=== PATIENT | female | born 1950 | race Caucasian/White ===

== ENCOUNTER 2016-05-15 19:07 | Inpatient (IN) | payer MEDICARE, OTHER ==
--- NOTE | 2016-05-15 19:25 | ED ---
Neuro HPI - General Stated Complaint: CVA Time Seen by Provider: 05/15/16 19:14 Source: EMS, RN notes reviewed Limitations: altered mental status - History of Present Illness Is the patient presenting with stroke symptoms?: Yes Last Known Well Date: 05/15/16 Last Known Well Time: 17:30 -: hour(s) Initial Comments: This patient is a 66-year-old woman sent in from longterm for suspicion of possible stroke. They report that the patient will last seen in her usual state of health around 5:30 PM. She was next observed to have trouble speaking and to reportedly have left arm weakness. Patient does have previous history of stroke. The patient is not able to provide much history though she can answer some simple 1 word questions. Location: speech, left arm History of same: Yes Place: home Severity: severe Quality: weak Improves With: none Worsens With: none - Related Data Home Medications: Home Medications Medication Instructions Recorded Confirmed Atorvastatin Calcium [Lipitor] 40 mg PO HS@209902/02/14 05/15/16 Loratadine [Claritin] 10 mg PO DAILY PRN 02/02/14 05/15/16 Apixaban [Eliquis] 2.5 mg PO BID@0900,209910/10/14 05/15/16 Calcium Carb-Vit D 500Mg-200Un 1 tab PO BID@0900,1700 10/10/14 05/15/16 [Oscal 500+D] Ferrous Sulfate [Iron (65 MG 325 mg PO DAILY@0900 01/01/16 05/15/16 Elemental)] OLANZapine [ZyPREXA] 10 mg PO TID@0900,1300,209901/09/16 05/15/16 Sertraline [Zoloft] 100 mg PO DAILY@0901/09/16 05/15/16 amLODIPine [Norvasc] 10 mg PO DAILY@0901/09/16 05/15/16 ALPRAZolam [Xanax] 1 mg PO Q6H PRN 05/15/16 05/15/16 Aspirin 325 mg PO DAILY@89905/15/16 05/15/16 Atenolol [Tenormin] 25 mg PO DAILY@0905/15/16 05/15/16 Furosemide [Lasix] 20 mg PO DAILY@89905/15/1616 Gabapentin [Neurontin] 100 mg PO BID@0900,2100 05/15/16 05/15/16 HYDROcodone/APAP 5-325MG [[place] 1 tab PO Q12H PRN 05/15/16 05/15/16 5-325] Ibuprofen [Motrin] 200 mg PO Q12H PRN 05/15/16 05/15/16 Latanoprost Ophth [Xalatan 0.005%] 1 drops BOTH EYES HS@209905/15/16 05/15/16 Lisinopril [Zestril] 20 mg PO DAILY@0900 05/15/16 05/15/16 Methyl Salicylate/Menthol 1 patch TRANSDERM DAILY@0900 05/15/16 05/15/16 [Salonpas Patch] Morphine Sulfate ER [Ms Contin 15 mg PO DAILY PRN 05/15/16 05/15/16 15Mg] Morphine Sulfate ER [Ms Contin] 15 mg PO Q12HR 05/15/16 05/15/16 Potassium Chloride [Klor-Con 10] 10 meq PO DAILY@0900 05/15/16 05/15/16 Previous Rx's Medication Instructions Recorded Acetaminophen Tab [Tylenol] 650 mg PO Q4H PRN #0 tab 01/06/16 Cholecalciferol [Vitamin D3] 5,000 unit PO DAILY@1200 tab 01/06/16 Cholestyramine (with Sugar) 4 gm PO DAILY@0900 packet 01/06/16 [Questran Packet] Isosorbide Mononitrate ER [Imdur] 30 mg PO DAILY@0600 tab.er.24h 01/06/16 Levothyroxine Sodium [Synthroid] 100 mcg PO DAILY@0600 tab 01/06/16 Mag Hydrox/Al Hydrox/Simeth 30 ml PO Q6H PRN #0 cup 01/06/16 [Maalox] Montelukast [Singulair] 10 mg PO HS@2100 tab 01/06/16 Ondansetron [Zofran] 4 mg PO Q6H PRN #0 tab 01/06/16 Allergies/Adverse Reactions: Allergies Allergy/AdvReac Type Severity Reaction Status Date / Time strawberry Allergy Unknown Verified 05/15/16 20:21 Review of Systems ROS Statement: Those systems with pertinent positive or pertinent negative responses have been documented in the HPI. ROS Other: All systems not noted in ROS Statement are negative. General Exam General appearance: alert, obese, other (This patient is a 66-year-old woman who appears older than her stated age. She is alert but not responding appropriately. She does appear to be having periodic myoclonic jerks.) Head exam: Present: atraumatic, normocephalic Eye exam: Present: normal appearance, PERRL, EOMI. Absent: scleral icterus, conjunctival injection ENT exam: Present: mucous membranes dry Neck exam: Present: normal inspection. Absent: tenderness, meningismus Respiratory exam: Present: rhonchi. Absent: respiratory distress, wheezes, rales, stridor, decreased breath sounds Cardiovascular Exam: Present: regular rate, normal rhythm, normal heart sounds. Absent: systolic murmur, diastolic murmur, rubs, gallop GI/Abdominal exam: Present: soft. Absent: tenderness, guarding, rebound, mass Extremities exam: Present: other (Right-sided AKA.). Absent: tenderness, pedal edema, calf tenderness Back exam: Present: normal inspection Neurological exam: Present: alert, motor sensory deficit (There is left arm weakness). Absent: oriented X3 (Patient appears oriented to person and she seems to recognize that this is a hospital but not oriented to date), CN II-XII intact (Speech is dysarthric) Skin exam: Present: warm, dry, intact, normal color. Absent: rash Stroke MDM - Lab Data Result diagrams: 05/16/16 04:25 05/16/16 04:25 Lab Results 05/15/16 05/15/16 05/15/16 Range/Units 19:15 19:15 19:15 WBC 17.2 H (3.8-10.6) k/uL RBC 3.91 (3.80-5.40) m/uL Hgb 11.5 (11.4-16.0) gm/dL Hct 36.7 (34.0-46.0) % MCV 93.8 (80.0-100.0) fL MCH 29.5 (25.0-35.0) pg MCHC 31.4 (31.0-37.0) g/dL RDW 13.7 (11.5-15.5) % Plt Count 134 L (150-450) k/uL Neutrophils % 91 % Lymphocytes % 4 % Monocytes % 3 % Eosinophils % 1 % Basophils % 0 % Neutrophils # 15.7 H (1.3-7.7) k/uL Lymphocytes # 0.7 L (1.0-4.8) k/uL Monocytes # 0.5 (0-1.0) k/uL Eosinophils # 0.1 (0-0.7) k/uL Basophils # 0.0 (0-0.2) k/uL Hypochromasia Slight PT (9.0-12.0) sec INR (<1.1) APTT (22.0-30.0) sec Sodium 138 (137-145) mmol/L Potassium 8.8 H* (3.5-5.1) mmol/L Chloride 104 (98-107) mmol/L Carbon Dioxide 18 L (22-30) mmol/L Anion Gap 16 mmol/L BUN 65 H (7-17) mg/dL Creatinine 4.14 H (0.52-1.04) mg/dL Est GFR (MDRD) Af Amer 13 (>60 ml/min/1.73 sqM) Est GFR (MDRD) Non-Af 11 (>60 ml/min/1.73 sqM) Glucose 118 H (74-99) mg/dL POC Glucose (mg/dL) (75-99) mg/dL POC Glu Car Dumper Operator Helper ID Plasma Lactic Acid Anshul (0.7-2.0) mmol/L Calcium 8.5 (8.4-10.2) mg/dL Total Bilirubin 0.4 (0.2-1.3) mg/dL AST 38 H (14-36) U/L ALT 44 (9-52) U/L Alkaline Phosphatase 89 (38-126) U/L Total Creatine Kinase 161 H (30-135) U/L CK-MB (CK-2) 3.6 H* (0.0-2.4) ng/mL CK-MB (CK-2) Rel Index 2.2 Troponin I <0.012 (0.000-0.034) ng/mL Total Protein 7.6 (6.3-8.2) g/dL Albumin 3.6 (3.5-5.0) g/dL Urine Color Urine Appearance (Clear) Urine pH (5.0-8.0) Ur Specific [place] (1.001-1.035) Urine Protein (Negative) Urine Glucose (UA) (Negative) Urine Ketones (Negative) Urine Blood (Negative) Urine Nitrate (Negative) Urine Bilirubin (Negative) Urine Urobilinogen (<2.0) mg/dL Ur Leukocyte Esterase (Negative) Urine RBC (0-5) /hpf Urine WBC (0-5) /hpf Urine WBC Clumps (None) /hpf Ur Squamous Epith Cells (0-4) /hpf Amorphous Sediment (None) /hpf Urine Bacteria (None) /hpf Hyaline Casts (0-2) /lpf 05/15/16 05/15/16 05/15/16 Range/Units 19:15 20:12 20:12 WBC (3.8-10.6) k/uL RBC (3.80-5.40) m/uL Hgb (11.4-16.0) gm/dL Hct (34.0-46.0) % MCV (80.0-100.0) fL MCH (25.0-35.0) pg MCHC (31.0-37.0) g/dL RDW (11.5-15.5) % Plt Count (150-450) k/uL Neutrophils % % Lymphocytes % % Monocytes % % Eosinophils % % Basophils % % Neutrophils # (1.3-7.7) k/uL Lymphocytes # (1.0-4.8) k/uL Monocytes # (0-1.0) k/uL Eosinophils # (0-0.7) k/uL Basophils # (0-0.2) k/uL Hypochromasia PT 11.2 (9.0-12.0) sec INR 1.1 (<1.1) APTT 30.4 H (22.0-30.0) sec Sodium (137-145) mmol/L Potassium 8.5 H* (3.5-5.1) mmol/L Chloride (98-107) mmol/L Carbon Dioxide (22-30) mmol/L Anion Gap mmol/L BUN (7-17) mg/dL Creatinine (0.52-1.04) mg/dL Est GFR (MDRD) Af Amer (>60 ml/min/1.73 sqM) Est GFR (MDRD) Non-Af (>60 ml/min/1.73 sqM) Glucose (74-99) mg/dL POC Glucose (mg/dL) (75-99) mg/dL POC Glu Car Dumper Operator Helper ID Plasma Lactic Acid Anshul 0.9 (0.7-2.0) mmol/L Calcium (8.4-10.2) mg/dL Total Bilirubin (0.2-1.3) mg/dL AST (14-36) U/L ALT (9-52) U/L Alkaline Phosphatase (38-126) U/L Total Creatine Kinase (30-135) U/L CK-MB (CK-2) (0.0-2.4) ng/mL CK-MB (CK-2) Rel Index Troponin I (0.000-0.034) ng/mL Total Protein (6.3-8.2) g/dL Albumin (3.5-5.0) g/dL Urine Color Urine Appearance (Clear) Urine pH (5.0-8.0) Ur Specific [place] (1.001-1.035) Urine Protein (Negative) Urine Glucose (UA) (Negative) Urine Ketones (Negative) Urine Blood (Negative) Urine Nitrate (Negative) Urine Bilirubin (Negative) Urine Urobilinogen (<2.0) mg/dL Ur Leukocyte Esterase (Negative) Urine RBC (0-5) /hpf Urine WBC (0-5) /hpf Urine WBC Clumps (None) /hpf Ur Squamous Epith Cells (0-4) /hpf Amorphous Sediment (None) /hpf Urine Bacteria (None) /hpf Hyaline Casts (0-2) /lpf 05/15/16 05/15/16 Range/Units 20:30 21:50 WBC (3.8-10.6) k/uL RBC (3.80-5.40) m/uL Hgb (11.4-16.0) gm/dL Hct (34.0-46.0) % MCV (80.0-100.0) fL MCH (25.0-35.0) pg MCHC (31.0-37.0) g/dL RDW (11.5-15.5) % Plt Count (150-450) k/uL Neutrophils % % Lymphocytes % % Monocytes % % Eosinophils % % Basophils % % Neutrophils # (1.3-7.7) k/uL Lymphocytes # (1.0-4.8) k/uL Monocytes # (0-1.0) k/uL Eosinophils # (0-0.7) k/uL Basophils # (0-0.2) k/uL Hypochromasia PT (9.0-12.0) sec INR (<1.1) APTT (22.0-30.0) sec Sodium (137-145) mmol/L Potassium (3.5-5.1) mmol/L Chloride (98-107) mmol/L Carbon Dioxide (22-30) mmol/L Anion Gap mmol/L BUN (7-17) mg/dL Creatinine (0.52-1.04) mg/dL Est GFR (MDRD) Af Amer (>60 ml/min/1.73 sqM) Est GFR (MDRD) Non-Af (>60 ml/min/1.73 sqM) Glucose (74-99) mg/dL POC Glucose (mg/dL) 184 H (75-99) mg/dL POC Glu Car Dumper Operator Helper ID Tessa Wyatt Plasma Lactic Acid Anshul (0.7-2.0) mmol/L Calcium (8.4-10.2) mg/dL Total Bilirubin (0.2-1.3) mg/dL AST (14-36) U/L ALT (9-52) U/L Alkaline Phosphatase (38-126) U/L Total Creatine Kinase (30-135) U/L CK-MB (CK-2) (0.0-2.4) ng/mL CK-MB (CK-2) Rel Index Troponin I (0.000-0.034) ng/mL Total Protein (6.3-8.2) g/dL Albumin (3.5-5.0) g/dL Urine Color Yellow Urine Appearance Turbid H (Clear) Urine pH 5.0 (5.0-8.0) Ur Specific [place] 1.020 (1.001-1.035) Urine Protein Trace H (Negative) Urine Glucose (UA) Negative (Negative) Urine Ketones Negative (Negative) Urine Blood Negative (Negative) Urine Nitrate Negative (Negative) Urine Bilirubin 1+ H (Negative) Urine Urobilinogen 2.0 (<2.0) mg/dL Ur Leukocyte Esterase Large H (Negative) Urine RBC 3 (0-5) /hpf Urine WBC 106 H (0-5) /hpf Urine WBC Clumps Many H (None) /hpf Ur Squamous Epith Cells 1 (0-4) /hpf Amorphous Sediment Rare H (None) /hpf Urine Bacteria Many H (None) /hpf Hyaline Casts 6 H (0-2) /lpf - EKG Data -: EKG Interpreted by Me EKG shows normal: sinus rhythm, axis (Normal), intervals (There is a prolonged AL interval at 256 ms and increased QRS duration at 132 ms), QRS complexes ( There is a nonspecific intraventricular block), ST-T waves (There are T inversions in leads 1 and aVL as well as V4 through V6) Rate: normal When compared to previous EKG there are: changes noted, other (In comparison with the EKG from December 2015, the intraventricular block appears new.) Past Medical History Past Medical History: Asthma, Heart Failure, Diabetes Mellitus, GERD/Reflux, GI Bleed, Hyperlipidemia, Hypertension, Osteoarthritis (OA), Pneumonia, Thyroid Disorder Additional Past Medical History / Comment(s): GENERALIZED MUSCLE WEAKNESS, OSTEOMYELITIS, UTI'S/SEPSIS,BRONCHITIS, LOWER GI BLEED(RECIEVED BLOOD), BACK PAIN, anemia, hep C, History of Any Multi-Drug Resistant Organisms: MRSA, Other MDRO Date of last positivie culture/infection: 10/10/2014-MDRO Pseudomonas; 11/25/2013- MRSA MDRO Source:: Urine-MDRO and MRSA Past Surgical History: Orthopedic Surgery Additional Past Surgical History / Comment(s): RIGHT KNEE REPLACEMTN THE POST OP INFECTION-SEVERAL OTHER SX THEN AKA , COLONOSCOPY,HAD A LT ARM PICC LINE FOR ABX, Past Anesthesia/Blood Transfusion Reactions: No Reported Reaction Additional Past Anesthesia/Blood Transfusion Reaction / Comment(s): Pt has recieved blood without reaction. Past Psychological History: Anxiety, Bipolar, Depression Additional Psychological History / Comment(s): Pt resides at [facility] on the [place]. She states she is able to transfer by herself to a wheelchair. She feeds herself and needs minimal assist with ADL's. Smoking Status: Former smoker Past Alcohol Use History: None Reported Additional Past Alcohol Use History / Comment(s): Pt started smoking around 1996 and quit smoking in 2005. Past Drug Use History: Heroin Additional Drug Use History / Comment(s): Pt states she did use heroin many yrs ago. - Past Family History Father Family Medical History: Hypertension Mother Family Medical History: Hypertension Course Vital Signs 05/15/16 05/15/16 05/15/16 19:10 19:25 19:40 Temperature 96.9 F L Pulse Rate 69 71 64 Respiratory 20 20 22 Rate Blood Pressure 92/59 86/50 O2 Sat by Pulse 92 L 91 L Oximetry 05/15/16 05/15/16 05/15/16 19:54 20:15 20:30 Temperature Pulse Rate 60 71 69 Respiratory 20 20 20 Rate Blood Pressure 74/37 O2 Sat by Pulse 92 L 92 L 93 L Oximetry 05/15/16 05/15/16 05/15/16 21:15 21:45 22:25 Temperature Pulse Rate 67 74 72 Respiratory 22 20 22 Rate Blood Pressure 97/52 O2 Sat by Pulse 94 L 94 L 91 L Oximetry 05/15/16 05/15/16 05/15/16 22:42 22:57 23:12 Temperature Pulse Rate 68 62 62 Respiratory 22 22 22 Rate Blood Pressure 85/48 86/46 83/45 O2 Sat by Pulse 96 95 94 L Oximetry 05/15/16 05/15/16 05/15/16 23:27 23:32 23:42 Temperature Pulse Rate 64 72 68 Respiratory 22 22 20 Rate Blood Pressure 80/50 99/65 101/52 O2 Sat by Pulse 97 95 96 Oximetry 05/16/16 05/16/16 00:01 01:48 Temperature Pulse Rate 65 64 Respiratory 22 20 Rate Blood Pressure 108/62 96/53 O2 Sat by Pulse 95 91 L Oximetry - Reevaluation(s) Reevaluation #1: 05/15/16 19:57 Patient seen and examined by Dr. Ashford, using the stroke robot. We conferred regarding the patient. There is documentation in the chart of past intracranial hemorrhage and in addition the patient's exam does seem to be improving somewhat, and based on these 2 factors TPA does not seem indicated. I am addition the patient's labs support metabolic issue as possible etiology for her altered mental status and weakness. Reevaluation #2: 05/16/16 07:02 The patient did have a response to the fluid bolus and blood pressure had improved then following the end of the fluid bolus she did become a little bit hypotensive again and I started central line so that the patient could receive another fluid bolus and for the administration of pressors. Procedures - Central Line Placement Left Femoral Consent Obtained: emergent situation Time Out Performed: Yes Patient Placed on Monitor/Pulse Ox: Yes MD Prep: mask, gown, gloves Central Line Prep: Chlorhexidine scrub Local Anesthesia Used: Lidocaine 1% Amount of Anesthesia Used (mls): 2 Central Line Lumen Inserted: triple Bloods Obtained for Lab: Yes Central Line Position: good blood return, all ports aspirated, flushed, capped, sutured in place with nylon Dressing Applied: Tegaderm Patient Tolerated Procedure: well Complications: none Critical Care Time Critical Care Time: Yes (55 minutes) Disposition Clinical Impression: Hyperkalemia, Acute renal failure, Urinary tract infection, Altered mental status, Hypotension Narrative: Possible acute ischemic stroke Disposition: ADMITTED IP TO THIS HOSP Condition: Critical
[2016-05-15 19:27] LABS: Basophils % (A) 0 %; CH 29.3; CHCM 31.4; Eosinophils # (A) 0.1 k/uL (0-0.7); Eosinophils % (A) 1 %; HCT 36.7 % (34.0-46.0); HGB 11.5 gm/dL (11.4-16.0); Hypochromasia Slight; Luc # (Auto) 0.17; Luc % (Auto) 1; Lymphocytes # (A) 0.7 k/uL (1.0-4.8); Lymphocytes % (A) 4 %; MCH 29.5 pg (25.0-35.0); MCHC 31.4 g/dL (31.0-37.0); MCV 93.8 fL (80.0-100.0); Mean Platelet Volume 8.1; Monocytes # (A) 0.5 k/uL (0-1.0); Monocytes % (A) 3 %; Neutrophils # (A) 15.7 k/uL (1.3-7.7); Neutrophils % (A) 91 %; RBC 3.91 m/uL (3.80-5.40); RDW 13.7 % (11.5-15.5); WBC 17.2 k/uL (3.8-10.6); WBC (Perox) 18.81
--- NOTE | 2016-05-15 19:37 | CT ---
EXAMINATION TYPE: CT brain wo con DATE OF EXAM: 05/15/2016 7:31 PM COMPARISON: 01/09/2016 HISTORY: Neuro deficits. CT DLP: mGycm Automated exposure control for dose reduction was used. FINDINGS: There is some cerebral cortical atrophy. There is no mass effect or midline shift. There is no sign o f intracranial hemorrhage. The calvarium is intact. There is mild hypodensity in the right occipital lobe consistent with old cortical infarct. There is mild hypodensity in the left and right internal c apsule consistent with some chronic small vessel ischemia. IMPRESSION: There is evidence of old right occipital lobe infarct and chronic small vessel ischemia that is less noticeable than the old CT scan of 01/09/2016. No hemorrhage. I see no sign of a new infarct.
[2016-05-15 19:48] LABS: Calcium 8.5 mg/dL (8.4-10.2); Total Bilirubin 0.4 mg/dL (0.2-1.3); Total Protein 7.6 g/dL (6.3-8.2)
[2016-05-15 19:52] LABS: Potassium 8.8 mmol/L (3.5-5.1)
[2016-05-15] MEDS ORDERED: SODIUM CHLORIDE 0.9% 1,000 ML IV ONE ×3 (19:53→23:07)
[2016-05-15 20:00] LABS: INR 1.1 (<1.1); Partial Thromboplastin Time 30.4 sec (22.0-30.0); Prothrombin Time 11.2 sec (9.0-12.0)
[2016-05-15 20:03] LABS: Creatine Kinase 161 U/L (30-135)
[2016-05-15 20:15] LABS: Creatine Kinase MB 3.6 ng/mL (0.0-2.4); Troponin I <0.012 ng/mL (0.000-0.034)
--- NOTE | 2016-05-15 20:27 | XR ---
EXAMINATION TYPE: XR chest 1V portable DATE OF EXAM: 05/15/2016 8:09 PM COMPARISON: 01/10/2016 HISTORY: Slurred speech. Left-sided weakness. Dyspnea. TECHNIQUE: Single frontal view of the chest is obtained. FINDINGS: A portable single view the chest shows no gross heart failure. Costophrenic angles are genet ar. There are no hilar masses. There are chest leads. IMPRESSION: No active cardiopulmonary disease. No heart failure. No change compared to last exam.
[2016-05-15] MEDS ORDERED: CALCIUM GLUCONATE 1,000 MG in SODIUM CHLORIDE 0.9% 100 ML IVPB ONE (20:30)
[2016-05-15] MEDS ORDERED: SODIUM POLYSTYRENE SULFONATE 15 GM/60 ML BOTTLE PO STA (20:43)
[2016-05-15] MEDS ORDERED: DEXTROSE 50%-WATER 50 ML SYRINGE IVP STA (20:43)
[2016-05-15] MEDS ORDERED: INSULIN REGULAR 100 UNIT/ML VIAL IV STA (20:43)
[2016-05-15] MEDS ORDERED: SODIUM BICARB 8.4% 50 ML SYR (1 MEQ/ML) IV STA (20:43)
[2016-05-15 20:44] LABS: Amorphous Sediment,Urine Rare /hpf; Appearance,Urine Turbid (Clear); Bacteria,Urine Many /hpf; Bilirubin,Urine 1+ (Negative); Glucose,Urine (UA) Negative (Negative); Ketones,Urine Negative (Negative); Leukocyte Esterase,Urine Large (Negative); Nitrite,Urine Negative (Negative); Particle Count 20837; Protein,Urine Trace (Negative); RBC,Urine 3 /hpf (0-5); Squamous Epithelial Cell,Urine 1 /hpf (0-4); UA Billing (MACRO vs. MICRO) MICRO; WBC,Urine 106 /hpf (0-5)
[2016-05-15] MEDS ORDERED: SODIUM CHLORIDE 0.9% 1,000 ML IV STA (20:59)
[2016-05-15] MEDS ORDERED: LEVOFLOXACIN 750MG-D5W PMX 750 MG in DEXTROSE/WATER 1 150ML.BAG IVPB STA (21:24)
[2016-05-15 21:54] LABS: Glucose,Whole Blood 184 mg/dL (75-99)
[2016-05-15] MEDS ORDERED: SODIUM POLYSTYRENE SULFONATE 30 GM/120 ML BOTTLE RECTAL STA (22:01)
[2016-05-15] MEDS ORDERED: ACETAMINOPHEN SUPPOSITORY 650 MG SUPP RECTAL PRN (23:53)
[2016-05-15] MEDS ORDERED: NALOXONE 0.4 MG/ML 1 ML VIAL IV PRN (23:53)
[2016-05-15] MEDS ORDERED: ONDANSETRON 4 MG TAB PO PRN (23:57)
[2016-05-15] MEDS ORDERED: MAG HYDROX/AL HYDROX/SIMETH 30 ML CUP PO PRN (23:57)
[2016-05-16] MEDS ORDERED: NOREPINEPHRINE 16 MG in SODIUM CHLORIDE 0.9% 250 ML IV ONE (01:08)
[2016-05-16 01:20] LABS: Basophils % (A) 0 %; CH 29.2; Eosinophils # (A) 0.1 k/uL (0-0.7); Eosinophils % (A) 1 %; HCT 33.4 % (34.0-46.0); HDW 2.98; HGB 10.3 gm/dL (11.4-16.0); Hypochromasia Moderate; Luc # (Auto) 0.14; Luc % (Auto) 1; Lymphocytes # (A) 0.8 k/uL (1.0-4.8); Lymphocytes % (A) 5 %; MCH 29.2 pg (25.0-35.0); MCHC 30.9 g/dL (31.0-37.0); MCV 94.6 fL (80.0-100.0); Mean Platelet Volume 8.1; Monocytes # (A) 0.5 k/uL (0-1.0); Monocytes % (A) 3 %; Neutrophils % (A) 90 %; RBC 3.53 m/uL (3.80-5.40); RDW 13.7 % (11.5-15.5); WBC 15.5 k/uL (3.8-10.6); WBC (Perox) 17.08
[2016-05-16] MEDS: SODIUM CHLORIDE 0.9% 1,000 ML IV SCH ×4 (01:24→19:46)
[2016-05-16 01:26] LABS: Calcium 7.6 mg/dL (8.4-10.2); Total Bilirubin 0.2 mg/dL (0.2-1.3); Total Protein 6.2 g/dL (6.3-8.2)
[2016-05-16 01:41] LABS: Potassium 7.8 mmol/L (3.5-5.1)
[2016-05-16] MEDS ORDERED: HYDROmorphone 1 MG/ML 1 ML SYRINGE IVP STA (01:50)
[2016-05-16] MEDS: NOREPINEPHRINE 16 MG in SODIUM CHLORIDE 0.9% 250 ML IV SCH ×4 (02:05→23:34)
[2016-05-16 02:07] LABS: Glucose,Whole Blood 129 mg/dL (75-99)
[2016-05-16] MEDS ORDERED: ETOMIDATE 2 MG/ML 10 ML VIAL ONE (02:10)
[2016-05-16 02:49] LABS: ABG HCO3 18 mmol/L (21-25); ABG PCO2 64 mmHg (35-45); ABG PH 7.07 (7.35-7.45); ABG PO2 71 mmHg (83-108); ABG TCO2 20 mmol/L (19-24)
[2016-05-16] MEDS ORDERED: NALOXONE 0.4 MG/ML 1 ML VIAL IV STA (02:59)
[2016-05-16] MEDS: PROPOFOL 500 MG in EMPTY BAG 1 BAG IV SCH ×11 (03:05→23:46)
[2016-05-16 03:07] LABS: Magnesium 2.1 mg/dL (1.6-2.3)
[2016-05-16 03:15] LABS: Phosphorous 8.8 mg/dL (2.5-4.5)
[2016-05-16] MEDS ORDERED: FUROSEMIDE IVPB SCH (03:15)
[2016-05-16] MEDS ORDERED: SODIUM CHLORIDE 0.9% IVPB SCH (03:15)
[2016-05-16] MEDS ORDERED: PROPOFOL 50 ML IV ONE (03:18)
[2016-05-16] MEDS ORDERED: FUROSEMIDE IVP ONE (03:30)
[2016-05-16] MEDS ORDERED: HEPARIN SODIUM 1,000 UNIT/ML VIAL ONE (04:05)
[2016-05-16] MEDS ORDERED: LIDOCAINE 1% INJ 10MG/ML (20 ML MDV) ONE (04:05)
[2016-05-16 04:18] LABS: ABG HCO3 16 mmol/L (21-25); ABG PCO2 51 mmHg (35-45); ABG PH 7.13 (7.35-7.45); ABG PO2 145 mmHg (83-108)
[2016-05-16 04:19] LABS: ABG Base Excess -11.4 mmol/L; ABG TCO2 18 mmol/L (19-24)
[2016-05-16 04:37] LABS: Basophils % (A) 0 %; CH 29.2; CHCM 29.7; Eosinophils # (A) 0.1 k/uL (0-0.7); Eosinophils % (A) 0 %; HCT 37.2 % (34.0-46.0); HDW 2.96; HGB 10.9 gm/dL (11.4-16.0); Hypochromasia Marked; Luc # (Auto) 0.17; Luc % (Auto) 1; Lymphocytes # (A) 0.8 k/uL (1.0-4.8); Lymphocytes % (A) 4 %; MCH 28.9 pg (25.0-35.0); MCHC 29.2 g/dL (31.0-37.0); MCV 98.8 fL (80.0-100.0); Mean Platelet Volume 8.7; Monocytes # (A) 0.6 k/uL (0-1.0); Monocytes % (A) 3 %; Neutrophils # (A) 19.7 k/uL (1.3-7.7); Neutrophils % (A) 92 %; RBC 3.77 m/uL (3.80-5.40); RDW 13.9 % (11.5-15.5); WBC 21.5 k/uL (3.8-10.6); WBC (Perox) 23.09
--- NOTE | 2016-05-16 04:45 | XR ---
EXAMINATION TYPE: XR chest 1V portable DATE OF EXAM: 05/16/2016 4:25 AM COMPARISON: May 15, 2016 HISTORY: ET tube placement TECHNIQUE: Single frontal view of the chest is obtained. Portable upright study May 16, 2016, 4: 18 AM hours FINDINGS: ET tube is noted in place with its tip approximately 1 cm above the giovanny. NG tube is noted in place with its tip coiled in the stomach area. Right-sided central line is noted in place with its tip in the atriocaval junction area. There is suggestion of diffuse mild perihilar pulmonary edema. There is also possibility of chronic lung changes. No definite focal pneumonia or pneumothorax or ple ural effusion is noted. There is mild cardiomegaly and atherosclerotic calcification in the aortic ar ch. The osseous structures are intact. IMPRESSION: 1. ET tube NG tube and right-sided central line are noted. 2. Suggestion of mild pulmonary edema. No focal pneumonia is noted.
[2016-05-16] MEDS ORDERED: SODIUM CHLORIDE 0.9% 2,000 ML IV ONE ×2 (04:47→20:01)
[2016-05-16] MEDS ORDERED: SODIUM BICARB 8.4% 50 ML VIAL (1 MEQ/ML) IV STA (04:47)
[2016-05-16] MEDS ORDERED: SODIUM BICARB 8.4% 50 ML SYR (1 MEQ/ML) IV STA (04:54)
[2016-05-16 04:55] LABS: Calcium 7.7 mg/dL (8.4-10.2); Total Bilirubin 0.5 mg/dL (0.2-1.3); Total Protein 6.8 g/dL (6.3-8.2)
[2016-05-16 05:00] LABS: Potassium 7.8 mmol/L (3.5-5.1)
[2016-05-16] MEDS ORDERED: ISOSORBIDE MONONITRATE ER 30 MG TAB.ER.24H PO SCH (06:00)
[2016-05-16 06:45] LABS: Glucose,Whole Blood 141 mg/dL (75-99)
[2016-05-16] MEDS ORDERED: IPRATROPIUM-ALBUTEROL 3 ML NEB INHALATION PRN (08:10)
[2016-05-16] MEDS ORDERED: ATENOLOL 25 MG TAB PO SCH (09:00)
[2016-05-16] MEDS ORDERED: APIXABAN 2.5 MG TABLET PO SCH (09:00)
[2016-05-16] MEDS ORDERED: LISINOPRIL 20 MG TAB PO SCH (09:00)
--- NOTE | 2016-05-16 09:03 | P.NPCON ---
History of Present Illness - Reason for Consult acute renal failure - Chief Complaint MS change with SOPHIA and pot 8 - History of Present Illness This is a 66-year-old female seen in consultation because of severe hyperkalemia and acute kidney injury. She is a senior living resident at [facility]. I spoke to the nurse taking care of her at the senior living. Yesterday at 5:30 PM she had an acute change in her mental status and was noted to have left-sided weakness and transferred to emergency room. Her baseline mental status is normal. She is on morphine sulfate though because of chronic pain syndrome with phantom pain and possibly neuropathy in the left leg. I spoke to the nurse and her blood for supposedly is 119 yesterday. 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 At the time her creatinine was normal.. She was found to be hypotensive, somewhat disoriented have acute kidney injury with creatinine of 8.8 and repeat creatinines were 8.5 and 7.8. She is currently on dialysis for this reason as she did not respond to the conventional treatment and additionally was started on Lasix early this morning. She has responded with some urine output. Patient known with diabetes for unknown number of years, she had a normal creatinine of 0. 7 on 01/14/2016. A later creatinine drawn in the senior living on 05/08/2016 shows a creatinine of about 1.52 potassium is 5.7. This time she is on lisinopril and KCl 10 mEq as well as Lasix 20 mg a day. No history of taking any nonsteroidals. She was on Cipro for a few days last dose was approximately 04/30/2016 based on the senior living medication list. No new medications were given. No history of fall and nausea vomiting diarrhea abdominal pain no fever chills cough shortness of breath. No history of seizures in the senior living. In the past during her admission here on 01/01/2016 she did, with a creatinine of 2.6 for the time and went home with a creatinine of 0.7 as of 01/14/2016. Past Medical History Past Medical History: Asthma, Heart Failure, Diabetes Mellitus, GERD/Reflux, GI Bleed, Hyperlipidemia, Hypertension, Osteoarthritis (OA), Pneumonia, Thyroid Disorder Additional Past Medical History / Comment(s): GENERALIZED MUSCLE WEAKNESS, OSTEOMYELITIS, UTI'S/SEPSIS,BRONCHITIS, LOWER GI BLEED(RECIEVED BLOOD), BACK PAIN, anemia, hep C, History of Any Multi-Drug Resistant Organisms: MRSA, Other MDRO Date of last positivie culture/infection: 10/10/2014-MDRO Pseudomonas; 11/25/2013- MRSA MDRO Source:: Urine-MDRO and MRSA Past Surgical History: Orthopedic Surgery Additional Past Surgical History / Comment(s): RIGHT KNEE REPLACEMTN THE POST OP INFECTION-SEVERAL OTHER SX THEN AKA , COLONOSCOPY,HAD A LT ARM PICC LINE FOR ABX, Past Anesthesia/Blood Transfusion Reactions: No Reported Reaction Additional Past Anesthesia/Blood Transfusion Reaction / Comment(s): Pt has recieved blood without reaction. Past Psychological History: Anxiety, Bipolar, Depression Additional Psychological History / Comment(s): Pt resides at [facility] on [facility]. She states she is able to transfer by herself to a wheelchair. She feeds herself and needs minimal assist with ADL's. Smoking Status: Former smoker Past Alcohol Use History: None Reported Additional Past Alcohol Use History / Comment(s): Pt started smoking around 1996 and quit smoking in 2005. Past Drug Use History: Heroin Additional Drug Use History / Comment(s): Pt states she did use heroin many yrs ago. - Past Family History Father Family Medical History: Hypertension Mother Family Medical History: Hypertension Medications and Allergies Home Medications Medication Instructions Recorded Confirmed Type Atorvastatin Calcium [Lipitor] 40 mg PO HS@209902/02/14 05/15/16 History Loratadine [Claritin] 10 mg PO DAILY PRN 02/02/14 05/15/16 History Apixaban [Eliquis] 2.5 mg PO BID@0900,209910/10/14 05/15/16 History Calcium Carb-Vit D 500Mg-200Un 1 tab PO BID@0900,1700 10/10/14 05/15/16 History [Oscal 500+D] Ferrous Sulfate [Iron (65 MG 325 mg PO DAILY@0900 01/01/16 05/15/16 History Elemental)] OLANZapine [ZyPREXA] 10 mg PO TID@0900,1300,2100 01/09/16 05/15/16 History Sertraline [Zoloft] 100 mg PO DAILY@0900 01/09/16 05/15/16 History amLODIPine [Norvasc] 10 mg PO DAILY@0900 01/09/16 05/15/16 History ALPRAZolam [Xanax] 1 mg PO Q6H PRN 05/15/16 05/15/16 History Aspirin 325 mg PO DAILY@0900 05/15/16 05/15/16 History Atenolol [Tenormin] 25 mg PO DAILY@0900 05/15/16 05/15/16 History Furosemide [Lasix] 20 mg PO DAILY@0900 05/15/16 05/15/16 History Gabapentin [Neurontin] 100 mg PO BID@0900,209905/15/16 05/15/16 History HYDROcodone/APAP 5-325MG [[place] 1 tab PO Q12H PRN 05/15/16 05/15/16 History 5-325] Ibuprofen [Motrin] 200 mg PO Q12H PRN 05/15/16 05/15/16 History Latanoprost Ophth [Xalatan 0.005%] 1 drops BOTH EYES HS@209905/15/16 05/15/16 History Lisinopril [Zestril] 20 mg PO DAILY@0900 05/15/16 05/15/16 History Methyl Salicylate/Menthol 1 patch TRANSDERM DAILY@0905/15/16 05/15/16 History [Salonpas Patch] Morphine Sulfate ER [Ms Contin 15 mg PO DAILY PRN 05/15/16 05/15/16 History 15Mg] Morphine Sulfate ER [Ms Contin] 15 mg PO Q12HR 05/15/16 05/15/16 History Potassium Chloride [Klor-Con 10] 10 meq PO DAILY@0900 05/15/16 05/15/16 History Allergies Allergy/AdvReac Type Severity Reaction Status Date / Time strawberry Allergy Unknown Verified 05/15/16 20:21 Physical Exam Vitals: Vital Signs Temp Pulse Resp BP Pulse Ox 05/16/16 08:20 81 24 120/40 97 05/16/16 08:00 68 24 115/44 96 05/16/16 07:40 66 24 124/36 97 05/16/16 07:20 66 24 114/36 97 05/16/16 07:00 66 24 120/38 96 05/16/16 06:40 73 24 85/36 98 05/16/16 06:20 75 24 102/30 97 05/16/16 06:00 75 24 106/32 96 05/16/16 05:50 66 24 110/34 97 05/16/16 05:40 104 H 24 104/37 97 05/16/16 05:30 65 24 107/37 98 05/16/16 05:20 65 24 112/34 99 05/16/16 05:10 96 26 H 106/42 100 05/16/16 05:00 69 24 100/36 100 05/16/16 04:50 98.3 F 95 24 91/35 99 05/16/16 04:40 65 14 91/35 97 05/16/16 04:30 73 15 96 05/16/16 04:20 66 14 100/59 100 05/16/16 04:10 68 16 87/31 100 05/16/16 04:00 69 17 86/31 99 05/16/16 03:50 80 14 100/33 99 05/16/16 03:40 78 18 103/45 99 05/16/16 03:30 76 14 79/41 99 05/16/16 03:20 82 16 82/50 98 05/16/16 03:00 69 24 80/42 88 L 05/16/16 02:50 68 26 H 92/70 80 L 05/16/16 02:40 69 20 91/46 85 L 05/16/16 02:30 67 24 91/46 90 L 05/16/16 02:10 95.5 F L 75 22 85/66 90 L 05/16/16 02:05 96.9 F L 05/16/16 01:48 64 20 96/53 91 L 05/16/16 00:01 65 22 108/62 95 05/15/16 23:42 68 20 101/52 96 05/15/16 23:32 72 22 99/65 95 05/15/16 23:27 64 22 80/50 97 05/15/16 23:12 62 22 83/45 94 L 05/15/16 22:57 62 22 86/46 95 05/15/16 22:42 68 22 85/48 96 05/15/16 22:25 72 22 97/52 91 L Intake and Output 12/23/16 12/24/16 12/24/16 22:59 06:59 14:59 Intake Total 2342.325 1897 Output Total 230 95 Balance 1031.979 905 Intake: Intake, IV Titration 4595.962 0547 Amount Furosemide 200 mg In 20 Empty Bag 1 bag @ 40 mls/ hr IVP ONCE ONE Rx#: [id number] Norepinephrine 16 mg In 1.827 Sodium Chloride 0.9% 250 ml @ Titrate IV .Q0M ONE Rx#:[id number] Norepinephrine 16 mg In 182.858 Sodium Chloride 0.9% 250 ml @ Titrate IV .Q0M RODRÍGUEZ Rx#:[id number] Propofol 500 mg In Empty 57.294 Bag 1 bag @ Titrate IV . Q0M RODRÍGUEZ Rx#:[id number] Sodium Chloride 0.9% 1, 1000 1000 000 ml @ 999 mls/hr IV . Q1H1M ONE Rx#:[id number] Output: Urine 230 95 Currently on exam she is intubated on 80% FiO2, she is sedated. Pupils are equal. Neck is supple no facial asymmetry no carotid bruit. No lymphadenopathy in her neck Lungs are clear to auscultation fair air entry bilaterally on the vent. Heart sounds are unremarkable no murmur rub gallop. Normal sinus rhythm. Abdomen soft nontender no organomegaly status masses Extremity exam was AKA on the right. Left is trace edema. Warm to touch there is no rash noted. Urine output is present with about 400 mL in the bag. She is currently obtunded because of the sedation. She is on levo fed 53 mics per minute. She's been giving about 5 L of IV fluids so for. Results - Lab Results Most recent lab results ABG pH 7.13 (7.35-7.45) L* 05/16/16 04:14 ABG pCO2 51 mmHg (35-45) H 05/16/16 04:14 ABG pO2 145 mmHg (83-108) H 05/16/16 04:14 ABG HCO3 16 mmol/L (21-25) L 05/16/16 04:14 ABG O2 Saturation 98.0 % (94-97) H 05/16/16 04:14 Calcium 7.7 mg/dL (8.4-10.2) L 05/16/16 04:25 Phosphorus 8.8 mg/dL (2.5-4.5) H* 05/16/16 01:06 Magnesium 2.1 mg/dL (1.6-2.3) 05/16/16 01:06 05/16/16 04:25 05/16/16 04:25 Assessment and Plan Plan: Impression. 1. Acute kidney injury secondary to low blood pressure, lisinopril. Slow increase in creatinine with a creatinine 1.52 on 05/08/2016 in the senior living. Possibility of acute incision nephritis from Cipro is being considered. Other possibilities are emboli to the kidney as she's had this problem with her admission in December for change in mental status and multiple small emboli noted on the computed tomography scan and MRI. A JOSE at the time was unremarkable. 2. Severe hyperkalemia secondary to combination of acute kidney injury, potassium lisinopril. In spite of this is out of proportion and other factors such as hydronephrosis should be looked for. She has a Ramos catheter therefore is not a question of outlet obstruction but brother bilateral hydronephrosis. An ultrasound is pending. Possible acute interstitial nephritis is considered as a creatinine has been going up slowly. 2. No evidence of chronic kidney disease with a creatinine of 0.7 on 2015. 4. Hypotension cause not very clear. Currently on levo fed. Acute DE ruled out. Cultures pending. Rule out sepsis. 5. History of diabetes mellitus, right AKA, 6. Multiple emboli to brain admitted December 2015. JOSE was normal. near complete recovery with normal mental status yesterday. 7. Respiratory acidosis post intubation, vent settings have been changed. 8. Mental status changes, some response to Narcan last night but needed intubation. 9. When dependent respiratory failure. Recommendation. 1. Maintain dialysis today. 2. Stat potassium 2 hours into the dialysis to ensure hyperkalemia is resolving. 3. Suggest broad-spectrum antibiotics until urine cultures are back. 4. We'll check urine for eosinophils, 5. Consider echocardiogram to see if there is any evidence of severe cardiomyopathy or pericardial effusion to explain her hypotension. 6. Check LDH to see if there is any evidence of renal emboli and infarcts. Further computed tomography scan or an MRI could be considered in the next few days if there is no renal recovery. 7. Regarding the urinalysis that shows large number of WBCs 106 consider acute interstitial nephritis. If urine cultures negative given her pyuria and If renal recovery is delayed Will start her on steroids for a few days possibly..
[2016-05-16 09:15] LABS: Calcium 7.6 mg/dL (8.4-10.2); Potassium 4.9 mmol/L (3.5-5.1); Total Bilirubin 0.6 mg/dL (0.2-1.3); Total Protein 6.4 g/dL (6.3-8.2)
[2016-05-16 09:44] LABS: ABG Base Excess -6.8 mmol/L; ABG HCO3 20 mmol/L (21-25); ABG PCO2 49 mmHg (35-45); ABG PH 7.23 (7.35-7.45); ABG PO2 93 mmHg (83-108); ABG TCO2 21 mmol/L (19-24)
[2016-05-16 09:54] LABS: VBG PH 7.29 (7.31-7.41)
[2016-05-16] MEDS: amLODIPine 10 MG TAB PO SCH (09:54)
[2016-05-16] MEDS: INSULIN LISPRO (humaLOG) 300 UNIT/3 ML VIAL SQ SCH ×3 (09:55→18:51)
[2016-05-16] MEDS: LEVOTHYROXINE 100 MCG TAB PO SCH (09:56)
[2016-05-16] MEDS: CALCIUM CARB-VIT D 500MG-200UN 1 EACH TAB PO SCH ×2 (09:57→16:32)
[2016-05-16] MEDS: CHLORHEXIDINE GLUCONATE 15 ML CUP MUCOUS MEM SCH ×2 (09:57→20:56)
[2016-05-16] MEDS: SERTRALINE 100 MG TAB PO SCH (09:58)
[2016-05-16] MEDS: FAMOTIDINE 20 MG/2 ML VIAL IV SCH (09:58)
[2016-05-16] MEDS: OLANZapine 10 MG TAB PO SCH ×3 (09:58→21:54)
[2016-05-16] MEDS: GABAPENTIN 100 MG CAP PO SCH ×2 (09:58→20:57)
--- NOTE | 2016-05-16 10:55 | US ---
EXAMINATION TYPE: US kidneys/renal and bladder DATE OF EXAM: 05/16/2016 10:42 AM COMPARISON: NONE CLINICAL HISTORY: US. No urine output per requisition, renal failure per nurse. Exam done portably i n ICU on vented patient unable to cooperate for exam EXAM MEASUREMENTS: Right Kidney: 11.5 x 4.4 x 5.2 cm Left Kidney: 11.0 x 4.2 x 5.4 cm ANATOMY: Right Kidney: wnl as visualized, imaging limited by body habitus and patient being unable to change p ositions Left Kidney: probably cyst midpole, measuring 1.3 x 1.3 x 1.5 cm seen on prior exams Bladder: not visualized as patient has a catheter TECHNOLOGIST IMPRESSION: Exam limited by body habitus and patient condition. There is no evidence for hydronephrosis at this point in time. No nephrolithiasis is seen. No olga s are identified. IMPRESSION: There is a 1.3 cm cyst in the interpolar left kidney. No evidence of solid renal mass or obstruction. Normal Values: Renal Length = 9 - 12cm Bladder Wall: < 0.3cm
[2016-05-16 10:58] LABS: ABG Base Excess -2.9 mmol/L; ABG HCO3 23 mmol/L (21-25); ABG PCO2 48 mmHg (35-45); ABG PH 7.29 (7.35-7.45); ABG PO2 94 mmHg (83-108); ABG TCO2 24 mmol/L (19-24)
[2016-05-16 11:15] LABS: Cholesterol 104 mg/dL (<200); HDL Cholesterol 26 mg/dL (40-60); Triglycerides 214 mg/dL (<150)
[2016-05-16] MEDS ORDERED: LORazepam 2 MG/ML SYRINGE IV STA (11:24)
[2016-05-16] MEDS: IPRATROPIUM-ALBUTEROL 3 ML NEB INHALATION SCH ×4 (11:25→23:33)
[2016-05-16] MEDS: PIPERACILLIN-TAZOBACTAM 3.375 GM in DEXTROSE/WATER 1 50ML.BAG IVPB SCH ×2 (11:30→16:48)
[2016-05-16] MEDS: HYDROmorphone 1 MG/ML 1 ML SYRINGE IVP PRN (11:31)
[2016-05-16] MEDS: CHOLECALCIFEROL 1,000 UNIT TAB PO SCH (11:55)
[2016-05-16 12:08] LABS: Glucose,Whole Blood 145 mg/dL (75-99)
[2016-05-16 12:15] LABS: Hemoglobin A1C 5.6 % (4.2-6.1)
[2016-05-16] MEDS: ASPIRIN 325 MG TAB PO SCH (13:48)
--- NOTE | 2016-05-16 14:05 | P.CNPUL ---
History of Present Illness Consult date: 05/16/16 Chief complaint: Acute respiratory failure, acute kidney injury, acute hyperkalemia History of present illness: This is a 66-year-old female patient, [facility] resident who resides at [facility], who came in yesterday to the emergency department with altered mental status and immediately she was identified to be in acute kidney injury. This is an acute renal failure with hyperkalemia. At the same time the patient was found to be hypotensive in shock. The patient was started on IV fluids a total of 4 L of IV fluid was given to her in the emergency department. She was treated for her hyperkalemia. Subsequently she got moved to the intensive care unit where the patient arrived hypotensive and shock state. She was started on pressors. She was started on norepinephrine infusion and at one point the dose as high as 50 mcg/m. The patient also had a dialysis catheter inserted and she was given a session of dialysis for acute hyperkalemia by nephrology. Note that the dialysis was successful and the patient had a drop in her potassium level which is essentially normalized. Note that his same time, the patient was intubated and placed on a mechanical ventilator. Chest x-ray from early this morning shows adequate positioning of the ET tube. There is cardiomegaly. No evidence of pneumonia. The urine is abnormal and there is evidence of urine checked infection pain noted the patient has had multiple UTIs in the past with quinolone resistant E. coli and previous history of Pseudomonas urine checked infection. Going back to the history, this patient has a very calm. Medical history. 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 The patient was in the hospital approximately in December 2015 and she was found to have multiple infarcts in her brain and the possibility of a embolism/ embolic phenomena was raised. Note that the MRI of the brain indicated non- acute vascular insult in the right lateral occipital lobes as well as a high right frontal lobe infarct and the high left parietal lobe infarct. The patient had evidence of subacute stroke involving the occipital lobe on the right. The patient was investigated further including a JOSE that showed moderate degree of aortic stenosis with a valve area of 1.2 cm. She was also found to have left anterior occurred artery stenosis estimated between 50-69%. The patient was discharged home on anticoagulation and she was taken Eliquis. The CAT scan of the brain that was done during this current admission shows no acute abnormalities. The patient is currently intubated on a mechanical ventilator. She is sedated. The pressor doses of been gradually weaned off. Attempts to insert an art line catheter was unsuccessful. Review of Systems ROS unobtainable: due to endotracheal tube Past Medical History Past Medical History: Asthma, Heart Failure, Diabetes Mellitus, GERD/Reflux, GI Bleed, Hyperlipidemia, Hypertension, Osteoarthritis (OA), Thyroid Disorder Additional Past Medical History / Comment(s): Morbid obesity, frequent urine checked infection with gram-negative bacteria including pseudomonas and E. coli , previous history of lower GI bleed, chronic back pain, chronic anemia, hepatitis C, multiple cerebral infarcts, history of osteomyelitis, anxiety/ depression moderate degree of aortic stenosis with estimated valve area of 1.2 cm, preserved LV function with a normal ejection fraction, left carotid artery stenosis estimated to be around 50-69% CO , diabetes mellitus, hyperlipidemia, hypertension History of Any Multi-Drug Resistant Organisms: MRSA, Other MDRO Date of last positivie culture/infection: 10/10/2014-MDRO Pseudomonas; 11/25/2013- MRSA MDRO Source:: Urine-MDRO and MRSA Past Surgical History: Orthopedic Surgery Additional Past Surgical History / Comment(s): RIGHT KNEE REPLACEMTN THE POST OP INFECTION-SEVERAL OTHER SX THEN AKA , COLONOSCOPY,HAD A LT ARM PICC LINE FOR ABX, Past Anesthesia/Blood Transfusion Reactions: No Reported Reaction Additional Past Anesthesia/Blood Transfusion Reaction / Comment(s): Pt has recieved blood without reaction. Past Psychological History: Anxiety, Bipolar, Depression Additional Psychological History / Comment(s): Pt resides at [facility] on [facility]. She states she is able to transfer by herself to a wheelchair. She feeds herself and needs minimal assist with ADL's. Smoking Status: Former smoker Past Alcohol Use History: None Reported Additional Past Alcohol Use History / Comment(s): Pt started smoking around 1996 and quit smoking in 2005. Past Drug Use History: Heroin Additional Drug Use History / Comment(s): Pt states she did use heroin many yrs ago. - Past Family History Father Family Medical History: Hypertension Mother Family Medical History: Hypertension Medications and Allergies Home Medications Medication Instructions Recorded Confirmed Type Atorvastatin Calcium [Lipitor] 40 mg PO HS@2100 02/02/14 12/23/16 History Loratadine [Claritin] 10 mg PO DAILY PRN 02/02/14 05/15/16 History Apixaban [Eliquis] 2.5 mg PO BID@09,209910/10/14 05/15/16 History Calcium Carb-Vit D 500Mg-200Un 1 tab PO BID@0900,1700 10/10/14 05/15/16 History [Oscal 500+D] Ferrous Sulfate [Iron (65 MG 325 mg PO DAILY@89901/01/16 05/15/16 History Elemental)] OLANZapine [ZyPREXA] 10 mg PO TID@0900,1300,209901/09/16 05/15/16 History Sertraline [Zoloft] 100 mg PO DAILY@0901/09/16 05/15/16 History amLODIPine [Norvasc] 10 mg PO DAILY@0900 01/09/16 05/15/16 History ALPRAZolam [Xanax] 1 mg PO Q6H PRN 05/15/16 05/15/16 History Aspirin 325 mg PO DAILY@0905/15/16 05/15/16 History Atenolol [Tenormin] 25 mg PO DAILY@89905/15/16 05/15/16 History Furosemide [Lasix] 20 mg PO DAILY@89905/15/16 05/15/16 History Gabapentin [Neurontin] 100 mg PO BID@0900,209905/15/16 05/15/16 History HYDROcodone/APAP 5-325MG [[place] 1 tab PO Q12H PRN 05/15/16 05/15/16 History 5-325] Ibuprofen [Motrin] 200 mg PO Q12H PRN 05/15/16 05/15/16 History Latanoprost Ophth [Xalatan 0.005%] 1 drops BOTH EYES HS@209905/15/16 05/15/16 History Lisinopril [Zestril] 20 mg PO DAILY@0905/15/16 05/15/16 History Methyl Salicylate/Menthol 1 patch TRANSDERM DAILY@0900 05/15/16 05/15/16 History [Salonpas Patch] Morphine Sulfate ER [Ms Contin 15 mg PO DAILY PRN 05/15/16 05/15/16 History 15Mg] Morphine Sulfate ER [Ms Contin] 15 mg PO Q12HR 05/15/16 05/15/16 History Potassium Chloride [Klor-Con 10] 10 meq PO DAILY@0900 05/15/16 05/15/16 History Allergies Allergy/AdvReac Type Severity Reaction Status Date / Time strawberry Allergy Unknown Verified 05/15/16 20:21 Physical Exam Vitals: Vital Signs Temp Pulse Pulse Pulse Resp BP BP 05/16/16 12:00 97.6 F 76 24 170/51 05/16/16 11:30 81 24 72/37 05/16/16 11:25 90 05/16/16 11:00 86 24 116/45 05/16/16 10:30 75 22 109/48 05/16/16 10:00 72 24 100/36 05/16/16 09:30 70 23 109/44 05/16/16 09:00 70 24 114/40 05/16/16 08:20 81 24 120/40 05/16/16 08:00 68 24 115/44 05/16/16 07:40 66 24 124/36 05/16/16 07:20 66 24 114/36 05/16/16 07:00 66 24 120/38 05/16/16 06:40 73 24 85/36 05/16/16 06:20 75 24 102/30 05/16/16 06:00 75 24 106/32 05/16/16 05:50 66 24 110/34 05/16/16 05:40 104 H 24 104/37 05/16/16 05:30 65 24 107/37 05/16/16 05:20 65 24 112/34 05/16/16 05:10 96 26 H 106/42 05/16/16 05:00 69 24 100/36 05/16/16 04:50 98.3 F 95 24 91/35 05/16/16 04:40 65 14 91/35 05/16/16 04:30 73 15 05/16/16 04:20 66 14 100/59 05/16/16 04:10 68 16 87/31 05/16/16 04:00 69 17 86/31 05/16/16 03:50 80 14 100/33 05/16/16 03:40 78 18 103/45 05/16/16 03:30 76 14 79/41 05/16/16 03:20 82 16 82/50 05/16/16 03:00 69 24 80/42 05/16/16 02:50 68 26 H 92/70 05/16/16 02:40 69 20 91/46 05/16/16 02:30 67 24 91/46 05/16/16 02:10 95.5 F L 75 22 85/66 05/16/16 02:05 96.9 F L 05/16/16 01:48 64 20 96/53 05/16/16 00:23 97.4 F L 72 72 24 119/43 05/16/16 00:01 65 22 108/62 05/15/16 23:42 68 20 101/52 05/15/16 23:32 72 22 99/65 05/15/16 23:27 64 22 80/50 05/15/16 23:12 62 22 83/45 05/15/16 22:57 62 22 86/46 05/15/16 22:42 68 22 85/48 05/15/16 22:25 72 22 97/52 Pulse Ox 05/16/16 12:00 99 05/16/16 11:30 98 05/16/16 11:25 05/16/16 11:00 97 05/16/16 10:30 96 05/16/16 10:00 97 05/16/16 09:30 96 05/16/16 09:00 95 05/16/16 08:20 97 05/16/16 08:00 97 05/16/16 07:40 97 05/16/16 07:20 97 05/16/16 07:00 96 05/16/16 06:40 98 05/16/16 06:20 97 05/16/16 06:00 96 05/16/16 05:50 97 05/16/16 05:40 97 05/16/16 05:30 98 05/16/16 05:20 99 05/16/16 05:10 100 05/16/16 05:00 100 05/16/16 04:50 99 05/16/16 04:40 97 05/16/16 04:30 96 05/16/16 04:20 100 05/16/16 04:10 100 05/16/16 04:00 99 05/16/16 03:50 99 05/16/16 03:40 99 05/16/16 03:30 99 05/16/16 03:20 98 05/16/16 03:00 88 L 05/16/16 02:50 80 L 05/16/16 02:40 85 L 05/16/16 02:30 90 L 05/16/16 02:10 90 L 05/16/16 02:05 05/16/16 01:48 91 L 05/16/16 00:23 05/16/16 00:01 95 05/15/16 23:42 96 05/15/16 23:32 95 05/15/16 23:27 97 05/15/16 23:12 94 L 05/15/16 22:57 95 05/15/16 22:42 96 05/15/16 22:25 91 L Intake and Output 05/15/16 05/16/16 05/16/16 22:59 06:59 14:59 Intake Total 5353.693 5686.577 Output Total 230 635 Balance 7335.091 3709.577 Intake: IV 644.1 Norepinephrine 16 mg In 137.9 Sodium Chloride 0.9% 250 ml @ Titrate IV .Q0M ONE Rx#:[id number] Propofol 500 mg In Empty 56.2 Bag 1 bag @ Titrate IV . Q0M RODRÍGUEZ Rx#:[id number] Sodium Chloride 0.9% 1, 450 000 ml @ 150 mls/hr IV . Q6H40M RODRÍGUEZ Rx#:[id number] Intake, IV Titration 8626.708 9577.477 Amount Furosemide 200 mg In 20 Empty Bag 1 bag @ 40 mls/ hr IVP ONCE ONE Rx#: [id number] Norepinephrine 16 mg In 1.827 Sodium Chloride 0.9% 250 ml @ Titrate IV .Q0M ONE Rx#:[id number] Norepinephrine 16 mg In 182.858 274.477 Sodium Chloride 0.9% 250 ml @ Titrate IV .Q0M RODRÍGUEZ Rx#:[id number] Propofol 500 mg In Empty 57.294 100 Bag 1 bag @ Titrate IV . Q0M RODRÍGUEZ Rx#:[id number] Sodium Chloride 0.9% 1, 1000 1000 000 ml @ 999 mls/hr IV . Q1H1M ONE Rx#:[id number] Output: Urine 230 635 Other: Voiding Method Indwelling Catheter Indwelling Catheter Weight 95.35 kg 95.35 kg Patient Weight 05/17/16 06:59 Weight 95.35 kg Head exam was generally normal. There was no scleral icterus or corneal arcus. Mucous membranes were moist. Patient is intubated on mechanical ventilator. She is edentulous.Neck was supple and without jugular venous distension, thyromegaly, or carotid bruits. Carotids were easily palpable bilaterally. There was no adenopathy. Orotracheal and orogastric tube are both in place. Neck is supple. There is no JVDs. No goiter. No neck masses. A right IJ dialysis catheter is in place. Lungs sounds are diminished other was clear clear. No wheezes overall currently crackles. Heart sounds are regular and there is a systolic ejection murmur grade 4/6 systolic the precordium.Abdominal exam revealed normal bowel sounds. The abdomen was soft, non-tender, and without masses, organomegaly, or appreciable enlargement of the abdominal aorta. Extremities show an above-knee amputation on the right. Left lower extremity is within normal limits with diminished pulses. Has some trace edema in the left lower extremity. Skin areas of ecchymosis and bruising probably due to over coagulation in the setting of an acute kidney injury. Results - Laboratory Findings CBC and BMP: 05/16/16 04:25 05/16/16 08:45 ABG ABG pH 7.29 (7.35-7.45) L 05/16/16 10:44 ABG pCO2 48 mmHg (35-45) H 05/16/16 10:44 ABG pO2 94 mmHg (83-108) 05/16/16 10:44 ABG O2 Saturation 96.0 % (94-97) 05/16/16 10:44 PT/INR, D-dimer PT 11.2 sec (9.0-12.0) 05/15/16 19:15 INR 1.1 (<1.1) 05/15/16 19:15 D-Dimer 0.83 mg/L FEU (<0.60) H 05/16/16 10:22 Abnormal lab findings: Abnormal Labs 05/16/16 05/16/16 05/16/16 01:06 01:06 01:06 WBC 15.5 H RBC 3.53 L Hgb 10.3 L Hct 33.4 L MCHC 30.9 L Plt Count 121 L Neutrophils # 14.0 H Lymphocytes # 0.8 L D-Dimer ABG pH ABG pCO2 ABG pO2 ABG HCO3 ABG Total CO2 ABG O2 Saturation VBG pH VBG pCO2 Potassium 7.8 H* Chloride 110 H Carbon Dioxide 19 L BUN 58 H Creatinine 3.60 H Glucose 118 H POC Glucose (mg/dL) Calcium 7.6 L Phosphorus 8.8 H* Total Protein 6.2 L Albumin 3.0 L Triglycerides HDL Cholesterol Urine Opiates Screen U Benzodiazepines Scrn 05/16/16 05/16/16 05/16/16 02:05 02:42 04:14 WBC RBC Hgb Hct MCHC Plt Count Neutrophils # Lymphocytes # D-Dimer ABG pH 7.07 L* 7.13 L* ABG pCO2 64 H 51 H ABG pO2 71 L 145 H ABG HCO3 18 L 16 L ABG Total CO2 18 L ABG O2 Saturation 85.0 L 98.0 H VBG pH VBG pCO2 Potassium Chloride Carbon Dioxide BUN Creatinine Glucose POC Glucose (mg/dL) 129 H Calcium Phosphorus Total Protein Albumin Triglycerides HDL Cholesterol Urine Opiates Screen U Benzodiazepines Scrn 05/16/16 05/16/16 05/16/16 04:25 04:25 06:43 WBC 21.5 H RBC 3.77 L Hgb 10.9 L Hct MCHC 29.2 L Plt Count Neutrophils # 19.7 H Lymphocytes # 0.8 L D-Dimer ABG pH ABG pCO2 ABG pO2 ABG HCO3 ABG Total CO2 ABG O2 Saturation VBG pH VBG pCO2 Potassium 7.8 H* Chloride 112 H Carbon Dioxide 14 L BUN 58 H Creatinine 3.46 H Glucose 141 H POC Glucose (mg/dL) 141 H Calcium 7.7 L Phosphorus Total Protein Albumin 3.2 L Triglycerides HDL Cholesterol Urine Opiates Screen U Benzodiazepines Scrn 05/16/16 05/16/16 05/16/16 07:13 08:25 08:45 WBC RBC Hgb Hct MCHC Plt Count Neutrophils # Lymphocytes # D-Dimer ABG pH 7.23 L ABG pCO2 49 H ABG pO2 ABG HCO3 20 L ABG Total CO2 ABG O2 Saturation VBG pH VBG pCO2 Potassium Chloride Carbon Dioxide BUN 32 H Creatinine 1.84 H Glucose 123 H POC Glucose (mg/dL) Calcium 7.6 L Phosphorus Total Protein Albumin 3.0 L Triglycerides HDL Cholesterol Urine Opiates Screen Detected H U Benzodiazepines Scrn Detected H 05/16/16 05/16/16 05/16/16 08:45 09:30 10:22 WBC RBC Hgb Hct MCHC Plt Count Neutrophils # Lymphocytes # D-Dimer 0.83 H ABG pH ABG pCO2 ABG pO2 ABG HCO3 ABG Total CO2 ABG O2 Saturation VBG pH 7.29 L VBG pCO2 54 H Potassium Chloride Carbon Dioxide BUN Creatinine Glucose POC Glucose (mg/dL) Calcium Phosphorus Total Protein Albumin Triglycerides 214 H HDL Cholesterol 26 L Urine Opiates Screen U Benzodiazepines Scrn 05/16/16 05/16/16 10:44 12:07 WBC RBC Hgb Hct MCHC Plt Count Neutrophils # Lymphocytes # D-Dimer ABG pH 7.29 L ABG pCO2 48 H ABG pO2 ABG HCO3 ABG Total CO2 ABG O2 Saturation VBG pH VBG pCO2 Potassium Chloride Carbon Dioxide BUN Creatinine Glucose POC Glucose (mg/dL) 145 H Calcium Phosphorus Total Protein Albumin Triglycerides HDL Cholesterol Urine Opiates Screen U Benzodiazepines Scrn - Diagnostic Findings Chest x-ray: image reviewed Assessment and Plan Plan: Assessment 1 acute shock, likely of a septic in nature. The patient is suspected to have a recurrent urine tract infection probably with gram-negative bacteria. She has been infected on multiple occasions in the past with E. coli that had been quinolone resistant and Pseudomonas. Patient has been adequately resuscitated IV fluids. The patient is on high-dose norepinephrine infusion. 2 acute kidney injury, multifactorial, rule out ATN. The patient received a session of dialysis yesterday to treat her hyperkalemia. She is producing adequate amount of urine output at this point. Potassium level is normalized 3 acute hyperkalemia, recovered 4 morbid obesity 5 multiple SEISMIC OBSERVER infarcts maintained on anticoagulation on outpatient basis 6 moderate degree of aortic stenosis, preserved LV function 7 hypertension, history of 8 hyperlipidemia history of 9 diabetes mellitus 10 above-knee amputation of the right lower extremity 11 reflux 12 hepatitis C viral infection 13 chronic back pain on narcotics 14 previous history of lower GI bleed Plan Keep the patient a beta mechanical ventilator. Keep the patient sedated with Diprivan. Continue the fluids. Continue the pressors. Gradually wean down the pressors as tolerated as the patient is blood pressures improving. Urine cultures. Blood cultures. IV Zosyn and will also put the patient on Levaquin for any potential respiratory tract infection. Based on previous sensitivities , the E. coli and Pseudomonas were both sensitive to Zosyn. Nephrology to monitor the renal function. The patient does not need dialysis at this point monitor acute hyperkalemia has been treated. No ANTICOAGULATION for now. Hold CHRISTY inhibitor and any form of nonsteroidal anti-inflammatory medication. Avoid nephrotoxic agents. Check a baseline cortisol level. Consider addition of vasopressin of the patient's blood pressure remains quite low. Repeat echocardiogram. We'll continue to follow. Condition is critical. Further recommendations to follow based on her overall progress.
[2016-05-16] MEDS: SODIUM CHLORIDE 0.9% 99 ML with VASOPRESSIN 20 UNIT IV SCH ×4 (14:51→23:29)
[2016-05-16 18:22] LABS: Glucose,Whole Blood 125 mg/dL (75-99)
[2016-05-16] MEDS ORDERED: DIAZEPAM 5 MG/ML 2 ML SYRINGE IVP ONE (18:49)
[2016-05-16] MEDS ORDERED: SODIUM CHLORIDE 0.9% IVPB ONE (18:50)
[2016-05-16] MEDS ORDERED: VALPROATE SODIUM IVPB ONE (18:50)
[2016-05-16 19:07] LABS: CH 28.8; CHCM 31.9; HDW 3.05; HGB 10.3 gm/dL (11.4-16.0); Hypochromasia Slight; MCH 29.3 pg (25.0-35.0); MCHC 32.2 g/dL (31.0-37.0); Mean Platelet Volume 7.9; RBC 3.52 m/uL (3.80-5.40); RDW 13.8 % (11.5-15.5)
[2016-05-16 19:11] LABS: WBC 31.6 k/uL (3.8-10.6)
[2016-05-16 19:13] LABS: MCV 90.9 fL (80.0-100.0)
[2016-05-16 19:24] LABS: Calcium 7.7 mg/dL (8.4-10.2); Potassium 4.4 mmol/L (3.5-5.1)
[2016-05-16] MEDS ORDERED: VANCOMYCIN 1,000 MG in SODIUM CHLORIDE 0.9% 250 ML IVPB STA (20:01)
[2016-05-16] MEDS: LEVOFLOXACIN 750MG-D5W PMX 750 MG in DEXTROSE/WATER 1 150ML.BAG IVPB SCH (20:53)
[2016-05-16] MEDS: ATORVASTATIN 40 MG TAB PO SCH (20:56)
[2016-05-16] MEDS: MONTELUKAST 10 MG TAB PO SCH (20:58)
--- NOTE | 2016-05-16 21:44 | P.CNNES ---
History of Present Illness Consult date: 05/16/16 Requesting physician: Gene Perez Reason for Consult: CVA Chief complaint: Possible CVA History of Present Illness: Patient is 66-year-old woman who was transported to the ED for possible stroke. The patient is a [facility] patient that was last seen at her normal baseline at 5:30 PM on May 15, 2016. She was observed to have trouble speaking and having left arm weakness. Patient does have history of prior stroke. Patient baseline mental status is reported to be normal. She has neuropathy in the left leg. 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 Patient also has a history of multiple small infarcts in the brain and was admitted in December 2015. During December 2015 admission, her creatinine was normal, she was hypotensive, disoriented as a result of acute kidney injury with creatinine of 8.8. She is currently on dialysis for this reason. Patient is also known to be diabetic for an unknown number of years with normal creatinine of 0.7 on 01/14/16. Her last creatinine draw in the [facility] on 05/08/16 shows a creatinine of 1.52, potassium of 5.7. At this time she is on lisinopril and KCl 10 mEq as well as Lasix 20 mg a day. Patient was on ciprofloxacin for a few days that terminated on 04/30/2016 per her [facility] medication list. No new medications or antibiotics were given. No history of fall, nausea, vomiting, diarrhea, abdominal pain, fever, chills, cough or shortness of breath. No history of seizures in the [facility]. On contact today, the patient is intubated and in the ICU. Patient is sedated on the ventilator. Review of Systems All review of systems are negative unless dictated above. Past Medical History Past Medical History: Asthma, Heart Failure, Diabetes Mellitus, GERD/Reflux, GI Bleed, Hyperlipidemia, Hypertension, Osteoarthritis (OA), Thyroid Disorder Additional Past Medical History / Comment(s): Morbid obesity, frequent urine checked infection with gram-negative bacteria including pseudomonas and E. coli , previous history of lower GI bleed, chronic back pain, chronic anemia, hepatitis C, multiple cerebral infarcts, history of osteomyelitis, anxiety/ depression moderate degree of aortic stenosis with estimated valve area of 1.2 cm, preserved LV function with a normal ejection fraction, left carotid artery stenosis estimated to be around 50-69% RI , diabetes mellitus, hyperlipidemia, hypertension History of Any Multi-Drug Resistant Organisms: MRSA, Other MDRO Date of last positivie culture/infection: 10/10/2014-MDRO Pseudomonas; 11/25/2013- MRSA MDRO Source:: Urine-MDRO and MRSA Past Surgical History: Orthopedic Surgery Additional Past Surgical History / Comment(s): RIGHT KNEE REPLACEMTN THE POST OP INFECTION-SEVERAL OTHER SX THEN AKA -2014, COLONOSCOPY,HAD A LT ARM PICC LINE FOR ABX, Past Anesthesia/Blood Transfusion Reactions: No Reported Reaction Additional Past Anesthesia/Blood Transfusion Reaction / Comment(s): Pt has recieved blood without reaction. Past Psychological History: Anxiety, Bipolar, Depression Additional Psychological History / Comment(s): Pt resides at [facility] on the [place]. She states she is able to transfer by herself to a wheelchair. She feeds herself and needs minimal assist with ADL's. Smoking Status: Former smoker Past Alcohol Use History: None Reported Additional Past Alcohol Use History / Comment(s): Pt started smoking around 1996 and quit smoking in 2005. Past Drug Use History: Heroin Additional Drug Use History / Comment(s): Pt states she did use heroin many yrs ago. - Past Family History Father Family Medical History: Hypertension Mother Family Medical History: Hypertension Medications and Allergies Home Medications Medication Instructions Recorded Confirmed Type Atorvastatin Calcium [Lipitor] 40 mg PO HS@209902/02/14 05/15/16 History Loratadine [Claritin] 10 mg PO DAILY PRN 02/02/14 05/15/16 History Apixaban [Eliquis] 2.5 mg PO BID@0900,209910/10/14 05/15/16 History Calcium Carb-Vit D 500Mg-200Un 1 tab PO BID@0900,1700 10/10/14 05/15/16 History [Oscal 500+D] Ferrous Sulfate [Iron (65 MG 325 mg PO DAILY@0900 01/01/16 05/15/16 History Elemental)] OLANZapine [ZyPREXA] 10 mg PO TID@0900,1300,2100 01/09/16 05/15/16 History Sertraline [Zoloft] 100 mg PO DAILY@0900 01/09/16 05/15/16 History amLODIPine [Norvasc] 10 mg PO DAILY@0900 01/09/16 05/15/16 History ALPRAZolam [Xanax] 1 mg PO Q6H PRN 05/15/16 05/15/16 History Aspirin 325 mg PO DAILY@0900 05/15/16 05/15/16 History Atenolol [Tenormin] 25 mg PO DAILY@0900 05/15/16 05/15/16 History Furosemide [Lasix] 20 mg PO DAILY@0900 05/15/16 05/15/16 History Gabapentin [Neurontin] 100 mg PO BID@0900,209905/15/16 05/15/16 History HYDROcodone/APAP 5-325MG [[place] 1 tab PO Q12H PRN 05/15/16 05/15/16 History 5-325] Ibuprofen [Motrin] 200 mg PO Q12H PRN 05/15/16 05/15/16 History Latanoprost Ophth [Xalatan 0.005%] 1 drops BOTH EYES HS@209905/15/16 05/15/16 History Lisinopril [Zestril] 20 mg PO DAILY@0900 05/15/16 05/15/16 History Methyl Salicylate/Menthol 1 patch TRANSDERM DAILY@0900 05/15/16 05/15/16 History [Salonpas Patch] Morphine Sulfate ER [Ms Contin 15 mg PO DAILY PRN 05/15/16 05/15/16 History 15Mg] Morphine Sulfate ER [Ms Contin] 15 mg PO Q12HR 05/15/16 05/15/16 History Potassium Chloride [Klor-Con 10] 10 meq PO DAILY@0900 05/15/16 05/15/16 History Allergies Allergy/AdvReac Type Severity Reaction Status Date / Time strawberry Allergy Unknown Verified 05/15/16 20:21 Physical Examination - Vital Signs Vital Signs: Vital Signs Temp Pulse Pulse Pulse Resp BP BP 05/16/16 19:54 94 05/16/16 19:43 97 05/16/16 19:00 84 24 119/67 05/16/16 18:30 83 33 H 100/46 05/16/16 18:00 88 23 100/46 05/16/16 17:30 85 19 108/54 05/16/16 17:12 92 05/16/16 17:03 05/16/16 17:00 94 24 110/40 12/24/16 16:30 77 23 95/40 16 16:00 98.6 F 80 24 113/40 16 15:30 81 24 110/35 05/16/16 15:00 93 24 105/39 16 14:30 93 24 82/35 16 14:00 92 23 112/45 16 13:30 90 24 128/43 05/16/16 13:00 76 23 114/47 05/16/16 12:30 74 22 119/43 05/16/16 12:00 97.6 F 76 24 170/51 05/16/16 11:40 87 05/16/16 11:30 81 24 72/37 05/16/16 11:25 90 05/16/16 11:00 86 24 116/45 05/16/16 10:30 75 22 109/48 05/16/16 10:00 72 24 100/36 05/16/16 09:30 70 23 109/44 05/16/16 09:00 70 24 114/40 16 08:20 81 24 120/40 05/16/16 08:00 68 24 115/44 16 07:40 66 24 124/36 05/16/16 07:20 66 24 114/36 05/16/16 07:00 66 24 120/38 16 06:40 73 24 85/36 16 06:20 75 24 102/30 16 06:00 75 24 106/32 16 05:50 66 24 110/34 16 05:40 104 H 24 104/37 16 05:30 65 24 107/37 05/16/16 05:20 65 24 112/34 16 05:10 96 26 H 106/42 16 05:00 69 24 100/36 05/16/16 04:50 98.3 F 95 24 91/35 16 04:40 65 14 91/35 16 04:30 73 15 16 04:20 66 14 100/59 16 04:10 68 16 87/31 16 04:00 69 17 86/31 05/16/16 03:50 80 14 100/33 05/16/16 03:40 78 18 103/45 05/16/16 03:30 76 14 79/41 05/16/16 03:20 82 16 82/50 05/16/16 03:00 69 24 80/42 05/16/16 02:50 68 26 H 92/70 05/16/16 02:40 69 20 91/46 05/16/16 02:30 67 24 91/46 05/16/16 02:10 95.5 F L 75 22 85/66 05/16/16 02:05 96.9 F L 05/16/16 01:48 64 20 96/53 05/16/16 00:23 97.4 F L 72 72 24 119/43 05/16/16 00:01 65 22 108/62 05/15/16 23:42 68 20 101/52 05/15/16 23:32 72 22 99/65 05/15/16 23:27 64 22 80/50 05/15/16 23:12 62 22 83/45 05/15/16 22:57 62 22 86/46 05/15/16 22:42 68 22 85/48 05/15/16 22:25 72 22 97/52 Pulse Ox 05/16/16 19:54 05/16/16 19:43 05/16/16 19:00 97 05/16/16 18:30 96 05/16/16 18:00 98 05/16/16 17:30 98 05/16/16 17:12 05/16/16 17:03 98 05/16/16 17:00 96 05/16/16 16:30 98 05/16/16 16:00 98 05/16/16 15:30 98 05/16/16 15:00 99 05/16/16 14:30 99 05/16/16 14:00 99 05/16/16 13:30 100 05/16/16 13:00 99 05/16/16 12:30 100 05/16/16 12:00 99 05/16/16 11:40 05/16/16 11:30 98 05/16/16 11:25 05/16/16 11:00 97 05/16/16 10:30 96 05/16/16 10:00 97 05/16/16 09:30 96 05/16/16 09:00 95 05/16/16 08:20 97 05/16/16 08:00 97 05/16/16 07:40 97 05/16/16 07:20 97 05/16/16 07:00 96 05/16/16 06:40 98 05/16/16 06:20 97 05/16/16 06:00 96 05/16/16 05:50 97 05/16/16 05:40 97 05/16/16 05:30 98 05/16/16 05:20 99 05/16/16 05:10 100 05/16/16 05:00 100 05/16/16 04:50 99 05/16/16 04:40 97 05/16/16 04:30 96 05/16/16 04:20 100 05/16/16 04:10 100 05/16/16 04:00 99 05/16/16 03:50 99 05/16/16 03:40 99 05/16/16 03:30 99 05/16/16 03:20 98 05/16/16 03:00 88 L 05/16/16 02:50 80 L 05/16/16 02:40 85 L 05/16/16 02:30 90 L 05/16/16 02:10 90 L 05/16/16 02:05 05/16/16 01:48 91 L 05/16/16 00:23 05/16/16 00:01 95 05/15/16 23:42 96 05/15/16 23:32 95 05/15/16 23:27 97 05/15/16 23:12 94 L 05/15/16 22:57 95 05/15/16 22:42 96 05/15/16 22:25 91 L Intake and Output 05/16/16 05/16/16 05/16/16 06:59 14:59 22:59 Intake Total 7614.582 2130.995 1379.875 Output Total 230 735 265 Balance 2716.733 1270.995 1114.875 Intake: IV 1006.9 911.8 Norepinephrine 16 mg In 200.7 161.8 Sodium Chloride 0.9% 250 ml @ Titrate IV .Q0M ONE Rx#:[id number] Propofol 500 mg In Empty 56.2 Bag 1 bag @ Titrate IV . Q0M [facility] Rx#:[id number] Sodium Chloride 0.9% 1, 750 750 000 ml @ 150 mls/hr IV . Q6H40M [facility] Rx#:[id number] Intake, IV Titration 2043.439 0919.095 468.075 Amount Furosemide 200 mg In 20 Empty Bag 1 bag @ 40 mls/ hr IVP ONCE ONE Rx#: [id number] Norepinephrine 16 mg In 1.827 Sodium Chloride 0.9% 250 ml @ Titrate IV .Q0M ONE Rx#:[id number] Norepinephrine 16 mg In 182.858 280.295 160.875 Sodium Chloride 0.9% 250 ml @ Titrate IV .Q0M [facility] Rx#:[id number] Piperacillin-Tazobactam 3 25.0 50.0 .375 gm In Dextrose/Water 1 50ml.bag @ 12.5 mls/hr IVPB Q8HR [facility] Rx#: [id number] Propofol 50 ml As IV .STK 44.8 112.2 -MED ONE Rx#:[id number] Propofol 500 mg In Empty 57.294 150 100 Bag 1 bag @ Titrate IV . Q0M [facility] Rx#:[id number] Sodium Chloride 0.9% 1, 1000 1000 000 ml @ 999 mls/hr IV . Q1H1M ONE Rx#:[id number] Sodium Chloride 0.9% 99 45 ml @ 0.03 UNITS/MIN 9 mls /hr IV .Q11H7M [facility] with Vasopressin 20 unit Rx#: [id number] Output: Urine 230 735 265 Other: Voiding Method Indwelling Catheter Indwelling Catheter Indwelling Catheter Weight 95.35 kg 95.35 kg 95.35 kg Patient Weight 05/17/16 06:59 Weight 95.35 kg - Constitutional currently intubated General appearance: obese - EENT normocephalic atraumatic, neck is supple no masses - Respiratory currently intubated, nno distress noted - Cardiovascular normal sinus rhythm - Gastrointestinal soft nontender - Integumentary bruising noted multiple sites - Neurologic pupils are equal and reactive, patient is currently sedated on the vent, unable to assess at this time. Motor examination - left side: 05/28: dorsiflexion Spine examination: cervical: Spurling's sign - Musculoskeletal Musculoskeletal: other - Psychiatric Patient had to be sedated Psychiatric: agitated Results - Laboratory Findings CBC and BMP: 05/16/16 18:39 05/16/16 18:39 Abnormal Lab Findings: Abnormal Labs 05/16/16 05/16/16 05/16/16 01:06 01:06 01:06 WBC 15.5 H RBC 3.53 L Hgb 10.3 L Hct 33.4 L MCHC 30.9 L Plt Count 121 L Neutrophils # 14.0 H Lymphocytes # 0.8 L D-Dimer ABG pH ABG pCO2 ABG pO2 ABG HCO3 ABG Total CO2 ABG O2 Saturation VBG pH VBG pCO2 Potassium 7.8 H* Chloride 110 H Carbon Dioxide 19 L BUN 58 H Creatinine 3.60 H Glucose 118 H POC Glucose (mg/dL) Calcium 7.6 L Phosphorus 8.8 H* Total Protein 6.2 L Albumin 3.0 L Triglycerides HDL Cholesterol Urine Opiates Screen U Benzodiazepines Scrn 05/16/16 05/16/16 05/16/16 02:05 02:42 04:14 WBC RBC Hgb Hct MCHC Plt Count Neutrophils # Lymphocytes # D-Dimer ABG pH 7.07 L* 7.13 L* ABG pCO2 64 H 51 H ABG pO2 71 L 145 H ABG HCO3 18 L 16 L ABG Total CO2 18 L ABG O2 Saturation 85.0 L 98.0 H VBG pH VBG pCO2 Potassium Chloride Carbon Dioxide BUN Creatinine Glucose POC Glucose (mg/dL) 129 H Calcium Phosphorus Total Protein Albumin Triglycerides HDL Cholesterol Urine Opiates Screen U Benzodiazepines Scrn 05/16/16 05/16/16 05/16/16 04:25 04:25 06:43 WBC 21.5 H RBC 3.77 L Hgb 10.9 L Hct MCHC 29.2 L Plt Count Neutrophils # 19.7 H Lymphocytes # 0.8 L D-Dimer ABG pH ABG pCO2 ABG pO2 ABG HCO3 ABG Total CO2 ABG O2 Saturation VBG pH VBG pCO2 Potassium 7.8 H* Chloride 112 H Carbon Dioxide 14 L BUN 58 H Creatinine 3.46 H Glucose 141 H POC Glucose (mg/dL) 141 H Calcium 7.7 L Phosphorus Total Protein Albumin 3.2 L Triglycerides HDL Cholesterol Urine Opiates Screen U Benzodiazepines Scrn 05/16/16 05/16/16 05/16/16 07:13 08:25 08:45 WBC RBC Hgb Hct MCHC Plt Count Neutrophils # Lymphocytes # D-Dimer ABG pH 7.23 L ABG pCO2 49 H ABG pO2 ABG HCO3 20 L ABG Total CO2 ABG O2 Saturation VBG pH VBG pCO2 Potassium Chloride Carbon Dioxide BUN 32 H Creatinine 1.84 H Glucose 123 H POC Glucose (mg/dL) Calcium 7.6 L Phosphorus Total Protein Albumin 3.0 L Triglycerides HDL Cholesterol Urine Opiates Screen Detected H U Benzodiazepines Scrn Detected H 05/16/16 05/16/16 05/16/16 08:45 09:30 10:22 WBC RBC Hgb Hct MCHC Plt Count Neutrophils # Lymphocytes # D-Dimer 0.83 H ABG pH ABG pCO2 ABG pO2 ABG HCO3 ABG Total CO2 ABG O2 Saturation VBG pH 7.29 L VBG pCO2 54 H Potassium Chloride Carbon Dioxide BUN Creatinine Glucose POC Glucose (mg/dL) Calcium Phosphorus Total Protein Albumin Triglycerides 214 H HDL Cholesterol 26 L Urine Opiates Screen U Benzodiazepines Scrn 05/16/16 05/16/16 05/16/16 10:44 12:07 18:03 WBC RBC Hgb Hct MCHC Plt Count Neutrophils # Lymphocytes # D-Dimer ABG pH 7.29 L ABG pCO2 48 H ABG pO2 ABG HCO3 ABG Total CO2 ABG O2 Saturation VBG pH VBG pCO2 Potassium Chloride Carbon Dioxide BUN Creatinine Glucose POC Glucose (mg/dL) 145 H 125 H Calcium Phosphorus Total Protein Albumin Triglycerides HDL Cholesterol Urine Opiates Screen U Benzodiazepines Scrn 05/16/16 05/16/16 18:39 18:39 WBC 31.6 H* RBC 3.52 L Hgb 10.3 L Hct 32.0 L MCHC Plt Count 124 L Neutrophils # Lymphocytes # D-Dimer ABG pH ABG pCO2 ABG pO2 ABG HCO3 ABG Total CO2 ABG O2 Saturation VBG pH VBG pCO2 Potassium Chloride Carbon Dioxide BUN 26 H Creatinine 1.83 H Glucose 131 H POC Glucose (mg/dL) Calcium 7.7 L Phosphorus Total Protein Albumin Triglycerides HDL Cholesterol Urine Opiates Screen U Benzodiazepines Scrn Assessment and Plan (1) Toxic metabolic encephalopathy Status: Acute (2) Altered mental status Status: Acute (3) Seizure Status: Acute (4) Sepsis secondary to UTI Status: Acute Plan: On contact, the patient was intubated on a ventilator in the ICU. It does appear that the patient's current status is multifactorial in etiology. Patient is noted to be profoundly septic related to urinary tract infection. Patient was also observed to have altered mental status and acute left-sided weakness which would be indicative of transient ischemic attack/CVA given her past medical history of multiple prior small infarcts. Since the patient is sedated, I'm unable to assess her neurological status on physical exam. I am going to request that all medication and narcotics be held at 0700 on May 17, 2016 for a neurological assessment in the morning. I ordered a repeat CT of the brain for tomorrow morning. I recommend holding all sedating medications unless absolutely necessary during hospitalization for continued monitoring of neurological status. Carotid doppler was also ordered for completion once patient can be extubated Patient's seizures / altered mental status are likely secondary to sepsis, maintain seizure precautions. EEG is pending. Continue on Depakote as ordered. Neurology will continue to follow with further updates as needed. Please feel free to contact our office with any questions. I discussed the patient's pertinent medical information with Dr. Drummond. He agrees with the plan of care as implemented.
[2016-05-17] MEDS: PIPERACILLIN-TAZOBACTAM 3.375 GM in DEXTROSE/WATER 1 50ML.BAG IVPB SCH ×3 (00:20→16:50)
[2016-05-17 00:31] LABS: Glucose,Whole Blood 105 mg/dL (75-99)
[2016-05-17] MEDS: VALPROATE SODIUM 500 MG in SODIUM CHLORIDE 0.9% 50 ML IVPB SCH ×4 (00:57→23:24)
[2016-05-17] MEDS: INSULIN LISPRO (humaLOG) 300 UNIT/3 ML VIAL SQ SCH ×4 (00:58→18:52)
[2016-05-17] MEDS: SODIUM CHLORIDE 0.9% 1,000 ML IV SCH ×4 (02:04→23:22)
[2016-05-17] MEDS: PROPOFOL 500 MG in EMPTY BAG 1 BAG IV SCH ×6 (02:12→21:58)
[2016-05-17] MEDS: IPRATROPIUM-ALBUTEROL 3 ML NEB INHALATION SCH ×6 (03:08→23:35)
[2016-05-17 05:18] LABS: ABG Base Excess -9.5 mmol/L; ABG HCO3 15 mmol/L (21-25); ABG PCO2 25 mmHg (35-45); ABG PH 7.39 (7.35-7.45); ABG PO2 90 mmHg (83-108); ABG TCO2 15 mmol/L (19-24)
[2016-05-17 06:08] LABS: Basophils % (A) 0 %; CH 29.1; CHCM 32.1; Eosinophils # (A) 0.1 k/uL (0-0.7); Eosinophils % (A) 0 %; HCT 26.7 % (34.0-46.0); HDW 2.99; HGB 8.7 gm/dL (11.4-16.0); Hypochromasia Slight; Luc # (Auto) 0.21; Luc % (Auto) 1; Lymphocytes # (A) 1.1 k/uL (1.0-4.8); Lymphocytes % (A) 6 %; MCH 29.6 pg (25.0-35.0); MCHC 32.5 g/dL (31.0-37.0); Mean Platelet Volume 8.3; Monocytes # (A) 0.7 k/uL (0-1.0); Monocytes % (A) 4 %; Neutrophils # (A) 16.3 k/uL (1.3-7.7); Neutrophils % (A) 89 %; RBC 2.94 m/uL (3.80-5.40); RDW 14.1 % (11.5-15.5); WBC 18.5 k/uL (3.8-10.6)
[2016-05-17 06:21] LABS: Magnesium 1.1 mg/dL (1.6-2.3); Phosphorous 3.5 mg/dL (2.5-4.5); Potassium 5.1 mmol/L (3.5-5.1); Total Bilirubin 0.5 mg/dL (0.2-1.3); Total Protein 4.4 g/dL (6.3-8.2)
[2016-05-17 06:26] LABS: Large Platelets Present; Manual Review Performed
[2016-05-17] MEDS: LEVOTHYROXINE 100 MCG TAB PO SCH (06:33)
[2016-05-17 06:43] LABS: Glucose,Whole Blood 105 mg/dL (75-99)
--- NOTE | 2016-05-17 07:40 | XR ---
EXAMINATION TYPE: XR chest 1V portable DATE OF EXAM: 05/17/2016 6:59 AM COMPARISON: Yesterday HISTORY: Check tube placement TECHNIQUE: Single frontal view of the chest is obtained. FINDINGS: There is patchy pneumonic consolidation in the mid and lower lung [place] and worse on the right side. There is right jugular catheter with the tip over the right atrium. There is no pneumotho rax. Endotracheal tube is in good position. There is a nasogastric tube. IMPRESSION: Bilateral pulmonary infiltrates are worse than yesterday and consistent with pneumonia o r RDS. Congestive heart failure is probably present. Inspiration is worse than last exam.
--- NOTE | 2016-05-17 07:58 | P.PN ---
Subjective Principal diagnosis: Toxic metabolic encephalopathy Patient is a 66-year-old female was transported ED for possible stroke. The patient is a longterm patient was last seen at her normal baseline at 5:30 PM and 05/15/2016. She was observed to have trouble speaking and having left arm weakness. Patient does have a history of prior stroke. Patient baseline mental status is reported to be normal. She has neuropathy in the left leg. 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 Patient also has a history of multiple small infarcts in the brain was admitted in December 2015. During December 2015 admission, her creatinine was normal, she was hypotensive disoriented and as a result of acute kidney injury. Patient is also known to be diabetic for unknown number of years. Last creatinine drawn the longterm on 05/08/2016 shows a creatinine of 1.52, potassium of 5.7. Her most recent labs note the following results: Creatinine 1.6 and a potassium of 5.1. Patient was on ciprofloxacin for several days which was terminated on 2015 at the longterm. The medications or antibiotics were given at that time. No history of fall, nausea, vomiting, diarrhea, abdominal pain, fever, chills, cough or shortness of breath. He had prior seizures in the longterm. On contact today, patient is intubated in ICU. Patient was sedated at initial contact this morning. I stood by while patient was taken off sedation for a full neurological assessment consistent with protocol. Patient began "bucking" the ventilator once her propofol was turned off at approximately 5 minutes. Objective - Vital Signs Vital signs: Vital Signs Temp 98.8 F 05/17/16 06:30 Pulse 89 05/17/16 06:30 Resp 24 05/17/16 06:30 BP 83/39 05/17/16 06:30 Pulse Ox 96 05/17/16 06:30 Intake & Output 05/16/16 05/17/16 05/17/16 18:59 06:59 18:59 Intake Total 3655.470 4858.253 Output Total 960 1630 Balance 2695.470 3228.253 Weight 95.35 kg Intake: IV 1731.2 1687.5 Norepinephrine 16 mg In 325.0 37.5 Sodium Chloride 0.9% 250 ml @ Titrate IV .Q0M [facility] Rx#:[id number] Propofol 500 mg In Empty 56.2 Bag 1 bag @ Titrate IV . Q0M [facility] Rx#:[id number] Sodium Chloride 0.9% 1, 1350 1650 000 ml @ 150 mls/hr IV . Q6H40M [facility] Rx#:[id number] Intake, IV Titration 2683.775 6787.753 Amount Levofloxacin 750Mg-D5w 100 Pmx 750 mg In Dextrose/ Water 1 150ml.bag @ 100 mls/hr IVPB Q24H [facility] Rx#: [id number] Norepinephrine 16 mg In 441.170 287.770 Sodium Chloride 0.9% 250 ml @ Titrate IV .Q0M [facility] Rx#:[id number] Piperacillin-Tazobactam 3 62.5 62.5 .375 gm In Dextrose/Water 1 50ml.bag @ 12.5 mls/hr IVPB Q8HR [facility] Rx#: [id number] Propofol 50 ml As IV .STK 134.6 22.4 -[facility] Rx#:[id number] Propofol 500 mg In Empty 250 231.083 Bag 1 bag @ Titrate IV . Q0M [facility] Rx#:[id number] Sodium Chloride 0.9% 1, 1000 000 ml @ 999 mls/hr IV . Q1H1M [facility] Rx#:[id number] Sodium Chloride 0.9% 2, 2000 000 ml @ 999 mls/hr IV . Q2H1M [facility] Rx#:[id number] Sodium Chloride 0.9% 99 36 117 ml @ 0.03 UNITS/MIN 9 mls /hr IV .Q11H7M [facility] with Vasopressin 20 unit Rx#: [id number] Valproate Sodium 1,425 mg 50 In Sodium Chloride 0.9% 50 ml @ 50 mls/hr IVPB ONCE [facility] Rx#:[id number] Valproate Sodium 500 mg 50 In Sodium Chloride 0.9% 50 ml @ 50 mls/hr IVPB Q8HR [facility] Rx#:[id number] Vancomycin 1,000 mg In 250 Sodium Chloride 0.9% 250 ml @ 125 mls/hr IVPB ONCE [facility] Rx#:[id number] Output: Urine 960 1630 Other: Voiding Method Indwelling Catheter Indwelling Catheter - Constitutional Constitutional Comment(s): Patient is intubated and in the ICU at this time. Does not follow commands. General appearance: Present: obese - EENT EENT Comment(s): Normocephalic/atraumatic - Neck Details: Supple, no masses - Respiratory Details: Currently intubated and receiving assistance via ventilator with respiratory effort - Cardiovascular Details: Normal sinus rhythm - Gastrointestinal Gastrointestinal Comment(s): Soft, nontender, nondistended - Genitourinary Genitourinary Comment(s): Ramos placement is present - Integumentary Integumentary Comment(s): Bruising noted throughout the upper extremities and slight bruising in the lower left extremity, right lower extremity partially mutation. - Neurologic Neurologic Comment(s): On exam, no seizure-like activity noted. Per nursing minimal clonus after initiation of the Depakote last night. Cranial nerve testing results as follows: II: No purposeful movement, pupils constricted and minimally reactive with light III: Did not respond to requests to blink her eyes-multiple attempts, will tear sporatically in left eye. IV: Did not respond V: Did not respond : Did not respond VII: No change in expression except when resisting ventilator, but not when commanded during the assessment VIII: Did not respond IX: No purposeful response on request, only tongue movement occurs when resisting ventilator X: Pulse present XI: Did not respond XII: Did not respond Does not respond to light touch, only responds to painful stimuli greatest in the left lower extremity. Upper extremity cash controller strengths are absent. Lower extremity (left only) dorsiflexion and plantar flexion with and without resistance are absent - Musculoskeletal Musculoskeletal: Present: generalized weakness - Psychiatric Psychiatric Comment(s): On ventilator - Labs CBC & Chem 7: 05/17/16 05:37 05/17/16 05:37 Labs: Abnormal Lab Results - Last 24 Hours (Table) 05/16/16 05/16/16 05/16/16 Range/Units 07:13 08:25 08:45 WBC (3.8-10.6) k/uL RBC (3.80-5.40) m/uL Hgb (11.4-16.0) gm/dL Hct (34.0-46.0) % Plt Count (150-450) k/uL Neutrophils # (1.3-7.7) k/uL D-Dimer (<0.60) mg/L FEU ABG pH 7.23 L (7.35-7.45) ABG pCO2 49 H (35-45) mmHg ABG HCO3 20 L (21-25) mmol/L ABG Total CO2 (19-24) mmol/L VBG pH (7.31-7.41) VBG pCO2 (37-51) mmHg Chloride (98-107) mmol/L Carbon Dioxide (22-30) mmol/L BUN 32 H (7-17) mg/dL Creatinine 1.84 H (0.52-1.04) mg/dL Glucose 123 H (74-99) mg/dL POC Glucose (mg/dL) (75-99) mg/dL Calcium 7.6 L (8.4-10.2) mg/dL Magnesium (1.6-2.3) mg/dL Total Protein (6.3-8.2) g/dL Albumin 3.0 L (3.5-5.0) g/dL Triglycerides (<150) mg/dL HDL Cholesterol (40-60) mg/dL Urine Opiates Screen Detected H (NotDetected) U Benzodiazepines Scrn Detected H (NotDetected) 05/16/16 05/16/16 05/16/16 Range/Units 08:45 09:30 10:22 WBC (3.8-10.6) k/uL RBC (3.80-5.40) m/uL Hgb (11.4-16.0) gm/dL Hct (34.0-46.0) % Plt Count (150-450) k/uL Neutrophils # (1.3-7.7) k/uL D-Dimer 0.83 H (<0.60) mg/L FEU ABG pH (7.35-7.45) ABG pCO2 (35-45) mmHg ABG HCO3 (21-25) mmol/L ABG Total CO2 (19-24) mmol/L VBG pH 7.29 L (7.31-7.41) VBG pCO2 54 H (37-51) mmHg Chloride (98-107) mmol/L Carbon Dioxide (22-30) mmol/L BUN (7-17) mg/dL Creatinine (0.52-1.04) mg/dL Glucose (74-99) mg/dL POC Glucose (mg/dL) (75-99) mg/dL Calcium (8.4-10.2) mg/dL Magnesium (1.6-2.3) mg/dL Total Protein (6.3-8.2) g/dL Albumin (3.5-5.0) g/dL Triglycerides 214 H (<150) mg/dL HDL Cholesterol 26 L (40-60) mg/dL Urine Opiates Screen (NotDetected) U Benzodiazepines Scrn (NotDetected) 05/16/16 05/16/16 05/16/16 Range/Units 10:44 12:07 18:03 WBC (3.8-10.6) k/uL RBC (3.80-5.40) m/uL Hgb (11.4-16.0) gm/dL Hct (34.0-46.0) % Plt Count (150-450) k/uL Neutrophils # (1.3-7.7) k/uL D-Dimer (<0.60) mg/L FEU ABG pH 7.29 L (7.35-7.45) ABG pCO2 48 H (35-45) mmHg ABG HCO3 (21-25) mmol/L ABG Total CO2 (19-24) mmol/L VBG pH (7.31-7.41) VBG pCO2 (37-51) mmHg Chloride (98-107) mmol/L Carbon Dioxide (22-30) mmol/L BUN (7-17) mg/dL Creatinine (0.52-1.04) mg/dL Glucose (74-99) mg/dL POC Glucose (mg/dL) 145 H 125 H (75-99) mg/dL Calcium (8.4-10.2) mg/dL Magnesium (1.6-2.3) mg/dL Total Protein (6.3-8.2) g/dL Albumin (3.5-5.0) g/dL Triglycerides (<150) mg/dL HDL Cholesterol (40-60) mg/dL Urine Opiates Screen (NotDetected) U Benzodiazepines Scrn (NotDetected) 05/16/16 05/16/16 05/17/16 Range/Units 18:39 18:39 00:28 WBC 31.6 H* (3.8-10.6) k/uL RBC 3.52 L (3.80-5.40) m/uL Hgb 10.3 L (11.4-16.0) gm/dL Hct 32.0 L (34.0-46.0) % Plt Count 124 L (150-450) k/uL Neutrophils # (1.3-7.7) k/uL D-Dimer (<0.60) mg/L FEU ABG pH (7.35-7.45) ABG pCO2 (35-45) mmHg ABG HCO3 (21-25) mmol/L ABG Total CO2 (19-24) mmol/L VBG pH (7.31-7.41) VBG pCO2 (37-51) mmHg Chloride (98-107) mmol/L Carbon Dioxide (22-30) mmol/L BUN 26 H (7-17) mg/dL Creatinine 1.83 H (0.52-1.04) mg/dL Glucose 131 H (74-99) mg/dL POC Glucose (mg/dL) 105 H (75-99) mg/dL Calcium 7.7 L (8.4-10.2) mg/dL Magnesium (1.6-2.3) mg/dL Total Protein (6.3-8.2) g/dL Albumin (3.5-5.0) g/dL Triglycerides (<150) mg/dL HDL Cholesterol (40-60) mg/dL Urine Opiates Screen (NotDetected) U Benzodiazepines Scrn (NotDetected) 05/17/16 05/17/16 05/17/16 Range/Units 04:59 05:37 05:37 WBC 18.5 H (3.8-10.6) k/uL RBC 2.94 L (3.80-5.40) m/uL Hgb 8.7 L D (11.4-16.0) gm/dL Hct 26.7 L (34.0-46.0) % Plt Count 87 L (150-450) k/uL Neutrophils # 16.3 H (1.3-7.7) k/uL D-Dimer (<0.60) mg/L FEU ABG pH (7.35-7.45) ABG pCO2 25 L (35-45) mmHg ABG HCO3 15 L (21-25) mmol/L ABG Total CO2 15 L (19-24) mmol/L VBG pH (7.31-7.41) VBG pCO2 (37-51) mmHg Chloride 109 H (98-107) mmol/L Carbon Dioxide 20 L (22-30) mmol/L BUN 23 H (7-17) mg/dL Creatinine 1.60 H (0.52-1.04) mg/dL Glucose 101 H (74-99) mg/dL POC Glucose (mg/dL) (75-99) mg/dL Calcium 7.0 L (8.4-10.2) mg/dL Magnesium 1.1 L (1.6-2.3) mg/dL Total Protein 4.4 L (6.3-8.2) g/dL Albumin 1.9 L (3.5-5.0) g/dL Triglycerides (<150) mg/dL HDL Cholesterol (40-60) mg/dL Urine Opiates Screen (NotDetected) U Benzodiazepines Scrn (NotDetected) 05/17/16 Range/Units 06:40 WBC (3.8-10.6) k/uL RBC (3.80-5.40) m/uL Hgb (11.4-16.0) gm/dL Hct (34.0-46.0) % Plt Count (150-450) k/uL Neutrophils # (1.3-7.7) k/uL D-Dimer (<0.60) mg/L FEU ABG pH (7.35-7.45) ABG pCO2 (35-45) mmHg ABG HCO3 (21-25) mmol/L ABG Total CO2 (19-24) mmol/L VBG pH (7.31-7.41) VBG pCO2 (37-51) mmHg Chloride (98-107) mmol/L Carbon Dioxide (22-30) mmol/L BUN (7-17) mg/dL Creatinine (0.52-1.04) mg/dL Glucose (74-99) mg/dL POC Glucose (mg/dL) 105 H (75-99) mg/dL Calcium (8.4-10.2) mg/dL Magnesium (1.6-2.3) mg/dL Total Protein (6.3-8.2) g/dL Albumin (3.5-5.0) g/dL Triglycerides (<150) mg/dL HDL Cholesterol (40-60) mg/dL Urine Opiates Screen (NotDetected) U Benzodiazepines Scrn (NotDetected) Microbiology - Last 24 Hours (Table) 05/16/16 04:23 Blood Culture - Preliminary Blood No Growth after 24 hours 05/16/16 03:45 Gram Stain - Preliminary Sputum Sputum Culture - Preliminary Assessment and Plan (1) Toxic metabolic encephalopathy Status: Acute (2) Altered mental status Status: Acute (3) Seizure Status: Acute (4) Sepsis secondary to UTI Status: Acute Plan: On contact, the patient was intubated on a ventilator in the ICU. Patient is noted to be profoundly septic related to urinary tract infection. Sedation was stopped. Neurological assessment performed. On neurological testing, the patient has significant cranial nerve deficits at this time. Last evening, the patient began experiencing clonus/seizure-like activity and provider was contacted by nursing staff. Order was given for Valium and Depakote. Since that order, the patient's clonus and seizure-like activity are infrequent. We are waiting for repeat CT of the brain this morning for further consideration of possible CVA. However at this time the patient is with reasonable certainty experiencing toxic metabolic encephalopathy with seizure as at least one component of her etiology. It is possible that she still may have suffered a CVA. Further consideration of the diagnosis is pending the result of the CT. EEG has also been ordered as well as a carotid Doppler. Carotid Doppler will be performed when she can be extubated. Continue Depakote as ordered. Anticoagulation withheld due to bleeding with minimally invasive treatment. Recommend consideration of a family meeting for discussion regarding patient's treatment plan given her current status. Patient is currently a full code. Prognosis: Poor Neurology will continue to follow with further updates as needed. Please feel free to contact our office with any questions. I discussed the patient's pertinent medical information with Dr. Drummond. He agrees with the plan of care as implemented.
[2016-05-17] MEDS: amLODIPine 10 MG TAB PO SCH (09:01)
[2016-05-17] MEDS: CALCIUM CARB-VIT D 500MG-200UN 1 EACH TAB PO SCH ×2 (09:02→16:51)
[2016-05-17] MEDS: OLANZapine 10 MG TAB PO SCH ×3 (09:02→20:04)
[2016-05-17] MEDS: SERTRALINE 100 MG TAB PO SCH (09:02)
[2016-05-17] MEDS: GABAPENTIN 100 MG CAP PO SCH ×2 (09:02→20:03)
[2016-05-17] MEDS: ASPIRIN 325 MG TAB PO SCH (09:02)
[2016-05-17] MEDS: CHLORHEXIDINE GLUCONATE 15 ML CUP MUCOUS MEM SCH ×2 (09:02→20:03)
--- NOTE | 2016-05-17 10:26 | CT ---
EXAMINATION TYPE: CT brain wo con DATE OF EXAM: 05/17/2016 10:20 AM COMPARISON: 05/15/2016 HISTORY: Altered mental status CT DLP: 1236 mGycm Automated exposure control for dose reduction was used. FINDINGS: There is mild cerebral cortical atrophy. There is no mass effect nor midline shift. There is no sign of intracranial hemorrhage. The calvarium is intact. There is mild hypodensity in the periventricular white matter. IMPRESSION: Cerebral atrophy and chronic small vessel ischemia. There is hypodensity in the right occipital lobe region on previous exam that is less noticeable on today's exam.
[2016-05-17] MEDS ORDERED: ACETAMINOPHEN IV (For NPO) 1,000 MG in EMPTY BAG 1 BAG IVPB PRN (10:29)
--- NOTE | 2016-05-17 11:32 | P.PN ---
Subjective Principal diagnosis: SOPHIA with hyperkalemia and metabolic encephalopathy This is a 66-year-old care home resident from [facility] was admitted with severe hyperkalemia and acute kidney injury. She had to be dialyzed acutely felt cementer 05/16/2016 because of a potassium that was high at 8 and not responding. He was anuric at the time. Subsequently she has recovered as far as renal function is concerned but has deteriorated overall with a septic picture. She is admitted with change in mental status of acute onset presumably. Her primary physician though tells me that she has had decreased appetite for the last 1 week. 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 The hyperkalemia which is out of proportion was worked up and has shown normal ultrasound without any hydronephrosis. There is no evidence of any infarction of any organs or tissues. There is no hemolysis. Yesterday she started to make urine. She deteriorated yesterday and needed ventilation and currently on Atrovent with 70% FiO2. She was also started on vasopressors including Levophed and vasopressin. This morning she had computed tomography scan of the brain because of seizures, and there was no significant new findings. All the findings are chronic. She is obtunded sedated. She has temperature of 101.9 as well as a chest x-ray shows right hilar infiltrate. Blood cultures and urine cultures have been negative so far. UA was suggestive of UTI. Objective - Vital Signs Vital signs: Vital Signs Temp 101.9 F H 05/17/16 08:00 Pulse 96 05/17/16 10:07 Resp 24 05/17/16 10:07 BP 128/45 05/17/16 10:07 Pulse Ox 96 05/17/16 10:07 Intake & Output 05/16/16 05/17/16 05/17/16 18:59 06:59 18:59 Intake Total 3655.470 4858.253 513.285 Output Total 960 1630 550 Balance 2695.470 3228.253 -36.715 Weight 95.35 kg 108.5 kg Intake: IV 1731.2 1687.5 450 Norepinephrine 16 mg In 325.0 37.5 Sodium Chloride 0.9% 250 ml @ Titrate IV .Q0M [facility] Rx#:[id number] Propofol 500 mg In Empty 56.2 Bag 1 bag @ Titrate IV . Q0M [facility] Rx#:[id number] Sodium Chloride 0.9% 1, 1350 1650 450 000 ml @ 150 mls/hr IV . Q6H40M [facility] Rx#:[id number] Intake, IV Titration 4693.523 7131.753 63.285 Amount Levofloxacin 750Mg-D5w 100 Pmx 750 mg In Dextrose/ Water 1 150ml.bag @ 100 mls/hr IVPB Q24H [facility] Rx#: [id number] Norepinephrine 16 mg In 441.170 287.770 26.534 Sodium Chloride 0.9% 250 ml @ Titrate IV .Q0M [facility] Rx#:[id number] Piperacillin-Tazobactam 3 62.5 62.5 .375 gm In Dextrose/Water 1 50ml.bag @ 12.5 mls/hr IVPB Q8HR [facility] Rx#: [id number] Propofol 50 ml As IV .STK 134.6 22.4 [facility] Rx#:[id number] Propofol 500 mg In Empty 250 231.083 36.751 Bag 1 bag @ Titrate IV . Q0M [facility] Rx#:[id number] Sodium Chloride 0.9% 1, 1000 000 ml @ 999 mls/hr IV . Q1H1M [facility] Rx#:[id number] Sodium Chloride 0.9% 2, 2000 000 ml @ 999 mls/hr IV . Q2H1M [facility] Rx#:[id number] Sodium Chloride 0.9% 99 36 117 ml @ 0.03 UNITS/MIN 9 mls /hr IV .Q11H7M [facility] with Vasopressin 20 unit Rx#: [id number] Valproate Sodium 1,425 mg 50 In Sodium Chloride 0.9% 50 ml @ 50 mls/hr IVPB ONCE [facility] Rx#:[id number] Valproate Sodium 500 mg 50 In Sodium Chloride 0.9% 50 ml @ 50 mls/hr IVPB Q8HR [facility] Rx#:[id number] Vancomycin 1,000 mg In 250 Sodium Chloride 0.9% 250 ml @ 125 mls/hr IVPB ONCE [facility] Rx#:[id number] Output: Urine 960 1630 550 Other: Voiding Method Indwelling Catheter Indwelling Catheter Indwelling Catheter On examination she is obtunded sedated. She is on 70% FiO2. Blood gases show pH of 7.39 and pCO2 of 25 and pO2 of 90 No JVP noted neck is supple no facial asymmetry Lungs are significant for a few coarse crackles bilaterally. Heart sounds are unremarkable for any murmur rub gallop. Normal sinus rhythm on the monitor Abdomen soft nondistended. Extreme exam was mild edema. 24-hour intake is documented at 8513 and output off 2590 mL - Labs CBC & Chem 7: 05/17/16 05:37 05/17/16 05:37 Labs: Abnormal Lab Results - Last 24 Hours (Table) 05/16/16 05/16/16 05/16/16 Range/Units 08:45 12:07 18:03 WBC (3.8-10.6) k/uL RBC (3.80-5.40) m/uL Hgb (11.4-16.0) gm/dL Hct (34.0-46.0) % Plt Count (150-450) k/uL Neutrophils # (1.3-7.7) k/uL ABG pCO2 (35-45) mmHg ABG HCO3 (21-25) mmol/L ABG Total CO2 (19-24) mmol/L Chloride (98-107) mmol/L Carbon Dioxide (22-30) mmol/L BUN (7-17) mg/dL Creatinine (0.52-1.04) mg/dL Glucose (74-99) mg/dL POC Glucose (mg/dL) 145 H 125 H (75-99) mg/dL Calcium (8.4-10.2) mg/dL Magnesium (1.6-2.3) mg/dL Total Protein (6.3-8.2) g/dL Albumin (3.5-5.0) g/dL Triglycerides 214 H (<150) mg/dL HDL Cholesterol 26 L (40-60) mg/dL 05/16/16 05/16/16 05/17/16 Range/Units 18:39 18:39 00:28 WBC 31.6 H* (3.8-10.6) k/uL RBC 3.52 L (3.80-5.40) m/uL Hgb 10.3 L (11.4-16.0) gm/dL Hct 32.0 L (34.0-46.0) % Plt Count 124 L (150-450) k/uL Neutrophils # (1.3-7.7) k/uL ABG pCO2 (35-45) mmHg ABG HCO3 (21-25) mmol/L ABG Total CO2 (19-24) mmol/L Chloride (98-107) mmol/L Carbon Dioxide (22-30) mmol/L BUN 26 H (7-17) mg/dL Creatinine 1.83 H (0.52-1.04) mg/dL Glucose 131 H (74-99) mg/dL POC Glucose (mg/dL) 105 H (75-99) mg/dL Calcium 7.7 L (8.4-10.2) mg/dL Magnesium (1.6-2.3) mg/dL Total Protein (6.3-8.2) g/dL Albumin (3.5-5.0) g/dL Triglycerides (<150) mg/dL HDL Cholesterol (40-60) mg/dL 05/17/16 05/17/16 05/17/16 Range/Units 04:59 05:37 05:37 WBC 18.5 H (3.8-10.6) k/uL RBC 2.94 L (3.80-5.40) m/uL Hgb 8.7 L D (11.4-16.0) gm/dL Hct 26.7 L (34.0-46.0) % Plt Count 87 L (150-450) k/uL Neutrophils # 16.3 H (1.3-7.7) k/uL ABG pCO2 25 L (35-45) mmHg ABG HCO3 15 L (21-25) mmol/L ABG Total CO2 15 L (19-24) mmol/L Chloride 109 H (98-107) mmol/L Carbon Dioxide 20 L (22-30) mmol/L BUN 23 H (7-17) mg/dL Creatinine 1.60 H (0.52-1.04) mg/dL Glucose 101 H (74-99) mg/dL POC Glucose (mg/dL) (75-99) mg/dL Calcium 7.0 L (8.4-10.2) mg/dL Magnesium 1.1 L (1.6-2.3) mg/dL Total Protein 4.4 L (6.3-8.2) g/dL Albumin 1.9 L (3.5-5.0) g/dL Triglycerides (<150) mg/dL HDL Cholesterol (40-60) mg/dL 05/17/16 Range/Units 06:40 WBC (3.8-10.6) k/uL RBC (3.80-5.40) m/uL Hgb (11.4-16.0) gm/dL Hct (34.0-46.0) % Plt Count (150-450) k/uL Neutrophils # (1.3-7.7) k/uL ABG pCO2 (35-45) mmHg ABG HCO3 (21-25) mmol/L ABG Total CO2 (19-24) mmol/L Chloride (98-107) mmol/L Carbon Dioxide (22-30) mmol/L BUN (7-17) mg/dL Creatinine (0.52-1.04) mg/dL Glucose (74-99) mg/dL POC Glucose (mg/dL) 105 H (75-99) mg/dL Calcium (8.4-10.2) mg/dL Magnesium (1.6-2.3) mg/dL Total Protein (6.3-8.2) g/dL Albumin (3.5-5.0) g/dL Triglycerides (<150) mg/dL HDL Cholesterol (40-60) mg/dL Microbiology - Last 24 Hours (Table) 05/16/16 04:23 Blood Culture - Preliminary Blood No Growth after 24 hours 05/16/16 03:45 Gram Stain - Preliminary Sputum Sputum Culture - Preliminary Assessment and Plan Plan: Impression. 1. Acute kidney injury secondary to low blood pressure, and lisinopril, additionally possible sepsis. Slow increase in creatinine with a creatinine 1.52 on 05/08/2016 in the care home. Possibility of acute interstitial nephritis from Cipro is being considered, last dose of Cipro was 04/30/2016 in the care home. Other possibilities are emboli to the kidney as she's had this problem with her admission in December for change in mental status and multiple small emboli noted on the computed tomography scan and MRI. A [facility] at the time was unremarkable. So far workup in this admission shows normal sinus kidneys on ultrasound. LDH is normal. Therefore she has acute kidney injury from likely the low blood pressure septic syndrome and lisinopril. This morning she has shown a new infiltrate in the right hilar region and this might have been the cause of her sepsis. She was dialyzed once yesterday felt cementer 05/16/2016 because of the hyperkalemia 2. Worsening or the last 24 hours with vasopressor being started and vent dependent. Respiratory failure now. Right hilar infiltrate. 3. Worsening mental status computed tomography scan is normal. 4. Severe hyperkalemia secondary to combination of acute kidney injury, potassium and lisinopril. Resolved. 2. No evidence of chronic kidney disease with a creatinine of 0.7 on 2015. 4. Hypotension cause not very clear. Currently on levofed 12 mics and 0.03 mics of vasopressin. Blood cultures and urine cultures are negative likely it' s from the pneumonia. 5. History of diabetes mellitus, remote right AKA, 6. Multiple emboli to brain admitted December 2015. [facility] was normal. near complete recovery with normal mental status yesterday. 8. Mental status changes, sepsis. 9. Vent dependent respiratory failure. 10. Hypomagnesemia secondary to decreased intake. Magnesium is 1.1 dated 05/17 today. 11. Possible pericarditis, I'm not sure of a problem possibly one is being heard but not sure 12. Mild degree of non-gap acidosis from acute kidney injury. Recommendation. 1. Maintain blood pressure with inotropes as is being done. 2. Magnesium sulfate 4 mg slowly over 6 hours 2. Consider echocardiogram to see if there is any evidence of severe cardiomyopathy or pericardial effusion, or pericarditis to explain her hypotension. 3. Watch potassium, currently 5.1. 4. Consider nutritional support 5. Agree with bronchoscopy.
[2016-05-17] MEDS ORDERED: IV VANCOMYCIN PER PHARMACY 1 EACH MISC MISCELLANE PRN (11:35)
--- NOTE | 2016-05-17 11:35 | P.PN ---
Subjective Principal diagnosis: Toxic metabolic encephalopathy This is a 66-year-old female patient, snf resident who resides at [facility], who came in yesterday to the emergency department with altered mental status and immediately she was identified to be in acute kidney injury. This is an acute renal failure with hyperkalemia. At the same time the patient was found to be hypotensive in shock. The patient was started on IV fluids a total of 4 L of IV fluid was given to her in the emergency department. She was treated for her hyperkalemia. Subsequently she got moved to the intensive care unit where the patient arrived hypotensive and shock state. She was started on pressors. She was started on norepinephrine infusion and at one point the dose as high as 50 mcg/m. The patient also had a dialysis catheter inserted and she was given a session of dialysis for acute hyperkalemia by nephrology. Note that the dialysis was successful and the patient had a drop in her potassium level which is essentially normalized. Note that his same time, the patient was intubated and placed on a mechanical ventilator. Chest x-ray from early this morning shows adequate positioning of the ET tube. There is cardiomegaly. No evidence of pneumonia. The urine is abnormal and there is evidence of urine checked infection pain noted the patient has had multiple UTIs in the past with quinolone resistant E. coli and previous history of Pseudomonas urine checked infection. Going back to the history, this patient has a very calm. Medical history. 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 The patient was in the hospital approximately in December 2015 and she was found to have multiple infarcts in her brain and the possibility of a embolism/ embolic phenomena was raised. Note that the MRI of the brain indicated non- acute vascular insult in the right lateral occipital lobes as well as a high right frontal lobe infarct and the high left parietal lobe infarct. The patient had evidence of subacute stroke involving the occipital lobe on the right. The patient was investigated further including a JOSE that showed moderate degree of aortic stenosis with a valve area of 1.2 cm. She was also found to have left anterior occurred artery stenosis estimated between 50-69%. The patient was discharged home on anticoagulation and she was taken Eliquis. The CAT scan of the brain that was done during this current admission shows no acute abnormalities. The patient is currently intubated on a mechanical ventilator. She is sedated. The pressor doses of been gradually weaned off. Attempts to insert an art line catheter was unsuccessful. On 05/17/2016 the patient is being seen in follow-up. She remains intubated on mechanical ventilator. She remains on an assist-control mode of ventilation at the rate of 24, tidal volume of 500, FiO2 of 70% and PEEP of 5. The blood gases from this morning show a pH of 7.39 with a pCO2 of 25 and a pO2 of 90. Chest x-ray shows a extensive consolidation of the right lung typical of an underlying pneumonia. At the same time the patient is producing copious amount of rest or secretions which are being suctioned out. She is still pressor dependent. She was started on vasopressin physiologic dose of 0.03 units per minute and the patient was also on norepinephrine infusion at 12 mics. Note that the pressor dose has been drop significantly compared to yesterday. She received an additional 2 L bolus and she has been resuscitated with more than 6 L of fluid since she came in to the ICU. She is producing adequate amount of urine output. She required one session of dialysis and the creatinine is down to 1.6. As far as infectious causes, I strongly suspected there is a severe pneumonia developing in the right lung. The patient is on a combination of Zosyn and Levaquin and she was given a dose of vancomycin. Urine culture was also sent and the results are still pending. Underlying urine checked infections also suspected is unaffected the patient has had multiple UTIs in the past with E. coli and Pseudomonas. The patient is also known to have valvular heart disease with moderate degree of aortic stenosis. Repeat CAT scan of the brain was done and the findings are essentially stable with an old infarct visualized. She remains critically ill. Dialysis catheter is still present in the right IJ and that can be removed per nephrology. Albumin levels on today's at 1.9. Objective - Vital Signs Vital signs: Vital Signs Temp 101.9 F H 05/17/16 08:00 Pulse 96 05/17/16 10:07 Resp 24 05/17/16 10:07 BP 128/45 05/17/16 10:07 Pulse Ox 96 05/17/16 10:07 Intake & Output 05/16/16 05/17/16 05/17/16 18:59 06:59 18:59 Intake Total 3655.470 4858.253 513.285 Output Total 960 1630 550 Balance 2695.470 3228.253 -36.715 Weight 95.35 kg 108.5 kg Intake: IV 1731.2 1687.5 450 Norepinephrine 16 mg In 325.0 37.5 Sodium Chloride 0.9% 250 ml @ Titrate IV .Q0M [facility] Rx#:[id number] Propofol 500 mg In Empty 56.2 Bag 1 bag @ Titrate IV . Q0M [facility] Rx#:[id number] Sodium Chloride 0.9% 1, 1350 1650 450 000 ml @ 150 mls/hr IV . Q6H40M [facility] Rx#:[id number] Intake, IV Titration 8102.141 5100.753 63.285 Amount Levofloxacin 750Mg-D5w 100 Pmx 750 mg In Dextrose/ Water 1 150ml.bag @ 100 mls/hr IVPB Q24H [facility] Rx#: [id number] Norepinephrine 16 mg In 441.170 287.770 26.534 Sodium Chloride 0.9% 250 ml @ Titrate IV .Q0M [facility] Rx#:[id number] Piperacillin-Tazobactam 3 62.5 62.5 .375 gm In Dextrose/Water 1 50ml.bag @ 12.5 mls/hr IVPB Q8HR [facility] Rx#: [id number] Propofol 50 ml As IV .STK 134.6 22.4 -[facility] Rx#:[id number] Propofol 500 mg In Empty 250 231.083 36.751 Bag 1 bag @ Titrate IV . Q0M [facility] Rx#:[id number] Sodium Chloride 0.9% 1, 1000 000 ml @ 999 mls/hr IV . Q1H1M [facility] Rx#:[id number] Sodium Chloride 0.9% 2, 2000 000 ml @ 999 mls/hr IV . Q2H1M [facility] Rx#:[id number] Sodium Chloride 0.9% 99 36 117 ml @ 0.03 UNITS/MIN 9 mls /hr IV .Q11H7M [facility] with Vasopressin 20 unit Rx#: [id number] Valproate Sodium 1,425 mg 50 In Sodium Chloride 0.9% 50 ml @ 50 mls/hr IVPB ONCE [facility] Rx#:[id number] Valproate Sodium 500 mg 50 In Sodium Chloride 0.9% 50 ml @ 50 mls/hr IVPB Q8HR [facility] Rx#:[id number] Vancomycin 1,000 mg In 250 Sodium Chloride 0.9% 250 ml @ 125 mls/hr IVPB [facility] Rx#:[id number] Output: Urine 960 1630 550 Other: Voiding Method Indwelling Catheter Indwelling Catheter Indwelling Catheter - Exam Head exam was generally normal. There was no scleral icterus or corneal arcus. Mucous membranes were moist. Patient is intubated on mechanical ventilator. She is edentulous.Neck was supple and without jugular venous distension, thyromegaly, or carotid bruits. Carotids were easily palpable bilaterally. There was no adenopathy. Orotracheal and orogastric tube are both in place. Neck is supple. There is no JVDs. No goiter. No neck masses. A right IJ dialysis catheter is in place. Lungs sounds are diminished other was clear clear. No wheezes overall currently crackles. Heart sounds are regular and there is a systolic ejection murmur grade 4/6 systolic the precordium.Abdominal exam revealed normal bowel sounds. The abdomen was soft, non-tender, and without masses, organomegaly, or appreciable enlargement of the abdominal aorta. Extremities show an above-knee amputation on the right. Left lower extremity is within normal limits with diminished pulses. Has some trace edema in the left lower extremity. Skin areas of ecchymosis and bruising probably due to over coagulation in the setting of an acute kidney injury. - Labs CBC & Chem 7: 05/17/16 05:37 05/17/16 05:37 Labs: Abnormal Lab Results - Last 24 Hours (Table) 05/16/16 05/16/16 05/16/16 Range/Units 12:07 18:03 18:39 WBC (3.8-10.6) k/uL RBC (3.80-5.40) m/uL Hgb (11.4-16.0) gm/dL Hct (34.0-46.0) % Plt Count (150-450) k/uL Neutrophils # (1.3-7.7) k/uL ABG pCO2 (35-45) mmHg ABG HCO3 (21-25) mmol/L ABG Total CO2 (19-24) mmol/L Chloride (98-107) mmol/L Carbon Dioxide (22-30) mmol/L BUN 26 H (7-17) mg/dL Creatinine 1.83 H (0.52-1.04) mg/dL Glucose 131 H (74-99) mg/dL POC Glucose (mg/dL) 145 H 125 H (75-99) mg/dL Calcium 7.7 L (8.4-10.2) mg/dL Magnesium (1.6-2.3) mg/dL Total Protein (6.3-8.2) g/dL Albumin (3.5-5.0) g/dL 05/16/16 05/17/16 05/17/16 Range/Units 18:39 00:28 04:59 WBC 31.6 H* (3.8-10.6) k/uL RBC 3.52 L (3.80-5.40) m/uL Hgb 10.3 L (11.4-16.0) gm/dL Hct 32.0 L (34.0-46.0) % Plt Count 124 L (150-450) k/uL Neutrophils # (1.3-7.7) k/uL ABG pCO2 25 L (35-45) mmHg ABG HCO3 15 L (21-25) mmol/L ABG Total CO2 15 L (19-24) mmol/L Chloride (98-107) mmol/L Carbon Dioxide (22-30) mmol/L BUN (7-17) mg/dL Creatinine (0.52-1.04) mg/dL Glucose (74-99) mg/dL POC Glucose (mg/dL) 105 H (75-99) mg/dL Calcium (8.4-10.2) mg/dL Magnesium (1.6-2.3) mg/dL Total Protein (6.3-8.2) g/dL Albumin (3.5-5.0) g/dL 05/17/16 05/17/16 05/17/16 Range/Units 05:37 05:37 06:40 WBC 18.5 H (3.8-10.6) k/uL RBC 2.94 L (3.80-5.40) m/uL Hgb 8.7 L D (11.4-16.0) gm/dL Hct 26.7 L (34.0-46.0) % Plt Count 87 L (150-450) k/uL Neutrophils # 16.3 H (1.3-7.7) k/uL ABG pCO2 (35-45) mmHg ABG HCO3 (21-25) mmol/L ABG Total CO2 (19-24) mmol/L Chloride 109 H (98-107) mmol/L Carbon Dioxide 20 L (22-30) mmol/L BUN 23 H (7-17) mg/dL Creatinine 1.60 H (0.52-1.04) mg/dL Glucose 101 H (74-99) mg/dL POC Glucose (mg/dL) 105 H (75-99) mg/dL Calcium 7.0 L (8.4-10.2) mg/dL Magnesium 1.1 L (1.6-2.3) mg/dL Total Protein 4.4 L (6.3-8.2) g/dL Albumin 1.9 L (3.5-5.0) g/dL Microbiology - Last 24 Hours (Table) 05/16/16 04:23 Blood Culture - Preliminary Blood No Growth after 24 hours 05/16/16 03:45 Gram Stain - Preliminary Sputum Sputum Culture - Preliminary Assessment and Plan Plan: Assessment 1 acute shock, likely of a septic in nature. Patient has developed an extensive right lung pneumonia. At the same time, the patient is suspected to have a recurrent urine tract infection probably with gram-negative bacteria. She has been infected on multiple occasions in the past with E. coli that had been quinolone resistant and Pseudomonas. Patient has been adequately resuscitated IV fluids. The patient is on high-dose norepinephrine infusion. On 05/17/2016, the patient remains on a broad-spectrum antibiotic coverage. Cultures still pending. Bronchoscopy of the lungs will be done and the bronchioloalveolar lavage will be collected from the right lung. The patient will be kept on pressors. The patient is still on a combination of vasopressin and norepinephrine infusion. Echocardiogram was ordered and is also still pending for now. Meanwhile, she was aggressively resuscitated IV fluids. She is febrile for now. She is producing adequate amount of urine output. 2 acute kidney injury, multifactorial, rule out ATN. The patient received a session of dialysis yesterday to treat her hyperkalemia. She is producing adequate amount of urine output at this point. Potassium level is normalized On 05/17/2016, the patient's renal function is improving and the creatinine is down to 1.6. Nephrology is on the case. No need for dialysis at this point. 3 acute hyperkalemia, recovered 4 morbid obesity 5 multiple LAB TESTER infarcts maintained on anticoagulation on outpatient basis 6 moderate degree of aortic stenosis, preserved LV function 7 hypertension, history of 8 hyperlipidemia history of 9 diabetes mellitus 10 above-knee amputation of the right lower extremity 11 reflux 12 hepatitis C viral infection 13 chronic back pain on narcotics 14 previous history of lower GI bleed Plan Continue vent support. No need for any vent changes for today. May need to wean down the FiO2 gradually to maintain a saturation above 90%. Bronchoscopy today. Keep same antibiotic coverage which included a combination of Zosyn and Levaquin and vancomycin. Monitor renal function. Wean off pressors. Initiate tube feeds and the patient be started on Nepro 10 mL an hour. Continue vasopressin physiologic dose. Continue norepinephrine infusion and gradually wean it down. Echocardiogram was ordered. She is still on IV fluids with 0.9 at 150 mL an hour. We'll continue to follow make further recommendations based on her progress. CAT scan of the brain was repeated showed no acute abnormalities. This evaluation was done and 35 minutes. Further recommendations to follow. Patient remains critically ill.
[2016-05-17 11:53] LABS: Glucose,Whole Blood 121 mg/dL (75-99)
[2016-05-17] MEDS ORDERED: IV FLUID CONTINUATION 1,000 ML IV ONE (12:56)
--- NOTE | 2016-05-17 13:46 | US ---
EXAMINATION TYPE: US carotid duplex BILAT DATE OF EXAM: 05/17/2016 1:34 PM COMPARISON: NONE CLINICAL HISTORY: US. CVA, pt in ICU vented EXAM MEASUREMENTS: LEFT: Peak Systolic Velocity (PSV) cm/sec ----- Left CCA: 161.4 ----- Left ICA: 219.9 ----- Left ECA: 298.7 ICA/CCA ratio: 1.4 LEFT: End Diastole cm/sec ----- Left CCA: 0.0 ----- Left ICA: 19.2 ----- Left ECA: 0.0 VERTEBRALS (direction of flow): Left Vertebral: Antegrade TECHNOLOGIST IMPRESSION: Right side not scanned, pt has dialysis line in right neck/ RN Rajat in [facility] stated to continue and do left side Left side shows elevated velocities throughout carotid system/ plaque within left bulb IMPRESSION: The right side of the neck was not scanned because of the dialysis catheter. On the left side the images and measurements suggest more than 70% stenosis of the left internal urbano tid artery. There is antegrade flow in the left vertebral artery. Criteria for Assigning % of Stenosis / Diameter reduction (Estimation based on the indirect measurements of the internal carotid artery velocities (ICA PSV). 1. Normal (no stenosis)=ICA PSV < 125 cm/s: ratio < 2.0: ICA EDV<40 cm/s. 2. Less than 50% stenosis=ICA PSV < 125 cm/s: ratio < 2.0: ICA EDV<40 cm/s. 3. 50 to 69% stenosis=ICA PSV of 125 to 230 cm/s: ration 2.0 ? 4.0: ICA EDV 40-100 cm/s. 4. Greater than 70% stenosis to near occlusion= ICA PSV > 230 cm/s: ratio > 4.0: ICA EDV > 100 cm/s. 5. Near occlusion= ICA PSV velocities may be low or undetectable: variable ratio and ICA EDV. 6. Total occlusion=unable to detect flow.
[2016-05-17] MEDS: CHOLECALCIFEROL 1,000 UNIT TAB PO SCH (14:54)
[2016-05-17] MEDS: VANCOMYCIN 1,500 MG in SODIUM CHLORIDE 0.9% 250 ML IVPB SCH (14:55)
[2016-05-17 15:16] LABS: RBC, Body Fluid 322600 /uL
[2016-05-17] MEDS: MAGNESIUM SULFATE-D5W PMX 1 GM in DEXTROSE/WATER 1 100ML.BAG IVPB SCH ×4 (15:22→20:11)
[2016-05-17] MEDS: methylPREDNISolone SOD SUCCI 125 MG/2 ML VIAL IV SCH ×2 (18:47→23:23)
[2016-05-17 18:54] LABS: Glucose,Whole Blood 147 mg/dL (75-99)
[2016-05-17] MEDS: NOREPINEPHRINE 16 MG in SODIUM CHLORIDE 0.9% 250 ML IV SCH (19:29)
[2016-05-17] MEDS: BUDESONIDE 0.5 MG/2 ML NEBU INHALATION SCH (19:39)
[2016-05-17] MEDS: FAMOTIDINE 20 MG/2 ML VIAL IV SCH (20:03)
[2016-05-17] MEDS: ATORVASTATIN 40 MG TAB PO SCH (20:03)
[2016-05-17] MEDS: LEVOFLOXACIN 750MG-D5W PMX 750 MG in DEXTROSE/WATER 1 150ML.BAG IVPB SCH (20:04)
[2016-05-17] MEDS: MONTELUKAST 10 MG TAB PO SCH (20:04)
--- NOTE | 2016-05-17 21:18 | CONS ---
DATE OF CONSULTATION: 05/16/2016 REASON FOR CONSULTATION: Sepsis. 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 The patient did have previous complicated history with urinary tract infection as well as an infection of total knee replacement that ended up having a right above the knee amputation. The patient was sent to the ER last evening. However, the patient was noticed to have a possible stroke. Apparently the patient seemed to be in normal usual symptoms, around 5:30 p.m. after which the patient was having was trouble speaking and reports having left arm weakness. The patient had a previous history of stroke and subsequently evaluated in the ER, the patient was noticed to be significantly hypotensive and did have elevated white count of 17.2. The patient did have a positive UA. Also noticed to have acute renal failure with a creatinine of 4.14 along with hyperkalemia. The patient did went into respiratory distress, ended up getting intubated and despite receiving multiple fluid boluses, she was hypotensive the patient was started on pressor support. She was started on Zosyn. I was asked to see the patient for further recommendation regarding antibiotic therapy. The patient did get dialysis catheter and has been dialyzed for hyperkalemia. However, patient info has been obtained from review of the chart and the patient is currently intubated on the vent. She did not provide any history and unable to provide any history and no family member was available at the bedside. REVIEW OF SYSTEMS: Could not be reliably obtained. The positive points have been mentioned in the HPI. PAST MEDICAL HISTORY: 1. Significant for diabetes mellitus. 2. renal disease. 3. Gastrointestinal bleeding. 4. Hypertension. 5. Hyperlipidemia. 6. Osteoarthritis. 7. Hypothyroidism. 8. Septic arthritis. 9. Right knee MRSA. 10. Recurrent urinary tract infection. 11. Chronic hepatitis C. PAST SURGICAL HISTORY: 1. Right knee replacement x2. 2. Right knee above knee amputation in June 2014. 3. Colonoscopy. 4. Multiple PICC lines. SOCIAL HISTORY: Remote history of smoking. No drinking or drug use. FAMILY HISTORY: Both parents with history of hypertension. ALLERGIES: No known drug allergies. Medications currently include patient is on: 1. Tylenol. 2. Maalox. 3. DuoNeb. 4. Norvasc. 5. Aspirin. 6. Lipitor. 7. Os-Simon with D. 8. Vitamin D3. 9. Pepcid. 10. Neurontin. 11. Dilaudid. 12. Levofloxacin. 13. Norvasc. 14. Norepinephrine. 15. Piptazobactam. 16. Propofol. 17. Zoloft. On examination, blood pressure is 105/46 with a pulse of 94, temperature 99.6. She is 95% on 70% FiO2. General description is an elderly female intubated on the vent. HEENT examination shows slight pallor. There is no scleral icterus. The patient is orally intubated. NECK: Trachea is central. No thyromegaly. LUNGS: Unlabored breathing. Decreased breath sounds at the base. No wheeze. HEART: S1, S2 regular rate and rhythm. Abdomen soft, no tenderness. Left leg with some swelling. No pitting edema. SKIN EXAMINATION: No rash or mass palpable. NEUROLOGICAL: The patient intubated on the vent limiting the exam. LABS: Hemoglobin is 10.3, white count 31.6 with a BUN of 23, creatinine 1.83, electrolytes have been normal. Calcium is 7.7. Urine has been positive with many bacteria. Cultures are pending. Blood and urine culture as well as sputum cultures currently pending. Last urine culture on 01/09 was E. coli some streptococcus Piptazobactam. Prior to that on 12/06 was pseudomonas and E. coli both seems to be sensitive to Piptazobactam. DIAGNOSTIC IMPRESSION AND PLAN: Patient with sepsis in a patient who did have an elevated white count, hypotension requiring multiple fluid boluses in a patient who did have recurrent urinary tract infection and recently finished outpatient courses with cristina Oreilly for a significantly positive urinalysis, admitted to the hospital with weakness, likely the source of infection, pneumonia with a possibility of question of possible aspiration in a patient with no other clinical focus of infection. PLAN: 1. The patient will continue on the Zosyn and Levaquin appropriately started by the ICU team. 2. Will follow up on the clinical condition as well as culture to further adjust the medication if needed. Thank you for this consultation. Will follow this patient along with you. HIEU
[2016-05-17] MEDS: SODIUM CHLORIDE 0.9% 99 ML with VASOPRESSIN 20 UNIT IV SCH ×2 (21:20)
[2016-05-18] MEDS: PIPERACILLIN-TAZOBACTAM 3.375 GM in DEXTROSE/WATER 1 50ML.BAG IVPB SCH ×4 (00:17→23:14)
[2016-05-18] MEDS: PROPOFOL 500 MG in EMPTY BAG 1 BAG IV SCH ×7 (00:17→21:59)
[2016-05-18] MEDS: INSULIN LISPRO (humaLOG) 300 UNIT/3 ML VIAL SQ SCH ×5 (00:20→23:45)
[2016-05-18 00:21] LABS: Glucose,Whole Blood 192 mg/dL (75-99)
[2016-05-18] MEDS: SODIUM CHLORIDE 0.9% 99 ML with VASOPRESSIN 20 UNIT IV SCH ×6 (00:23→20:16)
[2016-05-18] MEDS: IPRATROPIUM-ALBUTEROL 3 ML NEB INHALATION SCH ×6 (03:29→23:17)
[2016-05-18] MEDS: SODIUM CHLORIDE 0.9% 1,000 ML IV SCH ×2 (04:16→20:17)
[2016-05-18 05:03] LABS: Basophils % (A) 0 %; CH 29.4; CHCM 32.8; Eosinophils % (A) 0 %; HCT 25.8 % (34.0-46.0); HDW 2.87; HGB 8.1 gm/dL (11.4-16.0); Luc # (Auto) 0.05; Luc % (Auto) 1; Lymphocytes # (A) 0.4 k/uL (1.0-4.8); Lymphocytes % (A) 5 %; MCH 28.3 pg (25.0-35.0); MCHC 31.3 g/dL (31.0-37.0); MCV 90.4 fL (80.0-100.0); Mean Platelet Volume 8.7; Monocytes # (A) 0.2 k/uL (0-1.0); Monocytes % (A) 3 %; Neutrophils # (A) 6.8 k/uL (1.3-7.7); Neutrophils % (A) 91 %; RBC 2.86 m/uL (3.80-5.40); RDW 14.5 % (11.5-15.5); WBC 7.5 k/uL (3.8-10.6); WBC (Perox) 7.67
[2016-05-18 05:16] LABS: Potassium 4.2 mmol/L (3.5-5.1); Total Protein 4.8 g/dL (6.3-8.2)
[2016-05-18 05:18] LABS: Calcium 7.4 mg/dL (8.4-10.2); Magnesium 2.3 mg/dL (1.6-2.3); Phosphorous 3.2 mg/dL (2.5-4.5); Total Bilirubin 0.6 mg/dL (0.2-1.3)
[2016-05-18 05:36] LABS: ABG PH 7.47 (7.35-7.45)
[2016-05-18 05:37] LABS: ABG Base Excess -4.5 mmol/L; ABG HCO3 19 mmol/L (21-25); ABG PCO2 26 mmHg (35-45); ABG PO2 81 mmHg (83-108); ABG TCO2 19 mmol/L (19-24)
[2016-05-18] MEDS: methylPREDNISolone SOD SUCCI 125 MG/2 ML VIAL IV SCH (06:18)
[2016-05-18] MEDS: LEVOTHYROXINE 100 MCG TAB PO SCH (06:18)
[2016-05-18 06:22] LABS: Glucose,Whole Blood 173 mg/dL (75-99)
[2016-05-18] MEDS: BUDESONIDE 0.5 MG/2 ML NEBU INHALATION SCH ×2 (07:38→20:39)
--- NOTE | 2016-05-18 07:51 | XR ---
EXAMINATION TYPE: XR chest 1V portable DATE OF EXAM: 05/18/2016 6:08 AM CLINICAL HISTORY: Difficulty breathing progress study. TECHNIQUE: Single AP portable upright view of the chest is obtained. COMPARISON: Chest x-ray from one day earlier FINDINGS: An endotracheal tube, orogastric tube, and right internal jugular central venous catheter are all stable in appearance. There is persistent mild cardiomegaly with central perihilar airspace opacity bulge reflect alveolar edema. Bibasilar opacity consistent with small bilateral pleural effusions and associated bibasilar a telectasis and/or infiltrate is all redemonstrated. Upper lungs remain clear without pneumothorax. Os seous structures are intact. IMPRESSION: Overall stable findings, suspected CHF exacerbation as there is mild cardiomegaly with small bilateral pleural effusions and central vascular congestion with bilateral perihilar alveolar e frank suspected. Bibasilar atelectasis and/or infiltrate is noted.
--- NOTE | 2016-05-18 08:34 | P.PN ---
Subjective Principal diagnosis: Toxic metabolic encephalopathy This is a 66-year-old long-term resident from [facility] was admitted with change in mental status acutely in the long-term and upon admission found to have severe hyperkalemia and acute kidney injury. She had to be dialyzed acutely director cost 05/16/2016 because of a potassium that was high at 8 and not responding. She was anuric at the time. Subsequently she has recovered as far as renal function is concerned but has deteriorated overall with a septic picture. She has not needed any more dialysis since that first dialysis Wednesday morning. She was intubated and started on inotropes including levo fed and vasopressin. Yesterday she underwent bronchoscopy because of right hilar infiltrate. So for all cultures have been negative except for staph in the sputum. Bronchoscopy wash is pending culture results. She was initially admitted with change in mental status of acute onset presumably. Her primary physician though tells me that she has had decreased appetite for the last 1 week. 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 The hyperkalemia which is out of proportion was worked up and has shown normal ultrasound without any hydronephrosis. There is no evidence of any infarction of any organs or tissues. There is no hemolysis. She is obtunded sedated, intubated on 70% FiO2. The chest x-ray seems to be worse today. Her levo fed is off she is on small dose of vasopressin. She continues to make large amounts of urine and her creatinine has actually improved. Blood pressures are fairly stable in the 120 range. Objective - Vital Signs Vital signs: Vital Signs Temp 98.1 F 05/18/16 08:00 Pulse 93 05/18/16 08:00 Resp 23 05/18/16 08:00 BP 153/55 05/18/16 08:00 Pulse Ox 98 05/18/16 08:00 Intake & Output 05/17/16 05/18/16 05/18/16 18:59 06:59 18:59 Intake Total 2175.962 2909.260 388 Output Total 2039 1430 127 Balance 109.224 7129.260 261 Weight 108 kg 110.1 kg 110.1 kg Intake: IV 2049 1999 300 Magnesium Sulfate-D5w Pmx 200 200 1 gm In Dextrose/Water 1 100ml.bag @ 100 mls/hr IVPB Q1H [facility] Rx#: [id number] Piperacillin-Tazobactam 3 50 .375 gm In Dextrose/Water 1 50ml.bag @ 12.5 mls/hr IVPB Q8HR [facility] Rx#: [id number] Sodium Chloride 0.9% 1, 1500 1800 300 000 ml @ 150 mls/hr IV . Q6H40M [facility] Rx#:[id number] Vancomycin 1,500 mg In 250 Sodium Chloride 0.9% 250 ml @ 125 mls/hr IVPB Q24H [facility] Rx#:[id number] Intake, IV Titration 125.962 659.260 18 Amount Levofloxacin 750Mg-D5w 150 Pmx 750 mg In Dextrose/ Water 1 150ml.bag @ 100 mls/hr IVPB Q24H [facility] Rx#: [id number] Norepinephrine 16 mg In 26.534 119.118 Sodium Chloride 0.9% 250 ml @ Titrate IV .Q0M [facility] Rx#:[id number] Piperacillin-Tazobactam 3 50.0 .375 gm In Dextrose/Water 1 50ml.bag @ 12.5 mls/hr IVPB Q8HR [facility] Rx#: [id number] Propofol 500 mg In Empty 99.428 191.142 Bag 1 bag @ Titrate IV . Q0M [facility] Rx#:[id number] Sodium Chloride 0.9% 99 99 18 ml @ 0.03 UNITS/MIN 9 mls /hr IV .Q11H7M [id number] with Vasopressin 20 unit Rx#: [id number] Valproate Sodium 500 mg 50 In Sodium Chloride 0.9% 50 ml @ 50 mls/hr IVPB Q8HR [facility] Rx#:[id number] Tube Feeding 140 40 Other 110 30 Output: Urine 2040 1430 127 Other: Voiding Method Indwelling Catheter Indwelling Catheter On examination she is sedated. On the vent 70% FiO2 on small doses of vasopressin. HEENT exam difficult because of the right IJ Wilfredo catheter. No facial asymmetry. Pupils are equal. Lungs are clear with slightly diminished breath sounds on the right. Heart sounds are significant for aortic systolic ejection murmur. This murmur has become more lower today. Abdomen is soft nontender distended Extremity exam was minimal to trace edema. Neurologically obtunded because of sedation. - Labs CBC & Chem 7: 05/18/16 04:30 05/18/16 04:30 Labs: Abnormal Lab Results - Last 24 Hours (Table) 05/17/16 05/17/16 05/18/16 Range/Units 11:51 18:52 00:19 RBC (3.80-5.40) m/uL Hgb (11.4-16.0) gm/dL Hct (34.0-46.0) % Plt Count (150-450) k/uL Lymphocytes # (1.0-4.8) k/uL ABG pH (7.35-7.45) ABG pCO2 (35-45) mmHg ABG pO2 (83-108) mmHg ABG HCO3 (21-25) mmol/L Chloride (98-107) mmol/L Carbon Dioxide (22-30) mmol/L BUN (7-17) mg/dL Creatinine (0.52-1.04) mg/dL Glucose (74-99) mg/dL POC Glucose (mg/dL) 121 H 147 H 192 H (75-99) mg/dL Calcium (8.4-10.2) mg/dL Total Protein (6.3-8.2) g/dL Albumin (3.5-5.0) g/dL 05/18/16 05/18/16 05/18/16 Range/Units 04:30 04:30 04:49 RBC 2.86 L (3.80-5.40) m/uL Hgb 8.1 L (11.4-16.0) gm/dL Hct 25.8 L (34.0-46.0) % Plt Count 61 L (150-450) k/uL Lymphocytes # 0.4 L (1.0-4.8) k/uL ABG pH 7.47 H (7.35-7.45) ABG pCO2 26 L (35-45) mmHg ABG pO2 81 L (83-108) mmHg ABG HCO3 19 L (21-25) mmol/L Chloride 109 H (98-107) mmol/L Carbon Dioxide 21 L (22-30) mmol/L BUN 25 H (7-17) mg/dL Creatinine 1.29 H (0.52-1.04) mg/dL Glucose 177 H (74-99) mg/dL POC Glucose (mg/dL) (75-99) mg/dL Calcium 7.4 L (8.4-10.2) mg/dL Total Protein 4.8 L (6.3-8.2) g/dL Albumin 2.0 L (3.5-5.0) g/dL 05/18/16 Range/Units 06:20 RBC (3.80-5.40) m/uL Hgb (11.4-16.0) gm/dL Hct (34.0-46.0) % Plt Count (150-450) k/uL Lymphocytes # (1.0-4.8) k/uL ABG pH (7.35-7.45) ABG pCO2 (35-45) mmHg ABG pO2 (83-108) mmHg ABG HCO3 (21-25) mmol/L Chloride (98-107) mmol/L Carbon Dioxide (22-30) mmol/L BUN (7-17) mg/dL Creatinine (0.52-1.04) mg/dL Glucose (74-99) mg/dL POC Glucose (mg/dL) 173 H (75-99) mg/dL Calcium (8.4-10.2) mg/dL Total Protein (6.3-8.2) g/dL Albumin (3.5-5.0) g/dL Microbiology - Last 24 Hours (Table) 05/16/16 04:23 Blood Culture - Preliminary Blood No Growth after 48 hours 05/17/16 13:00 Gram Stain - Preliminary Bronchial Washings - Right Bronchial Washings Culture - Preliminary 05/17/16 13:00 Fungal Culture - Preliminary Bronchial Washings - Right 05/16/16 03:45 Gram Stain - Preliminary Sputum Sputum Culture - Preliminary Presumptive Staph aureus Assessment and Plan Plan: Impression. 1. Acute kidney injury secondary to low blood pressure, and lisinopril, additionally possible sepsis. Slow increase in creatinine with a creatinine 1.52 on 05/08/2016 in the long-term. Possibility of acute interstitial nephritis from Cipro was considered, last dose of Cipro was 04/30/2016 in the long-term. Other possibilities such as emboli to the kidney as she's had this problem with her admission in December for change in mental status and multiple small emboli noted on the computed tomography scan and MRI. A JOSE at the time was unremarkable. So far workup in this admission shows normal sinus kidneys on ultrasound. LDH is normal. Therefore she has acute kidney injury from likely the low blood pressure septic syndrome and lisinopril. Her acute kidney injury continues to improve with creatinine coming down to 1.29, and good urine output. She needed only one dialysis early Wednesday morning 2015 because of severe hyperkalemia. 2. When dependent respiratory failure, intubated, on 70% FiO2. Worsening chest x-ray infiltrate possible congestive heart failure. This is in addition to pneumonia. Status post bronchoscopy 05/17/2016 2. Worsening or the last 48 hours with vasopressor being started and vent dependent. Respiratory failure now. Right hilar infiltrate. Today morning she is off of levo fed and on small doses of vasopressin with good blood pressure. She is still on IV fluids 3. Worsening mental status computed tomography scan is normal. 4. Severe hyperkalemia secondary to combination of acute kidney injury, potassium and lisinopril. Resolved. 2. No evidence of chronic kidney disease with a creatinine of 0.7 on 2015. 5. History of diabetes mellitus, remote right AKA, 6. Multiple emboli to brain admitted December 2015. JOSE was normal. near complete recovery with normal mental status yesterday. 8. Mental status changes, sepsis. 12. Mild degree of non-gap acidosis from acute kidney injury. Recommendation. 1. Discontinue IV fluids. 2. Check CVP pressure through the Wilfredo. Magnesium sulfate 4 mg slowly over 6 hours 3. Avoid nephrotoxic medications.
[2016-05-18] MEDS: GABAPENTIN 100 MG CAP PO SCH ×2 (08:45→20:19)
[2016-05-18] MEDS: ASPIRIN 325 MG TAB PO SCH (08:45)
[2016-05-18] MEDS: SERTRALINE 100 MG TAB PO SCH (08:45)
[2016-05-18] MEDS: VALPROATE SODIUM 500 MG in SODIUM CHLORIDE 0.9% 50 ML IVPB SCH ×3 (08:45→23:14)
[2016-05-18] MEDS: CHLORHEXIDINE GLUCONATE 15 ML CUP MUCOUS MEM SCH ×2 (08:46→20:19)
[2016-05-18] MEDS: OLANZapine 10 MG TAB PO SCH ×3 (08:47→20:19)
[2016-05-18] MEDS: CALCIUM CARB-VIT D 500MG-200UN 1 EACH TAB PO SCH ×2 (08:47→16:18)
--- NOTE | 2016-05-18 08:52 | PN ---
DATE OF SERVICE: 05/17/2016 I am covering for Dr. Elmer Moreno. The patient is sedated. Does not follow any commands. She has some oozing at her dialysis catheter site. She also is intubated at this time. On physical examination, blood pressure is 128/45, respiratory rate 24, pulse rate of 96, O2 sat on 70% FiO2 was 96%. HEENT reveals pupils that are equal, ET tube is in place. Chest reveals decreased breath sounds with expiratory wheeze. Cardiovascular system reveals S1 and S2. No S3, no S4, no murmurs. Abdomen is soft. There is trace pedal edema. White count is 18.5, hemoglobin of 8.7, platelet count 87,000. ABG showed pH of 7.39, pCO2 of 25, pO2 of 90, bicarb of 15. Sodium 140, potassium 5.1, chloride 109, bicarb 20. BUN 23, creatinine of 1.6. Vancomycin of 9.8. Chest x-ray shows bilateral pulmonic infiltrates that were worse than the previous day. IMPRESSION: 1. Acute respiratory failure. 2. Systemic inflammatory response. 3. Acute renal failure. 4. Acute tubular necrosis. 5. Morbid obesity and possible obstructive sleep apnea. 6. Pneumonia. 7. Bronchospasm. The patient apparently is to have bronchoscopy today per Dr. Batista's note. Continue antibiotics. Add aerosolized steroids to her regimen, give her a short course of IV steroids of Solu-Medrol 3 doses. Her prognosis at this time is guarded.
--- NOTE | 2016-05-18 11:36 | PCN ---
DATE OF PROCEDURE: PROCEDURE PERFORMED : Bronchoscopy. PREOPERATIVE DIAGNOSIS: Right lung pneumonia. POSTOPERATIVE DIAGNOSIS: Right lung pneumonia. The procedure includes: Bronchoscopy and bronchoalveolar lavage of the right middle lobe. This procedure was done in the intensive care unit. The procedure was done while the patient being intubated on mechanical ventilator. The patient was fully sedated with Diprivan. She was briefly placed on 100% FiO2 through the mechanical ventilator. An adapter was attached to the orotracheal tube and following that the flexible bronchoscope was introduced into the trachea. The tip of the ET tube was seen around 3 cm above the giovanny. Airway inspection was completed and the visualized airways included trachea, bilateral mainstem bronchi, right upper, right middle, right lower lobe, left upper and left lower bronchi along with various segments and subsegments. Copious amount of thick purulent respiratory secretions was identified in the right upper lobe bronchus, bronchus intermedius and right lower lobe bronchus. Therapeutic airway suctioning was done and following that bronchoalveolar lavage of the right upper lobe was done with a total of 80 mL of fluid was infused and 40 mL was suctioned back. At the end of the procedure the airways were quite patent and there was no residual respiratory secretions identified. Left lung was essentially clear. No bedside complications and the bronchoscope was removed and the procedure was terminated.
--- NOTE | 2016-05-18 12:04 | PN ---
DATE OF SERVICE: 05/17/2016 REASON FOR FOLLOW-UP: Sepsis with urinary tract infection and question of pneumonia. INTERVAL HISTORY: The patient did spike a fever this morning. However, the patient has been afebrile since then. She is hemodynamically slightly better, with Levophed down to 9 mics. No other events has been noticed. Overall, kidney function has improved with the plan for removal of the dialysis catheter tomorrow with the RN. No diarrhea has been noticed. On examination, blood pressure is 111/59, temperature 99.6. She is 96% on 70% FiO2. General description is an elderly female intubated and on the vent. RESPIRATORY SYSTEM: Unlabored breathing. Clear to auscultation anteriorly. HEART: S1, S2 regular rate and rhythm. ABDOMEN: Soft. No tenderness. LABS: Hemoglobin 8.7 with a white count of 18.5. BUN of 23, creatinine 1.60. The patient is status post bronch wash with the cultures the sputum presumptive Staphylococcus aureus. Diagnostic impression and plan: Patient admitted to hospital with sepsis, with concern for urinary tract infection now with the sputum showing Staph aureus likely Methicillin-resistant Staph aureus, Vanco has been added to antibiotic regimen with Zosyn that will be continued. Continue to follow-up blood cultures and adjust antibiotics further depending upon clinical condition as well as culture report. Continue supportive care. MARY ANND
--- NOTE | 2016-05-18 12:20 | P.PN ---
Subjective Principal diagnosis: Toxic metabolic encephalopathy This is a 66-year-old female patient, assisted resident who resides at [facility], who came in yesterday to the emergency department with altered mental status and immediately she was identified to be in acute kidney injury. This is an acute renal failure with hyperkalemia. At the same time the patient was found to be hypotensive in shock. The patient was started on IV fluids a total of 4 L of IV fluid was given to her in the emergency department. She was treated for her hyperkalemia. Subsequently she got moved to the intensive care unit where the patient arrived hypotensive and shock state. She was started on pressors. She was started on norepinephrine infusion and at one point the dose as high as 50 mcg/m. The patient also had a dialysis catheter inserted and she was given a session of dialysis for acute hyperkalemia by nephrology. Note that the dialysis was successful and the patient had a drop in her potassium level which is essentially normalized. Note that his same time, the patient was intubated and placed on a mechanical ventilator. Chest x-ray from early this morning shows adequate positioning of the ET tube. There is cardiomegaly. No evidence of pneumonia. The urine is abnormal and there is evidence of urine checked infection pain noted the patient has had multiple UTIs in the past with quinolone resistant E. coli and previous history of Pseudomonas urine checked infection. Going back to the history, this patient has a very calm. Medical history. 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 The patient was in the hospital approximately in December 2015 and she was found to have multiple infarcts in her brain and the possibility of a embolism/ embolic phenomena was raised. Note that the MRI of the brain indicated non- acute vascular insult in the right lateral occipital lobes as well as a high right frontal lobe infarct and the high left parietal lobe infarct. The patient had evidence of subacute stroke involving the occipital lobe on the right. The patient was investigated further including a JOSE that showed moderate degree of aortic stenosis with a valve area of 1.2 cm. She was also found to have left anterior occurred artery stenosis estimated between 50-69%. The patient was discharged home on anticoagulation and she was taken Eliquis. The CAT scan of the brain that was done during this current admission shows no acute abnormalities. The patient is currently intubated on a mechanical ventilator. She is sedated. The pressor doses of been gradually weaned off. Attempts to insert an art line catheter was unsuccessful. On 05/17/2016 the patient is being seen in follow-up. She remains intubated on mechanical ventilator. She remains on an assist-control mode of ventilation at the rate of 24, tidal volume of 500, FiO2 of 70% and PEEP of 5. The blood gases from this morning show a pH of 7.39 with a pCO2 of 25 and a pO2 of 90. Chest x-ray shows a extensive consolidation of the right lung typical of an underlying pneumonia. At the same time the patient is producing copious amount of rest or secretions which are being suctioned out. She is still pressor dependent. She was started on vasopressin physiologic dose of 0.03 units per minute and the patient was also on norepinephrine infusion at 12 mics. Note that the pressor dose has been drop significantly compared to yesterday. She received an additional 2 L bolus and she has been resuscitated with more than 6 L of fluid since she came in to the ICU. She is producing adequate amount of urine output. She required one session of dialysis and the creatinine is down to 1.6. As far as infectious causes, I strongly suspected there is a severe pneumonia developing in the right lung. The patient is on a combination of Zosyn and Levaquin and she was given a dose of vancomycin. Urine culture was also sent and the results are still pending. Underlying urine checked infections also suspected is unaffected the patient has had multiple UTIs in the past with E. coli and Pseudomonas. The patient is also known to have valvular heart disease with moderate degree of aortic stenosis. Repeat CAT scan of the brain was done and the findings are essentially stable with an old infarct visualized. She remains critically ill. Dialysis catheter is still present in the right IJ and that can be removed per nephrology. Albumin levels on today's at 1.9. On 05/18/2016 the patient is being seen in follow-up. The patient is doing better. He is hemodynamically stable. She was taken off the the norepinephrine infusion and a vasopressin physiologic dose will be also discontinued. The patient is sedated on the prevent and she is calm and comfortable. She remains on a mechanical ventilator and assist-control mode rate of 24, tidal volume 500 FiO2 of 50% and PEEP of 5. Chest x-ray shows a significant consolidation of the right lung special the right perihilar area. Morning blood gases showed a pH of 7.47 with a pCO2 of 26 and pO2 of 81. The patient is producing adequate amount of urine output. In fact the patient was aggressively resuscitated IV fluids and she has developed some third spacing. IV fluids were cut down to KVO and urine output is more than 50 mL an hour. Renal function is stable with a creatinine of 1.29. Neurologically, the patient will be given a sedation holiday and underlying mental status will be checked. EEG of the brain was done and the results are still pending. CAT scan of the brain was done and showed no acute abnormalities and the findings are essentially chronic CVA. The carotid Doppler was also done and showed a 70 % stenosis in the left internal carotid artery. Objective - Vital Signs Vital signs: Vital Signs Temp 98.1 F 05/18/16 08:00 Pulse 71 05/18/16 11:00 Resp 24 05/18/16 11:00 BP 109/45 05/18/16 11:00 Pulse Ox 93 L 05/18/16 11:00 Intake & Output 05/17/16 05/18/16 05/18/16 18:59 06:59 18:59 Intake Total 2175.962 2909.260 771.0 Output Total 2040 1430 247 Balance 596.664 9839.260 524.0 Weight 108 kg 110.1 kg 110.1 kg Intake: IV 2049 1999 385.0 Magnesium Sulfate-D5w Pmx 200 200 1 gm In Dextrose/Water 1 100ml.bag @ 100 mls/hr IVPB Q1H [facility] Rx#: [id number] Piperacillin-Tazobactam 3 50 25.0 .375 gm In Dextrose/Water 1 50ml.bag @ 12.5 mls/hr IVPB Q8HR [facility] Rx#: [id number] Sodium Chloride 0.9% 1, 1500 1800 360 000 ml @ 20 mls/hr IV . Q24H [facility] Rx#:[id number] Vancomycin 1,500 mg In 250 Sodium Chloride 0.9% 250 ml @ 125 mls/hr IVPB Q24H [facility] Rx#:[id number] Intake, IV Titration 125.962 659.260 136 Amount Levofloxacin 750Mg-D5w 150 Pmx 750 mg In Dextrose/ Water 1 150ml.bag @ 100 mls/hr IVPB Q24H [facility] Rx#: [id number] Norepinephrine 16 mg In 26.534 119.118 Sodium Chloride 0.9% 250 ml @ Titrate IV .Q0M [facility] Rx#:[id number] Piperacillin-Tazobactam 3 50.0 .375 gm In Dextrose/Water 1 50ml.bag @ 12.5 mls/hr IVPB Q8HR [facility] Rx#: [id number] Propofol 500 mg In Empty 99.428 191.142 50 Bag 1 bag @ Titrate IV . Q0M [facility] Rx#:[id number] Sodium Chloride 0.9% 99 99 36 ml @ 0.02 UNITS/MIN 6 mls /hr IV .[id number] [facility] with Vasopressin 20 unit Rx#: [id number] Valproate Sodium 500 mg 50 50 In Sodium Chloride 0.9% 50 ml @ 50 mls/hr IVPB Q8HR [facility] Rx#:[id number] Tube Feeding 140 120 Other 110 130 Output: Urine 2040 1430 247 Other: Voiding Method Indwelling Catheter Indwelling Catheter Indwelling Catheter - Exam Head exam was generally normal. There was no scleral icterus or corneal arcus. Mucous membranes were moist. Patient is intubated on mechanical ventilator. She is edentulous.Neck was supple and without jugular venous distension, thyromegaly, or carotid bruits. Carotids were easily palpable bilaterally. There was no adenopathy. Orotracheal and orogastric tube are both in place. Neck is supple. There is no JVDs. No goiter. No neck masses. A right IJ dialysis catheter is in place. Lungs sounds are diminished other was clear clear. No wheezes overall currently crackles. Heart sounds are regular and there is a systolic ejection murmur grade 4/6 systolic the precordium.Abdominal exam revealed normal bowel sounds. The abdomen was soft, non-tender, and without masses, organomegaly, or appreciable enlargement of the abdominal aorta. Extremities show an above-knee amputation on the right. Left lower extremity is within normal limits with diminished pulses. Has some trace edema in the left lower extremity. Skin areas of ecchymosis and bruising probably due to over coagulation in the setting of an acute kidney injury. - Labs CBC & Chem 7: 05/18/16 04:30 05/18/16 04:30 Labs: Abnormal Lab Results - Last 24 Hours (Table) 05/17/16 05/18/16 05/18/16 Range/Units 18:52 00:19 04:30 RBC 2.86 L (3.80-5.40) m/uL Hgb 8.1 L (11.4-16.0) gm/dL Hct 25.8 L (34.0-46.0) % Plt Count 61 L (150-450) k/uL Lymphocytes # 0.4 L (1.0-4.8) k/uL ABG pH (7.35-7.45) ABG pCO2 (35-45) mmHg ABG pO2 (83-108) mmHg ABG HCO3 (21-25) mmol/L Chloride (98-107) mmol/L Carbon Dioxide (22-30) mmol/L BUN (7-17) mg/dL Creatinine (0.52-1.04) mg/dL Glucose (74-99) mg/dL POC Glucose (mg/dL) 147 H 192 H (75-99) mg/dL Calcium (8.4-10.2) mg/dL Total Protein (6.3-8.2) g/dL Albumin (3.5-5.0) g/dL 05/18/16 05/18/16 05/18/16 Range/Units 04:30 04:49 06:20 RBC (3.80-5.40) m/uL Hgb (11.4-16.0) gm/dL Hct (34.0-46.0) % Plt Count (150-450) k/uL Lymphocytes # (1.0-4.8) k/uL ABG pH 7.47 H (7.35-7.45) ABG pCO2 26 L (35-45) mmHg ABG pO2 81 L (83-108) mmHg ABG HCO3 19 L (21-25) mmol/L Chloride 109 H (98-107) mmol/L Carbon Dioxide 21 L (22-30) mmol/L BUN 25 H (7-17) mg/dL Creatinine 1.29 H (0.52-1.04) mg/dL Glucose 177 H (74-99) mg/dL POC Glucose (mg/dL) 173 H (75-99) mg/dL Calcium 7.4 L (8.4-10.2) mg/dL Total Protein 4.8 L (6.3-8.2) g/dL Albumin 2.0 L (3.5-5.0) g/dL Microbiology - Last 24 Hours (Table) 05/17/16 13:00 Gram Stain - Preliminary Bronchial Washings - Right Bronchial Washings Culture - Preliminary Presumptive Staph aureus 05/16/16 03:45 Gram Stain - Final Sputum Sputum Culture - Final Methicillin resist S. aureus 05/16/16 04:23 Blood Culture - Preliminary Blood No Growth after 48 hours 05/17/16 13:00 Fungal Culture - Preliminary Bronchial Washings - Right Assessment and Plan Plan: Assessment 1 acute shock, likely of a septic in nature. Patient has developed an extensive right lung pneumonia. At the same time, the patient is suspected to have a recurrent urine tract infection probably with gram-negative bacteria. She has been infected on multiple occasions in the past with E. coli that had been quinolone resistant and Pseudomonas. Patient has been adequately resuscitated IV fluids. The patient is on high-dose norepinephrine infusion. On 05/17/2016, the patient remains on a broad-spectrum antibiotic coverage. Cultures still pending. Bronchoscopy of the lungs will be done and the bronchioloalveolar lavage will be collected from the right lung. The patient will be kept on pressors. The patient is still on a combination of vasopressin and norepinephrine infusion. Echocardiogram was ordered and is also still pending for now. Meanwhile, she was aggressively resuscitated IV fluids. She is febrile for now. She is producing adequate amount of urine output. On 05/18/2016, the patient is doing better hemodynamically. There is MRSA growth in the sputum and its very much likely the patient has an MRSA pneumonia. The patient on vancomycin and Zosyn and Levaquin will be dropped. Urine culture has not shown anything abnormal. The patient is off norepinephrine infusion and vasopressin will be also discontinued. We will assess her mental status today by giving her a sedation holiday. 2 acute kidney injury, multifactorial, rule out ATN. The patient received a session of dialysis yesterday to treat her hyperkalemia. She is producing adequate amount of urine output at this point. Potassium level is normalized On 05/17/2016, the patient's renal function is improving and the creatinine is down to 1.6. Nephrology is on the case. No need for dialysis at this point. On 05/18/2016, the patient is producing adequate amount of urine output in the creatinine is down to 1.29. She is more stable. 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 Continue the Zosyn and vancomycin and drop the Levaquin. Continue assessing the mental status as the patient is being weaned off the Diprivan to assess her underlying neurologic functions. CAT scan of the brain that was done earlier showed no evidence of any stroke and the EEG was performed this morning and is also still pending. The patient will also have a follow-up echocardiogram today. We will take out the dialysis catheter. No anticoagulation yet nontender the patient was quite toxic on Eliquis on admission. The family was updated on the condition. I talked to her sister in [place] and I filled and the details of her sisters condition. She is critical however she is improved over the past 24-48 hours. We'll continue to follow. She was done and 31 minutes Time with Patient: Greater than 30
[2016-05-18] MEDS: VANCOMYCIN 1,500 MG in SODIUM CHLORIDE 0.9% 250 ML IVPB SCH (12:21)
[2016-05-18] MEDS: CHOLECALCIFEROL 1,000 UNIT TAB PO SCH (12:21)
[2016-05-18 12:24] LABS: Glucose,Whole Blood 173 mg/dL (75-99)
--- NOTE | 2016-05-18 15:14 | PN ---
DATE OF SERVICE: 05/18/2016 The patient is deeply sedated with propofol and an EEG is being done at this time. She remains on a ventilator. She apparently had a sedation holiday where she was grimacing and was responding to painful stimuli. The propofol apparently had been off for only for about half an hour. On physical examination, her blood pressure is 109/45, respiratory rate 24, pulse is 71, O2 sat on 50% FiO2 is 93%. HEENT reveals ET tube in place. Chest reveals no wheezing today. No crackles. Cardiovascular system reveals an S1, S2. Abdomen is soft. There is amputation on the right lower extremity. Input and output has been positive for the last 4 days. Baseline weight has gone from 95.35 kg to 110 kg. Labs revealed ABG pH of 7.47, pCO2 of 26, pO2 of 81, bicarb 19 on an FiO2 of 70%. Sodium is 141, potassium 4.2, chloride 109, bicarb 21, BUN 25, creatinine of 1.29. IMPRESSION: 1. Acute respiratory failure. 2. Acute renal failure. 3. Systemic inflammatory response. 4. Pneumonia. 5. Bronchospasm. 6. Obesity. PLAN: 1. At this point in time, from a medical standpoint, would recommend considering starting to keep her in negative fluid balance. The patient's IV fluids have been decreased per nephrology. But if she does not start to become negative as far as fluid balance goes she would need gentle diuresis. 2. Would consider checking the EEG when the patient is not on propofol. Mental status changes may in fact be due to propofol because of her obesity. She may need to be off the propofol for much longer. 3. Consider a spontaneous breathing trials. Consider PT and OT to further evaluate the patient to do passive range of motion and at some point consider awake mobility and upper extremity exercises to help her overall. Depending on how she does, we shall make further changes to her care.
--- NOTE | 2016-05-18 16:23 | P.PN ---
Subjective Principal diagnosis: Toxic metabolic encephalopathy Patient is a 66-year-old female was transported ED for possible stroke. The patient is a retirement patient was last seen at her normal baseline at 5:30 PM and 05/15/2016. She was observed to have trouble speaking and having left arm weakness. Patient does have a history of prior stroke. Patient baseline mental status is reported to be normal. She has neuropathy in the left leg. 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 Patient also has a history of multiple small infarcts in the brain was admitted in December 2015. During December 2015 admission, her creatinine was normal, she was hypotensive disoriented and as a result of acute kidney injury. Patient is also known to be diabetic for unknown number of years. Last creatinine drawn the retirement on 05/08/2016 shows a creatinine of 1.52, potassium of 5.7. Her most recent labs note the following results: Creatinine 1.6 and a potassium of 5.1. Patient was on ciprofloxacin for several days which was terminated on 2015 at the retirement. The medications or antibiotics were given at that time. No history of fall, nausea, vomiting, diarrhea, abdominal pain, fever, chills, cough or shortness of breath. He had prior seizures in the retirement. On contact today, patient is intubated in ICU. Patient was still sedated this morning. I stood by while patient was taken off sedation for a full neurological assessment consistent with protocol. Patient was observed to be obtunded and did not "chen" the ventilator when sedation was stopped for the exam. Objective - Vital Signs Vital signs: Vital Signs Temp 98.5 F 05/18/16 12:00 Pulse 75 05/18/16 15:58 Resp 23 05/18/16 15:00 BP 118/46 05/18/16 15:00 Pulse Ox 94 L 05/18/16 15:00 Intake & Output 05/17/16 05/18/16 05/18/16 18:59 06:59 18:59 Intake Total 2175.962 2909.260 1181.500 Output Total 2039 1430 407 Balance 260.580 9597.260 774.500 Weight 108 kg 110.1 kg 110.1 kg Intake: IV 2049 2000 477.5 Magnesium Sulfate-D5w Pmx 200 200 1 gm In Dextrose/Water 1 100ml.bag @ 100 mls/hr IVPB Q1H [facility] Rx#: [id number] Piperacillin-Tazobactam 3 50 37.5 .375 gm In Dextrose/Water 1 50ml.bag @ 12.5 mls/hr IVPB Q8HR [facility] Rx#: [id number] Sodium Chloride 0.9% 1, 1500 1800 440 000 ml @ 20 mls/hr IV . Q24H [facility] Rx#:[id number] Vancomycin 1,500 mg In 250 Sodium Chloride 0.9% 250 ml @ 125 mls/hr IVPB Q24H [facility] Rx#:[id number] Intake, IV Titration 125.962 659.260 294.000 Amount Levofloxacin 750Mg-D5w 150 Pmx 750 mg In Dextrose/ Water 1 150ml.bag @ 100 mls/hr IVPB Q24H [facility] Rx#: [id number] Norepinephrine 16 mg In 26.534 119.118 Sodium Chloride 0.9% 250 ml @ Titrate IV .Q0M [facility] Rx#:[id number] Piperacillin-Tazobactam 3 50.0 .375 gm In Dextrose/Water 1 50ml.bag @ 12.5 mls/hr IVPB Q8HR [facility] Rx#: [id number] Propofol 500 mg In Empty 99.428 191.142 150.000 Bag 1 bag @ Titrate IV . Q0M [facility] Rx#:[id number] Sodium Chloride 0.9% 1, 40 000 ml @ 20 mls/hr IV . Q24H [facility] Rx#:[id number] Sodium Chloride 0.9% 99 99 54 ml @ 0.02 UNITS/MIN 6 mls /hr IV .[id number] [facility] with Vasopressin 20 unit Rx#: [id number] Valproate Sodium 500 mg 50 50 In Sodium Chloride 0.9% 50 ml @ 50 mls/hr IVPB Q8HR [facility] Rx#:[id number] Tube Feeding 140 220 Other 110 190 Output: Urine 2040 1430 407 Other: Voiding Method Indwelling Catheter Indwelling Catheter Indwelling Catheter - Exam General: The patient is lethargic, patient is alert and oriented 1 Eye: there is normal conjunctiva bilaterally. Neck: The neck is supple, there is no JVD. Cardiovascular: Normal S1-S2, no S3-S4, no murmurs. Respiratory: Lungs clear to auscultation bilaterally Gastrointestinal: Abdomen is soft, nontender Musculoskeletal: There is no pedal edema. Neurological: Patient is on a ventilator. Sedation was turned off and patient monitored for an appropriate window to conduct neurological exam. Cranial nerve II: No purposeful movement, pupils constricted and minimally reactive with light. Cranial nerves III through : no response Cranial nerves VII no change in expression. Cranial nerve VIII no response cranial nerve IX no purposeful response on request, only tongue movement occurs randomly. Cranial nerve X: Pulse present Cranial nerve XI and XII no response. Patient does not respond to light touch, only responds to painful stimuli greatest in the left lower extremity but it is noted that this is declined from previous assessment 24 hours ago. 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 Lower extremity (left only) dorsiflexion and plantarflexion with and without resistance are absent. Patient's also noted to have appears to be scleral jaundice. Overall patient has declined neurologically since previous exam Skin: Skin is warm and dry - Labs CBC & Chem 7: 05/18/16 04:30 05/18/16 04:30 Labs: Abnormal Lab Results - Last 24 Hours (Table) 05/17/16 05/18/16 05/18/16 Range/Units 18:52 00:19 04:30 RBC 2.86 L (3.80-5.40) m/uL Hgb 8.1 L (11.4-16.0) gm/dL Hct 25.8 L (34.0-46.0) % Plt Count 61 L (150-450) k/uL Lymphocytes # 0.4 L (1.0-4.8) k/uL ABG pH (7.35-7.45) ABG pCO2 (35-45) mmHg ABG pO2 (83-108) mmHg ABG HCO3 (21-25) mmol/L Chloride (98-107) mmol/L Carbon Dioxide (22-30) mmol/L BUN (7-17) mg/dL Creatinine (0.52-1.04) mg/dL Glucose (74-99) mg/dL POC Glucose (mg/dL) 147 H 192 H (75-99) mg/dL Calcium (8.4-10.2) mg/dL Total Protein (6.3-8.2) g/dL Albumin (3.5-5.0) g/dL 05/18/16 05/18/16 05/18/16 Range/Units 04:30 04:49 06:20 RBC (3.80-5.40) m/uL Hgb (11.4-16.0) gm/dL Hct (34.0-46.0) % Plt Count (150-450) k/uL Lymphocytes # (1.0-4.8) k/uL ABG pH 7.47 H (7.35-7.45) ABG pCO2 26 L (35-45) mmHg ABG pO2 81 L (83-108) mmHg ABG HCO3 19 L (21-25) mmol/L Chloride 109 H (98-107) mmol/L Carbon Dioxide 21 L (22-30) mmol/L BUN 25 H (7-17) mg/dL Creatinine 1.29 H (0.52-1.04) mg/dL Glucose 177 H (74-99) mg/dL POC Glucose (mg/dL) 173 H (75-99) mg/dL Calcium 7.4 L (8.4-10.2) mg/dL Total Protein 4.8 L (6.3-8.2) g/dL Albumin 2.0 L (3.5-5.0) g/dL 05/18/16 Range/Units 12:22 RBC (3.80-5.40) m/uL Hgb (11.4-16.0) gm/dL Hct (34.0-46.0) % Plt Count (150-450) k/uL Lymphocytes # (1.0-4.8) k/uL ABG pH (7.35-7.45) ABG pCO2 (35-45) mmHg ABG pO2 (83-108) mmHg ABG HCO3 (21-25) mmol/L Chloride (98-107) mmol/L Carbon Dioxide (22-30) mmol/L BUN (7-17) mg/dL Creatinine (0.52-1.04) mg/dL Glucose (74-99) mg/dL POC Glucose (mg/dL) 173 H (75-99) mg/dL Calcium (8.4-10.2) mg/dL Total Protein (6.3-8.2) g/dL Albumin (3.5-5.0) g/dL Microbiology - Last 24 Hours (Table) 05/17/16 13:00 Gram Stain - Preliminary Bronchial Washings - Right Bronchial Washings Culture - Preliminary Presumptive Staph aureus 05/16/16 03:45 Gram Stain - Final Sputum Sputum Culture - Final Methicillin resist S. aureus 05/16/16 04:23 Blood Culture - Preliminary Blood No Growth after 48 hours 05/17/16 13:00 Fungal Culture - Preliminary Bronchial Washings - Right Assessment and Plan (1) Toxic metabolic encephalopathy Status: Acute (2) Altered mental status Status: Acute (3) Seizure Status: Acute (4) Sepsis secondary to UTI Status: Acute Plan: 1. Toxic metabolic encephalopathy: On contact, the patient was intubated on a ventilator in the ICU. Patient is noted to be profoundly septic related to urinary tract infection. Sedation was stopped. Neurological assessment performed. On neurological testing, the patient has significant cranial nerve deficits at this time. Patient's repeat CT of the brain noted cerebral atrophy and chronic small vessel ischemia. There is hypodensity in the right occipital lobe region on previous exam that is less noticeable on today's exam. As a result of the repeat CT of the brain, CVA has been ruled out. At this time the patient is with reasonable certainty experiencing toxic metabolic encephalopathy with seizure as at least one component of her etiology. EEG has also been ordered as well as a carotid Doppler. Carotid Doppler will be performed when she can be extubated. Continue Depakote as ordered. Anticoagulation withheld due to bleeding with minimally invasive treatment. I do recommend a family meeting to discuss CODE STATUS, withdrawl of care and entering into hospice or palliative care. Prognosis: Poor Neurology will follow on an as-needed basis. Please feel free to contact our office with any questions or if further assistance is needed. I discussed the patient's pertinent medical information with Dr. Drummond. He agrees with the plan of care as implemented.
[2016-05-18 18:31] LABS: Glucose,Whole Blood 146 mg/dL (75-99)
[2016-05-18] MEDS: MONTELUKAST 10 MG TAB PO SCH (20:19)
[2016-05-18] MEDS: FAMOTIDINE 20 MG/2 ML VIAL IV SCH ×2 (20:20→21:48)
[2016-05-18] MEDS: ATORVASTATIN 40 MG TAB PO SCH (20:20)
--- NOTE | 2016-05-18 21:04 | EEG ---
DATE OF SERVICE: 05/18/2016 INDICATIONS FOR EXAMINATION: Altered mental status, possible seizures. AGE: 66Y DESCRIPTION OF PROCEDURE: This EEG was performed using a 21 channel digital electroencephalograph, following international 10-20 system. CURRENT ANTIEPILEPTIC MEDICATIONS: Depakote. DESCRIPTION OF THE RECORDING: From the beginning of the tracing, with the patient's eyes closed, the background rhythm was mostly consisting of 5-6 Hz theta frequency in the posterior occipital leads. Occasional slowing into the Delta range is seen. Photic stimulation was performed with no driving response seen. No pathological waves were elicited. Hyperventilation was not performed. The patient remains awake throughout the tracing. No epileptiform discharges were seen. Her EKG lead showed a regular rate and rhythm. INTERPRETATION: This EEG is abnormal due to the presence of generalized slowing of the background rhythm, mostly in the theta range and occasionally into the delta range. This was consistent with moderate to severe encephalopathy. No epileptiform discharges were seen. The absence of epileptiform discharges does not rule out the diagnosis of epilepsy. Therefore, clinical correlation is recommended.
[2016-05-18 23:47] LABS: Glucose,Whole Blood 103 mg/dL (75-99)
[2016-05-19] MEDS: IPRATROPIUM-ALBUTEROL 3 ML NEB INHALATION SCH ×6 (03:21→23:43)
[2016-05-19] MEDS: PROPOFOL 500 MG in EMPTY BAG 1 BAG IV SCH ×3 (03:30→20:17)
[2016-05-19] MEDS: HYDROmorphone 1 MG/ML 1 ML SYRINGE IVP PRN (04:22)
[2016-05-19 04:35] LABS: Basophils % (A) 0 %; CH 29.1; CHCM 32.8; Eosinophils % (A) 0 %; HCT 27.6 % (34.0-46.0); HDW 2.82; HGB 9.1 gm/dL (11.4-16.0); Luc # (Auto) 0.16; Luc % (Auto) 2; Lymphocytes # (A) 0.6 k/uL (1.0-4.8); Lymphocytes % (A) 7 %; MCH 29.4 pg (25.0-35.0); MCV 89.2 fL (80.0-100.0); Monocytes # (A) 0.4 k/uL (0-1.0); Monocytes % (A) 4 %; Neutrophils # (A) 7.3 k/uL (1.3-7.7); Neutrophils % (A) 87 %; RDW 14.5 % (11.5-15.5); WBC 8.4 k/uL (3.8-10.6); WBC (Perox) 9.23
[2016-05-19 04:51] LABS: Calcium 7.8 mg/dL (8.4-10.2); Magnesium 2.4 mg/dL (1.6-2.3); Phosphorous 4.7 mg/dL (2.5-4.5); Potassium 3.9 mmol/L (3.5-5.1); Total Bilirubin 0.5 mg/dL (0.2-1.3); Total Protein 4.9 g/dL (6.3-8.2)
[2016-05-19 05:14] LABS: ABG Base Excess -7.7 mmol/L; ABG HCO3 16 mmol/L (21-25); ABG PCO2 24 mmHg (35-45); ABG PH 7.44 (7.35-7.45); ABG PO2 79 mmHg (83-108); ABG TCO2 16 mmol/L (19-24)
[2016-05-19] MEDS ORDERED: Potassium Replacement Protocol 1 EACH MISC MISCELLANE PRN (05:16)
[2016-05-19] MEDS: INSULIN LISPRO (humaLOG) 300 UNIT/3 ML VIAL SQ SCH ×3 (05:41→19:15)
[2016-05-19 05:42] LABS: Glucose,Whole Blood 94 mg/dL (75-99)
[2016-05-19] MEDS ORDERED: POTASSIUM CHLORIDE ORAL LIQUID 40 MEQ/30 ML CUP NG-TUBE SCH (06:00)
[2016-05-19] MEDS: LEVOTHYROXINE 100 MCG TAB PO SCH (06:03)
--- NOTE | 2016-05-19 07:24 | PN ---
DATE OF SERVICE: 05/18/2016 Reason for followup is urinary tract infection and MRSA pneumonia. INTERVAL HISTORY: The patient is afebrile. She is hemodynamically slightly better, currently off Levophed. She remains to be intubated on the vent. Sedation holiday was done. The patient did not respond very well. She has been tolerating her tube feeds and no diarrhea. On examination, blood pressure 133/43 with a pulse of 86, temperature of 98.7. She is 95% on 50% of FiO2. General description is an elderly female intubated on the vent. HEENT examination, patient is orally intubated. LUNGS: Unlabored breathing with decreased breath sounds and the base. HEART: S1, S2 regular rate and rhythm. ABDOMEN: Soft. No tenderness. LABS: Hemoglobin is 8.1, white count normal to 7.5, BUN of 25, creatinine 1.29. Sputum with MRSA. DIAGNOSTIC IMPRESSION AND PLAN: Patient with acute respiratory failure which is likely about multifactorial, did have a competent of pneumonia. Sputum showing methicillin-resistant Staphylococcus aureus. Patient currently on vancomycin, will continue along with Zosyn; however, no if not gram negative, we are going to discontinue the Zosyn. Continue supportive care.
--- NOTE | 2016-05-19 07:37 | P.CONS ---
History of Present Illness - Chief Complaint Acute onset debility - History of Present Illness 66-year-old female admitted to [facility] May 15 with hyperkalemia, acute kidney injury and acute mental status change. Seen by Dr. Bates, nephrology, for hyperkalemia and acute kidney injury. Seen by Dr. Batista who notes shock consistent with septic. Seen by Dr. Gonzalez way to for mental status change who notes toxic metabolic encephalopathy. Physical therapy prescribed currently. Head CT with atrophy and chronic change. Abdominal ultrasound negative. Chest x-rays followed for CHF, effusions, cardiomegaly. Previous functional sick: Unobtainable from patient. Review of Systems Review of systems: GLean from patient exam as patient cannot answer questions ENT: Denies sneezes or discharge. Eyes: Denies discharge or photophobia. Cardiac: Denies chest pain or palpitation. Pulmonary: Denies cough or shortness of breath. Breast: Denies discharge or lumps. Gastrointestinal: Denies nausea, emesis, constipation, diarrhea, overweight. Genitourinary: Denies discharge or frequency. Musculoskeletal: Denies muscle or bone aches. Neurologic: Poor motor movement more so on left side with very poor mentation. Endocrine: Denies shakes or sweats. Oncology: Denies cancers. Dermatologic: Denies rash, itching, pruritus. ALLERGY/immunology: Denies sneezes, rashes. Past Medical History Past Medical History: Asthma, Heart Failure, Diabetes Mellitus, GERD/Reflux, GI Bleed, Hyperlipidemia, Hypertension, Osteoarthritis (OA), Thyroid Disorder Additional Past Medical History / Comment(s): Morbid obesity, frequent urine checked infection with gram-negative bacteria including pseudomonas and E. coli , previous history of lower GI bleed, chronic back pain, chronic anemia, hepatitis C, multiple cerebral infarcts, history of osteomyelitis, anxiety/ depression moderate degree of aortic stenosis with estimated valve area of 1.2 cm, preserved LV function with a normal ejection fraction, left carotid artery stenosis estimated to be around 50-69% AL , diabetes mellitus, hyperlipidemia, hypertension History of Any Multi-Drug Resistant Organisms: MRSA, Other MDRO Year Discovered:: 10/10/2014-MDRO Pseudomonas; 05/16/16-MRSA MDRO Source:: Urine-MDRO and MRSA SPUTUM Past Surgical History: Orthopedic Surgery Additional Past Surgical History / Comment(s): RIGHT KNEE REPLACEMTN THE POST OP INFECTION-SEVERAL OTHER SX THEN AKA , COLONOSCOPY,HAD A LT ARM PICC LINE FOR ABX, Past Anesthesia/Blood Transfusion Reactions: No Reported Reaction Additional Past Anesthesia/Blood Transfusion Reaction / Comm: Pt has recieved blood without reaction. Past Psychological History: Anxiety, Bipolar, Depression Additional Psychological History / Comment(s): Pt resides at [facility] on the [place]. She states she is able to transfer by herself to a wheelchair. She feeds herself and needs minimal assist with ADL's. Smoking Status: Former smoker Past Alcohol Use History: None Reported Additional Past Alcohol Use History / Comment(s): Pt started smoking around 1996 and quit smoking in 2005. Past Drug Use History: Heroin Additional Drug Use History / Comment(s): Pt states she did use heroin many yrs ago. - Past Family History Father Family Medical History: Hypertension Mother Family Medical History: Hypertension Medications and Allergies Home Medications Medication Instructions Recorded Confirmed Type Atorvastatin Calcium [Lipitor] 40 mg PO HS@209902/02/14 05/15/16 History Loratadine [Claritin] 10 mg PO DAILY PRN 02/02/14 05/15/16 History Apixaban [Eliquis] 2.5 mg PO BID@0900,209910/10/14 05/15/16 History Calcium Carb-Vit D 500Mg-200Un 1 tab PO BID@0900,1700 10/10/14 05/15/16 History [Oscal 500+D] Ferrous Sulfate [Iron (65 MG 325 mg PO DAILY@0900 01/01/16 05/15/16 History Elemental)] OLANZapine [ZyPREXA] 10 mg PO TID@0900,1300,2100 01/09/16 05/15/16 History Sertraline [Zoloft] 100 mg PO DAILY@0900 01/09/16 05/15/16 History amLODIPine [Norvasc] 10 mg PO DAILY@0900 01/09/16 05/15/16 History ALPRAZolam [Xanax] 1 mg PO Q6H PRN 05/15/16 05/15/16 History Aspirin 325 mg PO DAILY@0900 05/15/16 05/15/16 History Atenolol [Tenormin] 25 mg PO DAILY@89905/15/16 05/15/16 History Furosemide [Lasix] 20 mg PO DAILY@0900 05/15/16 05/15/16 History Gabapentin [Neurontin] 100 mg PO BID@0900,2100 05/15/16 05/15/16 History HYDROcodone/APAP 5-325MG [[place] 1 tab PO Q12H PRN 05/15/16 05/15/16 History 5-325] Ibuprofen [Motrin] 200 mg PO Q12H PRN 05/15/16 05/15/16 History Latanoprost Ophth [Xalatan 0.005%] 1 drops BOTH EYES HS@209905/15/16 05/15/16 History Lisinopril [Zestril] 20 mg PO DAILY@0900 05/15/16 05/15/16 History Methyl Salicylate/Menthol 1 patch TRANSDERM DAILY@0900 05/15/16 05/15/16 History [Salonpas Patch] Morphine Sulfate ER [Ms Contin 15 mg PO DAILY PRN 05/15/16 05/15/16 History 15Mg] Morphine Sulfate ER [Ms Contin] 15 mg PO Q12HR 05/15/16 05/15/16 History Potassium Chloride [Klor-Con 10] 10 meq PO DAILY@0900 05/15/16 05/15/16 History Allergies Allergy/AdvReac Type Severity Reaction Status Date / Time strawberry Allergy Unknown Verified 05/15/16 20:21 Physical Exam Vitals: Vital Signs Temp Pulse Resp BP Pulse Ox 05/19/16 07:00 93 20 121/41 96 05/19/16 06:00 75 24 90/39 96 05/19/16 05:00 78 23 92/42 95 05/19/16 04:00 98.4 F 75 24 96/40 97 05/19/16 03:23 80 05/19/16 03:12 75 05/19/16 03:00 78 24 101/37 94 L 05/19/16 02:00 102 H 37 H 168/60 95 05/19/16 01:00 110 H 30 H 119/50 95 05/19/16 00:00 98.7 F 111 H 24 125/52 95 05/18/16 23:21 103 H 05/18/16 23:05 104 H 05/18/16 23:00 86 26 H 104/45 95 05/18/16 22:00 86 20 103/43 95 05/18/16 21:00 90 23 111/47 96 05/18/16 20:59 85 05/18/16 20:39 85 05/18/16 20:00 98.7 F 88 16 103/47 96 05/18/16 19:00 87 18 105/44 96 05/18/16 18:00 92 20 110/42 95 05/18/16 17:00 100 21 143/75 94 L 05/18/16 16:00 98.3 F 99 23 112/42 96 05/18/16 15:58 75 05/18/16 15:45 71 05/18/16 15:00 74 23 118/46 94 L 05/18/16 14:00 73 24 113/52 93 L 05/18/16 13:20 74 23 110/44 93 L 05/18/16 13:15 86 05/18/16 13:00 80 24 113/46 92 L 05/18/16 12:40 96 30 H 171/69 96 05/18/16 12:20 88 32 H 113/55 95 05/18/16 12:00 98.5 F 93 25 H 118/51 95 05/18/16 11:40 68 24 114/46 92 L 05/18/16 11:20 70 24 109/43 93 L 05/18/16 11:00 71 24 109/45 93 L 05/18/16 10:40 71 25 H 121/49 92 L 05/18/16 10:20 75 28 H 117/42 92 L 05/18/16 10:00 74 24 123/48 93 L 05/18/16 09:40 72 24 115/46 93 L 05/18/16 09:20 67 24 115/43 95 05/18/16 09:00 66 24 122/42 97 05/18/16 08:40 74 24 117/43 97 05/18/16 08:20 77 24 127/52 97 05/18/16 08:00 98.1 F 93 23 153/55 98 05/18/16 07:50 82 05/18/16 07:40 82 24 128/44 97 05/18/16 07:38 80 Intake and Output 05/18/16 05/19/16 05/19/16 22:59 06:59 14:59 Intake Total 1836.282 1463.420 Output Total 660 1130 Balance 550.316 18.420 Intake: IV 595.0 775.0 Piperacillin-Tazobactam 3 50.0 50.0 .375 gm In Dextrose/Water 1 50ml.bag @ 12.5 mls/hr IVPB Q8HR [facility] Rx#: [id number] Sodium Chloride 0.9% 1, 545 675 000 ml @ 75 mls/hr IV . [id number] [facility] Rx#:[id number] Valproate Sodium 500 mg 50 In Sodium Chloride 0.9% 50 ml @ 50 mls/hr IVPB Q8HR [facility] Rx#:[id number] Intake, IV Titration 225.316 103.420 Amount Norepinephrine 16 mg In 5.991 Sodium Chloride 0.9% 250 ml @ Titrate IV .Q0M [facility] Rx#:[id number] Propofol 50 ml As IV .STK 14 -[facility] Rx#:[id number] Propofol 500 mg In Empty 82.316 97.429 Bag 1 bag @ Titrate IV . Q0M [facility] Rx#:[id number] Sodium Chloride 0.9% 1, 20 000 ml @ 75 mls/hr IV . [id number] [facility] Rx#:[id number] Sodium Chloride 0.9% 99 9 ml @ 0.02 UNITS/MIN 6 mls /hr IV .[id number] [facility] with Vasopressin 20 unit Rx#: [id number] Valproate Sodium 500 mg 100 In Sodium Chloride 0.9% 50 ml @ 50 mls/hr IVPB Q8HR [facility] Rx#:[id number] Tube Feeding 240 210 Other 150 60 Output: Urine 660 1130 Other: Voiding Method Indwelling Catheter Indwelling Catheter # Bowel Movements 1 1 Weight 110.1 kg 110.6 kg Skin: Good color, texture, turgor. General: Obese and comfortable appearance. Head: Normocephalic, atraumatic. Eyes: Symmetric. Pupils equal round. Ears: Symmetric. Hearing within normal limits. Mouth: Clear. Neck: Supple. Carotid without bruit. Cardiac: Regular rate and rhythm. Lungs: Currently with oxygen. Abdomen: Soft active nontender. Extremities: Old well-healed right AKA. Neurological: Mental status: Not interactive. Cranial nerves: Symmetric facial tone and trapezius. Motor: Left arm and leg flaccid. Right arm poor tone.. Sensation: Intact diminished to absent throughout. DTRs: Absent throughout. Mobility: Unable to sit. Results CBC & Chem 7: 05/19/16 04:25 05/19/16 04:25 Labs: Abnormal Lab Results - Last 24 Hours (Table) 05/18/16 05/18/16 05/18/16 Range/Units 12:22 18:27 23:44 RBC (3.80-5.40) m/uL Hgb (11.4-16.0) gm/dL Hct (34.0-46.0) % Plt Count (150-450) k/uL Lymphocytes # (1.0-4.8) k/uL ABG pCO2 (35-45) mmHg ABG pO2 (83-108) mmHg ABG HCO3 (21-25) mmol/L ABG Total CO2 (19-24) mmol/L Chloride (98-107) mmol/L Carbon Dioxide (22-30) mmol/L BUN (7-17) mg/dL Creatinine (0.52-1.04) mg/dL Glucose (74-99) mg/dL POC Glucose (mg/dL) 173 H 146 H 103 H (75-99) mg/dL Calcium (8.4-10.2) mg/dL Phosphorus (2.5-4.5) mg/dL Magnesium (1.6-2.3) mg/dL Total Protein (6.3-8.2) g/dL Albumin (3.5-5.0) g/dL 05/19/16 05/19/16 05/19/16 Range/Units 04:25 04:25 05:04 RBC 3.10 L (3.80-5.40) m/uL Hgb 9.1 L (11.4-16.0) gm/dL Hct 27.6 L (34.0-46.0) % Plt Count 76 L (150-450) k/uL Lymphocytes # 0.6 L (1.0-4.8) k/uL ABG pCO2 24 L (35-45) mmHg ABG pO2 79 L (83-108) mmHg ABG HCO3 16 L (21-25) mmol/L ABG Total CO2 16 L (19-24) mmol/L Chloride 111 H (98-107) mmol/L Carbon Dioxide 20 L (22-30) mmol/L BUN 45 H (7-17) mg/dL Creatinine 1.30 H (0.52-1.04) mg/dL Glucose 107 H (74-99) mg/dL POC Glucose (mg/dL) (75-99) mg/dL Calcium 7.8 L (8.4-10.2) mg/dL Phosphorus 4.7 H (2.5-4.5) mg/dL Magnesium 2.4 H (1.6-2.3) mg/dL Total Protein 4.9 L (6.3-8.2) g/dL Albumin 2.2 L (3.5-5.0) g/dL Microbiology - Last 24 Hours (Table) 05/16/16 04:23 Blood Culture - Preliminary Blood No Growth after 72 hours 05/17/16 13:00 Gram Stain - Preliminary Bronchial Washings - Right Bronchial Washings Culture - Preliminary Presumptive Staph aureus 05/16/16 03:45 Gram Stain - Final Sputum Sputum Culture - Final Methicillin resist S. aureus Chest x-ray: report reviewed (Serial chest x-rays followed for CHF, cardiomegaly , effusions.) CT Scan - head: report reviewed (With atrophy and chronic ischemic change.) Assessment and Plan (1) Toxic metabolic encephalopathy Status: Acute Plan: Impression: 1. Gait disturbance. 2. Toxic, metabolic encephalopathy. 3. Possible stroke. 4. Obesity. 5. Hyperkalemia. 6. Acute kidney injury. 7. Hypertension. 8. Hyperlipidemia. 9. Diabetes. 10. Asthma. 11. Hypothyroid. Comments and plan: At this time physical therapy prescribed and anticipate will be able to perform only bedside range of motion. Will not add occupational therapy or speech therapy at this time. Rehab prognosis currently guarded.
[2016-05-19] MEDS: VALPROATE SODIUM 500 MG in SODIUM CHLORIDE 0.9% 50 ML IVPB SCH ×2 (08:25→17:07)
[2016-05-19] MEDS: BUDESONIDE 0.5 MG/2 ML NEBU INHALATION SCH ×2 (08:26→20:21)
[2016-05-19] MEDS: PIPERACILLIN-TAZOBACTAM 3.375 GM in DEXTROSE/WATER 1 50ML.BAG IVPB SCH ×2 (08:26→17:05)
--- NOTE | 2016-05-19 08:36 | ECHOF ---
Referral Reason:shock MEASUREMENTS -------- HEIGHT: 170.2 cm WEIGHT: 109.8 kg BP: 123/48 RVIDd: 3.3 cm (< 3.3) IVSd: 1.3 cm (0.6 - 1.1) LVIDd: 4.0 cm (3.9 - 5.3) LVPWd: 1.3 cm (0.6 - 1.1) IVSs: 1.4 cm LVIDs: 3.1 cm LVPWs: 1.6 cm LA Diam: 3.7 cm (2.7 - 3.8) LAESV Index (A-L): 33.94 ml/m Ao Diam: 2.9 cm (2.0 - 3.7) AV Cusp: 1.5 cm (1.5 - 2.6) MV E Francisco J: 1.65 m/s MV DecT: 372 ms MV A Francisco J: 1.92 m/s MV E/A Ratio: 0.86 AV maxP.05 mmHg AV meanP.73 mmHg RAP: 5.00 mmHg RVSP: 64.84 mmHg FINDINGS -------- Resting tachycardia (HR>100bpm). This was a technically adequate study. The left ventricular size is normal. There is mild concentric left ventricular hypertrophy. Overall left ventricular systolic function is normal with, an EF between 60 - 65 %. The right ventricle is mildly enlarged. LA is midly dilated 29-33ml/m2. The right atrium was not well visualized. Aortic valve is trileaflet and is moderately thickened. There is moderate aortic stenosis present. Peak/mean gradient across the Aortic Valve is 57.05mmHg / 24.73mmHg. The mitral valve leaflets are moderately thickened. Moderate mitral annular calcification present. Mild mitral regurgitation is present. The peak and mean MV gradients are 17.70mmHg 9.50mmHg as measured by doppler. Mild tricuspid regurgitation present. There is severe pulmonary hypertension. The right ventricular systolic pressure, as measured by Doppler, is 64.84mmHg. The pulmonic valve was not well visualized. The aortic root size is normal. There is no pericardial effusion. CONCLUSIONS -------- 1. Resting tachycardia (HR>100bpm). 2. There is moderate aortic stenosis present. 3. Peak/mean gradient across the Aortic Valve is 57.05mmHg / 24.73mmHg. 4. The mitral valve leaflets are moderately thickened. 5. Moderate mitral annular calcification present. 6. Mild mitral regurgitation is present. 7. The peak and mean MV gradients are 17.70mmHg 9.50mmHg as measured by doppler. 8. Mild tricuspid regurgitation present. 9. There is severe pulmonary hypertension. 10. The right ventricular systolic pressure, as measured by Doppler, is 64.84mmHg. 11. The pulmonic valve was not well visualized. 12. This was a technically adequate study. 13. The aortic root size is normal. 14. There is no pericardial effusion. 15. The left ventricular size is normal. 16. There is mild concentric left ventricular hypertrophy. 17. Overall left ventricular systolic function is normal with, an EF between 60 - 65 %. 18. The right ventricle is mildly enlarged. 19. LA is midly dilated 29-33ml/m2. 20. The right atrium was not well visualized. 21. Aortic valve is trileaflet and is moderately thickened. IRIDOLOGIST: Tsering Galo RDCS
--- NOTE | 2016-05-19 08:39 | XR ---
EXAMINATION TYPE: XR chest 1V portable DATE OF EXAM: 05/19/2016 6:20 AM COMPARISON: 05/18/2016 HISTORY: Shortness of breath FINDINGS: There are bilateral pleural effusions with cardiomegaly and bibasilar infiltrate. There is a diffuse interstitial pattern. ET and NG tubes stable. Central line has been removed. IMPRESSION: 1. Correlate for CHF.
[2016-05-19] MEDS: SODIUM CHLORIDE 0.9% 99 ML with VASOPRESSIN 20 UNIT IV SCH ×2 (08:46)
[2016-05-19] MEDS: SODIUM CHLORIDE 0.9% 1,000 ML IV SCH ×2 (08:49→16:51)
[2016-05-19] MEDS: CHLORHEXIDINE GLUCONATE 15 ML CUP MUCOUS MEM SCH ×2 (08:49→20:18)
[2016-05-19] MEDS: GABAPENTIN 100 MG CAP PO SCH ×2 (08:49→20:19)
[2016-05-19] MEDS: ASPIRIN 325 MG TAB PO SCH (08:49)
[2016-05-19] MEDS: SERTRALINE 100 MG TAB PO SCH (08:49)
[2016-05-19] MEDS: CALCIUM CARB-VIT D 500MG-200UN 1 EACH TAB PO SCH ×2 (08:49→19:16)
[2016-05-19] MEDS: OLANZapine 10 MG TAB PO SCH ×3 (08:49→20:19)
[2016-05-19] MEDS: ENOXAPARIN 30 MG/0.3 ML SYRINGE SQ SCH (10:14)
--- NOTE | 2016-05-19 10:41 | P.PN ---
Subjective Principal diagnosis: Patient is seen in follow-up for acute kidney injury. She initially presented with altered mental status as well as hyperkalemia. She required one treatment of hemodialysis on May 16. The dialysis catheter was discontinued yesterday. Her creatinine is stable at 1.3 today. Baseline creatinine is 1. She is nonoliguric. She is currently intubated and sedated. She underwent bronchoscopy this admission for right lower lobe infiltrate and cultures are currently growing MRSA. Vital signs are stable. General: The patient appeared well nourished and normally developed. HEENT: Head exam is unremarkable. Neck is without jugular venous distension. LUNGS: Lungs are clear to auscultation and percussion. Breath sounds decreased. HEART: Rate and Rhythm are regular. First and second heart sounds normal. No murmurs, rubs or gallops. ABDOMEN: Abdominal exam reveals normal bowel sounds. Non-tender and non- distended. No evidence of peritonitis. EXTREMITITES: No clubbing, cyanosis, or edema. Objective - Vital Signs Vital signs: Vital Signs Temp 98.3 F 05/19/16 08:00 Pulse 85 05/19/16 10:00 Resp 24 05/19/16 10:00 BP 124/43 05/19/16 10:00 Pulse Ox 96 05/19/16 10:00 Intake & Output 05/18/16 05/19/16 05/19/16 18:59 06:59 18:59 Intake Total 1087.279 1741.420 385 Output Total 542 1625 300 Balance 1176.500 68.420 85 Weight 110.1 kg 110.6 kg 110.6 kg Intake: IV 727.5 1100.0 325 Piperacillin-Tazobactam 3 62.5 75.0 50 .375 gm In Dextrose/Water 1 50ml.bag @ 12.5 mls/hr IVPB Q8HR [facility] Rx#: [id number] Sodium Chloride 0.9% 1, 665 975 225 000 ml @ 75 mls/hr IV . [id number] [facility] Rx#:[id number] Valproate Sodium 500 mg 50 50 In Sodium Chloride 0.9% 50 ml @ 50 mls/hr IVPB Q8HR [facility] Rx#:[id number] Intake, IV Titration 411.000 153.420 Amount Norepinephrine 16 mg In 5.991 Sodium Chloride 0.9% 250 ml @ Titrate IV .Q0M [facility] Rx#:[id number] Propofol 50 ml As IV .STK 14 -[facility] Rx#:[id number] Propofol 500 mg In Empty 150.000 147.429 Bag 1 bag @ Titrate IV . Q0M [facility] Rx#:[id number] Sodium Chloride 0.9% 1, 40 000 ml @ 75 mls/hr IV . [id number] [facility] Rx#:[id number] Sodium Chloride 0.9% 99 57 ml @ 0.02 UNITS/MIN 6 mls /hr IV .[id number] [facility] with Vasopressin 20 unit Rx#: [id number] Valproate Sodium 500 mg 150 In Sodium Chloride 0.9% 50 ml @ 50 mls/hr IVPB Q8HR [facility] Rx#:[id number] Tube Feeding 300 350 60 Other 280 90 Output: Urine 542 1625 300 Other: Voiding Method Indwelling Catheter Indwelling Catheter Indwelling Catheter # Bowel Movements 1 1 - Labs CBC & Chem 7: 05/19/16 04:25 05/19/16 04:25 Labs: Abnormal Lab Results - Last 24 Hours (Table) 05/18/16 05/18/16 05/18/16 Range/Units 12:22 18:27 23:44 RBC (3.80-5.40) m/uL Hgb (11.4-16.0) gm/dL Hct (34.0-46.0) % Plt Count (150-450) k/uL Lymphocytes # (1.0-4.8) k/uL ABG pCO2 (35-45) mmHg ABG pO2 (83-108) mmHg ABG HCO3 (21-25) mmol/L ABG Total CO2 (19-24) mmol/L Chloride (98-107) mmol/L Carbon Dioxide (22-30) mmol/L BUN (7-17) mg/dL Creatinine (0.52-1.04) mg/dL Glucose (74-99) mg/dL POC Glucose (mg/dL) 173 H 146 H 103 H (75-99) mg/dL Calcium (8.4-10.2) mg/dL Phosphorus (2.5-4.5) mg/dL Magnesium (1.6-2.3) mg/dL Total Protein (6.3-8.2) g/dL Albumin (3.5-5.0) g/dL 05/19/16 05/19/16 05/19/16 Range/Units 04:25 04:25 05:04 RBC 3.10 L (3.80-5.40) m/uL Hgb 9.1 L (11.4-16.0) gm/dL Hct 27.6 L (34.0-46.0) % Plt Count 76 L (150-450) k/uL Lymphocytes # 0.6 L (1.0-4.8) k/uL ABG pCO2 24 L (35-45) mmHg ABG pO2 79 L (83-108) mmHg ABG HCO3 16 L (21-25) mmol/L ABG Total CO2 16 L (19-24) mmol/L Chloride 111 H (98-107) mmol/L Carbon Dioxide 20 L (22-30) mmol/L BUN 45 H (7-17) mg/dL Creatinine 1.30 H (0.52-1.04) mg/dL Glucose 107 H (74-99) mg/dL POC Glucose (mg/dL) (75-99) mg/dL Calcium 7.8 L (8.4-10.2) mg/dL Phosphorus 4.7 H (2.5-4.5) mg/dL Magnesium 2.4 H (1.6-2.3) mg/dL Total Protein 4.9 L (6.3-8.2) g/dL Albumin 2.2 L (3.5-5.0) g/dL Microbiology - Last 24 Hours (Table) 05/17/16 13:00 Gram Stain - Final Bronchial Washings - Right Bronchial Washings Culture - Final Methicillin resist S. aureus Jolene albicans 05/16/16 04:23 Blood Culture - Preliminary Blood No Growth after 72 hours 05/16/16 03:45 Gram Stain - Final Sputum Sputum Culture - Final Methicillin resist S. aureus Assessment and Plan Plan: Assessment: #1. Nonoliguric acute kidney injury secondary to ischemic ATN secondary to sepsis. Creatinine today is stable at 1.3. #2. Hyperkalemia secondary to acute kidney injury status post 1 treatment of hemodialysis on May 16. Resolved. #3. Severe sepsis secondary to MRSA pneumonia. #4. Metabolic acidosis secondary to acute kidney injury as well as IV fluids. #5. Hypotension currently on 3 mics of levophed. Plan: Decrease IV fluids to 50 mL an hour. Maintain tube feeds. Wean vasopressors. Antibiotics per infectious disease recommendations. Monitor vancomycin levels. Avoid nephrotoxic agents and hypotensive episodes. Continue to monitor renal function and urine output.
[2016-05-19] MEDS: CHOLECALCIFEROL 1,000 UNIT TAB PO SCH (12:30)
[2016-05-19] MEDS ORDERED: VANCOMYCIN TROUGH DUE 1 EACH MISC MISCELLANE ONE (13:00)
--- NOTE | 2016-05-19 14:01 | P.PN ---
Subjective Principal diagnosis: Respiratory failure Patient seen and examined in the ICU. Patient is currently on ventilator. Sedation holiday was done this morning and patient was slow to wake up. Head CT was done and showed chronic changes. Chest x-ray shows bilateral pleural effusions and CHF. She is on 3 g of Levophed. Objective - Vital Signs Vital signs: Vital Signs Temp 98.7 F 05/19/16 12:30 Pulse 99 05/19/16 13:30 Resp 24 05/19/16 13:30 BP 137/51 05/19/16 13:30 Pulse Ox 95 05/19/16 13:30 Intake & Output 05/18/16 05/19/16 05/19/16 18:59 06:59 18:59 Intake Total 5201.524 2357.991 670 Output Total 542 1625 690 Balance 1176.500 70.991 -20 Weight 110.1 kg 110.6 kg 110.6 kg Intake: IV 727.5 1100.0 500 Piperacillin-Tazobactam 3 62.5 75.0 50 .375 gm In Dextrose/Water 1 50ml.bag @ 12.5 mls/hr IVPB Q8HR [facility] Rx#: [id number] Sodium Chloride 0.9% 1, 665 975 400 000 ml @ 50 mls/hr IV . Q20H [facility] Rx#:[id number] Valproate Sodium 500 mg 50 50 In Sodium Chloride 0.9% 50 ml @ 50 mls/hr IVPB Q8HR [facility] Rx#:[id number] Intake, IV Titration 411.000 155.991 Amount Norepinephrine 16 mg In 5.991 Sodium Chloride 0.9% 250 ml @ Titrate IV .Q0M [facility] Rx#:[id number] Propofol 50 ml As IV .STK 14 -[facility] Rx#:[id number] Propofol 500 mg In Empty 150.000 150.000 Bag 1 bag @ Titrate IV . Q0M [facility] Rx#:[id number] Sodium Chloride 0.9% 1, 40 000 ml @ 50 mls/hr IV . Q20H [facility] Rx#:[id number] Sodium Chloride 0.9% 99 57 ml @ 0.02 UNITS/MIN 6 mls /hr IV .[id number] [facility] with Vasopressin 20 unit Rx#: [id number] Valproate Sodium 500 mg 150 In Sodium Chloride 0.9% 50 ml @ 50 mls/hr IVPB Q8HR [facility] Rx#:[id number] Oral 90 Tube Feeding 300 350 80 Other 280 90 Output: Urine 542 1625 690 Other: Voiding Method Indwelling Catheter Indwelling Catheter Indwelling Catheter # Bowel Movements 1 1 1 - Exam General: Patient is sedated with propofol on mechanical ventilation, morbidly obese Cardiovascular: Regular rate and rhythm, S1/S2 Lungs: Diminished at the bases with scattered crackles Abdomen: Soft nontender nondistended positive bowel sounds Extremities: Right [id number] amputation - Labs CBC & Chem 7: 05/19/16 04:25 05/19/16 10:45 Labs: Abnormal Lab Results - Last 24 Hours (Table) 05/18/16 05/18/16 05/19/16 Range/Units 18:27 23:44 04:25 RBC 3.10 L (3.80-5.40) m/uL Hgb 9.1 L (11.4-16.0) gm/dL Hct 27.6 L (34.0-46.0) % Plt Count 76 L (150-450) k/uL Lymphocytes # 0.6 L (1.0-4.8) k/uL ABG pCO2 (35-45) mmHg ABG pO2 (83-108) mmHg ABG HCO3 (21-25) mmol/L ABG Total CO2 (19-24) mmol/L Chloride (98-107) mmol/L Carbon Dioxide (22-30) mmol/L BUN (7-17) mg/dL Creatinine (0.52-1.04) mg/dL Glucose (74-99) mg/dL POC Glucose (mg/dL) 146 H 103 H (75-99) mg/dL Calcium (8.4-10.2) mg/dL Phosphorus (2.5-4.5) mg/dL Magnesium (1.6-2.3) mg/dL Total Protein (6.3-8.2) g/dL Albumin (3.5-5.0) g/dL 05/19/16 05/19/16 Range/Units 04:25 05:04 RBC (3.80-5.40) m/uL Hgb (11.4-16.0) gm/dL Hct (34.0-46.0) % Plt Count (150-450) k/uL Lymphocytes # (1.0-4.8) k/uL ABG pCO2 24 L (35-45) mmHg ABG pO2 79 L (83-108) mmHg ABG HCO3 16 L (21-25) mmol/L ABG Total CO2 16 L (19-24) mmol/L Chloride 111 H (98-107) mmol/L Carbon Dioxide 20 L (22-30) mmol/L BUN 45 H (7-17) mg/dL Creatinine 1.30 H (0.52-1.04) mg/dL Glucose 107 H (74-99) mg/dL POC Glucose (mg/dL) (75-99) mg/dL Calcium 7.8 L (8.4-10.2) mg/dL Phosphorus 4.7 H (2.5-4.5) mg/dL Magnesium 2.4 H (1.6-2.3) mg/dL Total Protein 4.9 L (6.3-8.2) g/dL Albumin 2.2 L (3.5-5.0) g/dL Microbiology - Last 24 Hours (Table) 05/17/16 13:00 Gram Stain - Final Bronchial Washings - Right Bronchial Washings Culture - Final Methicillin resist S. aureus Jolene albicans 05/16/16 04:23 Blood Culture - Preliminary Blood No Growth after 72 hours 05/16/16 03:45 Gram Stain - Final Sputum Sputum Culture - Final Methicillin resist S. aureus Assessment and Plan Plan: Acute hypoxic respiratory failure Acute kidney injury, requiring hemodialysis Bilateral pleural effusions with pulmonary vascular congestion, fluid overload SIRS with sepsis, septic shock Metabolic acidosis, non-anion gap Severe pulmonary hypertension possibly secondary to fluid overload MRSA pneumonia Bronchospasm Obesity Bicytopenia Toxic metabolic encephalopathy Diabetes mellitus type 2 Would consider Lasix to maintain negative fluid balance, decrease IVF Daily sedation holiday and spontaneous breathing trials, hopeful for extubation soon PT and OT Enteral nutrition Wean off Levophed, decreasing/stopping Propofol will help Bronchodilators GI and DVT prophylaxis Discontinue Dilaudid Antibiotics per infectious disease
[2016-05-19 14:48] LABS: Glucose,Whole Blood 91 mg/dL (75-99)
--- NOTE | 2016-05-19 15:07 | P.PN ---
Subjective Principal diagnosis: Acute respiratory failure and toxic metabolic encephalopathy This is a 66-year-old female patient, assisted resident who resides at [facility], who came in yesterday to the emergency department with altered mental status and immediately she was identified to be in acute kidney injury. This is an acute renal failure with hyperkalemia. At the same time the patient was found to be hypotensive in shock. The patient was started on IV fluids a total of 4 L of IV fluid was given to her in the emergency department. She was treated for her hyperkalemia. Subsequently she got moved to the intensive care unit where the patient arrived hypotensive and shock state. She was started on pressors. She was started on norepinephrine infusion and at one point the dose as high as 50 mcg/m. The patient also had a dialysis catheter inserted and she was given a session of dialysis for acute hyperkalemia by nephrology. Note that the dialysis was successful and the patient had a drop in her potassium level which is essentially normalized. Note that his same time, the patient was intubated and placed on a mechanical ventilator. Chest x-ray from early this morning shows adequate positioning of the ET tube. There is cardiomegaly. No evidence of pneumonia. The urine is abnormal and there is evidence of urine checked infection pain noted the patient has had multiple UTIs in the past with quinolone resistant E. coli and previous history of Pseudomonas urine checked infection. Going back to the history, this patient has a very calm. Medical history. 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 The patient was in the hospital approximately in December 2015 and she was found to have multiple infarcts in her brain and the possibility of a embolism/ embolic phenomena was raised. Note that the MRI of the brain indicated non- acute vascular insult in the right lateral occipital lobes as well as a high right frontal lobe infarct and the high left parietal lobe infarct. The patient had evidence of subacute stroke involving the occipital lobe on the right. The patient was investigated further including a JOSE that showed moderate degree of aortic stenosis with a valve area of 1.2 cm. She was also found to have left anterior occurred artery stenosis estimated between 50-69%. The patient was discharged home on anticoagulation and she was taken Eliquis. The CAT scan of the brain that was done during this current admission shows no acute abnormalities. The patient is currently intubated on a mechanical ventilator. She is sedated. The pressor doses of been gradually weaned off. Attempts to insert an art line catheter was unsuccessful. On 05/17/2016 the patient is being seen in follow-up. She remains intubated on mechanical ventilator. She remains on an assist-control mode of ventilation at the rate of 24, tidal volume of 500, FiO2 of 70% and PEEP of 5. The blood gases from this morning show a pH of 7.39 with a pCO2 of 25 and a pO2 of 90. Chest x-ray shows a extensive consolidation of the right lung typical of an underlying pneumonia. At the same time the patient is producing copious amount of rest or secretions which are being suctioned out. She is still pressor dependent. She was started on vasopressin physiologic dose of 0.03 units per minute and the patient was also on norepinephrine infusion at 12 mics. Note that the pressor dose has been drop significantly compared to yesterday. She received an additional 2 L bolus and she has been resuscitated with more than 6 L of fluid since she came in to the ICU. She is producing adequate amount of urine output. She required one session of dialysis and the creatinine is down to 1.6. As far as infectious causes, I strongly suspected there is a severe pneumonia developing in the right lung. The patient is on a combination of Zosyn and Levaquin and she was given a dose of vancomycin. Urine culture was also sent and the results are still pending. Underlying urine checked infections also suspected is unaffected the patient has had multiple UTIs in the past with E. coli and Pseudomonas. The patient is also known to have valvular heart disease with moderate degree of aortic stenosis. Repeat CAT scan of the brain was done and the findings are essentially stable with an old infarct visualized. She remains critically ill. Dialysis catheter is still present in the right IJ and that can be removed per nephrology. Albumin levels on today's at 1.9. On 05/18/2016 the patient is being seen in follow-up. The patient is doing better. He is hemodynamically stable. She was taken off the the norepinephrine infusion and a vasopressin physiologic dose will be also discontinued. The patient is sedated on the prevent and she is calm and comfortable. She remains on a mechanical ventilator and assist-control mode rate of 24, tidal volume 500 FiO2 of 50% and PEEP of 5. Chest x-ray shows a significant consolidation of the right lung special the right perihilar area. Morning blood gases showed a pH of 7.47 with a pCO2 of 26 and pO2 of 81. The patient is producing adequate amount of urine output. In fact the patient was aggressively resuscitated IV fluids and she has developed some third spacing. IV fluids were cut down to KVO and urine output is more than 50 mL an hour. Renal function is stable with a creatinine of 1.29. Neurologically, the patient will be given a sedation holiday and underlying mental status will be checked. EEG of the brain was done and the results are still pending. CAT scan of the brain was done and showed no acute abnormalities and the findings are essentially chronic CVA. The carotid Doppler was also done and showed a 70 % stenosis in the left internal carotid artery. On 05/19/2016, patient remains on mechanical ventilation, however she is requiring about 3.3 g of norepinephrine. To maintain an adequate blood pressure. Patient has been off sedation earlier today, and she is very slow to respond and wake up. She is definitely not quite ready for weaning, as her ABG remains marginal. Patient remains on assist control of 24, tidal volume of 500 , FiO2 of 50%, and PEEP of 5. Chest x-ray continues to show significant airspace disease involving mostly the right perihilar area. I also suspect bilateral pleural effusions. Hence the patient may need less IV fluid, and more diuresis. ABG today showed a pO2 of 79 pCO2 of 24 pH of 7.44. BUN is 45 creatinine is 1.30 Objective - Vital Signs Vital signs: Vital Signs Temp 98.7 F 05/19/16 12:30 Pulse 89 05/19/16 14:30 Resp 24 05/19/16 14:30 BP 121/50 05/19/16 14:30 Pulse Ox 98 05/19/16 14:30 Intake & Output 05/18/16 05/19/16 05/19/16 18:59 06:59 18:59 Intake Total 1684.281 1133.991 740 Output Total 542 1625 865 Balance 1176.500 70.991 -125 Weight 110.1 kg 110.6 kg 110.6 kg Intake: IV 727.5 1100.0 550 Piperacillin-Tazobactam 3 62.5 75.0 50 .375 gm In Dextrose/Water 1 50ml.bag @ 12.5 mls/hr IVPB Q8HR REPLACED BY [facility] Rx#: [id number] Sodium Chloride 0.9% 1, 665 975 450 000 ml @ 20 mls/hr IV . Q24H [facility] Rx#:[id number] Valproate Sodium 500 mg 50 50 In Sodium Chloride 0.9% 50 ml @ 50 mls/hr IVPB Q8HR [facility] Rx#:[id number] Intake, IV Titration 411.000 155.991 Amount Norepinephrine 16 mg In 5.991 Sodium Chloride 0.9% 250 ml @ Titrate IV .Q0M [facility] Rx#:[id number] Propofol 50 ml As IV .STK 14 -[facility] Rx#:[id number] Propofol 500 mg In Empty 150.000 150.000 Bag 1 bag @ Titrate IV . Q0M [facility] Rx#:[id number] Sodium Chloride 0.9% 1, 40 000 ml @ 20 mls/hr IV . Q24H [facility] Rx#:[id number] Sodium Chloride 0.9% 99 57 ml @ 0.02 UNITS/MIN 6 mls /hr IV .[id number] [facility] with Vasopressin 20 unit Rx#: [id number] Valproate Sodium 500 mg 150 In Sodium Chloride 0.9% 50 ml @ 50 mls/hr IVPB Q8HR REPLACED BY [facility] Rx#:[id number] Oral 90 Tube Feeding 300 350 100 Other 280 90 Output: Urine 542 1625 865 Other: Voiding Method Indwelling Catheter Indwelling Catheter Indwelling Catheter # Bowel Movements 1 1 1 - Exam Head exam was generally normal. There was no scleral icterus or corneal arcus. Mucous membranes were moist. Patient is intubated on mechanical ventilator. She is edentulous.Neck was supple and without jugular venous distension, thyromegaly, or carotid bruits. Carotids were easily palpable bilaterally. There was no adenopathy. Orotracheal and orogastric tube are both in place. Neck is supple. There is no JVDs. No goiter. No neck masses. A right IJ dialysis catheter is in place. Lungs sounds are diminished other was clear clear. No wheezes overall currently crackles. Heart sounds are regular and there is a systolic ejection murmur grade 4/6 systolic the precordium.Abdominal exam revealed normal bowel sounds. The abdomen was soft, non-tender, and without masses, organomegaly, or appreciable enlargement of the abdominal aorta. Extremities show an above-knee amputation on the right. Left lower extremity is within normal limits with diminished pulses. Has some trace edema in the left lower extremity. Skin areas of ecchymosis and bruising probably due to over coagulation in the setting of an acute kidney injury. - Labs CBC & Chem 7: 05/19/16 04:25 05/19/16 10:45 Labs: Abnormal Lab Results - Last 24 Hours (Table) 05/18/16 05/18/16 05/19/16 Range/Units 18:27 23:44 04:25 RBC 3.10 L (3.80-5.40) m/uL Hgb 9.1 L (11.4-16.0) gm/dL Hct 27.6 L (34.0-46.0) % Plt Count 76 L (150-450) k/uL Lymphocytes # 0.6 L (1.0-4.8) k/uL ABG pCO2 (35-45) mmHg ABG pO2 (83-108) mmHg ABG HCO3 (21-25) mmol/L ABG Total CO2 (19-24) mmol/L Chloride (98-107) mmol/L Carbon Dioxide (22-30) mmol/L BUN (7-17) mg/dL Creatinine (0.52-1.04) mg/dL Glucose (74-99) mg/dL POC Glucose (mg/dL) 146 H 103 H (75-99) mg/dL Calcium (8.4-10.2) mg/dL Phosphorus (2.5-4.5) mg/dL Magnesium (1.6-2.3) mg/dL Total Protein (6.3-8.2) g/dL Albumin (3.5-5.0) g/dL 05/19/16 05/19/16 Range/Units 04:25 05:04 RBC (3.80-5.40) m/uL Hgb (11.4-16.0) gm/dL Hct (34.0-46.0) % Plt Count (150-450) k/uL Lymphocytes # (1.0-4.8) k/uL ABG pCO2 24 L (35-45) mmHg ABG pO2 79 L (83-108) mmHg ABG HCO3 16 L (21-25) mmol/L ABG Total CO2 16 L (19-24) mmol/L Chloride 111 H (98-107) mmol/L Carbon Dioxide 20 L (22-30) mmol/L BUN 45 H (7-17) mg/dL Creatinine 1.30 H (0.52-1.04) mg/dL Glucose 107 H (74-99) mg/dL POC Glucose (mg/dL) (75-99) mg/dL Calcium 7.8 L (8.4-10.2) mg/dL Phosphorus 4.7 H (2.5-4.5) mg/dL Magnesium 2.4 H (1.6-2.3) mg/dL Total Protein 4.9 L (6.3-8.2) g/dL Albumin 2.2 L (3.5-5.0) g/dL Microbiology - Last 24 Hours (Table) 05/17/16 13:00 Gram Stain - Final Bronchial Washings - Right Bronchial Washings Culture - Final Methicillin resist S. aureus Jolene albicans 05/16/16 04:23 Blood Culture - Preliminary Blood No Growth after 72 hours Assessment and Plan Plan: 1 acute shock, likely of a septic in nature. Patient has developed an extensive right lung pneumonia. At the same time, the patient is suspected to have a recurrent urine tract infection probably with gram-negative bacteria. She has been infected on multiple occasions in the past with E. coli that had been quinolone resistant and Pseudomonas. Patient has been adequately resuscitated IV fluids. The patient is on high-dose norepinephrine infusion. On 05/17/2016, the patient remains on a broad-spectrum antibiotic coverage. Cultures still pending. Bronchoscopy of the lungs will be done and the bronchioloalveolar lavage will be collected from the right lung. The patient will be kept on pressors. The patient is still on a combination of vasopressin and norepinephrine infusion. Echocardiogram was ordered and is also still pending for now. Meanwhile, she was aggressively resuscitated IV fluids. She is febrile for now. She is producing adequate amount of urine output. On 05/18/2016, the patient is doing better hemodynamically. There is MRSA growth in the sputum and its very much likely the patient has an MRSA pneumonia. The patient on vancomycin and Zosyn and Levaquin will be dropped. Urine culture has not shown anything abnormal. The patient is off norepinephrine infusion and vasopressin will be also discontinued. We will assess her mental status today by giving her a sedation holiday. On 05/19/2016, patient seems to be doing a bit better, remains on mechanical ventilation, remains on a small dose of norepinephrine, I plan to continue antibiotics, gently diurese the patient, and hopefully improve her chest x-ray to the point were and what can start some weaning trials. At this point the patient is not ready to be weaned mostly because of her mental status and mostly because of her marginal arterial blood gases and significant airspace disease noted on the chest x-ray today. 2 acute kidney injury, multifactorial, rule out ATN. The patient received a session of dialysis yesterday to treat her hyperkalemia. She is producing adequate amount of urine output at this point. Potassium level is normalized On 05/17/2016, the patient's renal function is improving and the creatinine is down to 1.6. Nephrology is on the case. No need for dialysis at this point. On 05/18/2016, the patient is producing adequate amount of urine output in the creatinine is down to 1.29. She is more stable. 3 acute hyperkalemia, recovered 4 morbid obesity 5 multiple [employer] infarcts maintained on anticoagulation on outpatient basis 6 moderate degree of aortic stenosis, preserved LV function 7 hypertension, history of 8 hyperlipidemia history of 9 diabetes mellitus 10 above-knee amputation of the right lower extremity 11 reflux 12 hepatitis C viral infection 13 chronic back pain on narcotics 14 previous history of lower GI bleed Recommendation: Continue antibiotics, diuresis the patient slowly, continued daily neurologic assessment off propofol, patient is not quite ready to be weaned at this point. I have started the patient today on Lovenox for DVT prophylaxis, and the dose is 30 mg subcu daily. Critical care time is 35 minutes. Time with Patient: Greater than 30
[2016-05-19] MEDS: VANCOMYCIN 1,500 MG in SODIUM CHLORIDE 0.9% 250 ML IVPB SCH (16:58)
[2016-05-19] MEDS ORDERED: PROPOFOL 50 ML IV ONE (17:02)
[2016-05-19 18:00] LABS: Glucose,Whole Blood 95 mg/dL (75-99)
[2016-05-19] MEDS: FUROSEMIDE 10 MG/ML 2 ML VIAL IV SCH (20:18)
[2016-05-19] MEDS: ATORVASTATIN 40 MG TAB PO SCH (20:18)
[2016-05-19] MEDS: FAMOTIDINE 20 MG/2 ML VIAL IV SCH (20:18)
[2016-05-19] MEDS: MONTELUKAST 10 MG TAB PO SCH (20:19)
--- NOTE | 2016-05-19 23:31 | PN ---
DATE OF SERVICE: 05/19/2016 REASON FOR FOLLOWUP: MRSA pneumonia. INTERVAL HISTORY: The patient is afebrile. The patient remains intubated on the vent. She is still requiring a small amount of Levophed at 3 mcg. Tolerating her tube feeds. No significant diarrhea. On examination, blood pressure is 128/42 with a pulse of 94. Temperature is 99.6. She is 98% on 50% FiO2. General description is an elderly female lying in bed in no distress. RESPIRATORY SYSTEM: Unlabored breathing. Clear to auscultation anteriorly. HEART: S1, S2. Regular rate and rhythm. ABDOMEN: Soft. No tenderness. LABS: Hemoglobin 9.1. White count 8.4. BUN of 45, creatinine 1.30. DIAGNOSTIC IMPRESSION AND PLAN: Patient with acute respiratory failure which is multifactorial with a component of pneumonia. Sputum has been MRSA, for which the patient will continue on vancomycin. She also had a possible component of UTI on admission, for which the patient is currently covered with Zosyn; however, if these cultures remain negative, will be able to take her off the Zosyn. Continue supportive care.
[2016-05-20 00:11] LABS: Glucose,Whole Blood 99 mg/dL (75-99)
[2016-05-20 00:55] LABS: Potassium 3.7 mmol/L (3.5-5.1)
[2016-05-20] MEDS: DILTIAZEM 125 MG in SODIUM CHLORIDE 0.9% 100 ML IV SCH ×2 (01:07→23:38)
[2016-05-20] MEDS: SODIUM CHLORIDE 0.9% 1,000 ML IV SCH ×3 (01:13→23:16)
[2016-05-20] MEDS: VALPROATE SODIUM 500 MG in SODIUM CHLORIDE 0.9% 50 ML IVPB SCH ×4 (01:13→23:26)
[2016-05-20] MEDS: PIPERACILLIN-TAZOBACTAM 3.375 GM in DEXTROSE/WATER 1 50ML.BAG IVPB SCH ×4 (01:14→23:26)
[2016-05-20] MEDS: INSULIN LISPRO (humaLOG) 300 UNIT/3 ML VIAL SQ SCH ×5 (01:14→23:38)
[2016-05-20] MEDS: SODIUM CHLORIDE 0.9% 99 ML with VASOPRESSIN 20 UNIT IV SCH ×4 (02:44→18:59)
[2016-05-20] MEDS: PROPOFOL 500 MG in EMPTY BAG 1 BAG IV SCH ×3 (02:45→18:58)
[2016-05-20] MEDS: IPRATROPIUM-ALBUTEROL 3 ML NEB INHALATION SCH ×6 (03:20→23:28)
[2016-05-20 05:07] LABS: Glucose,Whole Blood 195 mg/dL (75-99)
[2016-05-20 05:13] LABS: Calcium 7.8 mg/dL (8.4-10.2); Phosphorous 4.7 mg/dL (2.5-4.5); Potassium 3.8 mmol/L (3.5-5.1)
[2016-05-20] MEDS ORDERED: Potassium Replacement Protocol 1 EACH MISC MISCELLANE PRN ×2 (05:47→20:56)
[2016-05-20 05:49] LABS: Basophils % (A) 0 %; CHCM 32.5; Eosinophils # (A) 0.1 k/uL (0-0.7); Eosinophils % (A) 2 %; HCT 22.1 % (34.0-46.0); HDW 2.77; Luc # (Auto) 0.17; Luc % (Auto) 4; Lymphocytes # (A) 0.6 k/uL (1.0-4.8); Lymphocytes % (A) 14 %; MCH 29.2 pg (25.0-35.0); MCHC 32.4 g/dL (31.0-37.0); Monocytes # (A) 0.3 k/uL (0-1.0); Monocytes % (A) 8 %; Neutrophils # (A) 3.1 k/uL (1.3-7.7); Neutrophils % (A) 72 %; RBC 2.46 m/uL (3.80-5.40); RDW 14.6 % (11.5-15.5); WBC 4.4 k/uL (3.8-10.6); WBC (Perox) 4.45
[2016-05-20 05:55] LABS: HGB 7.2 gm/dL (11.4-16.0)
[2016-05-20] MEDS ORDERED: POTASSIUM CHLORIDE ORAL LIQUID 40 MEQ/30 ML CUP NG-TUBE SCH (06:00)
[2016-05-20] MEDS: LEVOTHYROXINE 100 MCG TAB PO SCH (06:22)
[2016-05-20 06:24] LABS: Glucose,Whole Blood 82 mg/dL (75-99)
[2016-05-20] MEDS: ENOXAPARIN 30 MG/0.3 ML SYRINGE SQ SCH (08:16)
[2016-05-20] MEDS: CHLORHEXIDINE GLUCONATE 15 ML CUP MUCOUS MEM SCH ×2 (08:17→21:06)
[2016-05-20] MEDS: GABAPENTIN 100 MG CAP PO SCH ×2 (08:17→21:05)
[2016-05-20] MEDS: CALCIUM CARB-VIT D 500MG-200UN 1 EACH TAB PO SCH ×2 (08:17→11:45)
[2016-05-20] MEDS: FUROSEMIDE 10 MG/ML 2 ML VIAL IV SCH ×2 (08:17→21:06)
[2016-05-20] MEDS: ASPIRIN 325 MG TAB PO SCH (08:17)
[2016-05-20] MEDS: SERTRALINE 100 MG TAB PO SCH (08:18)
[2016-05-20] MEDS: OLANZapine 10 MG TAB PO SCH ×4 (08:18→21:05)
[2016-05-20] MEDS: BUDESONIDE 0.5 MG/2 ML NEBU INHALATION SCH ×2 (08:41→19:27)
[2016-05-20 08:43] LABS: ABG HCO3 20 mmol/L (21-25); ABG PCO2 30 mmHg (35-45); ABG PH 7.45 (7.35-7.45); ABG PO2 123 mmHg (83-108); ABG TCO2 21 mmol/L (19-24)
[2016-05-20 08:44] LABS: ABG Base Excess -3.2 mmol/L
--- NOTE | 2016-05-20 08:49 | XR ---
EXAMINATION TYPE: XR chest 1V portable DATE OF EXAM: 05/20/2016 6:33 AM COMPARISON: 05/19/2016 HISTORY: Shortness of breath FINDINGS: There are bilateral pleural effusions with cardiomegaly and bibasilar infiltrate. There is a diffuse interstitial pattern. ET and NG tube stable in position. Atherosclerotic change aorta. IMPRESSION: 1. Bilateral infiltrate and pleural effusion stable correlate for CHF.
--- NOTE | 2016-05-20 09:28 | P.PN ---
Subjective Principal diagnosis: Patient is seen in follow-up for acute kidney injury. She initially presented with altered mental status as well as hyperkalemia. She required one treatment of hemodialysis on May 16. The dialysis catheter was discontinued on May 18. Her creatinine is improved to 1.2 today. Baseline creatinine is 1. She is nonoliguric. She is currently intubated and sedated. She underwent bronchoscopy this admission for right lower lobe infiltrate and cultures are currently growing MRSA. She is off all vasopressors at this time. Vital signs are stable. General: The patient appeared well nourished and normally developed. HEENT: Head exam is unremarkable. Neck is without jugular venous distension. LUNGS: Diffuse rhonchi. Breath sounds decreased. HEART: Rate and Rhythm are regular. First and second heart sounds normal. No murmurs, rubs or gallops. ABDOMEN: Abdominal exam reveals normal bowel sounds. Non-tender and non- distended. No evidence of peritonitis. EXTREMITITES: No clubbing, cyanosis, or edema. Objective - Vital Signs Vital signs: Vital Signs Temp 98.7 F 05/20/16 08:00 Pulse 101 H 05/20/16 09:00 Resp 27 H 05/20/16 09:00 BP 161/64 05/20/16 09:00 Pulse Ox 98 05/20/16 09:00 Intake & Output 05/19/16 05/20/16 05/20/16 18:59 06:59 18:59 Intake Total 1615 960.093 447.797 Output Total 1415 2175 440 Balance 200 -1214.907 7.797 Weight 110.6 kg 107.6 kg 107.6 kg Intake: IV 1050 450 20 Piperacillin-Tazobactam 3 100 50 .375 gm In Dextrose/Water 1 50ml.bag @ 12.5 mls/hr IVPB Q8HR [facility] Rx#: [id number] Sodium Chloride 0.9% 1, 600 350 20 000 ml @ 20 mls/hr IV . Q24H [facility] Rx#:[id number] Valproate Sodium 500 mg 100 50 In Sodium Chloride 0.9% 50 ml @ 50 mls/hr IVPB Q8HR [facility] Rx#:[id number] Vancomycin 1,500 mg In 250 Sodium Chloride 0.9% 250 ml @ 125 mls/hr IVPB Q24H [facility] Rx#:[id number] Intake, IV Titration 315 190.093 17.797 Amount Diltiazem 125 mg In 8.083 Sodium Chloride 0.9% 100 ml @ 5 MG/HR 5 mls/hr IV .Q24H [facility] Rx#:[id number] Norepinephrine 16 mg In 82.010 0.997 Sodium Chloride 0.9% 250 ml @ Titrate IV .Q0M [facility] Rx#:[id number] Propofol 50 ml As IV .STK 265 16.8 [facility] Rx#:[id number] Propofol 500 mg In Empty 50 100 Bag 1 bag @ Titrate IV . Q0M [facility] Rx#:[id number] Oral 90 270 Tube Feeding 160 320 140 Output: Urine 1415 2175 440 Other: Voiding Method Indwelling Catheter Indwelling Catheter Indwelling Catheter # Bowel Movements 1 1 - Labs CBC & Chem 7: 05/20/16 05:20 05/20/16 07:50 Labs: Abnormal Lab Results - Last 24 Hours (Table) 05/20/16 05/20/16 05/20/16 Range/Units 00:40 04:37 05:20 RBC 2.46 L (3.80-5.40) m/uL Hgb 7.2 L D (11.4-16.0) gm/dL Hct 22.1 L (34.0-46.0) % Plt Count 75 L (150-450) k/uL Lymphocytes # 0.6 L (1.0-4.8) k/uL ABG pCO2 (35-45) mmHg ABG pO2 (83-108) mmHg ABG HCO3 (21-25) mmol/L ABG O2 Saturation (94-97) % Sodium 147 H (137-145) mmol/L Chloride 113 H 114 H (98-107) mmol/L Carbon Dioxide 21 L 21 L (22-30) mmol/L BUN 47 H 45 H (7-17) mg/dL Creatinine 1.30 H 1.20 H (0.52-1.04) mg/dL Glucose 103 H (74-99) mg/dL Calcium 8.0 L 7.8 L (8.4-10.2) mg/dL Phosphorus 4.7 H (2.5-4.5) mg/dL 05/20/16 Range/Units 08:35 RBC (3.80-5.40) m/uL Hgb (11.4-16.0) gm/dL Hct (34.0-46.0) % Plt Count (150-450) k/uL Lymphocytes # (1.0-4.8) k/uL ABG pCO2 30 L (35-45) mmHg ABG pO2 123 H (83-108) mmHg ABG HCO3 20 L (21-25) mmol/L ABG O2 Saturation 99.0 H (94-97) % Sodium (137-145) mmol/L Chloride (98-107) mmol/L Carbon Dioxide (22-30) mmol/L BUN (7-17) mg/dL Creatinine (0.52-1.04) mg/dL Glucose (74-99) mg/dL Calcium (8.4-10.2) mg/dL Phosphorus (2.5-4.5) mg/dL Microbiology - Last 24 Hours (Table) 05/16/16 04:23 Blood Culture - Preliminary Blood No Growth after 96 hours 05/17/16 13:00 Gram Stain - Final Bronchial Washings - Right Bronchial Washings Culture - Final Methicillin resist S. aureus Jolene albicans Assessment and Plan Plan: Assessment: #1. Nonoliguric acute kidney injury secondary to ischemic ATN secondary to sepsis. Creatinine is improved to 1.2 today. #2. Hyperkalemia secondary to acute kidney injury status post 1 treatment of hemodialysis on May 16. Resolved. #3. Severe sepsis secondary to MRSA pneumonia. #4. Compensated respiratory alkalosis. #5. Hypotension. Resolved. Off all vasopressors. Plan: Hep-Lock IV fluids. Maintain tube feeds. Free water 200 mL every 6 hours with tube feeds. Antibiotics per infectious disease recommendations. Monitor vancomycin levels. Avoid nephrotoxic agents and hypotensive episodes. Continue to monitor renal function and urine output. Wean FiO2.
--- NOTE | 2016-05-20 11:09 | P.PN ---
Subjective Principal diagnosis: Respiratory failure Patient seen and examined in the ICU with nursing staff at bedside. Patient had an episode of atrial fibrillation overnight and was started on Cardizem. The patient converted back to normal sinus rhythm and Cardizem was discontinued. The patient was started on Lasix and is diuresing well. They are attempting sedation holiday and waking the patient up. Objective - Vital Signs Vital signs: Vital Signs Temp 98.7 F 05/20/16 08:00 Pulse 98 05/20/16 10:00 Resp 23 05/20/16 10:00 BP 157/60 05/20/16 10:00 Pulse Ox 97 05/20/16 10:00 Intake & Output 05/19/16 05/20/16 05/20/16 18:59 06:59 18:59 Intake Total 1615 960.093 718.050 Output Total 1415 2175 1440 Balance 200 -1214.907 -721.950 Weight 110.6 kg 107.6 kg 107.6 kg Intake: IV 1050 450 135.0 Piperacillin-Tazobactam 3 100 50 25.0 .375 gm In Dextrose/Water 1 50ml.bag @ 12.5 mls/hr IVPB Q8HR [facility] Rx#: [id number] Sodium Chloride 0.9% 1, 600 350 60 000 ml @ 20 mls/hr IV . Q24H [facility] Rx#:[id number] Valproate Sodium 500 mg 100 50 50 In Sodium Chloride 0.9% 50 ml @ 50 mls/hr IVPB Q8HR [facility] Rx#:[id number] Vancomycin 1,500 mg In 250 Sodium Chloride 0.9% 250 ml @ 125 mls/hr IVPB Q24H [facility] Rx#:[id number] Intake, IV Titration 315 190.093 33.050 Amount Diltiazem 125 mg In 8.083 Sodium Chloride 0.9% 100 ml @ 5 MG/HR 5 mls/hr IV .Q24H [facility] Rx#:[id number] Norepinephrine 16 mg In 82.010 0.997 Sodium Chloride 0.9% 250 ml @ Titrate IV .Q0M [facility] Rx#:[id number] Propofol 50 ml As IV .STK 265 16.8 [facility] Rx#:[id number] Propofol 500 mg In Empty 50 100 15.253 Bag 1 bag @ Titrate IV . Q0M [facility] Rx#:[id number] Oral 90 270 Tube Feeding 160 320 180 Other 100 Output: Urine 1415 2175 1440 Other: Voiding Method Indwelling Catheter Indwelling Catheter Indwelling Catheter # Bowel Movements 1 1 - Exam General: Patient is sedated with propofol on mechanical ventilation, morbidly obese Cardiovascular: Regular rate and rhythm, S1/S2 Lungs: Diminished at the bases with scattered crackles Abdomen: Soft nontender nondistended positive bowel sounds Extremities: Right [id number] amputation - Labs CBC & Chem 7: 05/20/16 05:20 05/20/16 07:50 Labs: Abnormal Lab Results - Last 24 Hours (Table) 05/20/16 05/20/16 05/20/16 Range/Units 00:40 04:37 05:20 RBC 2.46 L (3.80-5.40) m/uL Hgb 7.2 L D (11.4-16.0) gm/dL Hct 22.1 L (34.0-46.0) % Plt Count 75 L (150-450) k/uL Lymphocytes # 0.6 L (1.0-4.8) k/uL ABG pCO2 (35-45) mmHg ABG pO2 (83-108) mmHg ABG HCO3 (21-25) mmol/L ABG O2 Saturation (94-97) % Sodium 147 H (137-145) mmol/L Chloride 113 H 114 H (98-107) mmol/L Carbon Dioxide 21 L 21 L (22-30) mmol/L BUN 47 H 45 H (7-17) mg/dL Creatinine 1.30 H 1.20 H (0.52-1.04) mg/dL Glucose 103 H (74-99) mg/dL Calcium 8.0 L 7.8 L (8.4-10.2) mg/dL Phosphorus 4.7 H (2.5-4.5) mg/dL 05/20/16 Range/Units 08:35 RBC (3.80-5.40) m/uL Hgb (11.4-16.0) gm/dL Hct (34.0-46.0) % Plt Count (150-450) k/uL Lymphocytes # (1.0-4.8) k/uL ABG pCO2 30 L (35-45) mmHg ABG pO2 123 H (83-108) mmHg ABG HCO3 20 L (21-25) mmol/L ABG O2 Saturation 99.0 H (94-97) % Sodium (137-145) mmol/L Chloride (98-107) mmol/L Carbon Dioxide (22-30) mmol/L BUN (7-17) mg/dL Creatinine (0.52-1.04) mg/dL Glucose (74-99) mg/dL Calcium (8.4-10.2) mg/dL Phosphorus (2.5-4.5) mg/dL Microbiology - Last 24 Hours (Table) 05/16/16 04:23 Blood Culture - Preliminary Blood No Growth after 96 hours 05/17/16 13:00 Gram Stain - Final Bronchial Washings - Right Bronchial Washings Culture - Final Methicillin resist S. aureus Jolene albicans Assessment and Plan Plan: Acute hypoxic respiratory failure Acute kidney injury, requiring hemodialysis Bilateral pleural effusions with pulmonary vascular congestion, fluid overload SIRS with sepsis, septic shock Metabolic acidosis, non-anion gap Severe pulmonary hypertension possibly secondary to fluid overload MRSA pneumonia Bronchospasm Obesity Bicytopenia Toxic metabolic encephalopathy Diabetes mellitus type 2 Continue Lasix and diuresis Daily sedation holiday and spontaneous breathing trials, hopeful for extubation soon PT and OT Enteral nutrition Patient may need to be off of propofol for much longer due to her obesity Levophed is off Bronchodilators GI and DVT prophylaxis Discontinue Dilaudid Antibiotics per infectious disease Blood sugar control Cardiology recommendations for atrial fibrillation
--- NOTE | 2016-05-20 11:30 | P.PN ---
Subjective Principal diagnosis: Acute respiratory failure and toxic metabolic encephalopathy This is a 66-year-old female patient, senior care resident who resides at [facility], who came in yesterday to the emergency department with altered mental status and immediately she was identified to be in acute kidney injury. This is an acute renal failure with hyperkalemia. At the same time the patient was found to be hypotensive in shock. The patient was started on IV fluids a total of 4 L of IV fluid was given to her in the emergency department. She was treated for her hyperkalemia. Subsequently she got moved to the intensive care unit where the patient arrived hypotensive and shock state. She was started on pressors. She was started on norepinephrine infusion and at one point the dose as high as 50 mcg/m. The patient also had a dialysis catheter inserted and she was given a session of dialysis for acute hyperkalemia by nephrology. Note that the dialysis was successful and the patient had a drop in her potassium level which is essentially normalized. Note that his same time, the patient was intubated and placed on a mechanical ventilator. Chest x-ray from early this morning shows adequate positioning of the ET tube. There is cardiomegaly. No evidence of pneumonia. The urine is abnormal and there is evidence of urine checked infection pain noted the patient has had multiple UTIs in the past with quinolone resistant E. coli and previous history of Pseudomonas urine checked infection. Going back to the history, this patient has a very calm. Medical history. 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 The patient was in the hospital approximately in December 2015 and she was found to have multiple infarcts in her brain and the possibility of a embolism/ embolic phenomena was raised. Note that the MRI of the brain indicated non- acute vascular insult in the right lateral occipital lobes as well as a high right frontal lobe infarct and the high left parietal lobe infarct. The patient had evidence of subacute stroke involving the occipital lobe on the right. The patient was investigated further including a JOSE that showed moderate degree of aortic stenosis with a valve area of 1.2 cm. She was also found to have left anterior occurred artery stenosis estimated between 50-69%. The patient was discharged home on anticoagulation and she was taken Eliquis. The CAT scan of the brain that was done during this current admission shows no acute abnormalities. The patient is currently intubated on a mechanical ventilator. She is sedated. The pressor doses of been gradually weaned off. Attempts to insert an art line catheter was unsuccessful. On 05/17/2016 the patient is being seen in follow-up. She remains intubated on mechanical ventilator. She remains on an assist-control mode of ventilation at the rate of 24, tidal volume of 500, FiO2 of 70% and PEEP of 5. The blood gases from this morning show a pH of 7.39 with a pCO2 of 25 and a pO2 of 90. Chest x-ray shows a extensive consolidation of the right lung typical of an underlying pneumonia. At the same time the patient is producing copious amount of rest or secretions which are being suctioned out. She is still pressor dependent. She was started on vasopressin physiologic dose of 0.03 units per minute and the patient was also on norepinephrine infusion at 12 mics. Note that the pressor dose has been drop significantly compared to yesterday. She received an additional 2 L bolus and she has been resuscitated with more than 6 L of fluid since she came in to the ICU. She is producing adequate amount of urine output. She required one session of dialysis and the creatinine is down to 1.6. As far as infectious causes, I strongly suspected there is a severe pneumonia developing in the right lung. The patient is on a combination of Zosyn and Levaquin and she was given a dose of vancomycin. Urine culture was also sent and the results are still pending. Underlying urine checked infections also suspected is unaffected the patient has had multiple UTIs in the past with E. coli and Pseudomonas. The patient is also known to have valvular heart disease with moderate degree of aortic stenosis. Repeat CAT scan of the brain was done and the findings are essentially stable with an old infarct visualized. She remains critically ill. Dialysis catheter is still present in the right IJ and that can be removed per nephrology. Albumin levels on today's at 1.9. On 05/18/2016 the patient is being seen in follow-up. The patient is doing better. He is hemodynamically stable. She was taken off the the norepinephrine infusion and a vasopressin physiologic dose will be also discontinued. The patient is sedated on the prevent and she is calm and comfortable. She remains on a mechanical ventilator and assist-control mode rate of 24, tidal volume 500 FiO2 of 50% and PEEP of 5. Chest x-ray shows a significant consolidation of the right lung special the right perihilar area. Morning blood gases showed a pH of 7.47 with a pCO2 of 26 and pO2 of 81. The patient is producing adequate amount of urine output. In fact the patient was aggressively resuscitated IV fluids and she has developed some third spacing. IV fluids were cut down to KVO and urine output is more than 50 mL an hour. Renal function is stable with a creatinine of 1.29. Neurologically, the patient will be given a sedation holiday and underlying mental status will be checked. EEG of the brain was done and the results are still pending. CAT scan of the brain was done and showed no acute abnormalities and the findings are essentially chronic CVA. The carotid Doppler was also done and showed a 70 % stenosis in the left internal carotid artery. On 05/19/2016, patient remains on mechanical ventilation, however she is requiring about 3.3 g of norepinephrine. To maintain an adequate blood pressure. Patient has been off sedation earlier today, and she is very slow to respond and wake up. She is definitely not quite ready for weaning, as her ABG remains marginal. Patient remains on assist control of 24, tidal volume of 500 , FiO2 of 50%, and PEEP of 5. Chest x-ray continues to show significant airspace disease involving mostly the right perihilar area. I also suspect bilateral pleural effusions. Hence the patient may need less IV fluid, and more diuresis. ABG today showed a pO2 of 79 pCO2 of 24 pH of 7.44. BUN is 45 creatinine is 1.30 On 05/12/2016, patient remains on mechanical ventilation, chest x-ray is showing slight improvement, and ABG seems to be improved hence I cut down her FiO2 to 40%, and cut down the assist control rate to 20 and stent of 24. Patient will be given a sedation holiday in the next hour and we'll assess the patient could be given a weaning trial if possible. That all dependent on her overall mental status once the patient is off propofol. ABG today showed a pO2 of 123 pCO2 of 30 pH of 7.45. Hemoglobin is a bit low at 7.2, however if it drops any further, we'll consider blood transfusion. Patient is diuresing well with Lasix, and I believe the pleural effusions noted yesterday seem to be improving bilaterally. Objective - Vital Signs Vital signs: Vital Signs Temp 98.2 F 05/20/16 11:00 Pulse 98 05/20/16 11:00 Resp 28 H 05/20/16 11:10 BP 139/50 05/20/16 11:00 Pulse Ox 98 05/20/16 11:14 Intake & Output 05/19/16 05/20/16 05/20/16 18:59 06:59 18:59 Intake Total 1615 960.093 830.550 Output Total 1415 2175 2040 Balance 200 -1214.907 -1209.450 Weight 110.6 kg 107.6 kg 107.6 kg Intake: IV 1050 450 167.5 Piperacillin-Tazobactam 3 100 50 37.5 .375 gm In Dextrose/Water 1 50ml.bag @ 12.5 mls/hr IVPB Q8HR [facility] Rx#: [id number] Sodium Chloride 0.9% 1, 600 350 80 000 ml @ 20 mls/hr IV . Q24H [facility] Rx#:[id number] Valproate Sodium 500 mg 100 50 50 In Sodium Chloride 0.9% 50 ml @ 50 mls/hr IVPB Q8HR [facility] Rx#:[id number] Vancomycin 1,500 mg In 250 Sodium Chloride 0.9% 250 ml @ 125 mls/hr IVPB Q24H [facility] Rx#:[id number] Intake, IV Titration 315 190.093 33.050 Amount Diltiazem 125 mg In 8.083 Sodium Chloride 0.9% 100 ml @ 5 MG/HR 5 mls/hr IV .Q24H [facility] Rx#:[id number] Norepinephrine 16 mg In 82.010 0.997 Sodium Chloride 0.9% 250 ml @ Titrate IV .Q0M [facility] Rx#:[id number] Propofol 50 ml As IV .STK 265 16.8 [facility] Rx#:[id number] Propofol 500 mg In Empty 50 100 15.253 Bag 1 bag @ Titrate IV . Q0M [facility] Rx#:[id number] Oral 90 270 Tube Feeding 160 320 260 Other 100 Output: Urine 1415 2175 2040 Other: Voiding Method Indwelling Catheter Indwelling Catheter Indwelling Catheter # Bowel Movements 1 1 - Exam Head exam was generally normal. There was no scleral icterus or corneal arcus. Mucous membranes were moist. Patient is intubated on mechanical ventilator. She is edentulous.Neck was supple and without jugular venous distension, thyromegaly, or carotid bruits. Carotids were easily palpable bilaterally. There was no adenopathy. Orotracheal and orogastric tube are both in place. Neck is supple. There is no JVDs. No goiter. No neck masses. A right IJ dialysis catheter is in place. Lungs sounds are diminished other was clear clear. No wheezes overall currently crackles. Heart sounds are regular and there is a systolic ejection murmur grade 4/6 systolic the precordium.Abdominal exam revealed normal bowel sounds. The abdomen was soft, non-tender, and without masses, organomegaly, or appreciable enlargement of the abdominal aorta. Extremities show an above-knee amputation on the right. Left lower extremity is within normal limits with diminished pulses. Has some trace edema in the left lower extremity. Skin areas of ecchymosis and bruising probably due to over coagulation in the setting of an acute kidney injury. - Labs CBC & Chem 7: 05/20/16 05:20 05/20/16 07:50 Labs: Abnormal Lab Results - Last 24 Hours (Table) 05/20/16 05/20/16 05/20/16 Range/Units 00:40 04:37 05:20 RBC 2.46 L (3.80-5.40) m/uL Hgb 7.2 L D (11.4-16.0) gm/dL Hct 22.1 L (34.0-46.0) % Plt Count 75 L (150-450) k/uL Lymphocytes # 0.6 L (1.0-4.8) k/uL ABG pCO2 (35-45) mmHg ABG pO2 (83-108) mmHg ABG HCO3 (21-25) mmol/L ABG O2 Saturation (94-97) % Sodium 147 H (137-145) mmol/L Chloride 113 H 114 H (98-107) mmol/L Carbon Dioxide 21 L 21 L (22-30) mmol/L BUN 47 H 45 H (7-17) mg/dL Creatinine 1.30 H 1.20 H (0.52-1.04) mg/dL Glucose 103 H (74-99) mg/dL Calcium 8.0 L 7.8 L (8.4-10.2) mg/dL Phosphorus 4.7 H (2.5-4.5) mg/dL 05/20/16 Range/Units 08:35 RBC (3.80-5.40) m/uL Hgb (11.4-16.0) gm/dL Hct (34.0-46.0) % Plt Count (150-450) k/uL Lymphocytes # (1.0-4.8) k/uL ABG pCO2 30 L (35-45) mmHg ABG pO2 123 H (83-108) mmHg ABG HCO3 20 L (21-25) mmol/L ABG O2 Saturation 99.0 H (94-97) % Sodium (137-145) mmol/L Chloride (98-107) mmol/L Carbon Dioxide (22-30) mmol/L BUN (7-17) mg/dL Creatinine (0.52-1.04) mg/dL Glucose (74-99) mg/dL Calcium (8.4-10.2) mg/dL Phosphorus (2.5-4.5) mg/dL Microbiology - Last 24 Hours (Table) 05/16/16 04:23 Blood Culture - Preliminary Blood No Growth after 96 hours 05/17/16 13:00 Gram Stain - Final Bronchial Washings - Right Bronchial Washings Culture - Final Methicillin resist S. aureus Jolene albicans Assessment and Plan Plan: 1 acute shock, likely of a septic in nature. Patient has developed an extensive right lung pneumonia. At the same time, the patient is suspected to have a recurrent urine tract infection probably with gram-negative bacteria. She has been infected on multiple occasions in the past with E. coli that had been quinolone resistant and Pseudomonas. Patient has been adequately resuscitated IV fluids. The patient is on high-dose norepinephrine infusion. On 05/17/2016, the patient remains on a broad-spectrum antibiotic coverage. Cultures still pending. Bronchoscopy of the lungs will be done and the bronchioloalveolar lavage will be collected from the right lung. The patient will be kept on pressors. The patient is still on a combination of vasopressin and norepinephrine infusion. Echocardiogram was ordered and is also still pending for now. Meanwhile, she was aggressively resuscitated IV fluids. She is febrile for now. She is producing adequate amount of urine output. On 05/18/2016, the patient is doing better hemodynamically. There is MRSA growth in the sputum and its very much likely the patient has an MRSA pneumonia. The patient on vancomycin and Zosyn and Levaquin will be dropped. Urine culture has not shown anything abnormal. The patient is off norepinephrine infusion and vasopressin will be also discontinued. We will assess her mental status today by giving her a sedation holiday. On 05/19/2016, patient seems to be doing a bit better, remains on mechanical ventilation, remains on a small dose of norepinephrine, I plan to continue antibiotics, gently diurese the patient, and hopefully improve her chest x-ray to the point were and what can start some weaning trials. At this point the patient is not ready to be weaned mostly because of her mental status and mostly because of her marginal arterial blood gases and significant airspace disease noted on the chest x-ray today. 2 acute kidney injury, multifactorial, rule out ATN. The patient received a session of dialysis yesterday to treat her hyperkalemia. She is producing adequate amount of urine output at this point. Potassium level is normalized On 05/17/2016, the patient's renal function is improving and the creatinine is down to 1.6. Nephrology is on the case. No need for dialysis at this point. On 05/18/2016, the patient is producing adequate amount of urine output in the creatinine is down to 1.29. She is more stable. On 05/20/2016, patient will be given another sedation holiday, and if tolerated , should be given a weaning trial with pressure support and CPAP. However that will depend on her overall mental status. 3 acute hyperkalemia, recovered 4 morbid obesity 5 multiple DOG OR ANIMAL SITTER infarcts maintained on anticoagulation on outpatient basis 6 moderate degree of aortic stenosis, preserved LV function 7 hypertension, history of 8 hyperlipidemia history of 9 diabetes mellitus 10 above-knee amputation of the right lower extremity 11 reflux 12 hepatitis C viral infection 13 chronic back pain on narcotics 14 previous history of lower GI bleed Recommendation: Continue antibiotics, diuresis the patient slowly, continued daily neurologic assessment off propofol, patient is not quite ready to be weaned at this point. I have started the patient today on Lovenox for DVT prophylaxis, and the dose is 30 mg subcu daily. Critical care time is 35 minutes. Time with Patient: Greater than 30
[2016-05-20] MEDS: SODIUM CHLORIDE 5% OPHTH DROPS 15 ML BTL BOTH EYES SCH ×3 (11:44→23:26)
[2016-05-20] MEDS: CHOLECALCIFEROL 1,000 UNIT TAB PO SCH (11:46)
[2016-05-20 12:02] LABS: Glucose,Whole Blood 107 mg/dL (75-99)
[2016-05-20 15:15] LABS: LOG HCV IU/mL 6.69 (<1.08)
--- NOTE | 2016-05-20 15:51 | P.CRDCN ---
History of Present Illness Consult date: 05/20/16 History of present illness: This is a 66-year-old female who was transferred from [facility] with complaints of altered mental status and respiratory difficulties. On arrival she was found to be in acute renal failure with hyperkalemia. She was also found to be hypotensive in shock. She was given IV fluids and her potassium was corrected. Patient also received dialysis. It appears from chest x-rays that patient might have developed volume overload and CHF. She went into atrial fibrillation transiently last night and she is back in sinus rhythm. Echocardiogram showed good LV function. Patient is obese and had amputation of the right leg in the past. Patient also developing progressive anemia with hemoglobin of 7.2. His also may be contributing to CHF. At this point patient is back in sinus rhythm. I'll continue current medical therapy. May consider blood transfusion if anemia becomes problematic. May also start her on small dose of beta sarina. She is already on aspirin. Patient is also on Lovenox for DVT prophylaxis. As the episode of atrial fibrillation is brief and also patient has significant anemia, I'm not starting on anti-cognition therapy at this time unless patient has persistent or recurrent atrial fibrillation. Review of Systems Not obtained Past Medical History Past Medical History: Asthma, Heart Failure, Diabetes Mellitus, GERD/Reflux, GI Bleed, Hyperlipidemia, Hypertension, Osteoarthritis (OA), Thyroid Disorder Additional Past Medical History / Comment(s): Morbid obesity, frequent urine checked infection with gram-negative bacteria including pseudomonas and E. coli , previous history of lower GI bleed, chronic back pain, chronic anemia, hepatitis C, multiple cerebral infarcts, history of osteomyelitis, anxiety/ depression moderate degree of aortic stenosis with estimated valve area of 1.2 cm, preserved LV function with a normal ejection fraction, left carotid artery stenosis estimated to be around 50-69% AL , diabetes mellitus, hyperlipidemia, hypertension History of Any Multi-Drug Resistant Organisms: MRSA, Other MDRO Date of last positivie culture/infection: 10/10/2014-MDRO Pseudomonas; 05/16/16- MRSA MDRO Source:: Urine-MDRO and MRSA SPUTUM Past Surgical History: Orthopedic Surgery Additional Past Surgical History / Comment(s): RIGHT KNEE REPLACEMTN THE POST OP INFECTION-SEVERAL OTHER SX THEN AKA , COLONOSCOPY,HAD A LT ARM PICC LINE FOR ABX, Past Anesthesia/Blood Transfusion Reactions: No Reported Reaction Additional Past Anesthesia/Blood Transfusion Reaction / Comment(s): Pt has recieved blood without reaction. Past Psychological History: Anxiety, Bipolar, Depression Additional Psychological History / Comment(s): Pt resides at [facility] on the [address]. She states she is able to transfer by herself to a wheelchair. She feeds herself and needs minimal assist with ADL's. Smoking Status: Former smoker Past Alcohol Use History: None Reported Additional Past Alcohol Use History / Comment(s): Pt started smoking around 1996 and quit smoking in 2005. Past Drug Use History: Heroin Additional Drug Use History / Comment(s): Pt states she did use heroin many yrs ago. - Past Family History Father Family Medical History: Hypertension Mother Family Medical History: Hypertension Medications and Allergies Home Medications Medication Instructions Recorded Confirmed Type Atorvastatin Calcium [Lipitor] 40 mg PO HS@209902/02/14 05/15/16 History Loratadine [Claritin] 10 mg PO DAILY PRN 02/02/14 05/15/16 History Apixaban [Eliquis] 2.5 mg PO BID@0900,209910/10/14 05/15/16 History Calcium Carb-Vit D 500Mg-200Un 1 tab PO BID@0900,1700 10/10/14 05/15/16 History [Oscal 500+D] Ferrous Sulfate [Iron (65 MG 325 mg PO DAILY@0901/01/16 05/15/16 History Elemental)] OLANZapine [ZyPREXA] 10 mg PO TID@0900,1300,209901/09/16 05/15/16 History Sertraline [Zoloft] 100 mg PO DAILY@0901/09/16 05/15/16 History amLODIPine [Norvasc] 10 mg PO DAILY@0900 01/09/16 05/15/16 History ALPRAZolam [Xanax] 1 mg PO Q6H PRN 05/15/16 05/15/16 History Aspirin 325 mg PO DAILY@89905/15/16 05/15/16 History Atenolol [Tenormin] 25 mg PO DAILY@0900 05/15/16 05/15/16 History Furosemide [Lasix] 20 mg PO DAILY@0905/15/16 05/15/16 History Gabapentin [Neurontin] 100 mg PO BID@0900,2100 05/15/16 05/15/16 History HYDROcodone/APAP 5-325MG [[place] 1 tab PO Q12H PRN 05/15/16 05/15/16 History 5-325] Ibuprofen [Motrin] 200 mg PO Q12H PRN 05/15/16 05/15/16 History Latanoprost Ophth [Xalatan 0.005%] 1 drops BOTH EYES HS@209905/15/16 05/15/16 History Lisinopril [Zestril] 20 mg PO DAILY@0900 05/15/16 05/15/16 History Methyl Salicylate/Menthol 1 patch TRANSDERM DAILY@0900 05/15/16 05/15/16 History [Salonpas Patch] Morphine Sulfate ER [Ms Contin 15 mg PO DAILY PRN 05/15/16 05/15/16 History 15Mg] Morphine Sulfate ER [Ms Contin] 15 mg PO Q12HR 05/15/16 05/15/16 History Potassium Chloride [Klor-Con 10] 10 meq PO DAILY@0900 05/15/16 05/15/16 History Allergies Allergy/AdvReac Type Severity Reaction Status Date / Time strawberry Allergy Unknown Verified 05/15/16 20:21 Physical Exam Vitals: Vital Signs Temp Pulse Pulse Resp BP Pulse Ox 05/20/16 15:38 85 05/20/16 15:00 98.8 F 95 25 H 137/45 96 05/20/16 14:00 96 28 H 156/58 97 05/20/16 13:00 106 H 28 H 161/57 98 05/20/16 12:30 97 05/20/16 12:00 101 H 28 H 161/61 97 05/20/16 11:59 100 05/20/16 11:14 98 05/20/16 11:10 28 H 05/20/16 11:00 98.2 F 98 28 H 139/50 98 05/20/16 10:00 98 23 157/60 97 05/20/16 09:39 102 H 05/20/16 09:00 101 H 27 H 161/64 98 05/20/16 08:52 99 05/20/16 08:00 98.7 F 82 24 115/41 98 05/20/16 07:00 77 24 93/34 99 05/20/16 06:00 82 24 115/53 99 05/20/16 05:00 99.2 F 88 24 135/41 99 05/20/16 04:00 91 24 138/48 98 05/20/16 03:22 91 05/20/16 03:11 92 05/20/16 03:00 87 24 127/47 99 05/20/16 02:00 91 24 130/45 99 05/20/16 01:00 154 H 23 130/65 97 05/20/16 00:00 99.5 F 130 H 24 136/51 94 L 05/19/16 23:46 127 H 05/19/16 23:35 128 H 05/19/16 23:22 112 H 24 136/51 96 05/19/16 23:00 113 H 24 136/51 95 05/19/16 22:00 97 24 126/46 95 05/19/16 21:00 95 24 133/44 96 05/19/16 20:24 95 05/19/16 20:11 94 05/19/16 20:00 99.2 F 103 H 24 140/47 96 05/19/16 19:00 91 27 H 128/42 98 05/19/16 18:30 93 24 118/41 98 05/19/16 18:00 102 H 24 120/45 96 05/19/16 17:30 115 H 25 H 141/50 96 05/19/16 17:00 104 H 23 134/51 96 05/19/16 16:30 98 24 119/48 96 05/19/16 16:12 86 05/19/16 16:00 99.6 F 99 90 24 141/44 96 Intake and Output 05/20/16 05/20/16 05/20/16 06:59 14:59 22:59 Intake Total 747.820 8500.650 126.027 Output Total 1475 2640 150 Balance -834.907 -1253.350 -23.973 Intake: IV 250 240.0 70 Piperacillin-Tazobactam 3 50 50.0 .375 gm In Dextrose/Water 1 50ml.bag @ 12.5 mls/hr IVPB Q8HR [facility] Rx#: [id number] Sodium Chloride 0.9% 1, 150 140 20 000 ml @ 20 mls/hr IV . Q24H [facility] Rx#:[id number] Valproate Sodium 500 mg 50 50 50 In Sodium Chloride 0.9% 50 ml @ 50 mls/hr IVPB Q8HR [facility] Rx#:[id number] Intake, IV Titration 190.093 66.650 16.027 Amount Diltiazem 125 mg In 8.083 Sodium Chloride 0.9% 100 ml @ 5 MG/HR 5 mls/hr IV .Q24H [facility] Rx#:[id number] Norepinephrine 16 mg In 82.010 0.997 Sodium Chloride 0.9% 250 ml @ Titrate IV .Q0M [facility] Rx#:[id number] Propofol 50 ml As IV .STK 50.4 8.4 [facility] Rx#:[id number] Propofol 500 mg In Empty 100 15.253 7.627 Bag 1 bag @ Titrate IV . Q0M [facility] Rx#:[id number] Oral 360 Tube Feeding 200 420 40 Other 300 Output: Urine 1475 2640 150 Other: Voiding Method Indwelling Catheter Indwelling Catheter # Bowel Movements 1 2 Weight 107.6 kg 107.6 kg Patient Weight 05/21/16 06:59 Weight 107.6 kg GENERAL EXAM: Patient is intubated sedated HEENT: Normocephalic. NECK: No masses, no nuchal rigidity. CHEST: No chest wall deformity. LUNGS: Accept default HEART: S1 and S2 normal difficult to appreciate any murmurs ABDOMEN: No hepatosplenomegaly, normal bowel sounds, no guarding or rigidity. SKIN: No rashes CENTRAL NERVOUS SYSTEM: No focal deficits. EXTREMITIES: Status post a right leg amputation Results 05/20/16 05:20 05/20/16 07:50 CBC 05/20/16 Range/Units 05:20 WBC 4.4 (3.8-10.6) k/uL RBC 2.46 L (3.80-5.40) m/uL Hgb 7.2 L D (11.4-16.0) gm/dL Hct 22.1 L (34.0-46.0) % Plt Count 75 L (150-450) k/uL Comprehensive Metabolic Panel 05/20/16 05/20/16 05/20/16 Range/Units 00:40 04:37 07:50 Sodium 147 H 145 (137-145) mmol/L Potassium 3.7 3.8 4.1 (3.5-5.1) mmol/L Chloride 113 H 114 H (98-107) mmol/L Carbon Dioxide 21 L 21 L (22-30) mmol/L BUN 47 H 45 H (7-17) mg/dL Creatinine 1.30 H 1.20 H (0.52-1.04) mg/dL Glucose 103 H 99 (74-99) mg/dL Calcium 8.0 L 7.8 L (8.4-10.2) mg/dL Current Medications Generic Name Dose Route Start Last Admin Trade Name Freq PRN Reason Stop Dose Admin Acetaminophen 650 mg 05/15/16 23:53 Tylenol Suppository RECTAL Q4HR PRN Fever And/ Or Mild Pain Acetaminophen 650 mg 05/15/16 23:53 Tylenol Tab PO Q4HR PRN Fever and/or Mild Pain Al Hydroxide/Mg Hydroxide 30 ml 05/15/16 23:57 Maalox PO Q6H PRN Heartburn Albuterol/Ipratropium 3 ml 05/16/16 12:00 05/20/16 15:37 Duoneb 0.5 Mg-3 Mg/3 Ml Soln INHALATION 3 ml RT-Q4H [facility] Administration Albuterol/Ipratropium 3 ml 05/16/16 08:10 Duoneb 0.5 Mg-3 Mg/3 Ml Soln INHALATION RT-Q2H PRN Shortness Of Breath Or Wheezing Aspirin 325 mg 05/16/16 09:00 05/20/16 08:17 Aspirin PO 325 mg DAILY@0900 [facility] Administration Atorvastatin Calcium 40 mg 05/16/16 21:00 05/19/16 20:18 Lipitor PO 40 mg HS@2100 [facility] Administration Budesonide 0.5 mg 05/17/16 20:00 05/20/16 08:41 Pulmicort INHALATION 0.5 mg RT-BID [facility] Administration Calcium Carbonate 1 each 05/16/16 09:00 05/20/16 11:45 Oscal 500+D PO 1 each BID@0900,1700 [facility] Administration Chlorhexidine Gluconate 15 ml 05/16/16 09:00 05/20/16 08:17 Peridex MUCOUS MEM 15 ml BID [facility] Administration Cholecalciferol 5,000 unit 05/16/16 12:00 05/20/16 11:46 Vitamin D3 PO 5,000 unit DAILY@1200 [facility] Administration Enoxaparin Sodium 30 mg 05/19/16 09:30 05/20/16 08:16 Lovenox SQ 30 mg DAILY [facility] Administration Famotidine 20 mg 05/16/16 21:42 05/19/16 20:18 Pepcid IV 20 mg HS [facility] Administration Furosemide 20 mg 05/19/16 21:00 05/20/16 08:17 Lasix IV 20 mg Q12HR [facility] Administration Gabapentin 100 mg 05/16/16 09:00 05/20/16 08:17 Neurontin PO 100 mg BID@0900,2100 [facility] Administration Sodium Chloride 1,000 mls @ 20 mls/hr 05/15/16 23:45 05/20/16 01:13 Saline 0.9% IV 20 mls/hr .Q24H [facility] Administration Norepinephrine Bitartrate 16 266 mls @ 0 mls/hr 05/16/16 03:45 05/20/16 07:05 mg/ Sodium Chloride IV 2 mcg/min .Q0M [facility] 1.99 mls/hr Protocol Titration Titrate Propofol 500 mg/ IV Solution 50 mls @ 0 mls/hr 05/16/16 04:30 05/20/16 15:33 IV 15 mcg/kg/min .Q0M [facility] 8.58 mls/hr Protocol Titration Titrate Piperacillin/Tazobactam/ 50 mls @ 12.5 mls/hr 05/16/16 11:00 05/20/16 15:33 Dextrose 3.375 gm/ IV Solution IVPB 12.5 mls/hr Q8HR [facility] Administration Vasopressin 20 unit/ Sodium 100 mls @ 6 mls/hr 05/16/16 14:15 05/20/16 02:44 Chloride IV Not Given .[id number] [facility] 0.02 UNITS/MIN Valproic Acid 500 mg/ Sodium 55 mls @ 50 mls/hr 05/17/16 00:00 05/20/16 15:33 Chloride IVPB 50 mls/hr Q8HR [facility] Administration Vancomycin HCl 1,250 mg/ 250 mls @ 125 mls/hr 05/20/16 17:00 Sodium Chloride IVPB Q24H [facility] Diltiazem HCl 125 mg/ Sodium 125 mls @ 5 mls/hr 05/20/16 00:45 05/20/16 02:44 Chloride IV 0 mg/hr .Q24H [facility] 0 mls/hr Protocol Titration 5 MG/HR Insulin Human Lispro 0 unit 05/16/16 06:15 05/20/16 12:33 Humalog SQ Not Given Q6H [facility] Protocol Levothyroxine Sodium 100 mcg 05/16/16 06:00 05/20/16 06:22 Synthroid PO 100 mcg DAILY@0600 [facility] Administration Miscellaneous Information 1 each 05/20/16 05:47 Potassium Per Protocol MISCELLANE DAILY PRN Per Protocol Protocol Montelukast Sodium 10 mg 05/16/16 21:00 05/19/16 20:19 Singulair PO 10 mg HS@2100 [facility] Administration Naloxone HCl 0.2 mg 05/15/16 23:53 Narcan IV Q2M PRN Opioid Reversal Nystatin 1 applic 05/20/16 21:00 Mycostatin Powder TOPICAL BID [facility] Olanzapine 10 mg 05/16/16 09:00 05/20/16 12:35 Zyprexa PO 10 mg TID@0900,1300,2100 [facility] Administration Ondansetron HCl 4 mg 05/15/16 23:57 Zofran PO Q6H PRN Nausea Sertraline HCl 100 mg 05/16/16 09:00 05/20/16 08:18 Zoloft PO 100 mg DAILY@0900 [facility] Administration Sodium Chloride 1 drops 05/20/16 12:00 05/20/16 11:44 Ishan 128 BOTH EYES 1 drops Q6HR [facility] Administration Intake and Output 05/20/16 05/20/16 05/20/16 06:59 14:59 22:59 Intake Total 137.177 9418.650 126.027 Output Total 1475 2640 150 Balance -834.907 -1253.350 -23.973 Intake: IV 250 240.0 70 Piperacillin-Tazobactam 3 50 50.0 .375 gm In Dextrose/Water 1 50ml.bag @ 12.5 mls/hr IVPB Q8HR [facility] Rx#: [id number] Sodium Chloride 0.9% 1, 150 140 20 000 ml @ 20 mls/hr IV . Q24H [facility] Rx#:[id number] Valproate Sodium 500 mg 50 50 50 In Sodium Chloride 0.9% 50 ml @ 50 mls/hr IVPB Q8HR [facility] Rx#:[id number] Intake, IV Titration 190.093 66.650 16.027 Amount Diltiazem 125 mg In 8.083 Sodium Chloride 0.9% 100 ml @ 5 MG/HR 5 mls/hr IV .Q24H [facility] Rx#:[id number] Norepinephrine 16 mg In 82.010 0.997 Sodium Chloride 0.9% 250 ml @ Titrate IV .Q0M [facility] Rx#:[id number] Propofol 50 ml As IV .STK 50.4 8.4 [facility] Rx#:[id number] Propofol 500 mg In Empty 100 15.253 7.627 Bag 1 bag @ Titrate IV . Q0M [facility] Rx#:[id number] Oral 360 Tube Feeding 200 420 40 Other 300 Output: Urine 1475 2640 150 Other: Voiding Method Indwelling Catheter Indwelling Catheter # Bowel Movements 1 2 Weight 107.6 kg 107.6 kg Patient Weight 05/21/16 06:59 Weight 107.6 kg 05/20/16 05:20 05/20/16 07:50 Assessment and Plan (1) Paroxysmal atrial fibrillation Status: Acute (2) Acute renal failure Status: Acute (3) Hyperkalemia Status: Acute (4) Hypotension Status: Acute (5) Diabetes Status: Acute Plan: Patient is back in sinus rhythm. I will add small dose of beta sarina. I would not consider anti-cognition therapy at this time because of tense in nature of the atrial fibrillation and also presence of severe anemia. Echo Cardigan showed good LV function. If patient has any recurrence of atrial fibrillation, may consider long-term anticoagulation because of her hypertension and diabetes and presence of CHF.
[2016-05-20] MEDS: VANCOMYCIN 1,250 MG in SODIUM CHLORIDE 0.9% 250 ML IVPB SCH (17:05)
[2016-05-20 17:21] LABS: Glucose,Whole Blood 124 mg/dL (75-99)
[2016-05-20 19:42] LABS: Calcium 7.6 mg/dL (8.4-10.2); Magnesium 1.8 mg/dL (1.6-2.3); Potassium 3.6 mmol/L (3.5-5.1)
[2016-05-20] MEDS ORDERED: Magnesium Replacement Protocol 1 EACH MISC MISCELLANE PRN (20:55)
[2016-05-20] MEDS ORDERED: MAGNESIUM SULFATE-D5W PMX 1 GM in DEXTROSE/WATER 1 100ML.BAG IVPB SCH (21:00)
[2016-05-20] MEDS: METOPROLOL TARTRATE 25 MG TAB PO SCH (21:05)
[2016-05-20] MEDS: ATORVASTATIN 40 MG TAB PO SCH (21:05)
[2016-05-20] MEDS: MONTELUKAST 10 MG TAB PO SCH (21:06)
[2016-05-20] MEDS: NYSTATIN 100,000 UNIT/GM POWD 15 GM TOPICAL SCH (21:06)
[2016-05-20] MEDS: FAMOTIDINE 20 MG/2 ML VIAL IV SCH (21:07)
[2016-05-20] MEDS ORDERED: MAGNESIUM SULFATE-D5W PMX 1 GM in DEXTROSE/WATER 1 100ML.BAG IVPB ONE (21:15)
[2016-05-20] MEDS: POTASSIUM CHLORIDE ORAL LIQUID 40 MEQ/30 ML CUP NG-TUBE SCH ×2 (21:29→22:47)
[2016-05-20 23:25] LABS: Glucose,Whole Blood 129 mg/dL (75-99)
[2016-05-21] MEDS: PROPOFOL 500 MG in EMPTY BAG 1 BAG IV SCH ×5 (01:22→22:34)
[2016-05-21] MEDS: IPRATROPIUM-ALBUTEROL 3 ML NEB INHALATION SCH ×6 (03:26→23:38)
[2016-05-21 04:38] LABS: Basophils % (A) 0 %; CHCM 32.1; Eosinophils # (A) 0.2 k/uL (0-0.7); Eosinophils % (A) 4 %; HCT 25.1 % (34.0-46.0); HDW 2.63; Luc # (Auto) 0.13; Luc % (Auto) 3; Lymphocytes # (A) 0.7 k/uL (1.0-4.8); Lymphocytes % (A) 14 %; MCH 29.1 pg (25.0-35.0); MCV 90.9 fL (80.0-100.0); Mean Platelet Volume 8.4; Monocytes # (A) 0.4 k/uL (0-1.0); Monocytes % (A) 8 %; Neutrophils # (A) 3.5 k/uL (1.3-7.7); Neutrophils % (A) 72 %; RBC 2.76 m/uL (3.80-5.40); RDW 14.3 % (11.5-15.5); WBC 4.9 k/uL (3.8-10.6); WBC (Perox) 5.21
[2016-05-21 04:54] LABS: Anion Gap 10 mmol/L; Blood Urea Nitrogen 41 mg/dL (7-17); Calcium 7.6 mg/dL (8.4-10.2); Carbon Dioxide 25 mmol/L (22-30); Chloride 110 mmol/L (98-107); Glucose 117 mg/dL (74-99); Non-African American GFR(MDRD) 55 (>60 ml/min/1.73 sqM); Phosphorous 4.1 mg/dL (2.5-4.5); Potassium 4.1 mmol/L (3.5-5.1); Sodium 145 mmol/L (137-145)
[2016-05-21] MEDS ORDERED: PROPOFOL 50 ML IV ONE ×6 (04:56→23:49)
[2016-05-21] MEDS: SODIUM CHLORIDE 5% OPHTH DROPS 15 ML BTL BOTH EYES SCH ×4 (05:10→23:18)
[2016-05-21] MEDS: INSULIN LISPRO (humaLOG) 300 UNIT/3 ML VIAL SQ SCH ×4 (05:10→23:18)
[2016-05-21 05:11] LABS: Glucose,Whole Blood 109 mg/dL (75-99)
[2016-05-21] MEDS: LEVOTHYROXINE 100 MCG TAB PO SCH (06:09)
[2016-05-21] MEDS: BUDESONIDE 0.5 MG/2 ML NEBU INHALATION SCH ×2 (07:25→19:27)
[2016-05-21 08:21] LABS: ABG PCO2 27 mmHg (35-45)
[2016-05-21 08:22] LABS: ABG Base Excess -1.7 mmol/L; ABG HCO3 21 mmol/L (21-25); ABG PO2 73 mmHg (83-108); ABG TCO2 22 mmol/L (19-24)
--- NOTE | 2016-05-21 09:19 | PN ---
DATE OF SERVICE: 05/20/2016 Reason for followup is MRSA pneumonia. INTERVAL HISTORY: The patient is afebrile. She is slowly waking up. Sedation has been cut back. Hemodynamically stable, off the pressor support .FiO2 has been stable. Tolerating her tube feeds. No diarrhea. On examination, blood pressure is 123/60 with a pulse of 89, temperature 98.6. She is 100% on 40% FiO2. General description is an elderly female, lying in bed in no distress. RESPIRATORY SYSTEM: Unlabored breathing. Decreased breath sounds at the base. No wheeze. HEART: S1, S2. Regular rate and rhythm. ABDOMEN: Soft. No tenderness. LABS: BUN 44, creatinine 1.13. Sputum is MRSA and bronchial washings MRSA as well. Urine culture has been negative. DIAGNOSTIC IMPRESSION AND PLAN: Patient with acute respiratory failure likely multifactorial with component of pneumonia. Sputum as well as bronch culture has been positive for methicillin-resistant Staphylococcus aureus. The patient will continue on vancomycin pharmacy to dose and as no gram negative has been grown to discontinue the piperacillin tazobactam. Continue supportive care. MTDD
[2016-05-21] MEDS: VALPROATE SODIUM 500 MG in SODIUM CHLORIDE 0.9% 50 ML IVPB SCH ×3 (09:56→23:42)
[2016-05-21] MEDS: ASPIRIN 325 MG TAB PO SCH (09:58)
[2016-05-21] MEDS: CALCIUM CARB-VIT D 500MG-200UN 1 EACH TAB PO SCH ×2 (09:59→17:26)
[2016-05-21] MEDS: CHLORHEXIDINE GLUCONATE 15 ML CUP MUCOUS MEM SCH ×2 (09:59→20:33)
[2016-05-21] MEDS: ENOXAPARIN 30 MG/0.3 ML SYRINGE SQ SCH (09:59)
[2016-05-21] MEDS: GABAPENTIN 100 MG CAP PO SCH ×2 (10:00→20:32)
[2016-05-21] MEDS: FUROSEMIDE 10 MG/ML 2 ML VIAL IV SCH (10:00)
[2016-05-21] MEDS: METOPROLOL TARTRATE 25 MG TAB PO SCH ×2 (10:00→20:32)
[2016-05-21] MEDS: NYSTATIN 100,000 UNIT/GM POWD 15 GM TOPICAL SCH ×2 (10:01→20:33)
[2016-05-21] MEDS: SERTRALINE 100 MG TAB PO SCH (10:11)
[2016-05-21] MEDS: OLANZapine 10 MG TAB PO SCH ×3 (10:11→21:31)
--- NOTE | 2016-05-21 10:22 | XR ---
EXAMINATION TYPE: XR chest 1V portable DATE OF EXAM: 05/21/2016 6:40 AM COMPARISON: 05/20/2016 HISTORY: Shortness of breath TECHNIQUE: Single frontal view of the chest is obtained. FINDINGS: There are bilateral pleural effusions with cardiomegaly and bibasilar infiltrate. There is a diffuse interstitial pattern. ET and NG tube stable in position. Atherosclerotic change aorta. IMPRESSION: 1. Bilateral infiltrate and pleural effusion stable correlate for CHF.
--- NOTE | 2016-05-21 10:37 | P.PN ---
Subjective Principal diagnosis: Patient is seen in follow-up for acute kidney injury. She initially presented with altered mental status as well as hyperkalemia. She required one treatment of hemodialysis on May 16. The dialysis catheter was discontinued on May 18. Her creatinine is improved to 1.0 today. Baseline creatinine is 1. She is nonoliguric. She is currently intubated and sedated. She underwent bronchoscopy this admission for right lower lobe infiltrate and cultures are currently growing MRSA. She is off all vasopressors at this time. Vital signs are stable. General: The patient appeared well nourished and normally developed. HEENT: Head exam is unremarkable. Neck is without jugular venous distension. LUNGS: Diffuse rhonchi. Breath sounds decreased. HEART: Rate and Rhythm are regular. First and second heart sounds normal. No murmurs, rubs or gallops. ABDOMEN: Abdominal exam reveals normal bowel sounds. Non-tender and non- distended. No evidence of peritonitis. EXTREMITITES: No clubbing, cyanosis, or edema. Objective - Vital Signs Vital signs: Vital Signs Temp 99.9 F H 05/21/16 08:00 Pulse 93 05/21/16 09:00 Resp 24 05/21/16 09:00 BP 132/52 05/21/16 09:00 Pulse Ox 99 05/21/16 09:00 Intake & Output 05/20/16 05/21/16 05/21/16 18:59 06:59 18:59 Intake Total 2658.897 1555.4 100 Output Total 3510 3185 350 Balance -851.103 -1629.6 -250 Weight 107.6 kg 105.1 kg Intake: IV 677.5 315.0 60 Piperacillin-Tazobactam 3 87.5 75.0 .375 gm In Dextrose/Water 1 50ml.bag @ 12.5 mls/hr IVPB Q8HR [facility] Rx#: [id number] Sodium Chloride 0.9% 1, 240 190 40 000 ml @ 20 mls/hr IV . Q24H [facility] Rx#:[id number] Valproate Sodium 500 mg 100 50 20 In Sodium Chloride 0.9% 50 ml @ 50 mls/hr IVPB Q8HR [facility] Rx#:[id number] Vancomycin 1,500 mg In 250 Sodium Chloride 0.9% 250 ml @ 125 mls/hr IVPB Q24H [facility] Rx#:[id number] Intake, IV Titration 171.397 200.4 Amount Magnesium Sulfate-D5w Pmx 100 1 gm In Dextrose/Water 1 100ml.bag @ 100 mls/hr IVPB Q1H [facility] Rx#: [id number] Norepinephrine 16 mg In 0.997 Sodium Chloride 0.9% 250 ml @ Titrate IV .Q0M [facility] Rx#:[id number] Propofol 50 ml As IV .STK 120.4 50.4 [facility] Rx#:[id number] Propofol 500 mg In Empty 50.000 50 Bag 1 bag @ Titrate IV . Q0M [facility] Rx#:[id number] Oral 540 Tube Feeding 740 640 40 Other 530 400 Output: Urine 3510 3185 350 Other: Voiding Method Indwelling Catheter Indwelling Catheter # Bowel Movements 2 1 - Labs CBC & Chem 7: 05/21/16 04:28 05/21/16 04:28 Labs: Abnormal Lab Results - Last 24 Hours (Table) 05/19/16 05/20/16 05/20/16 Range/Units 04:25 11:55 17:19 RBC (3.80-5.40) m/uL Hgb (11.4-16.0) gm/dL Hct (34.0-46.0) % Plt Count (150-450) k/uL Lymphocytes # (1.0-4.8) k/uL ABG pH (7.35-7.45) ABG pCO2 (35-45) mmHg ABG pO2 (83-108) mmHg Sodium (137-145) mmol/L Chloride (98-107) mmol/L BUN (7-17) mg/dL Creatinine (0.52-1.04) mg/dL Glucose (74-99) mg/dL POC Glucose (mg/dL) 107 H 124 H (75-99) mg/dL Calcium (8.4-10.2) mg/dL Hepatitis C Viral RNA DETECTED H (Not detected) IU/mL Hepatitis C RNA Quant 4,844,596 H (<12) IU/mL HCV RNA PCR log IUs/ml 6.69 H (<1.08) 05/20/16 05/20/16 05/21/16 Range/Units 19:09 23:24 04:28 RBC 2.76 L (3.80-5.40) m/uL Hgb 8.0 L (11.4-16.0) gm/dL Hct 25.1 L (34.0-46.0) % Plt Count 73 L (150-450) k/uL Lymphocytes # 0.7 L (1.0-4.8) k/uL ABG pH (7.35-7.45) ABG pCO2 (35-45) mmHg ABG pO2 (83-108) mmHg Sodium 148 H (137-145) mmol/L Chloride 112 H (98-107) mmol/L BUN 44 H (7-17) mg/dL Creatinine 1.13 H (0.52-1.04) mg/dL Glucose 124 H (74-99) mg/dL POC Glucose (mg/dL) 129 H (75-99) mg/dL Calcium 7.6 L (8.4-10.2) mg/dL Hepatitis C Viral RNA (Not detected) IU/mL Hepatitis C RNA Quant (<12) IU/mL HCV RNA PCR log IUs/ml (<1.08) 05/21/16 05/21/16 05/21/16 Range/Units 04:28 05:09 07:30 RBC (3.80-5.40) m/uL Hgb (11.4-16.0) gm/dL Hct (34.0-46.0) % Plt Count (150-450) k/uL Lymphocytes # (1.0-4.8) k/uL ABG pH 7.50 H (7.35-7.45) ABG pCO2 27 L (35-45) mmHg ABG pO2 73 L (83-108) mmHg Sodium (137-145) mmol/L Chloride 110 H (98-107) mmol/L BUN 41 H (7-17) mg/dL Creatinine (0.52-1.04) mg/dL Glucose 117 H (74-99) mg/dL POC Glucose (mg/dL) 109 H (75-99) mg/dL Calcium 7.6 L (8.4-10.2) mg/dL Hepatitis C Viral RNA (Not detected) IU/mL Hepatitis C RNA Quant (<12) IU/mL HCV RNA PCR log IUs/ml (<1.08) Microbiology - Last 24 Hours (Table) 05/16/16 04:23 Blood Culture - Preliminary Blood No Growth after 120 hours Assessment and Plan Plan: Assessment: #1. Nonoliguric acute kidney injury secondary to ischemic ATN secondary to sepsis. Creatinine is improved to 1.0 today. #2. Hyperkalemia secondary to acute kidney injury status post 1 treatment of hemodialysis on May 16. Resolved. #3. Severe sepsis secondary to MRSA pneumonia. #4. Compensated respiratory alkalosis. #5. Hypotension. Resolved. Off all vasopressors. #6. Metabolic encephalopathy. Questionable seizure activity. #7. Hypernatremia secondary to lack of oral water intake and diuresis. Improved. Plan: Hep-Lock IV fluids. Maintain tube feeds. Free water 200 mL every 6 hours with tube feeds. Antibiotics per infectious disease recommendations. Monitor vancomycin levels. Avoid nephrotoxic agents and hypotensive episodes. Continue to monitor renal function and urine output. Wean FiO2.
[2016-05-21] MEDS: SODIUM CHLORIDE 0.9% 1,000 ML IV SCH (12:02)
[2016-05-21 12:03] LABS: Glucose,Whole Blood 141 mg/dL (75-99)
[2016-05-21] MEDS ORDERED: SODIUM CHLORIDE 0.9% 1,000 ML IV ONE (12:28)
[2016-05-21] MEDS: CHOLECALCIFEROL 1,000 UNIT TAB PO SCH (12:46)
[2016-05-21] MEDS: DIGOXIN 250 MCG/ML 2 ML AMP IVP SCH (12:49)
[2016-05-21] MEDS: NOREPINEPHRINE 16 MG in SODIUM CHLORIDE 0.9% 250 ML IV SCH (12:50)
--- NOTE | 2016-05-21 14:23 | P.PN ---
Subjective Principal diagnosis: Acute respiratory failure and toxic metabolic encephalopathy This is a 66-year-old female patient, long-term resident who resides at [facility], who came in yesterday to the emergency department with altered mental status and immediately she was identified to be in acute kidney injury. This is an acute renal failure with hyperkalemia. At the same time the patient was found to be hypotensive in shock. The patient was started on IV fluids a total of 4 L of IV fluid was given to her in the emergency department. She was treated for her hyperkalemia. Subsequently she got moved to the intensive care unit where the patient arrived hypotensive and shock state. She was started on pressors. She was started on norepinephrine infusion and at one point the dose as high as 50 mcg/m. The patient also had a dialysis catheter inserted and she was given a session of dialysis for acute hyperkalemia by nephrology. Note that the dialysis was successful and the patient had a drop in her potassium level which is essentially normalized. Note that his same time, the patient was intubated and placed on a mechanical ventilator. Chest x-ray from early this morning shows adequate positioning of the ET tube. There is cardiomegaly. No evidence of pneumonia. The urine is abnormal and there is evidence of urine checked infection pain noted the patient has had multiple UTIs in the past with quinolone resistant E. coli and previous history of Pseudomonas urine checked infection. Going back to the history, this patient has a very calm. Medical history. 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 The patient was in the hospital approximately in December 2015 and she was found to have multiple infarcts in her brain and the possibility of a embolism/ embolic phenomena was raised. Note that the MRI of the brain indicated non- acute vascular insult in the right lateral occipital lobes as well as a high right frontal lobe infarct and the high left parietal lobe infarct. The patient had evidence of subacute stroke involving the occipital lobe on the right. The patient was investigated further including a JOSE that showed moderate degree of aortic stenosis with a valve area of 1.2 cm. She was also found to have left anterior occurred artery stenosis estimated between 50-69%. The patient was discharged home on anticoagulation and she was taken Eliquis. The CAT scan of the brain that was done during this current admission shows no acute abnormalities. The patient is currently intubated on a mechanical ventilator. She is sedated. The pressor doses of been gradually weaned off. Attempts to insert an art line catheter was unsuccessful. On 05/17/2016 the patient is being seen in follow-up. She remains intubated on mechanical ventilator. She remains on an assist-control mode of ventilation at the rate of 24, tidal volume of 500, FiO2 of 70% and PEEP of 5. The blood gases from this morning show a pH of 7.39 with a pCO2 of 25 and a pO2 of 90. Chest x-ray shows a extensive consolidation of the right lung typical of an underlying pneumonia. At the same time the patient is producing copious amount of rest or secretions which are being suctioned out. She is still pressor dependent. She was started on vasopressin physiologic dose of 0.03 units per minute and the patient was also on norepinephrine infusion at 12 mics. Note that the pressor dose has been drop significantly compared to yesterday. She received an additional 2 L bolus and she has been resuscitated with more than 6 L of fluid since she came in to the ICU. She is producing adequate amount of urine output. She required one session of dialysis and the creatinine is down to 1.6. As far as infectious causes, I strongly suspected there is a severe pneumonia developing in the right lung. The patient is on a combination of Zosyn and Levaquin and she was given a dose of vancomycin. Urine culture was also sent and the results are still pending. Underlying urine checked infections also suspected is unaffected the patient has had multiple UTIs in the past with E. coli and Pseudomonas. The patient is also known to have valvular heart disease with moderate degree of aortic stenosis. Repeat CAT scan of the brain was done and the findings are essentially stable with an old infarct visualized. She remains critically ill. Dialysis catheter is still present in the right IJ and that can be removed per nephrology. Albumin levels on today's at 1.9. On 05/18/2016 the patient is being seen in follow-up. The patient is doing better. He is hemodynamically stable. She was taken off the the norepinephrine infusion and a vasopressin physiologic dose will be also discontinued. The patient is sedated on the prevent and she is calm and comfortable. She remains on a mechanical ventilator and assist-control mode rate of 24, tidal volume 500 FiO2 of 50% and PEEP of 5. Chest x-ray shows a significant consolidation of the right lung special the right perihilar area. Morning blood gases showed a pH of 7.47 with a pCO2 of 26 and pO2 of 81. The patient is producing adequate amount of urine output. In fact the patient was aggressively resuscitated IV fluids and she has developed some third spacing. IV fluids were cut down to KVO and urine output is more than 50 mL an hour. Renal function is stable with a creatinine of 1.29. Neurologically, the patient will be given a sedation holiday and underlying mental status will be checked. EEG of the brain was done and the results are still pending. CAT scan of the brain was done and showed no acute abnormalities and the findings are essentially chronic CVA. The carotid Doppler was also done and showed a 70 % stenosis in the left internal carotid artery. On 05/19/2016, patient remains on mechanical ventilation, however she is requiring about 3.3 g of norepinephrine. To maintain an adequate blood pressure. Patient has been off sedation earlier today, and she is very slow to respond and wake up. She is definitely not quite ready for weaning, as her ABG remains marginal. Patient remains on assist control of 24, tidal volume of 500 , FiO2 of 50%, and PEEP of 5. Chest x-ray continues to show significant airspace disease involving mostly the right perihilar area. I also suspect bilateral pleural effusions. Hence the patient may need less IV fluid, and more diuresis. ABG today showed a pO2 of 79 pCO2 of 24 pH of 7.44. BUN is 45 creatinine is 1.30 On 05/20/2016, patient remains on mechanical ventilation, chest x-ray is showing slight improvement, and ABG seems to be improved hence I cut down her FiO2 to 40%, and cut down the assist control rate to 20 and stent of 24. Patient will be given a sedation holiday in the next hour and we'll assess the patient could be given a weaning trial if possible. That all dependent on her overall mental status once the patient is off propofol. ABG today showed a pO2 of 123 pCO2 of 30 pH of 7.45. Hemoglobin is a bit low at 7.2, however if it drops any further, we'll consider blood transfusion. Patient is diuresing well with Lasix, and I believe the pleural effusions noted yesterday seem to be improving bilaterally. Reevaluated on 05/21/2016, patient is practically about the same. Remains on mechanical ventilation, vent settings are about the same, FiO2 remains at 40%, PEEP is at 5, tidal volume is 500, assist control is 20. Flow rates at 80 L/m adjusted to I:E ratio. Patient was given another sedation holiday trial today, but still her mental status remains extremely poor, and nowhere patient was noted to wake up and follow any instructions. Shortly after I evaluated the patient, I was notified about the patient becoming hypotensive hence patient will be given fluid boluses, and we'll restart norepinephrine if needed. ABG this morning showed a pO2 of 73 pCO2 of 27 pH of 7.50. Renal profile continues to improve sodium is improved today, hemoglobin is 8.0 and WBC count is 4.9. Chest x-ray continues to show significant airspace disease involving the right perihilar area and left lower lobe area. Her effusions are a bit improved after diuresis. Objective - Vital Signs Vital signs: Vital Signs Temp 98.4 F 05/21/16 12:10 Pulse 115 H 05/21/16 12:10 Resp 20 05/21/16 12:10 BP 73/41 05/21/16 12:10 Pulse Ox 99 05/21/16 12:10 Intake & Output 05/20/16 05/21/16 05/21/16 18:59 06:59 18:59 Intake Total 2658.897 1555.4 333.171 Output Total 3510 3185 1675 Balance -851.103 -1629.6 -1341.829 Weight 107.6 kg 105.1 kg Intake: IV 677.5 315.0 150 Piperacillin-Tazobactam 3 87.5 75.0 .375 gm In Dextrose/Water 1 50ml.bag @ 12.5 mls/hr IVPB Q8HR [facility] Rx#: [id number] Sodium Chloride 0.9% 1, 240 190 100 000 ml @ 20 mls/hr IV . Q24H [facility] Rx#:[id number] Valproate Sodium 500 mg 100 50 50 In Sodium Chloride 0.9% 50 ml @ 50 mls/hr IVPB Q8HR [facility] Rx#:[id number] Vancomycin 1,500 mg In 250 Sodium Chloride 0.9% 250 ml @ 125 mls/hr IVPB Q24H [facility] Rx#:[id number] Intake, IV Titration 171.397 200.4 3.171 Amount Magnesium Sulfate-D5w Pmx 100 1 gm In Dextrose/Water 1 100ml.bag @ 100 mls/hr IVPB Q1H [facility] Rx#: [id number] Norepinephrine 16 mg In 0.997 Sodium Chloride 0.9% 250 ml @ Titrate IV .Q0M [facility] Rx#:[id number] Norepinephrine 16 mg In 3.171 Sodium Chloride 0.9% 250 ml @ Titrate IV .Q0M [facility] Rx#:[id number] Propofol 50 ml As IV .STK 120.4 50.4 [facility] Rx#:[id number] Propofol 500 mg In Empty 50.000 50 Bag 1 bag @ Titrate IV . Q0M [facility] Rx#:[id number] Oral 540 Tube Feeding 740 640 80 Other 530 400 100 Output: Urine 3510 3185 1675 Other: Voiding Method Indwelling Catheter Indwelling Catheter # Bowel Movements 2 1 2 - Exam Physical Exam: Revealed a 66-year-old female, intubated, sedated, endotracheal tube is intact, on mechanical ventilation, significant endotracheal tube secretions noted today. HEENT:[Neck is supple.] [No neck masses.] [No thyromegaly.] [No JVD.] Endotracheal tube which is a size 7.0 is intact. Orogastric tube is also intact. Chest: [Crackles at the bases, no rhonchi, no wheezes] Cardiac Exam: [Normal S1 and S2, no S3 gallop, no murmur.] Abdomen: [Obese, Soft, nontender, no megaly, no rebound, no guarding, normal bowel sounds.] Extremities: [No clubbing, no edema, no cyanosis. Positive right above-knee amputation noted] Neurological Exam: Cannot be assessed - Labs CBC & Chem 7: 05/21/16 04:28 05/21/16 04:28 Labs: Abnormal Lab Results - Last 24 Hours (Table) 05/19/16 05/20/16 05/20/16 Range/Units 04:25 17:19 19:09 RBC (3.80-5.40) m/uL Hgb (11.4-16.0) gm/dL Hct (34.0-46.0) % Plt Count (150-450) k/uL Lymphocytes # (1.0-4.8) k/uL ABG pH (7.35-7.45) ABG pCO2 (35-45) mmHg ABG pO2 (83-108) mmHg Sodium 148 H (137-145) mmol/L Chloride 112 H (98-107) mmol/L BUN 44 H (7-17) mg/dL Creatinine 1.13 H (0.52-1.04) mg/dL Glucose 124 H (74-99) mg/dL POC Glucose (mg/dL) 124 H (75-99) mg/dL Calcium 7.6 L (8.4-10.2) mg/dL Hepatitis C Viral RNA DETECTED H (Not detected) IU/mL Hepatitis C RNA Quant 4,844,596 H (<12) IU/mL HCV RNA PCR log IUs/ml 6.69 H (<1.08) 05/20/16 05/21/16 05/21/16 Range/Units 23:24 04:28 04:28 RBC 2.76 L (3.80-5.40) m/uL Hgb 8.0 L (11.4-16.0) gm/dL Hct 25.1 L (34.0-46.0) % Plt Count 73 L (150-450) k/uL Lymphocytes # 0.7 L (1.0-4.8) k/uL ABG pH (7.35-7.45) ABG pCO2 (35-45) mmHg ABG pO2 (83-108) mmHg Sodium (137-145) mmol/L Chloride 110 H (98-107) mmol/L BUN 41 H (7-17) mg/dL Creatinine (0.52-1.04) mg/dL Glucose 117 H (74-99) mg/dL POC Glucose (mg/dL) 129 H (75-99) mg/dL Calcium 7.6 L (8.4-10.2) mg/dL Hepatitis C Viral RNA (Not detected) IU/mL Hepatitis C RNA Quant (<12) IU/mL HCV RNA PCR log IUs/ml (<1.08) 05/21/16 05/21/16 05/21/16 Range/Units 05:09 07:30 12:00 RBC (3.80-5.40) m/uL Hgb (11.4-16.0) gm/dL Hct (34.0-46.0) % Plt Count (150-450) k/uL Lymphocytes # (1.0-4.8) k/uL ABG pH 7.50 H (7.35-7.45) ABG pCO2 27 L (35-45) mmHg ABG pO2 73 L (83-108) mmHg Sodium (137-145) mmol/L Chloride (98-107) mmol/L BUN (7-17) mg/dL Creatinine (0.52-1.04) mg/dL Glucose (74-99) mg/dL POC Glucose (mg/dL) 109 H 141 H (75-99) mg/dL Calcium (8.4-10.2) mg/dL Hepatitis C Viral RNA (Not detected) IU/mL Hepatitis C RNA Quant (<12) IU/mL HCV RNA PCR log IUs/ml (<1.08) Microbiology - Last 24 Hours (Table) 05/16/16 04:23 Blood Culture - Preliminary Blood No Growth after 120 hours Assessment and Plan Plan: 1 acute shock, likely of a septic in nature. Patient has developed an extensive right lung pneumonia. At the same time, the patient is suspected to have a recurrent urine tract infection probably with gram-negative bacteria. She has been infected on multiple occasions in the past with E. coli that had been quinolone resistant and Pseudomonas. Patient has been adequately resuscitated IV fluids. The patient is on high-dose norepinephrine infusion. On 05/17/2016, the patient remains on a broad-spectrum antibiotic coverage. Cultures still pending. Bronchoscopy of the lungs will be done and the bronchioloalveolar lavage will be collected from the right lung. The patient will be kept on pressors. The patient is still on a combination of vasopressin and norepinephrine infusion. Echocardiogram was ordered and is also still pending for now. Meanwhile, she was aggressively resuscitated IV fluids. She is febrile for now. She is producing adequate amount of urine output. On 05/18/2016, the patient is doing better hemodynamically. There is MRSA growth in the sputum and its very much likely the patient has an MRSA pneumonia. The patient on vancomycin and Zosyn and Levaquin will be dropped. Urine culture has not shown anything abnormal. The patient is off norepinephrine infusion and vasopressin will be also discontinued. We will assess her mental status today by giving her a sedation holiday. On 05/19/2016, patient seems to be doing a bit better, remains on mechanical ventilation, remains on a small dose of norepinephrine, I plan to continue antibiotics, gently diurese the patient, and hopefully improve her chest x-ray to the point were and what can start some weaning trials. At this point the patient is not ready to be weaned mostly because of her mental status and mostly because of her marginal arterial blood gases and significant airspace disease noted on the chest x-ray today. 2 acute kidney injury, multifactorial, rule out ATN. The patient received a session of dialysis yesterday to treat her hyperkalemia. She is producing adequate amount of urine output at this point. Potassium level is normalized On 05/17/2016, the patient's renal function is improving and the creatinine is down to 1.6. Nephrology is on the case. No need for dialysis at this point. On 05/18/2016, the patient is producing adequate amount of urine output in the creatinine is down to 1.29. She is more stable. On 05/20/2016, patient will be given another sedation holiday, and if tolerated , should be given a weaning trial with pressure support and CPAP. However that will depend on her overall mental status. On 05/21/2016, patient will be given another sedation holiday, she has significant endotracheal tube secretions, and this was definitely hinder any plans for weaning, extubation, at any rate the patient's neurological status at this point is another major factor that will delay any plans for weaning and extubation at this point. 3 acute hyperkalemia, recovered 4 morbid obesity 5 multiple [employer] infarcts maintained on anticoagulation on outpatient basis 6 moderate degree of aortic stenosis, preserved LV function 7 hypertension, history of 8 hyperlipidemia history of 9 diabetes mellitus 10 above-knee amputation of the right lower extremity 11 reflux 12 hepatitis C viral infection 13 chronic back pain on narcotics 14 previous history of lower GI bleed Recommendation: Continue present supportive care measures including antibiotics , ventilatory support, pressors if needed, nutritional support, GI and DVT prophylaxis, daily neurological assessment off propofol, assessment of secretions in the endotracheal tube, patient is clearly not ready for any weaning trials at this point. Critical care time is 35 minutes Time with Patient: Greater than 30
--- NOTE | 2016-05-21 15:29 | P.PN ---
Subjective Principal diagnosis: Respiratory failure, paroxysmal atrial fibrillation. Aortic stenosis This patient still remains to be critically ill. She still intubated and she became hypotensive requiring fluid bolus and also restarting the Levophed. Her mental status is also in question. Hasn't had any recurrence of atrial fibrillation. She is on beta sarina. I'm going to add small dose of Lanoxin for next 3 days. 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 Prognosis is guarded Objective - Vital Signs Vital signs: Vital Signs Temp 99.5 F 05/21/16 13:30 Pulse 87 05/21/16 14:45 Resp 21 05/21/16 14:45 BP 100/49 05/21/16 14:45 Pulse Ox 99 05/21/16 14:45 Intake & Output 05/20/16 05/21/16 05/21/16 18:59 06:59 18:59 Intake Total 2658.897 1605.4 333.171 Output Total 3510 3185 1875 Balance -851.103 -1579.6 -1541.829 Weight 107.6 kg 105.1 kg Intake: IV 677.5 315.0 150 Piperacillin-Tazobactam 3 87.5 75.0 .375 gm In Dextrose/Water 1 50ml.bag @ 12.5 mls/hr IVPB Q8HR [facility] Rx#: [id number] Sodium Chloride 0.9% 1, 240 190 100 000 ml @ 20 mls/hr IV . Q24H [facility] Rx#:[id number] Valproate Sodium 500 mg 100 50 50 In Sodium Chloride 0.9% 50 ml @ 50 mls/hr IVPB Q8HR [facility] Rx#:[id number] Vancomycin 1,500 mg In 250 Sodium Chloride 0.9% 250 ml @ 125 mls/hr IVPB Q24H [facility] Rx#:[id number] Intake, IV Titration 171.397 250.4 3.171 Amount Magnesium Sulfate-D5w Pmx 100 1 gm In Dextrose/Water 1 100ml.bag @ 100 mls/hr IVPB Q1H [facility] Rx#: [id number] Norepinephrine 16 mg In 0.997 Sodium Chloride 0.9% 250 ml @ Titrate IV .Q0M [facility] Rx#:[id number] Norepinephrine 16 mg In 3.171 Sodium Chloride 0.9% 250 ml @ Titrate IV .Q0M [facility] Rx#:[id number] Propofol 50 ml As IV .STK 120.4 50.4 [facility] Rx#:[id number] Propofol 500 mg In Empty 50.000 100 Bag 1 bag @ Titrate IV . Q0M [facility] Rx#:[id number] Oral 540 Tube Feeding 740 640 80 Other 530 400 100 Output: Urine 3510 3185 1875 Other: Voiding Method Indwelling Catheter Indwelling Catheter # Bowel Movements 2 1 2 - Exam GENERAL EXAM: Patient is intubated and sedated. Mildly hypotensive HEENT: Normocephalic. Normal reaction of pupils, equal size, normal range of extraocular motion. No erythema or exudates in the throat. NECK: No masses, no nuchal rigidity. CHEST: No chest wall deformity. LUNGS: Breath sounds HEART: S1 and S2 normal. Systolic murmur heard ABDOMEN: No hepatosplenomegaly, normal bowel sounds, no guarding or rigidity. SKIN: No rashes CENTRAL NERVOUS deferred EXTREMITIES: mild edema - Labs CBC & Chem 7: 05/21/16 04:28 05/21/16 04:28 Labs: Abnormal Lab Results - Last 24 Hours (Table) 05/19/16 05/20/16 05/20/16 Range/Units 04:25 17:19 19:09 RBC (3.80-5.40) m/uL Hgb (11.4-16.0) gm/dL Hct (34.0-46.0) % Plt Count (150-450) k/uL Lymphocytes # (1.0-4.8) k/uL ABG pH (7.35-7.45) ABG pCO2 (35-45) mmHg ABG pO2 (83-108) mmHg Sodium 148 H (137-145) mmol/L Chloride 112 H (98-107) mmol/L BUN 44 H (7-17) mg/dL Creatinine 1.13 H (0.52-1.04) mg/dL Glucose 124 H (74-99) mg/dL POC Glucose (mg/dL) 124 H (75-99) mg/dL Calcium 7.6 L (8.4-10.2) mg/dL Hepatitis C Viral RNA DETECTED H (Not detected) IU/mL Hepatitis C RNA Quant 4,844,596 H (<12) IU/mL HCV RNA PCR log IUs/ml 6.69 H (<1.08) 05/20/16 05/21/16 05/21/16 Range/Units 23:24 04:28 04:28 RBC 2.76 L (3.80-5.40) m/uL Hgb 8.0 L (11.4-16.0) gm/dL Hct 25.1 L (34.0-46.0) % Plt Count 73 L (150-450) k/uL Lymphocytes # 0.7 L (1.0-4.8) k/uL ABG pH (7.35-7.45) ABG pCO2 (35-45) mmHg ABG pO2 (83-108) mmHg Sodium (137-145) mmol/L Chloride 110 H (98-107) mmol/L BUN 41 H (7-17) mg/dL Creatinine (0.52-1.04) mg/dL Glucose 117 H (74-99) mg/dL POC Glucose (mg/dL) 129 H (75-99) mg/dL Calcium 7.6 L (8.4-10.2) mg/dL Hepatitis C Viral RNA (Not detected) IU/mL Hepatitis C RNA Quant (<12) IU/mL HCV RNA PCR log IUs/ml (<1.08) 05/21/16 05/21/16 05/21/16 Range/Units 05:09 07:30 12:00 RBC (3.80-5.40) m/uL Hgb (11.4-16.0) gm/dL Hct (34.0-46.0) % Plt Count (150-450) k/uL Lymphocytes # (1.0-4.8) k/uL ABG pH 7.50 H (7.35-7.45) ABG pCO2 27 L (35-45) mmHg ABG pO2 73 L (83-108) mmHg Sodium (137-145) mmol/L Chloride (98-107) mmol/L BUN (7-17) mg/dL Creatinine (0.52-1.04) mg/dL Glucose (74-99) mg/dL POC Glucose (mg/dL) 109 H 141 H (75-99) mg/dL Calcium (8.4-10.2) mg/dL Hepatitis C Viral RNA (Not detected) IU/mL Hepatitis C RNA Quant (<12) IU/mL HCV RNA PCR log IUs/ml (<1.08) Microbiology - Last 24 Hours (Table) 05/16/16 04:23 Blood Culture - Preliminary Blood No Growth after 120 hours Assessment and Plan (1) Paroxysmal atrial fibrillation Status: Acute (2) Acute renal failure Status: Acute (3) Hyperkalemia Status: Acute (4) Hypotension Status: Acute (5) Diabetes Status: Acute (6) Aortic stenosis Status: Acute Plan: This patient has multiple issues including respiratory failure, mental status changes and hypotension and possible sepsis. She also has moderate to severe aortic stenosis. Hasn't had any recurrence of atrial fibrillation. I will add Lanoxin 0.125 mg to be given daily for next 3 days. Continue the beta sarina. Prognosis guarded.
--- NOTE | 2016-05-21 15:54 | P.PN ---
Subjective Principal diagnosis: Respiratory failure Patient seen and examined in the ICU with nursing staff at bedside. Spontaneous breathing trial was not attempted this morning as patient became tachypnea became tachycardic once sedation was held. Patient continues to be on 5 g of Levophed. She is having diarrhea. She is receiving Lasix and diuresing well. Objective - Vital Signs Vital signs: Vital Signs Temp 99.5 F 05/21/16 13:30 Pulse 114 H 05/21/16 15:46 Resp 21 05/21/16 14:45 BP 100/49 05/21/16 14:45 Pulse Ox 99 05/21/16 14:45 Intake & Output 05/20/16 05/21/16 05/21/16 18:59 06:59 18:59 Intake Total 2658.897 1605.4 333.171 Output Total 3510 3185 1875 Balance -851.103 -1579.6 -1541.829 Weight 107.6 kg 105.1 kg Intake: IV 677.5 315.0 150 Piperacillin-Tazobactam 3 87.5 75.0 .375 gm In Dextrose/Water 1 50ml.bag @ 12.5 mls/hr IVPB Q8HR [facility] Rx#: [id number] Sodium Chloride 0.9% 1, 240 190 100 000 ml @ 20 mls/hr IV . Q24H [facility] Rx#:[id number] Valproate Sodium 500 mg 100 50 50 In Sodium Chloride 0.9% 50 ml @ 50 mls/hr IVPB Q8HR [facility] Rx#:[id number] Vancomycin 1,500 mg In 250 Sodium Chloride 0.9% 250 ml @ 125 mls/hr IVPB Q24H [facility] Rx#:[id number] Intake, IV Titration 171.397 250.4 3.171 Amount Magnesium Sulfate-D5w Pmx 100 1 gm In Dextrose/Water 1 100ml.bag @ 100 mls/hr IVPB Q1H [facility] Rx#: [id number] Norepinephrine 16 mg In 0.997 Sodium Chloride 0.9% 250 ml @ Titrate IV .Q0M [facility] Rx#:[id number] Norepinephrine 16 mg In 3.171 Sodium Chloride 0.9% 250 ml @ Titrate IV .Q0M [facility] Rx#:[id number] Propofol 50 ml As IV .STK 120.4 50.4 [facility] Rx#:[id number] Propofol 500 mg In Empty 50.000 100 Bag 1 bag @ Titrate IV . Q0M [facility] Rx#:[id number] Oral 540 Tube Feeding 740 640 80 Other 530 400 100 Output: Urine 4850 9115 1875 Other: Voiding Method Indwelling Catheter Indwelling Catheter # Bowel Movements 2 1 2 - Exam General: Patient is sedated with propofol on mechanical ventilation, morbidly obese Cardiovascular: Regular rate and rhythm, S1/S2 Lungs: Diminished at the bases with scattered crackles Abdomen: Soft nontender nondistended positive bowel sounds Extremities: Right [id number] amputation - Labs CBC & Chem 7: 05/21/16 04:28 05/21/16 04:28 Labs: Abnormal Lab Results - Last 24 Hours (Table) 05/19/16 05/20/16 05/20/16 Range/Units 04:25 17:19 19:09 RBC (3.80-5.40) m/uL Hgb (11.4-16.0) gm/dL Hct (34.0-46.0) % Plt Count (150-450) k/uL Lymphocytes # (1.0-4.8) k/uL ABG pH (7.35-7.45) ABG pCO2 (35-45) mmHg ABG pO2 (83-108) mmHg Sodium 148 H (137-145) mmol/L Chloride 112 H (98-107) mmol/L BUN 44 H (7-17) mg/dL Creatinine 1.13 H (0.52-1.04) mg/dL Glucose 124 H (74-99) mg/dL POC Glucose (mg/dL) 124 H (75-99) mg/dL Calcium 7.6 L (8.4-10.2) mg/dL Hepatitis C Viral RNA DETECTED H (Not detected) IU/mL Hepatitis C RNA Quant 4,844,596 H (<12) IU/mL HCV RNA PCR log IUs/ml 6.69 H (<1.08) 05/20/16 05/21/16 05/21/16 Range/Units 23:24 04:28 04:28 RBC 2.76 L (3.80-5.40) m/uL Hgb 8.0 L (11.4-16.0) gm/dL Hct 25.1 L (34.0-46.0) % Plt Count 73 L (150-450) k/uL Lymphocytes # 0.7 L (1.0-4.8) k/uL ABG pH (7.35-7.45) ABG pCO2 (35-45) mmHg ABG pO2 (83-108) mmHg Sodium (137-145) mmol/L Chloride 110 H (98-107) mmol/L BUN 41 H (7-17) mg/dL Creatinine (0.52-1.04) mg/dL Glucose 117 H (74-99) mg/dL POC Glucose (mg/dL) 129 H (75-99) mg/dL Calcium 7.6 L (8.4-10.2) mg/dL Hepatitis C Viral RNA (Not detected) IU/mL Hepatitis C RNA Quant (<12) IU/mL HCV RNA PCR log IUs/ml (<1.08) 05/21/16 05/21/16 05/21/16 Range/Units 05:09 07:30 12:00 RBC (3.80-5.40) m/uL Hgb (11.4-16.0) gm/dL Hct (34.0-46.0) % Plt Count (150-450) k/uL Lymphocytes # (1.0-4.8) k/uL ABG pH 7.50 H (7.35-7.45) ABG pCO2 27 L (35-45) mmHg ABG pO2 73 L (83-108) mmHg Sodium (137-145) mmol/L Chloride (98-107) mmol/L BUN (7-17) mg/dL Creatinine (0.52-1.04) mg/dL Glucose (74-99) mg/dL POC Glucose (mg/dL) 109 H 141 H (75-99) mg/dL Calcium (8.4-10.2) mg/dL Hepatitis C Viral RNA (Not detected) IU/mL Hepatitis C RNA Quant (<12) IU/mL HCV RNA PCR log IUs/ml (<1.08) Microbiology - Last 24 Hours (Table) 05/16/16 04:23 Blood Culture - Preliminary Blood No Growth after 120 hours Assessment and Plan Plan: Acute hypoxic respiratory failure requiring mechanical ventilation Acute kidney injury, requiring hemodialysis Bilateral pleural effusions with pulmonary vascular congestion, fluid overload SIRS with sepsis, septic shock Metabolic acidosis, non-anion gap Severe pulmonary hypertension possibly secondary to fluid overload MRSA pneumonia Bronchospasm Obesity Bicytopenia Toxic metabolic encephalopathy Diabetes mellitus type 2 Continue Lasix and diuresis Daily sedation holiday and spontaneous breathing trials, hopeful for extubation soon PT and OT Enteral nutrition Patient may need to be off of propofol for much longer due to her obesity Levophed Bronchodilators GI and DVT prophylaxis Discontinue Dilaudid Antibiotics per infectious disease Blood sugar control Cardiology recommendations for atrial fibrillation
[2016-05-21] MEDS: metroNIDAZOLE 500 MG TAB OG-TUBE SCH ×2 (17:25→21:31)
[2016-05-21] MEDS: VANCOMYCIN 1,250 MG in SODIUM CHLORIDE 0.9% 250 ML IVPB SCH (17:26)
[2016-05-21 18:08] LABS: Glucose,Whole Blood 113 mg/dL (75-99)
[2016-05-21] MEDS: FAMOTIDINE 20 MG/2 ML VIAL IV SCH (20:32)
[2016-05-21] MEDS: MONTELUKAST 10 MG TAB PO SCH (20:32)
[2016-05-21] MEDS: ATORVASTATIN 40 MG TAB PO SCH (20:32)
[2016-05-21] MEDS: CHOLESTYRAMINE (WITH SUGAR) 4 GM PACKET OG-TUBE SCH (20:33)
[2016-05-21] MEDS ORDERED: POTASSIUM CHLORIDE ORAL LIQUID 40 MEQ/30 ML CUP NG-TUBE SCH (21:00)
[2016-05-21] MEDS: MAGNESIUM SULFATE-D5W PMX 1 GM in DEXTROSE/WATER 1 100ML.BAG IVPB SCH ×2 (21:32→22:34)
[2016-05-21 23:17] LABS: Glucose,Whole Blood 177 mg/dL (75-99)
[2016-05-22] MEDS: PROPOFOL 500 MG in EMPTY BAG 1 BAG IV SCH ×10 (00:17→22:08)
[2016-05-22] MEDS ORDERED: PROPOFOL 50 ML IV ONE ×4 (02:48→09:08)
[2016-05-22] MEDS: IPRATROPIUM-ALBUTEROL 3 ML NEB INHALATION SCH ×6 (03:29→23:21)
[2016-05-22 04:54] LABS: Anion Gap 12 mmol/L; Blood Urea Nitrogen 35 mg/dL (7-17); Calcium 7.7 mg/dL (8.4-10.2); Carbon Dioxide 19 mmol/L (22-30); Chloride 114 mmol/L (98-107); Glucose 131 mg/dL (74-99); Magnesium 2.2 mg/dL (1.6-2.3); Non-African American GFR(MDRD) 55 (>60 ml/min/1.73 sqM); Phosphorous 2.6 mg/dL (2.5-4.5); Potassium 3.7 mmol/L (3.5-5.1); Sodium 145 mmol/L (137-145)
[2016-05-22 05:13] LABS: CH 28.8; CHCM 31.9; HCT 29.8 % (34.0-46.0); HDW 2.66; Hypochromasia Slight; Immature Gran Flag Marked; MCH 29.1 pg (25.0-35.0); MCHC 32.1 g/dL (31.0-37.0); MCV 90.7 fL (80.0-100.0); Mean Platelet Volume 8.2; RBC 3.29 m/uL (3.80-5.40); RDW 14.4 % (11.5-15.5); WBC 14.1 k/uL (3.8-10.6); WBC (Perox) 15.26
[2016-05-22] MEDS: LEVOTHYROXINE 100 MCG TAB PO SCH (05:18)
[2016-05-22] MEDS: SODIUM CHLORIDE 5% OPHTH DROPS 15 ML BTL BOTH EYES SCH ×4 (05:18→23:30)
[2016-05-22 05:19] LABS: HGB 9.6 gm/dL (11.4-16.0)
[2016-05-22] MEDS: INSULIN LISPRO (humaLOG) 300 UNIT/3 ML VIAL SQ SCH ×4 (05:19→23:15)
[2016-05-22] MEDS ORDERED: POTASSIUM CHLORIDE ORAL LIQUID 40 MEQ/30 ML CUP NG-TUBE SCH (06:00)
[2016-05-22] MEDS: METOPROLOL TARTRATE 25 MG TAB PO SCH ×2 (07:10→21:35)
[2016-05-22] MEDS: DIGOXIN 250 MCG/ML 2 ML AMP IVP SCH (07:21)
[2016-05-22] MEDS: BUDESONIDE 0.5 MG/2 ML NEBU INHALATION SCH ×2 (07:57→18:51)
[2016-05-22] MEDS ORDERED: CISATRACURIUM 2 MG/ML 5 ML VIAL IV ONE (07:59)
[2016-05-22] MEDS ORDERED: SODIUM CHLORIDE 0.9% 1,000 ML IV ONE ×4 (08:01→18:54)
[2016-05-22 08:09] LABS: Glucose,Whole Blood 148 mg/dL (75-99)
[2016-05-22] MEDS: ACETAMINOPHEN TAB 325 MG TAB PO PRN (08:11)
[2016-05-22] MEDS: CISATRACURIUM 200 MG in SODIUM CHLORIDE 0.9% 180 ML IV SCH ×2 (08:15→12:11)
[2016-05-22 08:19] LABS: Add Differential Manual Differential
[2016-05-22 08:23] LABS: Band Neutrophils % 0.5 %; Nucleated Red Blood Cells 0 /100 WBC (0-0); Total Cells Counted 200
[2016-05-22 08:25] LABS: Polychromasia Present; Toxic Granulation Present
--- NOTE | 2016-05-22 08:59 | PN ---
DATE OF SERVICE: 05/21/2016 REASON FOR FOLLOWUP: 1. MRSA pneumonia. 2. Diarrhea. INTERVAL HISTORY: The patient is afebrile. She is hemodynamically stable. Her FiO2 remains to be stable. The patient had developed significant diarrhea per the RN and stools are really smelly suspicious for a C. difficile, though stool for C. difficile was sent. EIA, which just came back negative. The patient remained to be intubated on the vent. On examination, blood pressure is 110/48 with a pulse of 113. She is 99% on 40% FiO2. General description is an elderly female lying in bed in no distress. RESPIRATORY SYSTEM: Unlabored breathing. Clear to auscultation anteriorly. HEART: S1, S2, regular rate and rhythm. ABDOMEN: Soft, no tenderness. LABS: Hemoglobin is 8, white count is 4.9. BUN 41, creatinine 1.0. DIAGNOSTIC IMPRESSION AND PLAN: 1. Patient with methicillin-resistant Staphylococcus aureus pneumonia for which the patient is continued on vancomycin pharmacy to dose, target of 15. 2. Patient with diarrhea with concern for possible Clostridium difficile. Will add Questran and Flagyl empirically. Continue with supportive care. MTDD
--- NOTE | 2016-05-22 09:34 | XR ---
EXAMINATION TYPE: XR chest 1V portable DATE OF EXAM: 05/22/2016 6:54 AM COMPARISON: 05/21/2016 HISTORY: Shortness of breath TECHNIQUE: Single frontal view of the chest is obtained. FINDINGS: There are bilateral pleural effusions with cardiomegaly and bibasilar infiltrate. There is a diffuse interstitial pattern. ET and NG tube stable in position. Atherosclerotic change aorta. IMPRESSION: 1. Bilateral infiltrate and pleural effusion stable correlate for CHF.
[2016-05-22 09:35] LABS: Appearance,Urine Clear (Clear); Bilirubin,Urine Negative (Negative); Glucose,Urine (UA) Negative (Negative); Ketones,Urine Trace (Negative); Leukocyte Esterase,Urine Negative (Negative); Nitrite,Urine Negative (Negative); PH, Urine 5.5 (5.0-8.0); Protein,Urine Trace (Negative); Specific Gravity,Urine 1.021 (1.001-1.035); UA Billing (MACRO vs. MICRO) CHEM; Urobilinogen,Urine <2.0 mg/dL (<2.0)
[2016-05-22] MEDS: VALPROATE SODIUM 500 MG in SODIUM CHLORIDE 0.9% 50 ML IVPB SCH ×3 (09:40→23:30)
[2016-05-22] MEDS: PIPERACILLIN-TAZOBACTAM 3.375 GM in DEXTROSE/WATER 1 50ML.BAG IVPB SCH ×2 (09:45→16:15)
[2016-05-22] MEDS: metroNIDAZOLE 500 MG TAB OG-TUBE SCH ×3 (09:53→21:59)
[2016-05-22] MEDS: ASPIRIN 325 MG TAB PO SCH (09:53)
[2016-05-22] MEDS: NYSTATIN 100,000 UNIT/GM POWD 15 GM TOPICAL SCH ×2 (09:53→20:57)
[2016-05-22] MEDS: OLANZapine 10 MG TAB PO SCH ×2 (09:53→12:33)
[2016-05-22] MEDS: CHLORHEXIDINE GLUCONATE 15 ML CUP MUCOUS MEM SCH ×2 (09:53→20:58)
[2016-05-22] MEDS: CHOLESTYRAMINE (WITH SUGAR) 4 GM PACKET OG-TUBE SCH ×2 (09:53→21:14)
[2016-05-22] MEDS: GABAPENTIN 100 MG CAP PO SCH ×2 (09:53→20:58)
[2016-05-22] MEDS: CALCIUM CARB-VIT D 500MG-200UN 1 EACH TAB PO SCH ×2 (09:53→19:02)
[2016-05-22] MEDS: ENOXAPARIN 30 MG/0.3 ML SYRINGE SQ SCH (09:55)
[2016-05-22 09:57] LABS: ABG PCO2 25 mmHg (35-45); ABG PH 7.46 (7.35-7.45)
[2016-05-22 09:58] LABS: ABG Base Excess -5.9 mmol/L; ABG HCO3 17 mmol/L (21-25); ABG PO2 59 mmHg (83-108); ABG TCO2 18 mmol/L (19-24)
[2016-05-22] MEDS: SERTRALINE 100 MG TAB PO SCH (10:00)
--- NOTE | 2016-05-22 11:01 | XR ---
EXAMINATION TYPE: XR chest 1V confirm line [facility] DATE OF EXAM: 05/22/2016 10:54 AM COMPARISON: 05/21/2016 HISTORY: Shortness of breath TECHNIQUE: Single frontal view of the chest is obtained. FINDINGS: There are bilateral pleural effusions with cardiomegaly and bibasilar infiltrate. There is a diffuse interstitial pattern. ET and NG tube stable in position. Atherosclerotic change aorta. IMPRESSION: 1. Bilateral infiltrate and pleural effusion stable correlate for CHF. 2. No central line is identified.
[2016-05-22] MEDS: CHOLECALCIFEROL 1,000 UNIT TAB PO SCH (11:54)
[2016-05-22] MEDS: SODIUM CHLORIDE 0.9% 1,000 ML IV SCH ×2 (12:00→22:02)
[2016-05-22 12:18] LABS: Glucose,Whole Blood 146 mg/dL (75-99)
[2016-05-22] MEDS ORDERED: EMPTY BAG 1 BAG ONE ×3 (12:45→15:59)
--- NOTE | 2016-05-22 13:17 | PN ---
SUBJECTIVE: This is a 66-year-old white female with septic shock due to MRSA pneumonia, possible C. dif and possibly UTI . Zosyn was stopped 2 days ago. Since then she has been getting worse. Now today she is spiking a fever of 102. Discussed the case with Dr. Arboleda infectious disease who will restart the patient back on Zosyn. At this time and may be order blood cultures. Dr. Lujan ( ) the patient a few more days to see if she improves and not given up on her yet. She is in guarded condition. She still maintains on a ventilator. All notes were reviewed. White count is 14.1, today pulse rate is 140s to 105, respiratory rate 36, blood pressure 95/48, ( )100% FiO2. ABDOMEN: Soft. CARDIOVASCULAR: Tachy, S1, S2. LUNGS: Show scattered wheeze and rhonchi. ABDOMEN: Soft. EXTREMITIES: Show right a.k.a., left leg shows 2+ pedal edema. Hemoglobin 9.6, sodium 145, potassium 3.7, BUN of 35, creatinine 1.0, calcium 7.7. She remains on: 1. DuoNeb updrafts. 2. Lipitor. 3. Pulmicort. 4. Cholestyramine. 5. C. difficile has been negative for 4 stool cultures in a row. 6. She remains on Lanoxin. 7. Lovenox subcu daily. 8. Pepcid. 9. Neurontin. 10. Synthroid. 11. Lopressor. 12. Oral Flagyl. 13. Singulair. 14. Maintains on her norepinephrine ( ) 17 mix per minute at this time. 15. Nystatin powder. 16. Maintains on her Zyprexa. 17. Zosyn. 18. Propofol. 19. Zoloft. 20. IV fluids. 21. Valproic acid. Please see further orders. Prognosis extremely guarded. Will discuss with the family. Will give her a couple more days to see if she improves. Hopefully she will start improving like she was when she was on Zosyn. Will monitor her vital signs. Discussed case with Dr. Lujan machine baster and Dr. Arboleda infectious disease. ICU time: 30 minutes.
[2016-05-22] MEDS: NOREPINEPHRINE 16 MG in SODIUM CHLORIDE 0.9% 250 ML IV SCH ×2 (13:50→23:38)
--- NOTE | 2016-05-22 13:57 | P.PN ---
Subjective Principal diagnosis: Acute respiratory failure and toxic metabolic encephalopathy This is a 66-year-old female patient, snf resident who resides at [facility], who came in yesterday to the emergency department with altered mental status and immediately she was identified to be in acute kidney injury. This is an acute renal failure with hyperkalemia. At the same time the patient was found to be hypotensive in shock. The patient was started on IV fluids a total of 4 L of IV fluid was given to her in the emergency department. She was treated for her hyperkalemia. Subsequently she got moved to the intensive care unit where the patient arrived hypotensive and shock state. She was started on pressors. She was started on norepinephrine infusion and at one point the dose as high as 50 mcg/m. The patient also had a dialysis catheter inserted and she was given a session of dialysis for acute hyperkalemia by nephrology. Note that the dialysis was successful and the patient had a drop in her potassium level which is essentially normalized. Note that his same time, the patient was intubated and placed on a mechanical ventilator. Chest x-ray from early this morning shows adequate positioning of the ET tube. There is cardiomegaly. No evidence of pneumonia. The urine is abnormal and there is evidence of urine checked infection pain noted the patient has had multiple UTIs in the past with quinolone resistant E. coli and previous history of Pseudomonas urine checked infection. Going back to the history, this patient has a very calm. Medical history. 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 The patient was in the hospital approximately in December 2015 and she was found to have multiple infarcts in her brain and the possibility of a embolism/ embolic phenomena was raised. Note that the MRI of the brain indicated non- acute vascular insult in the right lateral occipital lobes as well as a high right frontal lobe infarct and the high left parietal lobe infarct. The patient had evidence of subacute stroke involving the occipital lobe on the right. The patient was investigated further including a JOSE that showed moderate degree of aortic stenosis with a valve area of 1.2 cm. She was also found to have left anterior occurred artery stenosis estimated between 50-69%. The patient was discharged home on anticoagulation and she was taken Eliquis. The CAT scan of the brain that was done during this current admission shows no acute abnormalities. The patient is currently intubated on a mechanical ventilator. She is sedated. The pressor doses of been gradually weaned off. Attempts to insert an art line catheter was unsuccessful. On 05/17/2016 the patient is being seen in follow-up. She remains intubated on mechanical ventilator. She remains on an assist-control mode of ventilation at the rate of 24, tidal volume of 500, FiO2 of 70% and PEEP of 5. The blood gases from this morning show a pH of 7.39 with a pCO2 of 25 and a pO2 of 90. Chest x-ray shows a extensive consolidation of the right lung typical of an underlying pneumonia. At the same time the patient is producing copious amount of rest or secretions which are being suctioned out. She is still pressor dependent. She was started on vasopressin physiologic dose of 0.03 units per minute and the patient was also on norepinephrine infusion at 12 mics. Note that the pressor dose has been drop significantly compared to yesterday. She received an additional 2 L bolus and she has been resuscitated with more than 6 L of fluid since she came in to the ICU. She is producing adequate amount of urine output. She required one session of dialysis and the creatinine is down to 1.6. As far as infectious causes, I strongly suspected there is a severe pneumonia developing in the right lung. The patient is on a combination of Zosyn and Levaquin and she was given a dose of vancomycin. Urine culture was also sent and the results are still pending. Underlying urine checked infections also suspected is unaffected the patient has had multiple UTIs in the past with E. coli and Pseudomonas. The patient is also known to have valvular heart disease with moderate degree of aortic stenosis. Repeat CAT scan of the brain was done and the findings are essentially stable with an old infarct visualized. She remains critically ill. Dialysis catheter is still present in the right IJ and that can be removed per nephrology. Albumin levels on today's at 1.9. On 05/18/2016 the patient is being seen in follow-up. The patient is doing better. He is hemodynamically stable. She was taken off the the norepinephrine infusion and a vasopressin physiologic dose will be also discontinued. The patient is sedated on the prevent and she is calm and comfortable. She remains on a mechanical ventilator and assist-control mode rate of 24, tidal volume 500 FiO2 of 50% and PEEP of 5. Chest x-ray shows a significant consolidation of the right lung special the right perihilar area. Morning blood gases showed a pH of 7.47 with a pCO2 of 26 and pO2 of 81. The patient is producing adequate amount of urine output. In fact the patient was aggressively resuscitated IV fluids and she has developed some third spacing. IV fluids were cut down to KVO and urine output is more than 50 mL an hour. Renal function is stable with a creatinine of 1.29. Neurologically, the patient will be given a sedation holiday and underlying mental status will be checked. EEG of the brain was done and the results are still pending. CAT scan of the brain was done and showed no acute abnormalities and the findings are essentially chronic CVA. The carotid Doppler was also done and showed a 70 % stenosis in the left internal carotid artery. On 05/19/2016, patient remains on mechanical ventilation, however she is requiring about 3.3 g of norepinephrine. To maintain an adequate blood pressure. Patient has been off sedation earlier today, and she is very slow to respond and wake up. She is definitely not quite ready for weaning, as her ABG remains marginal. Patient remains on assist control of 24, tidal volume of 500 , FiO2 of 50%, and PEEP of 5. Chest x-ray continues to show significant airspace disease involving mostly the right perihilar area. I also suspect bilateral pleural effusions. Hence the patient may need less IV fluid, and more diuresis. ABG today showed a pO2 of 79 pCO2 of 24 pH of 7.44. BUN is 45 creatinine is 1.30 On 05/20/2016, patient remains on mechanical ventilation, chest x-ray is showing slight improvement, and ABG seems to be improved hence I cut down her FiO2 to 40%, and cut down the assist control rate to 20 and stent of 24. Patient will be given a sedation holiday in the next hour and we'll assess the patient could be given a weaning trial if possible. That all dependent on her overall mental status once the patient is off propofol. ABG today showed a pO2 of 123 pCO2 of 30 pH of 7.45. Hemoglobin is a bit low at 7.2, however if it drops any further, we'll consider blood transfusion. Patient is diuresing well with Lasix, and I believe the pleural effusions noted yesterday seem to be improving bilaterally. Reevaluated on 05/21/2016, patient is practically about the same. Remains on mechanical ventilation, vent settings are about the same, FiO2 remains at 40%, PEEP is at 5, tidal volume is 500, assist control is 20. Flow rates at 80 L/m adjusted to I:E ratio. Patient was given another sedation holiday trial today, but still her mental status remains extremely poor, and nowhere patient was noted to wake up and follow any instructions. Shortly after I evaluated the patient, I was notified about the patient becoming hypotensive hence patient will be given fluid boluses, and we'll restart norepinephrine if needed. ABG this morning showed a pO2 of 73 pCO2 of 27 pH of 7.50. Renal profile continues to improve sodium is improved today, hemoglobin is 8.0 and WBC count is 4.9. Chest x-ray continues to show significant airspace disease involving the right perihilar area and left lower lobe area. Her effusions are a bit improved after diuresis. Patient was reevaluated today on 05/22/2016, patient developed significant pulmonary distress earlier today, she was also hypotensive, spiked a temp as high as 103, and she required to be placed on Nimbex. Patient desaturated significantly, and her chest x-ray was relatively about the same compared to previous x-rays in the last few days. I suspected that we may be dealing with catheter sepsis, hence I decided to change her central line, and a new line was placed in the right groin the left groin line will be removed. Attempts were made to place a right IJ and right subclavian central lines, but these attempts have failed. But I was able to place a right femoral central line, and a left radial arterial line. In the meantime the patient was placed on Nimbex, and I do not plan to discontinue Nimbex today. Her FiO2 was increased initially to 100 %, and we will titrate down to keep the saturations in the low 90s. Her C. difficile screening was negative. Her urinalysis was noted to be a relatively unremarkable. WBC count is 14.1 hemoglobin is 9.6. ABG earlier this morning showed a pO2 of 59 pCO2 of 25 and pH of 7.46. Her bronchial washings were positive for MRSA, hence the patient remains on vancomycin and Zosyn mental status could not be assessed today, and no sedation holiday could be given today. No spontaneous breathing trials were even attempted today. Objective - Vital Signs Vital signs: Vital Signs Temp 103 F H 05/22/16 13:00 Pulse 148 H 05/22/16 13:00 Resp 19 05/22/16 13:00 BP 129/57 05/22/16 13:00 Pulse Ox 95 05/22/16 13:00 Intake & Output 05/21/16 05/22/16 05/22/16 18:59 06:59 18:59 Intake Total 660.643 689.548 982.793 Output Total 2225 990 385 Balance -1564.357 -300.452 597.793 Weight 103.9 kg 103.9 kg Intake: IV 220 240 170 Sodium Chloride 0.9% 1, 170 240 120 000 ml @ 20 mls/hr IV . Q24H RODRÍGUEZ Rx#:[id number] Valproate Sodium 500 mg 50 50 In Sodium Chloride 0.9% 50 ml @ 50 mls/hr IVPB Q8HR RODR[facility]GUEZ Rx#:[id number] Intake, IV Titration 100.643 189.548 512.793 Amount Cisatracurium 200 mg In 61.281 Sodium Chloride 0.9% 180 ml @ 2.5 MCG/KG/MIN 15.58 mls/hr IV .[id number] RODRÍGUEZ Rx#:[id number] Norepinephrine 16 mg In 28.237 22.290 206.703 Sodium Chloride 0.9% 250 ml @ Titrate IV .Q0M RODRÍGUEZ Rx#:[id number] Propofol 500 mg In Empty 72.406 167.258 144.809 Bag 1 bag @ Titrate IV . Q0M RODR[facility]GUEZ Rx#:[id number] Sodium Chloride 0.9% 1, 100 000 ml @ 100 mls/hr IV . Q10H RODRÍGUEZ Rx#:[id number] Oral 100 100 100 Tube Feeding 140 160 200 Other 100 Output: Urine 2225 990 383 Stool 2 Other: Voiding Method Indwelling Catheter Indwelling Catheter # Bowel Movements 1 1 ABP, PAP, CO, CI - Last Documented Arterial Blood Pressure 116/56 - Exam Physical Exam: Revealed a 66-year-old female, intubated, sedated, endotracheal tube is intact, on mechanical ventilation, significant endotracheal tube secretions remain today HEENT:[Neck is supple.] [No neck masses.] [No thyromegaly.] [No JVD.] Endotracheal tube which is a size 7.0 is intact. Orogastric tube is also intact. Chest: [Crackles at the bases, no rhonchi, no wheezes] Cardiac Exam: [Normal S1 and S2, no S3 gallop, no murmur.] Abdomen: [Obese, Soft, nontender, no megaly, no rebound, no guarding, normal bowel sounds.] Extremities: [No clubbing, no edema, no cyanosis. Positive right above-knee amputation noted] Neurological Exam: Cannot be assessed - Labs CBC & Chem 7: 05/22/16 04:00 05/22/16 04:00 Labs: Abnormal Lab Results - Last 24 Hours (Table) 05/19/16 05/21/16 05/21/16 Range/Units 04:25 18:06 23:15 WBC (3.8-10.6) k/uL RBC (3.80-5.40) m/uL Hgb (11.4-16.0) gm/dL Hct (34.0-46.0) % Plt Count (150-450) k/uL Neutrophils # (Manual) (1.3-7.7) k/uL Lymphocytes # (Manual) (1.0-4.8) k/uL ABG pH (7.35-7.45) ABG pCO2 (35-45) mmHg ABG pO2 (83-108) mmHg ABG HCO3 (21-25) mmol/L ABG Total CO2 (19-24) mmol/L ABG O2 Saturation (94-97) % Chloride (98-107) mmol/L Carbon Dioxide (22-30) mmol/L BUN (7-17) mg/dL Glucose (74-99) mg/dL POC Glucose (mg/dL) 113 H 177 H (75-99) mg/dL Calcium (8.4-10.2) mg/dL Urine Protein (Negative) Urine Ketones (Negative) Hepatitis C Viral RNA DETECTED H (Not detected) IU/mL Hepatitis C RNA Quant 4,844,596 H (<12) IU/mL HCV RNA PCR log IUs/ml 6.69 H (<1.08) 05/22/16 05/22/16 05/22/16 Range/Units 04:00 04:00 07:45 WBC 14.1 H (3.8-10.6) k/uL RBC 3.29 L (3.80-5.40) m/uL Hgb 9.6 L D (11.4-16.0) gm/dL Hct 29.8 L (34.0-46.0) % Plt Count 101 L (150-450) k/uL Neutrophils # (Manual) 12.1 H (1.3-7.7) k/uL Lymphocytes # (Manual) 0.5 L (1.0-4.8) k/uL ABG pH 7.46 H (7.35-7.45) ABG pCO2 25 L (35-45) mmHg ABG pO2 59 L (83-108) mmHg ABG HCO3 17 L (21-25) mmol/L ABG Total CO2 18 L (19-24) mmol/L ABG O2 Saturation 92.0 L (94-97) % Chloride 114 H (98-107) mmol/L Carbon Dioxide 19 L (22-30) mmol/L BUN 35 H (7-17) mg/dL Glucose 131 H (74-99) mg/dL POC Glucose (mg/dL) (75-99) mg/dL Calcium 7.7 L (8.4-10.2) mg/dL Urine Protein (Negative) Urine Ketones (Negative) Hepatitis C Viral RNA (Not detected) IU/mL Hepatitis C RNA Quant (<12) IU/mL HCV RNA PCR log IUs/ml (<1.08) 05/22/16 05/22/16 05/22/16 Range/Units 08:06 09:00 12:16 WBC (3.8-10.6) k/uL RBC (3.80-5.40) m/uL Hgb (11.4-16.0) gm/dL Hct (34.0-46.0) % Plt Count (150-450) k/uL Neutrophils # (Manual) (1.3-7.7) k/uL Lymphocytes # (Manual) (1.0-4.8) k/uL ABG pH (7.35-7.45) ABG pCO2 (35-45) mmHg ABG pO2 (83-108) mmHg ABG HCO3 (21-25) mmol/L ABG Total CO2 (19-24) mmol/L ABG O2 Saturation (94-97) % Chloride (98-107) mmol/L Carbon Dioxide (22-30) mmol/L BUN (7-17) mg/dL Glucose (74-99) mg/dL POC Glucose (mg/dL) 148 H 146 H (75-99) mg/dL Calcium (8.4-10.2) mg/dL Urine Protein Trace H (Negative) Urine Ketones Trace H (Negative) Hepatitis C Viral RNA (Not detected) IU/mL Hepatitis C RNA Quant (<12) IU/mL HCV RNA PCR log IUs/ml (<1.08) Microbiology - Last 24 Hours (Table) 05/17/16 13:00 Fungal Culture - Preliminary Bronchial Washings - Right Yeast species 05/22/16 09:10 Blood Culture - Preliminary Blood 05/16/16 04:23 Blood Culture - Final Blood No Growth after 144 hours Assessment and Plan Plan: 1 acute shock, likely of a septic in nature. Patient has developed an extensive right lung pneumonia. At the same time, the patient is suspected to have a recurrent urine tract infection probably with gram-negative bacteria. She has been infected on multiple occasions in the past with E. coli that had been quinolone resistant and Pseudomonas. Patient has been adequately resuscitated IV fluids. The patient is on high-dose norepinephrine infusion. On 05/17/2016, the patient remains on a broad-spectrum antibiotic coverage. Cultures still pending. Bronchoscopy of the lungs will be done and the bronchioloalveolar lavage will be collected from the right lung. The patient will be kept on pressors. The patient is still on a combination of vasopressin and norepinephrine infusion. Echocardiogram was ordered and is also still pending for now. Meanwhile, she was aggressively resuscitated IV fluids. She is febrile for now. She is producing adequate amount of urine output. On 05/18/2016, the patient is doing better hemodynamically. There is MRSA growth in the sputum and its very much likely the patient has an MRSA pneumonia. The patient on vancomycin and Zosyn and Levaquin will be dropped. Urine culture has not shown anything abnormal. The patient is off norepinephrine infusion and vasopressin will be also discontinued. We will assess her mental status today by giving her a sedation holiday. On 05/19/2016, patient seems to be doing a bit better, remains on mechanical ventilation, remains on a small dose of norepinephrine, I plan to continue antibiotics, gently diurese the patient, and hopefully improve her chest x-ray to the point were and what can start some weaning trials. At this point the patient is not ready to be weaned mostly because of her mental status and mostly because of her marginal arterial blood gases and significant airspace disease noted on the chest x-ray today. 2 acute kidney injury, multifactorial, rule out ATN. The patient received a session of dialysis yesterday to treat her hyperkalemia. She is producing adequate amount of urine output at this point. Potassium level is normalized On 05/17/2016, the patient's renal function is improving and the creatinine is down to 1.6. Nephrology is on the case. No need for dialysis at this point. On 05/18/2016, the patient is producing adequate amount of urine output in the creatinine is down to 1.29. She is more stable. On 05/20/2016, patient will be given another sedation holiday, and if tolerated , should be given a weaning trial with pressure support and CPAP. However that will depend on her overall mental status. On 05/21/2016, patient will be given another sedation holiday, she has significant endotracheal tube secretions, and this was definitely hinder any plans for weaning, extubation, at any rate the patient's neurological status at this point is another major factor that will delay any plans for weaning and extubation at this point. On 05/22/2016, patient had a worsening clinical status, hence she required placement back on high FiO2, Nimbex, and central line was changed , left radial arterial line was also placed. Patient will be kept on the same antibiotics as per infectious disease on the case, and overall prognosis is getting poorer and poorer on a daily basis. Her overall picture does not look very promising. 3 acute hyperkalemia, recovered 4 morbid obesity 5 multiple [employer] infarcts maintained on anticoagulation on outpatient basis 6 moderate degree of aortic stenosis, preserved LV function 7 hypertension, history of 8 hyperlipidemia history of 9 diabetes mellitus 10 above-knee amputation of the right lower extremity 11 reflux 12 hepatitis C viral infection 13 chronic back pain on narcotics 14 previous history of lower GI bleed Recommendation: Continue present supportive care measures including antibiotics , ventilatory support, pressors if needed, nutritional support, GI and DVT prophylaxis, daily neurological assessment off propofol, assessment of secretions in the endotracheal tube, patient is clearly not ready for any weaning trials at this point. Critical care time is 35 minutes excluding the time spent on procedures on this patient done today. Time with Patient: Greater than 30
--- NOTE | 2016-05-22 15:44 | PCN ---
DATE OF PROCEDURE: PROCEDURE: Placement of a left radial arterial line. PREOPERATIVE DIAGNOSIS: Sepsis and hypotension. POSTOPERATIVE DIAGNOSIS: Sepsis and hypotension. ANESTHESIA USED: None deployed. PROCEDURE: Left wrist was prepared in a sterile fashion and drapes were applied. Then the left radial artery was palpated, cannulated, and a guidewire was placed. A Cook's catheter was inserted over the guidewire, and the guidewire was removed. Good blood flow and good waveform were noted. No evidence of any immediate complications. Line was secured using 3-0 silk sutures.
--- NOTE | 2016-05-22 15:48 | PCN ---
DATE OF PROCEDURE: PROCEDURE: Placement of a right femoral triple-lumen catheter. PREOPERATIVE DIAGNOSIS: Sepsis and hypotension. POSTOPERATIVE DIAGNOSIS: Sepsis and hypotension. ANESTHESIA USED: 2 mL of 1% lidocaine. PROCEDURE: Patient was placed in supine position. The right groin was prepared in a sterile fashion and drapes were applied. The right femoral vein was easily cannulated, and a guidewire was placed. Dilator was used over the guidewire, and after the dilator was used a triple-lumen catheter was inserted over the guidewire, and the guidewire was removed. Good blood flow in the 3 different ports was noted. Line was secured using 3-0 silk sutures. No evidence of any immediate complications. Blood loss was minimal.
--- NOTE | 2016-05-22 15:52 | PCN ---
DATE OF PROCEDURE: PROCEDURE: Attempt to place a right IJ central line and a right subclavian central line. PREOPERATIVE DIAGNOSIS: Hypotension and sepsis. POSTOPERATIVE DIAGNOSIS: Hypotension and sepsis. ANESTHESIA USED: 2 mL of 1% lidocaine. PROCEDURE: Patient was placed in a Trendelenburg position. The right neck was prepared in a sterile fashion and drapes were applied. Multiple attempts were made to cannulate the right internal jugular vein, using the posterior approach, and these attempts failed. The right internal jugular artery was cannulated one time; hence the pressure was applied, and no further attempts were made in the right internal jugular area. Then the right subclavian was attempted. Multiple attempts were made. The right subclavian vein was cannulated; however, multiple attempts to place the wire through the needle into the right subclavian vein failed. Then the procedure was aborted. No further attempts were made. Chest x-ray was ordered and there was no evidence of any immediate complications. Further attempts were made to place in the right femoral area, and these attempts were successful.
--- NOTE | 2016-05-22 15:58 | PN ---
ADDENDUM: Discussed the case with Dr. Le Henderson this morning, discussed the case with brother who is the closest living relative Agustin Perez in [place] and left a message for her daughter Sultana to call me on her phone. Today, this afternoon, with an update on Shobha Perez, we are going to give her until Wednesday to see if she improves after discussing the case with Dr. Le Henderson and if she has not made no significant improvement by Wednesday or Wednesday, we will discuss with the family possibility of comfort care measures at that time as we are going to give her a couple more days to improve. Thank you for the update to my dictation.
--- NOTE | 2016-05-22 16:43 | P.PN ---
Subjective This patient still remains to be critically ill. Patient has developed respiratory difficulties and hypotension. Patient is back on sedation and vasopressors. Sepsis is suspected from central lines. Patient has been having episodes of supraventricular tachycardia and frequent APCs. Baseline rhythm seems to be sinus. Patient is on beta sarina. I'm going to give him additional dose of Lanoxin. Patient is on high dose of vasopressors. He can undergo high in the beta sarina dosage. Prognosis is guarded. Objective - Vital Signs Vital signs: Vital Signs Temp 103.5 F H 05/22/16 16:05 Pulse 151 H 05/22/16 16:05 Resp 19 05/22/16 16:05 BP 91/47 05/22/16 15:55 Pulse Ox 97 05/22/16 16:05 Intake & Output 05/21/16 05/22/16 05/22/16 18:59 06:59 18:59 Intake Total 660.643 178.238 6003.012 Output Total 2225 990 455 Balance -1564.357 -300.452 717.012 Weight 103.9 kg 103.9 kg Intake: IV 220 240 170 Sodium Chloride 0.9% 1, 170 240 120 000 ml @ 20 mls/hr IV . Q24H RODRÍGUEZ Rx#:[id number] Valproate Sodium 500 mg 50 50 In Sodium Chloride 0.9% 50 ml @ 50 mls/hr IVPB Q8HR RODRÍGUEZ Rx#:[id number] Intake, IV Titration 100.643 189.548 702.012 Amount Cisatracurium 200 mg In 61.281 Sodium Chloride 0.9% 180 ml @ 2.5 MCG/KG/MIN 15.58 mls/hr IV .[id number] RODRÍGUEZ Rx#:[id number] Norepinephrine 16 mg In 28.237 22.290 245.922 Sodium Chloride 0.9% 250 ml @ Titrate IV .Q0M RODR[facility]GUEZ Rx#:[id number] Propofol 500 mg In Empty 72.406 167.258 194.809 Bag 1 bag @ Titrate IV . Q0M RODR[facility]GUEZ Rx#:[id number] Sodium Chloride 0.9% 1, 200 000 ml @ 100 mls/hr IV . Q10H RODR[facility]GUEZ Rx#:[id number] Oral 100 100 100 Tube Feeding 140 160 200 Other 100 Output: Urine 2225 990 453 Stool 2 Other: Voiding Method Indwelling Catheter Indwelling Catheter # Bowel Movements 1 1 1 ABP, PAP, CO, CI - Last Documented Arterial Blood Pressure 93/38 - Exam GENERAL EXAM: Patient is intubated and sedated. Mildly hypotensive HEENT: Normocephalic. Normal reaction of pupils, equal size, normal range of extraocular motion. No erythema or exudates in the throat. NECK: No masses, no nuchal rigidity. CHEST: No chest wall deformity. LUNGS: Breath sounds HEART: S1 and S2 normal. Systolic murmur heard ABDOMEN: No hepatosplenomegaly, normal bowel sounds, no guarding or rigidity. SKIN: No rashes CENTRAL NERVOUS deferred EXTREMITIES: mild edema - Labs CBC & Chem 7: 05/22/16 04:00 05/22/16 04:00 Labs: Abnormal Lab Results - Last 24 Hours (Table) 05/21/16 05/21/16 05/22/16 Range/Units 18:06 23:15 04:00 WBC 14.1 H (3.8-10.6) k/uL RBC 3.29 L (3.80-5.40) m/uL Hgb 9.6 L D (11.4-16.0) gm/dL Hct 29.8 L (34.0-46.0) % Plt Count 101 L (150-450) k/uL Neutrophils # (Manual) 12.1 H (1.3-7.7) k/uL Lymphocytes # (Manual) 0.5 L (1.0-4.8) k/uL ABG pH (7.35-7.45) ABG pCO2 (35-45) mmHg ABG pO2 (83-108) mmHg ABG HCO3 (21-25) mmol/L ABG Total CO2 (19-24) mmol/L ABG O2 Saturation (94-97) % Chloride (98-107) mmol/L Carbon Dioxide (22-30) mmol/L BUN (7-17) mg/dL Glucose (74-99) mg/dL POC Glucose (mg/dL) 113 H 177 H (75-99) mg/dL Calcium (8.4-10.2) mg/dL Urine Protein (Negative) Urine Ketones (Negative) 05/22/16 05/22/16 05/22/16 Range/Units 04:00 07:45 08:06 WBC (3.8-10.6) k/uL RBC (3.80-5.40) m/uL Hgb (11.4-16.0) gm/dL Hct (34.0-46.0) % Plt Count (150-450) k/uL Neutrophils # (Manual) (1.3-7.7) k/uL Lymphocytes # (Manual) (1.0-4.8) k/uL ABG pH 7.46 H (7.35-7.45) ABG pCO2 25 L (35-45) mmHg ABG pO2 59 L (83-108) mmHg ABG HCO3 17 L (21-25) mmol/L ABG Total CO2 18 L (19-24) mmol/L ABG O2 Saturation 92.0 L (94-97) % Chloride 114 H (98-107) mmol/L Carbon Dioxide 19 L (22-30) mmol/L BUN 35 H (7-17) mg/dL Glucose 131 H (74-99) mg/dL POC Glucose (mg/dL) 148 H (75-99) mg/dL Calcium 7.7 L (8.4-10.2) mg/dL Urine Protein (Negative) Urine Ketones (Negative) 05/22/16 05/22/16 Range/Units 09:00 12:16 WBC (3.8-10.6) k/uL RBC (3.80-5.40) m/uL Hgb (11.4-16.0) gm/dL Hct (34.0-46.0) % Plt Count (150-450) k/uL Neutrophils # (Manual) (1.3-7.7) k/uL Lymphocytes # (Manual) (1.0-4.8) k/uL ABG pH (7.35-7.45) ABG pCO2 (35-45) mmHg ABG pO2 (83-108) mmHg ABG HCO3 (21-25) mmol/L ABG Total CO2 (19-24) mmol/L ABG O2 Saturation (94-97) % Chloride (98-107) mmol/L Carbon Dioxide (22-30) mmol/L BUN (7-17) mg/dL Glucose (74-99) mg/dL POC Glucose (mg/dL) 146 H (75-99) mg/dL Calcium (8.4-10.2) mg/dL Urine Protein Trace H (Negative) Urine Ketones Trace H (Negative) Microbiology - Last 24 Hours (Table) 05/22/16 09:00 Urine Culture - Preliminary Urine,Catheterized 05/17/16 13:00 Fungal Culture - Preliminary Bronchial Washings - Right Jolene glabrata Jolene albicans 05/22/16 09:10 Blood Culture - Preliminary Blood 05/16/16 04:23 Blood Culture - Final Blood No Growth after 144 hours Assessment and Plan (1) Paroxysmal atrial fibrillation Status: Acute (2) Acute renal failure Status: Acute (3) Hyperkalemia Status: Acute (4) Hypotension Status: Acute (5) Diabetes Status: Acute (6) Aortic stenosis Status: Acute Plan: The this patient is critically ill. There could be underlying sepsis and respiratory failure. Has been having short bursts of SVT. Mostly maintaining sinus rhythm. Currently she is on beta sarina and Lanoxin. I'm going to add additional dose of Lanoxin today and continue with Lanoxin 0.125 mg daily. Prognosis is guarded
[2016-05-22] MEDS ORDERED: LORazepam 2 MG/ML SYRINGE IV STA (16:52)
[2016-05-22] MEDS ORDERED: HYDROmorphone 1 MG/ML 1 ML SYRINGE IVP STA (16:52)
[2016-05-22] MEDS: SODIUM CHLORIDE 0.9% 99 ML with VASOPRESSIN 20 UNIT IV SCH ×2 (17:20)
[2016-05-22 17:22] LABS: CH 28.5; CHCM 30.1; HCT 27.4 % (34.0-46.0); HDW 2.77; HGB 8.5 gm/dL (11.4-16.0); Hypochromasia Marked; Immature Gran Flag Marked; MCH 29.4 pg (25.0-35.0); Mean Platelet Volume 7.8; RBC 2.89 m/uL (3.80-5.40); RDW 14.6 % (11.5-15.5); WBC (Perox) 31.81
[2016-05-22 17:59] LABS: Add Differential Manual Differential
[2016-05-22 18:02] LABS: Band Neutrophils % 4.5 %; Metamyelocytes % 9.5 %; Myelocytes % 1.5 %; Nucleated Red Blood Cells 1 /100 WBC (0-0); Total Cells Counted 200
[2016-05-22 18:03] LABS: Polychromasia Present; Toxic Granulation Present; WBC 29.8 k/uL (3.8-10.6)
[2016-05-22] MEDS ORDERED: LORazepam 2 MG/ML SYRINGE IV PRN (18:12)
[2016-05-22] MEDS: VANCOMYCIN 1,250 MG in SODIUM CHLORIDE 0.9% 250 ML IVPB SCH (18:23)
[2016-05-22] MEDS ORDERED: DIGOXIN 250 MCG/ML 2 ML AMP IVP ONE (18:30)
[2016-05-22 18:49] LABS: ABG Base Excess -10.7 mmol/L; ABG HCO3 15 mmol/L (21-25); ABG Oxygen Saturation 97.1 % (94-97); ABG PCO2 34 mmHg (35-45); ABG PH 7.26 (7.35-7.45); ABG PO2 103 mmHg (83-108); ABG TCO2 16 mmol/L (19-24)
[2016-05-22 19:05] LABS: Glucose,Whole Blood 175 mg/dL (75-99)
--- NOTE | 2016-05-22 19:10 | PN ---
DATE OF SERVICE: 05/22/2016 REASON FOR FOLLOWUP: Sepsis. INTERVAL HISTORY: The patient did spike a fever this morning of 103 degree Fahrenheit. Patient started becoming tachycardic and did receive a dose of Lopressor and digoxin. She did have a subsequent drop in her blood pressure, for which the patient was given a fluid bolus and has been started on IV fluid. The patient continues to have diarrhea. The rectal tube could not be placed. She was noted to have some erythema around her left groin central line which is in the process of being removed, and a new line has been placed in the right groin. , FI02 is stable but no worsening purulent secretions through the ET per the RN. On examination, blood pressure is 93/38 with a pulse of 151, temperature of 103.5. She is 97% on 65% FiO2. General description is an elderly female lying in bed in no distress. HEENT EXAMINATION: Pallor. No scleral icterus. The patient is orally intubated. LUNGS: Unlabored breathing. Some coarse breath sounds at the base. HEART: S1, S2. Regular rate and rhythm. ABDOMEN: Soft. No tenderness. LABS: Hemoglobin is 9.3. White count jumped to 14.1 from yesterday at 4.9. BUN of 35, creatinine 1.0. Lactic acid was 1.4. DIAGNOSTIC IMPRESSION AND PLAN: Patient with sepsis; initial presentation with more of an aspiration pneumonia. Sputum as well as bronchoscopy has been positive for MRSA. Patient did show overall improvement. After 3 days the patient did have slight worsening with a question of possible line-related, as we did check a stool for C difficile that came back negative, even on the PCR. Repeat urine is negative. The left groin cellulitis is in the process of being removed and will be sent for culture. Continue patient on vancomycin, Pharmacy to dose, target trough of 15. Zosyn has been added. Adjust antibiotics further on the basis of the cultures as well as clinical response. Continue supportive care. MTDD
[2016-05-22] MEDS ORDERED: DANTROLENE 20 MG VIAL IV ONE (20:00)
[2016-05-22 20:10] LABS: Glucose,Whole Blood 125 mg/dL (75-99)
[2016-05-22 20:19] LABS: Anion Gap 8 mmol/L; Blood Urea Nitrogen 33 mg/dL (7-17); Carbon Dioxide 14 mmol/L (22-30); Chloride 115 mmol/L (98-107); Glucose 130 mg/dL (74-99); Magnesium 1.8 mg/dL (1.6-2.3); Non-African American GFR(MDRD) 55 (>60 ml/min/1.73 sqM); Potassium 4.6 mmol/L (3.5-5.1); Sodium 137 mmol/L (137-145)
[2016-05-22 20:22] LABS: Calcium 5.8 mg/dL (8.4-10.2)
[2016-05-22 20:26] LABS: CH 28.3; CHCM 30.1; HDW 2.83; Hypochromasia Marked; Immature Gran Flag Marked; MCH 29.8 pg (25.0-35.0); MCHC 31.5 g/dL (31.0-37.0); Mean Platelet Volume 7.6; RBC 1.93 m/uL (3.80-5.40); RDW 14.7 % (11.5-15.5); WBC 23.6 k/uL (3.8-10.6); WBC (Perox) 23.92
[2016-05-22] MEDS ORDERED: MAGNESIUM SULFATE-D5W PMX 1 GM in DEXTROSE/WATER 1 100ML.BAG IVPB ONE (20:26)
[2016-05-22 20:29] LABS: HCT 18.2 % (34.0-46.0); HGB 5.7 gm/dL (11.4-16.0); MCV 94.6 fL (80.0-100.0)
[2016-05-22] MEDS: ACETAMINOPHEN IV (For NPO) 1,000 MG in EMPTY BAG 1 BAG IVPB SCH (20:38)
[2016-05-22 20:46] LABS: Add Differential Manual Differential
[2016-05-22 20:46] LABS: CHCM 30.6; HCT 21.5 % (34.0-46.0); HDW 2.92; Hypochromasia Moderate; Immature Gran Flag Marked; MCH 29.4 pg (25.0-35.0); MCHC 30.7 g/dL (31.0-37.0); MCV 95.5 fL (80.0-100.0); Mean Platelet Volume 8.3; RBC 2.25 m/uL (3.80-5.40); RDW 14.8 % (11.5-15.5); WBC (Perox) 31.19
[2016-05-22 20:50] LABS: Metamyelocytes % 17.5 %; Myelocytes % 3.5 %; Nucleated Red Blood Cells 0 /100 WBC (0-0); Total Cells Counted 200
[2016-05-22 20:51] LABS: Polychromasia Present
[2016-05-22 20:54] LABS: WBC 31.4 k/uL (3.8-10.6)
[2016-05-22 20:55] LABS: HGB 6.6 gm/dL (11.4-16.0); Ionized Calcium 4.5 mg/dL (4.5-5.3)
[2016-05-22] MEDS: FAMOTIDINE 20 MG/2 ML VIAL IV SCH (20:57)
[2016-05-22] MEDS: ATORVASTATIN 40 MG TAB PO SCH (20:58)
[2016-05-22] MEDS: MONTELUKAST 10 MG TAB PO SCH (20:58)
[2016-05-22 21:08] LABS: Add Differential Manual Differential
[2016-05-22 21:14] LABS: Anion Gap 8 mmol/L; Blood Urea Nitrogen 33 mg/dL (7-17); Carbon Dioxide 15 mmol/L (22-30); Chloride 117 mmol/L (98-107); Glucose 126 mg/dL (74-99); Manual Review Performed; Non-African American GFR(MDRD) 50 (>60 ml/min/1.73 sqM); Nucleated Red Blood Cells 0 /100 WBC (0-0); Sodium 140 mmol/L (137-145); Total Cells Counted 100
[2016-05-22 21:18] LABS: Calcium 6.1 mg/dL (8.4-10.2)
[2016-05-22] MEDS ORDERED: SODIUM BICARB 8.4% 50 ML SYR (1 MEQ/ML) IV STA (21:29)
[2016-05-22] MEDS ORDERED: DEXTROSE 5% IN WATER 1,000 ML with SODIUM BICARB (1 MEQ/ML) 150 ML IV ONE (22:00)
[2016-05-22 23:12] LABS: Glucose,Whole Blood 143 mg/dL (75-99)
[2016-05-23] MEDS: PROPOFOL 500 MG in EMPTY BAG 1 BAG IV SCH ×7 (00:50→22:47)
[2016-05-23] MEDS: PIPERACILLIN-TAZOBACTAM 3.375 GM in DEXTROSE/WATER 1 50ML.BAG IVPB SCH ×3 (01:02→16:15)
[2016-05-23] MEDS: DEXTROSE 5% IN WATER 1,000 ML with SODIUM BICARB (1 MEQ/ML) 150 ML IV SCH ×2 (01:34→21:01)
[2016-05-23] MEDS: IPRATROPIUM-ALBUTEROL 3 ML NEB INHALATION SCH ×5 (03:42→19:56)
[2016-05-23] MEDS: ACETAMINOPHEN IV (For NPO) 1,000 MG in EMPTY BAG 1 BAG IVPB SCH ×3 (03:50→15:45)
[2016-05-23 04:40] LABS: Aty Lym Flag Slight; CHCM 32.9; HCT 31.1 % (34.0-46.0); HDW 3.63; Hypochromasia Slight; Immature Gran Flag Marked; MCH 28.6 pg (25.0-35.0); MCHC 32.1 g/dL (31.0-37.0); Mean Platelet Volume 7.5; Poikilocytosis Slight; RDW 15.6 % (11.5-15.5); WBC 24.9 k/uL (3.8-10.6); WBC (Perox) 26.97
[2016-05-23 04:43] LABS: MCV 88.8 fL (80.0-100.0)
[2016-05-23 04:50] LABS: Glucose,Whole Blood 153 mg/dL (75-99)
[2016-05-23 04:50] LABS: ALT 32 U/L (9-52); AST 55 U/L (14-36); Alkaline Phosphatase 53 U/L (38-126); Anion Gap 8 mmol/L; Blood Urea Nitrogen 35 mg/dL (7-17); Calcium 6.6 mg/dL (8.4-10.2); Carbon Dioxide 16 mmol/L (22-30); Chloride 116 mmol/L (98-107); Glucose 164 mg/dL (74-99); Non-African American GFR(MDRD) >60 (>60 ml/min/1.73 sqM); Potassium 4.4 mmol/L (3.5-5.1); Sodium 140 mmol/L (137-145); Total Bilirubin 0.7 mg/dL (0.2-1.3); Total Protein 4.7 g/dL (6.3-8.2)
[2016-05-23] MEDS: INSULIN LISPRO (humaLOG) 300 UNIT/3 ML VIAL SQ SCH ×3 (04:50→18:16)
[2016-05-23 04:51] LABS: INR 1.4 (<1.1); Partial Thromboplastin Time 27.1 sec (22.0-30.0); Prothrombin Time 13.4 sec (9.0-12.0)
[2016-05-23] MEDS: SODIUM CHLORIDE 0.9% 99 ML with VASOPRESSIN 20 UNIT IV SCH ×4 (04:52→18:18)
[2016-05-23] MEDS: LEVOTHYROXINE 100 MCG TAB PO SCH (05:56)
[2016-05-23] MEDS: SODIUM CHLORIDE 5% OPHTH DROPS 15 ML BTL BOTH EYES SCH ×3 (05:56→18:08)
[2016-05-23 06:10] LABS: Phosphorous 3.8 mg/dL (2.5-4.5)
[2016-05-23 06:29] LABS: Add Differential Manual Differential
[2016-05-23 06:34] LABS: Nucleated Red Blood Cells 0 /100 WBC (0-0); Total Cells Counted 200
[2016-05-23 06:35] LABS: Manual Review Performed; Toxic Granulation Present
--- NOTE | 2016-05-23 07:16 | XR ---
EXAMINATION TYPE: XR chest 1V portable DATE OF EXAM: 05/23/2016 6:33 AM COMPARISON: 05/22/2016 HISTORY: Shortness of breath FINDINGS: There are bilateral pleural effusions with cardiomegaly and bibasilar infiltrate. There is a diffuse interstitial pattern. ET and NG tube. IMPRESSION: 1. Bilateral pleural-parenchymal changes correlate for CHF. Pneumonia not excluded.
[2016-05-23] MEDS: BUDESONIDE 0.5 MG/2 ML NEBU INHALATION SCH ×2 (07:30→19:56)
[2016-05-23 08:56] LABS: ABG Base Excess -7.8 mmol/L; ABG HCO3 16 mmol/L (21-25); ABG Oxygen Saturation 94.8 % (94-97); ABG PCO2 27 mmHg (35-45); ABG PO2 73 mmHg (83-108); ABG TCO2 17 mmol/L (19-24)
[2016-05-23] MEDS: VALPROATE SODIUM 500 MG in SODIUM CHLORIDE 0.9% 50 ML IVPB SCH ×2 (09:40→16:15)
[2016-05-23] MEDS: SODIUM CHLORIDE 0.9% 1,000 ML IV SCH ×2 (09:41→18:18)
[2016-05-23] MEDS: CHLORHEXIDINE GLUCONATE 15 ML CUP MUCOUS MEM SCH ×2 (09:42→21:00)
[2016-05-23] MEDS: ASPIRIN 325 MG TAB PO SCH (09:42)
[2016-05-23] MEDS: CHOLESTYRAMINE (WITH SUGAR) 4 GM PACKET OG-TUBE SCH ×2 (09:43→21:01)
[2016-05-23] MEDS: DIGOXIN 250 MCG/ML 2 ML AMP IVP SCH (09:43)
[2016-05-23] MEDS: CALCIUM CARB-VIT D 500MG-200UN 1 EACH TAB PO SCH ×2 (09:43→16:16)
[2016-05-23] MEDS: GABAPENTIN 100 MG CAP PO SCH ×2 (09:44→21:01)
[2016-05-23] MEDS: NYSTATIN 100,000 UNIT/GM POWD 15 GM TOPICAL SCH ×2 (09:44→21:01)
[2016-05-23] MEDS: ENOXAPARIN 30 MG/0.3 ML SYRINGE SQ SCH (09:44)
[2016-05-23] MEDS: SERTRALINE 100 MG TAB PO SCH (09:44)
[2016-05-23] MEDS: METOPROLOL TARTRATE 25 MG TAB PO SCH ×2 (09:44→21:01)
[2016-05-23] MEDS ORDERED: FUROSEMIDE 10 MG/ML 4 ML VIAL IV STA (09:55)
[2016-05-23 12:11] VITALS: BP 119/50
[2016-05-23 12:40] LABS: Glucose,Whole Blood 138 mg/dL (75-99)
[2016-05-23] MEDS: CHOLECALCIFEROL 1,000 UNIT TAB PO SCH (12:41)
--- NOTE | 2016-05-23 13:35 | P.PN ---
Subjective Principal diagnosis: Acute respiratory failure and toxic metabolic encephalopathy This is a 66-year-old female patient, snf resident who resides at [facility], who came in yesterday to the emergency department with altered mental status and immediately she was identified to be in acute kidney injury. This is an acute renal failure with hyperkalemia. At the same time the patient was found to be hypotensive in shock. The patient was started on IV fluids a total of 4 L of IV fluid was given to her in the emergency department. She was treated for her hyperkalemia. Subsequently she got moved to the intensive care unit where the patient arrived hypotensive and shock state. She was started on pressors. She was started on norepinephrine infusion and at one point the dose as high as 50 mcg/m. The patient also had a dialysis catheter inserted and she was given a session of dialysis for acute hyperkalemia by nephrology. Note that the dialysis was successful and the patient had a drop in her potassium level which is essentially normalized. Note that his same time, the patient was intubated and placed on a mechanical ventilator. Chest x-ray from early this morning shows adequate positioning of the ET tube. There is cardiomegaly. No evidence of pneumonia. The urine is abnormal and there is evidence of urine checked infection pain noted the patient has had multiple UTIs in the past with quinolone resistant E. coli and previous history of Pseudomonas urine checked infection. Going back to the history, this patient has a very calm. Medical history. 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 The patient was in the hospital approximately in December 2015 and she was found to have multiple infarcts in her brain and the possibility of a embolism/ embolic phenomena was raised. Note that the MRI of the brain indicated non- acute vascular insult in the right lateral occipital lobes as well as a high right frontal lobe infarct and the high left parietal lobe infarct. The patient had evidence of subacute stroke involving the occipital lobe on the right. The patient was investigated further including a JOSE that showed moderate degree of aortic stenosis with a valve area of 1.2 cm. She was also found to have left anterior occurred artery stenosis estimated between 50-69%. The patient was discharged home on anticoagulation and she was taken Eliquis. The CAT scan of the brain that was done during this current admission shows no acute abnormalities. The patient is currently intubated on a mechanical ventilator. She is sedated. The pressor doses of been gradually weaned off. Attempts to insert an art line catheter was unsuccessful. On 05/17/2016 the patient is being seen in follow-up. She remains intubated on mechanical ventilator. She remains on an assist-control mode of ventilation at the rate of 24, tidal volume of 500, FiO2 of 70% and PEEP of 5. The blood gases from this morning show a pH of 7.39 with a pCO2 of 25 and a pO2 of 90. Chest x-ray shows a extensive consolidation of the right lung typical of an underlying pneumonia. At the same time the patient is producing copious amount of rest or secretions which are being suctioned out. She is still pressor dependent. She was started on vasopressin physiologic dose of 0.03 units per minute and the patient was also on norepinephrine infusion at 12 mics. Note that the pressor dose has been drop significantly compared to yesterday. She received an additional 2 L bolus and she has been resuscitated with more than 6 L of fluid since she came in to the ICU. She is producing adequate amount of urine output. She required one session of dialysis and the creatinine is down to 1.6. As far as infectious causes, I strongly suspected there is a severe pneumonia developing in the right lung. The patient is on a combination of Zosyn and Levaquin and she was given a dose of vancomycin. Urine culture was also sent and the results are still pending. Underlying urine checked infections also suspected is unaffected the patient has had multiple UTIs in the past with E. coli and Pseudomonas. The patient is also known to have valvular heart disease with moderate degree of aortic stenosis. Repeat CAT scan of the brain was done and the findings are essentially stable with an old infarct visualized. She remains critically ill. Dialysis catheter is still present in the right IJ and that can be removed per nephrology. Albumin levels on today's at 1.9. On 05/18/2016 the patient is being seen in follow-up. The patient is doing better. He is hemodynamically stable. She was taken off the the norepinephrine infusion and a vasopressin physiologic dose will be also discontinued. The patient is sedated on the prevent and she is calm and comfortable. She remains on a mechanical ventilator and assist-control mode rate of 24, tidal volume 500 FiO2 of 50% and PEEP of 5. Chest x-ray shows a significant consolidation of the right lung special the right perihilar area. Morning blood gases showed a pH of 7.47 with a pCO2 of 26 and pO2 of 81. The patient is producing adequate amount of urine output. In fact the patient was aggressively resuscitated IV fluids and she has developed some third spacing. IV fluids were cut down to KVO and urine output is more than 50 mL an hour. Renal function is stable with a creatinine of 1.29. Neurologically, the patient will be given a sedation holiday and underlying mental status will be checked. EEG of the brain was done and the results are still pending. CAT scan of the brain was done and showed no acute abnormalities and the findings are essentially chronic CVA. The carotid Doppler was also done and showed a 70 % stenosis in the left internal carotid artery. On 05/19/2016, patient remains on mechanical ventilation, however she is requiring about 3.3 g of norepinephrine. To maintain an adequate blood pressure. Patient has been off sedation earlier today, and she is very slow to respond and wake up. She is definitely not quite ready for weaning, as her ABG remains marginal. Patient remains on assist control of 24, tidal volume of 500 , FiO2 of 50%, and PEEP of 5. Chest x-ray continues to show significant airspace disease involving mostly the right perihilar area. I also suspect bilateral pleural effusions. Hence the patient may need less IV fluid, and more diuresis. ABG today showed a pO2 of 79 pCO2 of 24 pH of 7.44. BUN is 45 creatinine is 1.30 On 05/20/2016, patient remains on mechanical ventilation, chest x-ray is showing slight improvement, and ABG seems to be improved hence I cut down her FiO2 to 40%, and cut down the assist control rate to 20 and stent of 24. Patient will be given a sedation holiday in the next hour and we'll assess the patient could be given a weaning trial if possible. That all dependent on her overall mental status once the patient is off propofol. ABG today showed a pO2 of 123 pCO2 of 30 pH of 7.45. Hemoglobin is a bit low at 7.2, however if it drops any further, we'll consider blood transfusion. Patient is diuresing well with Lasix, and I believe the pleural effusions noted yesterday seem to be improving bilaterally. Reevaluated on 05/21/2016, patient is practically about the same. Remains on mechanical ventilation, vent settings are about the same, FiO2 remains at 40%, PEEP is at 5, tidal volume is 500, assist control is 20. Flow rates at 80 L/m adjusted to I:E ratio. Patient was given another sedation holiday trial today, but still her mental status remains extremely poor, and nowhere patient was noted to wake up and follow any instructions. Shortly after I evaluated the patient, I was notified about the patient becoming hypotensive hence patient will be given fluid boluses, and we'll restart norepinephrine if needed. ABG this morning showed a pO2 of 73 pCO2 of 27 pH of 7.50. Renal profile continues to improve sodium is improved today, hemoglobin is 8.0 and WBC count is 4.9. Chest x-ray continues to show significant airspace disease involving the right perihilar area and left lower lobe area. Her effusions are a bit improved after diuresis. Patient was reevaluated today on 05/22/2016, patient developed significant pulmonary distress earlier today, she was also hypotensive, spiked a temp as high as 103, and she required to be placed on Nimbex. Patient desaturated significantly, and her chest x-ray was relatively about the same compared to previous x-rays in the last few days. I suspected that we may be dealing with catheter sepsis, hence I decided to change her central line, and a new line was placed in the right groin the left groin line will be removed. Attempts were made to place a right IJ and right subclavian central lines, but these attempts have failed. But I was able to place a right femoral central line, and a left radial arterial line. In the meantime the patient was placed on Nimbex, and I do not plan to discontinue Nimbex today. Her FiO2 was increased initially to 100 %, and we will titrate down to keep the saturations in the low 90s. Her C. difficile screening was negative. Her urinalysis was noted to be a relatively unremarkable. WBC count is 14.1 hemoglobin is 9.6. ABG earlier this morning showed a pO2 of 59 pCO2 of 25 and pH of 7.46. Her bronchial washings were positive for MRSA, hence the patient remains on vancomycin and Zosyn mental status could not be assessed today, and no sedation holiday could be given today. No spontaneous breathing trials were even attempted today. Patient was reevaluated today on 05/23/2016, apparently the patient had an extensive ta clinical course overnight. Yesterday in the afternoon, patient continued to have significantly elevated temperature with temp as high as 103, and the temperature could not be brought down by any measures. In addition to this, patient developed hypotension, sinus tachycardia, significant hemodynamic instability requiring megadoses of norepinephrine and vasopressin. I strongly felt at that point that we are dealing with a malignant hyperthermia syndrome. Hence I recommended stopping Nimbex, and I have recommended dantrolene which was given IV push. Patient was given fluid boluses, and I have also discontinued Zyprexa since the possibility of neuroleptic malignant syndrome is very much similar to malignant hyperthermia syndrome, and the treatment is basically about the same. Indeed the patient responded well after dantrolene was given, patient became more hemodynamically stable we were able to discontinue vasopressin, and the dose of norepinephrine came down from 60 mcg/m to 10 mcg/m at this point. And we plan to cut it down further. Chest x-ray is showing evidence of interstitial edema, hence the patient will be diuresed today because I gave her significant amount of fluid boluses yesterday. And I will cut down on the IV fluid today. As a matter of fact the patient will be diuresed. The culture from the central line which was removed yesterday is pending. And now the patient has a new central line in the right groin. Her blood cultures are negative so far. And her washings from bronchoscopy showed hair and MRSA. Infectious disease is on the case. Screening for C. diff was negative, another screening sample was sent. Objective - Vital Signs Vital signs: Vital Signs Temp 98.6 F 05/23/16 12:00 Pulse 116 H 05/23/16 12:00 Resp 28 H 05/23/16 12:00 BP 119/50 05/23/16 12:00 Pulse Ox 96 05/23/16 12:00 Intake & Output 05/22/16 05/23/16 05/23/16 18:59 06:59 18:59 Intake Total 2740.217 3212.640 1259.540 Output Total 524 646 373 Balance 2216.217 2566.640 886.540 Weight 103.9 kg 106.3 kg 106.3 kg Intake: IV 220 365.0 160 Piperacillin-Tazobactam 3 25.0 .375 gm In Dextrose/Water 1 50ml.bag @ 12.5 mls/hr IVPB Q8HR [facility] Rx#: [id number] Sodium Chloride 0.9% 1, 120 290 110 000 ml @ 20 mls/hr IV . Q24H [facility] Rx#:[id number] Valproate Sodium 500 mg 100 50 50 In Sodium Chloride 0.9% 50 ml @ 50 mls/hr IVPB Q8HR [facility] Rx#:[id number] Intake, IV Titration 2140.217 1927.640 659.540 Amount ACETAMINOPHEN IV (For NPO 800 ) 1,000 mg In Empty Bag 1 bag @ 400 mls/hr IVPB Q6H [facility] Rx#:[id number] Cisatracurium 200 mg In 151.905 Sodium Chloride 0.9% 180 ml @ 2.5 MCG/KG/MIN 15.58 mls/hr IV .[id number] [facility] Rx#:[id number] Dextrose 5% in Water 1, 425 450 000 ml @ 100 mls/hr IV . [id number] [facility] with Sodium Bicarb (1 Meq/ml) 150 ml Rx#:[id number] Norepinephrine 16 mg In 343.503 326.564 70.213 Sodium Chloride 0.9% 250 ml @ Titrate IV .Q0M [facility] Rx#:[id number] Piperacillin-Tazobactam 3 50 12.5 .375 gm In Dextrose/Water 1 50ml.bag @ 12.5 mls/hr IVPB Q8HR [facility] Rx#: [id number] Propofol 50 ml As IV .STK 83.5 [facility] Rx#:[id number] Propofol 500 mg In Empty 244.809 226.076 43.327 Bag 1 bag @ Titrate IV . Q0M [facility] Rx#:[id number] Sodium Chloride 0.9% 1, 400 100 000 ml @ 100 mls/hr IV . Q10H [facility] Rx#:[id number] Sodium Chloride 0.9% 1, 1000 000 ml @ 999 mls/hr IV . Q1H1M [facility] Rx#:[id number] Oral 100 100 Tube Feeding 280 300 140 Blood Product 620 Rc Pheresis 2 As3 Unit 310 [id number] Rc Pheresis As-3 Unit 310 [id number] Other 200 Output: Urine 521 645 370 Stool 3 1 3 Other: Voiding Method Indwelling Catheter Indwelling Catheter Indwelling Catheter # Bowel Movements 1 1 ABP, PAP, CO, CI - Last Documented Arterial Blood Pressure 91/50 - Exam Physical Exam: Revealed a 66-year-old female, intubated, sedated, endotracheal tube is intact, on mechanical ventilation, vent settings were adjusted today. HEENT:[Neck is supple.] [No neck masses.] [No thyromegaly.] [No JVD.] Endotracheal tube which is a size 7.0 is intact. Orogastric tube is also intact. Chest: [Crackles at the bases, no rhonchi, no wheezes] Cardiac Exam: [Normal S1 and S2, no S3 gallop, no murmur.] Abdomen: [Obese, Soft, nontender, no megaly, no rebound, no guarding, normal bowel sounds.] Extremities: [No clubbing, no edema, no cyanosis. Positive right above-knee amputation noted] Neurological Exam: Cannot be assessed - Labs CBC & Chem 7: 05/23/16 04:19 05/23/16 04:19 Labs: Abnormal Lab Results - Last 24 Hours (Table) 05/22/16 05/22/16 05/22/16 Range/Units 16:58 17:16 18:17 WBC 29.8 H* (3.8-10.6) k/uL RBC 2.89 L (3.80-5.40) m/uL Hgb 8.5 L (11.4-16.0) gm/dL Hct 27.4 L (34.0-46.0) % MCHC (31.0-37.0) g/dL RDW (11.5-15.5) % Plt Count 148 L (150-450) k/uL Neutrophils # (Manual) 22.6 H (1.3-7.7) k/uL Monocytes # (Manual) 1.5 H (0-1.0) k/uL Nucleated RBCs 1 H (0-0) /100 WBC PT (9.0-12.0) sec ABG pH 7.26 L (7.35-7.45) ABG pCO2 34 L (35-45) mmHg ABG pO2 (83-108) mmHg ABG HCO3 15 L (21-25) mmol/L ABG Total CO2 16 L (19-24) mmol/L ABG O2 Saturation 97.1 H (94-97) % Chloride (98-107) mmol/L Carbon Dioxide (22-30) mmol/L BUN (7-17) mg/dL Creatinine (0.52-1.04) mg/dL Glucose (74-99) mg/dL POC Glucose (mg/dL) (75-99) mg/dL Calcium (8.4-10.2) mg/dL AST (14-36) U/L Creatine Kinase 158 H (30-135) U/L Total Protein (6.3-8.2) g/dL Albumin (3.5-5.0) g/dL Crossmatch 05/22/16 05/22/16 05/22/16 Range/Units 19:03 19:55 19:55 WBC 23.6 H (3.8-10.6) k/uL RBC 1.93 L (3.80-5.40) m/uL Hgb 5.7 L* D (11.4-16.0) gm/dL Hct 18.2 L* (34.0-46.0) % MCHC (31.0-37.0) g/dL RDW (11.5-15.5) % Plt Count 98 L (150-450) k/uL Neutrophils # (Manual) 15.0 H (1.3-7.7) k/uL Monocytes # (Manual) (0-1.0) k/uL Nucleated RBCs (0-0) /100 WBC PT (9.0-12.0) sec ABG pH (7.35-7.45) ABG pCO2 (35-45) mmHg ABG pO2 (83-108) mmHg ABG HCO3 (21-25) mmol/L ABG Total CO2 (19-24) mmol/L ABG O2 Saturation (94-97) % Chloride 115 H (98-107) mmol/L Carbon Dioxide 14 L (22-30) mmol/L BUN 33 H (7-17) mg/dL Creatinine (0.52-1.04) mg/dL Glucose 130 H (74-99) mg/dL POC Glucose (mg/dL) 175 H (75-99) mg/dL Calcium 5.8 L* (8.4-10.2) mg/dL AST (14-36) U/L Creatine Kinase (30-135) U/L Total Protein (6.3-8.2) g/dL Albumin (3.5-5.0) g/dL Crossmatch 05/22/16 05/22/16 05/22/16 Range/Units 20:08 20:30 20:30 WBC (3.8-10.6) k/uL RBC (3.80-5.40) m/uL Hgb (11.4-16.0) gm/dL Hct (34.0-46.0) % MCHC (31.0-37.0) g/dL RDW (11.5-15.5) % Plt Count (150-450) k/uL Neutrophils # (Manual) (1.3-7.7) k/uL Monocytes # (Manual) (0-1.0) k/uL Nucleated RBCs (0-0) /100 WBC PT (9.0-12.0) sec ABG pH (7.35-7.45) ABG pCO2 (35-45) mmHg ABG pO2 (83-108) mmHg ABG HCO3 (21-25) mmol/L ABG Total CO2 (19-24) mmol/L ABG O2 Saturation (94-97) % Chloride 117 H (98-107) mmol/L Carbon Dioxide 15 L (22-30) mmol/L BUN 33 H (7-17) mg/dL Creatinine 1.10 H (0.52-1.04) mg/dL Glucose 126 H (74-99) mg/dL POC Glucose (mg/dL) 125 H (75-99) mg/dL Calcium 6.1 L* (8.4-10.2) mg/dL AST (14-36) U/L Creatine Kinase (30-135) U/L Total Protein (6.3-8.2) g/dL Albumin (3.5-5.0) g/dL Crossmatch See Detail 05/22/16 05/22/16 05/23/16 Range/Units 20:30 23:11 04:19 WBC 31.4 H* 24.9 H (3.8-10.6) k/uL RBC 2.25 L 3.50 L (3.80-5.40) m/uL Hgb 6.6 L* 10.0 L D (11.4-16.0) gm/dL Hct 21.5 L 31.1 L (34.0-46.0) % MCHC 30.7 L (31.0-37.0) g/dL RDW 15.6 H (11.5-15.5) % Plt Count 128 L 84 L (150-450) k/uL Neutrophils # (Manual) 16.3 H 18.2 H (1.3-7.7) k/uL Monocytes # (Manual) 1.3 H 1.2 H (0-1.0) k/uL Nucleated RBCs (0-0) /100 WBC PT (9.0-12.0) sec ABG pH (7.35-7.45) ABG pCO2 (35-45) mmHg ABG pO2 (83-108) mmHg ABG HCO3 (21-25) mmol/L ABG Total CO2 (19-24) mmol/L ABG O2 Saturation (94-97) % Chloride (98-107) mmol/L Carbon Dioxide (22-30) mmol/L BUN (7-17) mg/dL Creatinine (0.52-1.04) mg/dL Glucose (74-99) mg/dL POC Glucose (mg/dL) 143 H (75-99) mg/dL Calcium (8.4-10.2) mg/dL AST (14-36) U/L Creatine Kinase (30-135) U/L Total Protein (6.3-8.2) g/dL Albumin (3.5-5.0) g/dL Crossmatch 05/23/16 05/23/16 05/23/16 Range/Units 04:19 04:19 04:49 WBC (3.8-10.6) k/uL RBC (3.80-5.40) m/uL Hgb (11.4-16.0) gm/dL Hct (34.0-46.0) % MCHC (31.0-37.0) g/dL RDW (11.5-15.5) % Plt Count (150-450) k/uL Neutrophils # (Manual) (1.3-7.7) k/uL Monocytes # (Manual) (0-1.0) k/uL Nucleated RBCs (0-0) /100 WBC PT 13.4 H (9.0-12.0) sec ABG pH (7.35-7.45) ABG pCO2 (35-45) mmHg ABG pO2 (83-108) mmHg ABG HCO3 (21-25) mmol/L ABG Total CO2 (19-24) mmol/L ABG O2 Saturation (94-97) % Chloride 116 H (98-107) mmol/L Carbon Dioxide 16 L (22-30) mmol/L BUN 35 H (7-17) mg/dL Creatinine (0.52-1.04) mg/dL Glucose 164 H (74-99) mg/dL POC Glucose (mg/dL) 153 H (75-99) mg/dL Calcium 6.6 L (8.4-10.2) mg/dL AST 55 H (14-36) U/L Creatine Kinase (30-135) U/L Total Protein 4.7 L (6.3-8.2) g/dL Albumin 1.9 L (3.5-5.0) g/dL Crossmatch 05/23/16 05/23/16 Range/Units 07:38 12:37 WBC (3.8-10.6) k/uL RBC (3.80-5.40) m/uL Hgb (11.4-16.0) gm/dL Hct (34.0-46.0) % MCHC (31.0-37.0) g/dL RDW (11.5-15.5) % Plt Count (150-450) k/uL Neutrophils # (Manual) (1.3-7.7) k/uL Monocytes # (Manual) (0-1.0) k/uL Nucleated RBCs (0-0) /100 WBC PT (9.0-12.0) sec ABG pH (7.35-7.45) ABG pCO2 27 L (35-45) mmHg ABG pO2 73 L (83-108) mmHg ABG HCO3 16 L (21-25) mmol/L ABG Total CO2 17 L (19-24) mmol/L ABG O2 Saturation (94-97) % Chloride (98-107) mmol/L Carbon Dioxide (22-30) mmol/L BUN (7-17) mg/dL Creatinine (0.52-1.04) mg/dL Glucose (74-99) mg/dL POC Glucose (mg/dL) 138 H (75-99) mg/dL Calcium (8.4-10.2) mg/dL AST (14-36) U/L Creatine Kinase (30-135) U/L Total Protein (6.3-8.2) g/dL Albumin (3.5-5.0) g/dL Crossmatch Microbiology - Last 24 Hours (Table) 05/22/16 09:10 Blood Culture Gram Stain - Preliminary Blood 05/22/16 09:10 Blood Culture - Preliminary Blood 05/22/16 11:55 Gram Stain - Preliminary Sputum Sputum Culture - Preliminary Hair albicans 05/22/16 09:01 Blood Culture - Preliminary Blood No Growth after 24 hours 05/22/16 15:05 Catheter Tip Culture - Preliminary Catheter Tip 05/22/16 09:00 Urine Culture - Preliminary Urine,Catheterized 05/17/16 13:00 Fungal Culture - Preliminary Bronchial Washings - Right Hair glabrata Hair albicans Assessment and Plan Plan: Acute septic shock secondary to extensive pneumonia/MRSA pneumonia. On 05/22/2016, patient had a worsening clinical status, hence she required placement back on high FiO2, Nimbex, and central line was changed , left radial arterial line was also placed. Patient will be kept on the same antibiotics as per infectious disease on the case, and overall prognosis is getting poorer and poorer on a daily basis. Overnight, the patient developed a picture of malignant hyperthermia syndrome. I felt it was most likely secondary to Nimbex. Patient required megadoses of vasopressin and levo fed, we had significant difficulty controlling her temperature, but that improved with dantrolene and stopping Nimbex. On 05/23/2016, patient seems to be recovering from what seemed to be a picture of acute malignant hyperthermia syndrome which was felt to be most likely secondary to Nimbex. Hence no further muscle blockers will be used, and the patient received dantrolene yesterday. Patient remains on 10 g of levo fed but she is off vasopressin and she seems to be a bit clinically more stable compared to last night. 3 acute hyperkalemia, recovered 4 morbid obesity 5 multiple [employer] infarcts maintained on anticoagulation on outpatient basis 6 moderate degree of aortic stenosis, preserved LV function 7 hypertension, history of 8 hyperlipidemia history of 9 diabetes mellitus 10 above-knee amputation of the right lower extremity 11 reflux 12 hepatitis C viral infection 13 chronic back pain on narcotics 14 previous history of lower GI bleed 15 possible positive catheter related sepsis, however the final culture on the central line which was removed yesterday is still pending. The line was already changed to a On 05/22/2016. Recommendation: Continue present supportive care measures including antibiotics , ventilatory support, pressors if needed, nutritional support, GI and DVT prophylaxis, daily neurological assessment off propofol, assessment of secretions in the endotracheal tube, patient is clearly not ready for any weaning trials at this point. Critical care time is 40 minutes . Time with Patient: Greater than 30
[2016-05-23] MEDS: NOREPINEPHRINE 16 MG in SODIUM CHLORIDE 0.9% 250 ML IV SCH ×2 (14:04→21:15)
[2016-05-23] MEDS ORDERED: VANCOMYCIN TROUGH DUE 1 EACH MISC MISCELLANE ONE (16:00)
[2016-05-23 16:12] LABS: Anion Gap 10 mmol/L; Blood Urea Nitrogen 36 mg/dL (7-17); Calcium 7.2 mg/dL (8.4-10.2); Carbon Dioxide 18 mmol/L (22-30); Chloride 115 mmol/L (98-107); Glucose 153 mg/dL (74-99); Non-African American GFR(MDRD) >60 (>60 ml/min/1.73 sqM); Potassium 4.1 mmol/L (3.5-5.1); Sodium 143 mmol/L (137-145)
[2016-05-23] MEDS ORDERED: Magnesium Replacement Protocol 1 EACH MISC MISCELLANE PRN (17:25)
[2016-05-23] MEDS: DILTIAZEM 125 MG in SODIUM CHLORIDE 0.9% 100 ML IV SCH (18:05)
[2016-05-23] MEDS: MAGNESIUM SULFATE-D5W PMX 1 GM in DEXTROSE/WATER 1 100ML.BAG IVPB SCH ×2 (18:08→19:43)
[2016-05-23 18:17] LABS: Glucose,Whole Blood 136 mg/dL (75-99)
[2016-05-23] MEDS: VANCOMYCIN 1,250 MG in SODIUM CHLORIDE 0.9% 250 ML IVPB SCH (18:21)
--- NOTE | 2016-05-23 18:22 | PN ---
Shobha Perez is a 66-year-old female who has respiratory failure. She remains intubated. She had episode of paroxysmal atrial fibrillation. She remains intubated at this time. She is tolerating her feeding. Hemodynamically, she is more stable. She has no evidence of ventricular tachycardia. Her urine output has been stable. She has diarrhea and she is being evaluated for possible C. difficile infection. She continues to be at this time on aspirin, Lipitor 40 mg daily, Lovenox subcu, furosemide, levothyroxine, magnesium, metoprolol 25 mg twice a day, vancomycin. PHYSICAL EXAMINATION: Blood pressure 107/50 with a heart rate 100s, he is in sinus. LUNGS: With decreased breath sounds anteriorly. HEART: Regular rate and rhythm. S1, S2, no S3, with a systolic murmur. ABDOMEN: Soft, obese, nontender. EXTREMITIES: Status post amputation on the right side, +1 edema on the left side. Lab data revealed hemoglobin of 10, BUN and creatinine 35 and 0.9. Potassium 4.4, NT-proBNP 52,800. IMPRESSION: 1. Shock, probably septic. 2. Respiratory failure. 3. Morbid obesity. 4. Status post amputation on the right side. 5. Hypertension. 6. Hyperlipidemia. 7. Diabetes mellitus. 8. Diarrhea work-up in progress. RECOMMENDATION: Patient had an echocardiogram during this admission that revealed a preserved systolic function. The elevation of NT-proBNP most likely reflecting diastolic dysfunction heart failure. Will continue on the supportive care. Follow her heart rate and blood pressure. If her blood pressure is stable, then I will increase the dose of her beta sarina. Patient is not a candidate for weaning and extubation as of yet. She had an episode of atrial fibrillation in the past but continued to be in sinus mechanism at this point with frequent PACs and will continue to follow closely with that.
--- NOTE | 2016-05-23 19:09 | P.PN ---
Subjective Principal diagnosis: Respiratory failure 66-year-old woman with multiple medical troubles including chronic debility is a resident of [facility]. Presents to Hospital with evidence of respiratory failure requiring intubation sedation mechanical ventilation. She remained in the ICU for multiple days. She continues to have ongoing difficulties with fever. Apparently today there was concerns for a neuroleptic malignant syndrome because of some medications. She's been treated with some dantrolene is now doing considerably better. Her vasopressor requirements have improved significantly since yesterday. And the staff is quite impressed that she is feeling better. She's having steady and diarrhea. Stool for C. diff including by toxin PCR is negative. She however has positive blood cultures and further evaluation was requested. Objective - Vital Signs Vital signs: Vital Signs Temp 98.7 F 05/23/16 16:00 Pulse 184 H 05/23/16 18:00 Resp 29 H 05/23/16 18:00 BP 119/50 05/23/16 12:00 Pulse Ox 97 05/23/16 18:00 Intake & Output 05/23/16 05/23/16 05/24/16 06:59 18:59 06:59 Intake Total 3212.640 2457.107 Output Total 646 1144 Balance 2566.640 1313.107 Weight 106.3 kg 106.3 kg Intake: IV 365.0 330 Piperacillin-Tazobactam 3 25.0 .375 gm In Dextrose/Water 1 50ml.bag @ 12.5 mls/hr IVPB Q8HR [facility] Rx#: [id number] Sodium Chloride 0.9% 1, 290 230 000 ml @ 20 mls/hr IV . Q24H [facility] Rx#:[id number] Valproate Sodium 500 mg 50 100 In Sodium Chloride 0.9% 50 ml @ 50 mls/hr IVPB Q8HR [facility] Rx#:[id number] Intake, IV Titration 1489.427 6258.107 Amount ACETAMINOPHEN IV (For NPO 800 100 ) 1,000 mg In Empty Bag 1 bag @ 400 mls/hr IVPB Q6H [facility] Rx#:[id number] Dextrose 5% in Water 1, 425 750 000 ml @ 100 mls/hr IV . [id number] [facility] with Sodium Bicarb (1 Meq/ml) 150 ml Rx#:[id number] Norepinephrine 16 mg In 326.564 123.480 Sodium Chloride 0.9% 250 ml @ Titrate IV .Q0M [facility] Rx#:[id number] Piperacillin-Tazobactam 3 50 50.0 .375 gm In Dextrose/Water 1 50ml.bag @ 12.5 mls/hr IVPB Q8HR [facility] Rx#: [id number] Propofol 50 ml As IV .STK 150.3 [facility] Rx#:[id number] Propofol 500 mg In Empty 226.076 43.327 Bag 1 bag @ Titrate IV . Q0M [facility] Rx#:[id number] Sodium Chloride 0.9% 1, 100 60 000 ml @ 20 mls/hr IV . Q24H [facility] Rx#:[id number] Oral 200 Tube Feeding 300 300 Blood Product 620 Rc Pheresis 2 As3 Unit 310 [id number] Rc Pheresis As-3 Unit 310 [id number] Other 350 Output: Urine 645 1140 Stool 1 4 Other: Voiding Method Indwelling Catheter Indwelling Catheter # Bowel Movements 1 ABP, PAP, CO, CI - Last Documented Arterial Blood Pressure 70/41 - Exam Obese 66-year-old woman intubated sedated and mechanically ventilated comfortable HEENT: Anicteric conjunctiva are pink and moist nasal mucosa grossly intact without significant lesions, there is no thrush. Neck: The neck is supple without significant lymphadenopathy or thyromegaly. Lungs: Symmetrical air entry is noted with basilar crackles Heart: Irregular with an audible S1 and S2 no S3 without S4 2/6 systolic murmur over the left sternal border is noted. Abdomen: Positive bowel sounds soft and nontender without palpable masses or organomegaly. There was no guarding or rebound. Extremities: The upper extremities have excellent pulses they are symmetric, no significant petechiae or telangiectasia. No splinter hemorrhages were noted. Prior [id number] amputation to the right. Left leg without acute abnormality. Neuro: Sedated. - Labs CBC & Chem 7: 05/23/16 04:19 05/23/16 15:41 Labs: Abnormal Lab Results - Last 24 Hours (Table) 05/22/16 05/22/16 05/22/16 Range/Units 19:03 19:55 19:55 WBC 23.6 H (3.8-10.6) k/uL RBC 1.93 L (3.80-5.40) m/uL Hgb 5.7 L* D (11.4-16.0) gm/dL Hct 18.2 L* (34.0-46.0) % MCHC (31.0-37.0) g/dL RDW (11.5-15.5) % Plt Count 98 L (150-450) k/uL Neutrophils # (Manual) 15.0 H (1.3-7.7) k/uL Monocytes # (Manual) (0-1.0) k/uL PT (9.0-12.0) sec ABG pCO2 (35-45) mmHg ABG pO2 (83-108) mmHg ABG HCO3 (21-25) mmol/L ABG Total CO2 (19-24) mmol/L Chloride 115 H (98-107) mmol/L Carbon Dioxide 14 L (22-30) mmol/L BUN 33 H (7-17) mg/dL Creatinine (0.52-1.04) mg/dL Glucose 130 H (74-99) mg/dL POC Glucose (mg/dL) 175 H (75-99) mg/dL Calcium 5.8 L* (8.4-10.2) mg/dL AST (14-36) U/L Total Protein (6.3-8.2) g/dL Albumin (3.5-5.0) g/dL Crossmatch 05/22/16 05/22/16 05/22/16 Range/Units 20:08 20:30 20:30 WBC (3.8-10.6) k/uL RBC (3.80-5.40) m/uL Hgb (11.4-16.0) gm/dL Hct (34.0-46.0) % MCHC (31.0-37.0) g/dL RDW (11.5-15.5) % Plt Count (150-450) k/uL Neutrophils # (Manual) (1.3-7.7) k/uL Monocytes # (Manual) (0-1.0) k/uL PT (9.0-12.0) sec ABG pCO2 (35-45) mmHg ABG pO2 (83-108) mmHg ABG HCO3 (21-25) mmol/L ABG Total CO2 (19-24) mmol/L Chloride 117 H (98-107) mmol/L Carbon Dioxide 15 L (22-30) mmol/L BUN 33 H (7-17) mg/dL Creatinine 1.10 H (0.52-1.04) mg/dL Glucose 126 H (74-99) mg/dL POC Glucose (mg/dL) 125 H (75-99) mg/dL Calcium 6.1 L* (8.4-10.2) mg/dL AST (14-36) U/L Total Protein (6.3-8.2) g/dL Albumin (3.5-5.0) g/dL Crossmatch See Detail 05/22/16 05/22/16 05/23/16 Range/Units 20:30 23:11 04:19 WBC 31.4 H* 24.9 H (3.8-10.6) k/uL RBC 2.25 L 3.50 L (3.80-5.40) m/uL Hgb 6.6 L* 10.0 L D (11.4-16.0) gm/dL Hct 21.5 L 31.1 L (34.0-46.0) % MCHC 30.7 L (31.0-37.0) g/dL RDW 15.6 H (11.5-15.5) % Plt Count 128 L 84 L (150-450) k/uL Neutrophils # (Manual) 16.3 H 18.2 H (1.3-7.7) k/uL Monocytes # (Manual) 1.3 H 1.2 H (0-1.0) k/uL PT (9.0-12.0) sec ABG pCO2 (35-45) mmHg ABG pO2 (83-108) mmHg ABG HCO3 (21-25) mmol/L ABG Total CO2 (19-24) mmol/L Chloride (98-107) mmol/L Carbon Dioxide (22-30) mmol/L BUN (7-17) mg/dL Creatinine (0.52-1.04) mg/dL Glucose (74-99) mg/dL POC Glucose (mg/dL) 143 H (75-99) mg/dL Calcium (8.4-10.2) mg/dL AST (14-36) U/L Total Protein (6.3-8.2) g/dL Albumin (3.5-5.0) g/dL Crossmatch 05/23/16 05/23/16 05/23/16 Range/Units 04:19 04:19 04:49 WBC (3.8-10.6) k/uL RBC (3.80-5.40) m/uL Hgb (11.4-16.0) gm/dL Hct (34.0-46.0) % MCHC (31.0-37.0) g/dL RDW (11.5-15.5) % Plt Count (150-450) k/uL Neutrophils # (Manual) (1.3-7.7) k/uL Monocytes # (Manual) (0-1.0) k/uL PT 13.4 H (9.0-12.0) sec ABG pCO2 (35-45) mmHg ABG pO2 (83-108) mmHg ABG HCO3 (21-25) mmol/L ABG Total CO2 (19-24) mmol/L Chloride 116 H (98-107) mmol/L Carbon Dioxide 16 L (22-30) mmol/L BUN 35 H (7-17) mg/dL Creatinine (0.52-1.04) mg/dL Glucose 164 H (74-99) mg/dL POC Glucose (mg/dL) 153 H (75-99) mg/dL Calcium 6.6 L (8.4-10.2) mg/dL AST 55 H (14-36) U/L Total Protein 4.7 L (6.3-8.2) g/dL Albumin 1.9 L (3.5-5.0) g/dL Crossmatch 05/23/16 05/23/16 05/23/16 Range/Units 07:38 12:37 15:41 WBC (3.8-10.6) k/uL RBC (3.80-5.40) m/uL Hgb (11.4-16.0) gm/dL Hct (34.0-46.0) % MCHC (31.0-37.0) g/dL RDW (11.5-15.5) % Plt Count (150-450) k/uL Neutrophils # (Manual) (1.3-7.7) k/uL Monocytes # (Manual) (0-1.0) k/uL PT (9.0-12.0) sec ABG pCO2 27 L (35-45) mmHg ABG pO2 73 L (83-108) mmHg ABG HCO3 16 L (21-25) mmol/L ABG Total CO2 17 L (19-24) mmol/L Chloride 115 H (98-107) mmol/L Carbon Dioxide 18 L (22-30) mmol/L BUN 36 H (7-17) mg/dL Creatinine (0.52-1.04) mg/dL Glucose 153 H (74-99) mg/dL POC Glucose (mg/dL) 138 H (75-99) mg/dL Calcium 7.2 L (8.4-10.2) mg/dL AST (14-36) U/L Total Protein (6.3-8.2) g/dL Albumin (3.5-5.0) g/dL Crossmatch 05/23/16 Range/Units 18:15 WBC (3.8-10.6) k/uL RBC (3.80-5.40) m/uL Hgb (11.4-16.0) gm/dL Hct (34.0-46.0) % MCHC (31.0-37.0) g/dL RDW (11.5-15.5) % Plt Count (150-450) k/uL Neutrophils # (Manual) (1.3-7.7) k/uL Monocytes # (Manual) (0-1.0) k/uL PT (9.0-12.0) sec ABG pCO2 (35-45) mmHg ABG pO2 (83-108) mmHg ABG HCO3 (21-25) mmol/L ABG Total CO2 (19-24) mmol/L Chloride (98-107) mmol/L Carbon Dioxide (22-30) mmol/L BUN (7-17) mg/dL Creatinine (0.52-1.04) mg/dL Glucose (74-99) mg/dL POC Glucose (mg/dL) 136 H (75-99) mg/dL Calcium (8.4-10.2) mg/dL AST (14-36) U/L Total Protein (6.3-8.2) g/dL Albumin (3.5-5.0) g/dL Crossmatch Microbiology - Last 24 Hours (Table) 05/22/16 09:10 Blood Culture Gram Stain - Preliminary Blood 05/22/16 09:00 Urine Culture - Final Urine,Catheterized 05/22/16 09:10 Blood Culture - Preliminary Blood 05/22/16 11:55 Gram Stain - Preliminary Sputum Sputum Culture - Preliminary Jolene albicans 05/22/16 09:01 Blood Culture - Preliminary Blood No Growth after 24 hours 05/22/16 15:05 Catheter Tip Culture - Preliminary Catheter Tip 05/17/16 13:00 Fungal Culture - Preliminary Bronchial Washings - Right Jolene glabrata Jolene albicans Laboratory Results WBC 24.9 k/uL (3.8-10.6) H 05/23/16 04:19 RBC 3.50 m/uL (3.80-5.40) L 05/23/16 04:19 Hgb 10.0 gm/dL (11.4-16.0) L D 05/23/16 04:19 Hct 31.1 % (34.0-46.0) L 05/23/16 04:19 MCV 88.8 fL (80.0-100.0) D 05/23/16 04:19 MCH 28.6 pg (25.0-35.0) 05/23/16 04:19 MCHC 32.1 g/dL (31.0-37.0) 05/23/16 04:19 RDW 15.6 % (11.5-15.5) H 05/23/16 04:19 Plt Count 84 k/uL (150-450) L 05/23/16 04:19 Neutrophils % 72 % 05/21/16 04:28 Neutrophils % (Manual) 54.0 % 05/23/16 04:19 Band Neutrophils % 19.0 % 05/23/16 04:19 Lymphocytes % 14 % 05/21/16 04:28 Lymphocytes % (Manual) 13.0 % 05/23/16 04:19 Monocytes % 8 % 05/21/16 04:28 Monocytes % (Manual) 5.0 % 05/23/16 04:19 Eosinophils % 4 % 05/21/16 04:28 Eosinophils % (Manual) 1.0 % 05/23/16 04:19 Basophils % 0 % 05/21/16 04:28 Metamyelocytes % 5.0 % 05/23/16 04:19 Myelocytes % 3.0 % 05/23/16 04:19 Promyelocytes % 2.0 % 05/22/16 20:30 Blast Cells % 1.0 05/22/16 20:30 Neutrophils # 3.5 k/uL (1.3-7.7) 05/21/16 04:28 Neutrophils # (Manual) 18.2 k/uL (1.3-7.7) H 05/23/16 04:19 Lymphocytes # 0.7 k/uL (1.0-4.8) L 05/21/16 04:28 Lymphocytes # (Manual) 3.2 k/uL (1.0-4.8) 05/23/16 04:19 Monocytes # 0.4 k/uL (0-1.0) 05/21/16 04:28 Monocytes # (Manual) 1.2 k/uL (0-1.0) H 05/23/16 04:19 Eosinophils # 0.2 k/uL (0-0.7) 05/21/16 04:28 Eosinophils # (Manual) 0.2 k/uL (0-0.7) 05/23/16 04:19 Basophils # 0.0 k/uL (0-0.2) 05/21/16 04:28 Nucleated RBCs 0 /100 WBC (0-0) 05/23/16 04:19 Manual Slide Review Performed 05/23/16 04:19 Toxic Granulation Present 05/23/16 04:19 Large Platelets Present 05/17/16 05:37 Polychromasia Present 05/22/16 19:55 Hypochromasia Slight 05/23/16 04:19 Poikilocytosis Slight 05/23/16 04:19 Poikilocytosis (manual Present 05/22/16 04:00 Anisocytosis (manual) Present 05/22/16 04:00 PT 13.4 sec (9.0-12.0) H 05/23/16 04:19 INR 1.4 (<1.1) 05/23/16 04:19 APTT 27.1 sec (22.0-30.0) 05/23/16 04:19 D-Dimer 0.83 mg/L FEU (<0.60) H 05/16/16 10:22 Sample Site [place]UG[place] 05/23/16 07:38 ABG pH 7.40 (7.35-7.45) 05/23/16 07:38 ABG pCO2 27 mmHg (35-45) L 05/23/16 07:38 ABG pO2 73 mmHg (83-108) L 05/23/16 07:38 ABG HCO3 16 mmol/L (21-25) L 05/23/16 07:38 ABG Total CO2 17 mmol/L (19-24) L 05/23/16 07:38 ABG O2 Saturation 94.8 % (94-97) 05/23/16 07:38 ABG Base Excess -7.8 mmol/L 05/23/16 07:38 VBG pH 7.29 (7.31-7.41) L 05/16/16 09:30 VBG pCO2 54 mmHg (37-51) H 05/16/16 09:30 VBG HCO3 25 mmol/L (24-28) 05/16/16 09:30 FiO2 60 % 05/23/16 07:38 Sodium 143 mmol/L (137-145) 05/23/16 15:41 Potassium 4.1 mmol/L (3.5-5.1) 05/23/16 15:41 Chloride 115 mmol/L (98-107) H 05/23/16 15:41 Carbon Dioxide 18 mmol/L (22-30) L 05/23/16 15:41 Anion Gap 10 mmol/L 05/23/16 15:41 BUN 36 mg/dL (7-17) H 05/23/16 15:41 Creatinine 0.90 mg/dL (0.52-1.04) 05/23/16 15:41 Est GFR (MDRD) Af Amer >60 (>60 ml/min/1.73 sqM) 05/23/16 15:41 Est GFR (MDRD) Non-Af >60 (>60 ml/min/1.73 sqM) 05/23/16 15:41 Glucose 153 mg/dL (74-99) H 05/23/16 15:41 POC Glucose (mg/dL) 136 mg/dL (75-99) H 05/23/16 18:15 POC Glu Risk Consultant ID Froilan Daniels 05/23/16 18:[address] Glu mg/dL 114 mg/dL 05/16/16 04:25 Hemoglobin A1c 5.6 % (4.2-6.1) 05/16/16 04:25 Plasma Lactic Acid Anshul 1.4 mmol/L (0.7-2.0) 05/22/16 08:05 Calcium 7.2 mg/dL (8.4-10.2) L 05/23/16 15:41 Ionized Calcium Rick 4.5 mg/dL (4.5-5.3) 05/22/16 20:30 Phosphorus 3.8 mg/dL (2.5-4.5) 05/23/16 04:19 Magnesium 2.0 mg/dL (1.6-2.3) 05/23/16 15:41 Total Bilirubin 0.7 mg/dL (0.2-1.3) 05/23/16 04:19 AST 55 U/L (14-36) H 05/23/16 04:19 ALT 32 U/L (9-52) 05/23/16 04:19 Alkaline Phosphatase 53 U/L (38-126) 05/23/16 04:19 Ammonia 12 umol/L (<30) 05/18/16 09:50 Lactate Dehydrogenase 439 U/L (313-618) 05/16/16 01:03 Creatine Kinase 158 U/L (30-135) H 05/22/16 17:16 Total Creatine Kinase 161 U/L (30-135) H 05/15/16 19:15 CK-MB (CK-2) 3.6 ng/mL (0.0-2.4) H* 05/15/16 19:15 CK-MB (CK-2) Rel Index 2.2 05/15/16 19:15 Troponin I <0.012 ng/mL (0.000-0.034) 05/16/16 01:20 NT-Pro-B Natriuret Pep 74045 pg/mL 05/23/16 04:19 Total Protein 4.7 g/dL (6.3-8.2) L 05/23/16 04:19 Albumin 1.9 g/dL (3.5-5.0) L 05/23/16 04:19 Triglycerides 214 mg/dL (<150) H 05/16/16 08:45 Cholesterol 104 mg/dL (<200) 05/16/16 08:45 LDL Cholesterol, Calc 35 mg/dL (0-99) 05/16/16 08:45 HDL Cholesterol 26 mg/dL (40-60) L 05/16/16 08:45 Homocysteine 4.47 umol/L (4.00-14.00) 05/16/16 14:24 Cortisol 10 ug/dL 05/16/16 14:13 Urine Color Yellow 05/22/16 09:00 Urine Appearance Clear (Clear) 05/22/16 09:00 Urine pH 5.5 (5.0-8.0) 05/22/16 09:00 Ur Specific [place] 1.021 (1.001-1.035) 05/22/16 09:00 Urine Protein Trace (Negative) H 05/22/16 09:00 Urine Glucose (UA) Negative (Negative) 05/22/16 09:00 Urine Ketones Trace (Negative) H 05/22/16 09:00 Urine Blood Negative (Negative) 05/22/16 09:00 Urine Nitrate Negative (Negative) 05/22/16 09:00 Urine Bilirubin Negative (Negative) 05/22/16 09:00 Urine Urobilinogen <2.0 mg/dL (<2.0) 05/22/16 09:00 Ur Leukocyte Esterase Negative (Negative) 05/22/16 09:00 Urine RBC 3 /hpf (0-5) 05/15/16 20:30 Urine WBC 106 /hpf (0-5) H 05/15/16 20:30 Urine WBC Clumps Many /hpf (None) H 05/15/16 20:30 Ur Squamous Epith Cells 1 /hpf (0-4) 05/15/16 20:30 Amorphous Sediment Rare /hpf (None) H 05/15/16 20:30 Urine Bacteria Many /hpf (None) H 05/15/16 20:30 Hyaline Casts 6 /lpf (0-2) H 05/15/16 20:30 Urine Eosinophils 0 % 05/16/16 14:00 Fluid Source Bronchial Wash 05/17/16 13:00 Fluid Color Red 05/17/16 13:00 Fluid Appearance Bloody 05/17/16 13:00 Fluid RBC 213827 /uL 05/17/16 13:00 Fluid Nucleated Cells 1200 /uL 05/17/16 13:00 Fluid Polynuclear WBCs 97 % 05/17/16 13:00 Fluid Mononuclear WBCs 3 % 05/17/16 13:00 Vancomycin Trough 15.4 ug/mL 05/23/16 15:41 Random Vancomycin 9.8 ug/mL 05/17/16 05:37 Urine Opiates Screen Detected (NotDetected) H 05/16/16 08:25 Ur Oxycodone Screen Not Detected (NotDetected) 05/16/16 08:25 Urine Methadone Screen Not Detected (NotDetected) 05/16/16 08:25 Ur Propoxyphene Screen Not Detected (NotDetected) 05/16/16 08:25 Ur Barbiturates Screen Not Detected (NotDetected) 05/16/16 08:25 U Tricyclic Antidepress Not Detected (NotDetected) 05/16/16 08:25 Ur Phencyclidine Scrn Not Detected (NotDetected) 05/16/16 08:25 Ur Amphetamines Screen Not Detected (NotDetected) 05/16/16 08:25 U Methamphetamines Scrn Not Detected (NotDetected) 05/16/16 08:25 U Benzodiazepines Scrn Detected (NotDetected) H 05/16/16 08:25 Urine Cocaine Screen Not Detected (NotDetected) 05/16/16 08:25 U Marijuana (THC) Screen Not Detected (NotDetected) 05/16/16 08:25 C. difficile (EIA) Intrp Negative (Negative) 05/23/16 10:40 C. difficile Tox (PCR) Not Detected (Not Detectd) 05/22/16 08:35 Hepatitis C Viral RNA DETECTED IU/mL (Not detected) H 05/19/16 04:25 HCV RNA Qual (PCR) Cancelled 05/19/16 04:25 Hepatitis C RNA Quant 4,844,596 IU/mL (<12) H 05/19/16 04:25 HCV RNA PCR log IUs/ml 6.69 (<1.08) H 05/19/16 04:25 Influenza Type A RNA Not Detected (Not Detectd) 05/22/16 15:00 Influenza Type B (PCR) Not Detected (Not Detectd) 05/22/16 15:00 Virus Source See Below 05/17/16 13:00 Viral Test See Below 05/17/16 13:00 Virus Analysis Interp See Below 05/17/16 13:00 Blood Type O Positive 05/22/16 20:30 Blood Type Recheck No 05/22/16 20:30 Antibody Screen NEGATIVE 05/22/16 20:30 Crossmatch See Detail 05/22/16 20:30 Spec Expiration Date 05/25/2016 - 0 05/22/16 20:30 Microbiology 05/22/16 09:10 Blood Blood Culture Gram Stain - Preliminary 05/22/16 09:00 Urine,Catheterized Urine Culture - Final 05/22/16 09:10 Blood Blood Culture - Preliminary 05/22/16 11:55 Sputum Gram Stain - Preliminary 05/22/16 11:55 Sputum Sputum Culture - Preliminary Jolene albicans 05/22/16 09:01 Blood Blood Culture - Preliminary No Growth after 24 hours 05/22/16 15:05 Catheter Tip Catheter Tip Culture - Preliminary 05/17/16 13:00 Bronchial Washings - Right Fungal Culture - Preliminary Jolene glabrata Jolene albicans 05/16/16 04:23 Blood Blood Culture - Final No Growth after 144 hours 05/17/16 13:00 Bronchial Washings - Right Gram Stain - Final 05/17/16 13:00 Bronchial Washings - Right Bronchial Washings Culture - Final Methicillin resist S. aureus Jolene albicans 05/16/16 03:45 Sputum Gram Stain - Final 05/16/16 03:45 Sputum Sputum Culture - Final Methicillin resist S. aureus 05/15/16 20:30 Urine,Catheterized Urine Culture - Final Assessment and Plan (1) Severe sepsis with septic shock Narrative/Plan: 66-year-old presented to hospital with altered mental status. Is it a very stormy course. At high-grade fever and thought to have evidence of a neuroleptic malignant syndrome. After some dental in therapy she's now improved. She is having less requirements for vasopressors as well as her ventilator settings. There is evidence of a potential infection from her left groin IV site. Positive blood cultures are noted. Right groin has new IV access and a. They were not able to pass a subclavian line. It is time she is improving from her septic shock. Sputum has evidence of MRSA. As well as those blood cultures. Given her ongoing difficulties with alter antibiotic therapy from vancomycin since TOI is 2 to Ceftaroline. No other pathogens are seen. Status: Acute
[2016-05-23] MEDS: FAMOTIDINE 20 MG/2 ML VIAL IV SCH (21:01)
[2016-05-23] MEDS: CEFTAROLINE FOSAMIL 600 MG in SODIUM CHLORIDE 0.9% 250 ML IVPB SCH (21:01)
[2016-05-23] MEDS: ATORVASTATIN 40 MG TAB PO SCH (21:01)
--- NOTE | 2016-05-23 21:57 | PN ---
SUBJECTIVE: A 66-year-old white female who remains on a ventilator at this time. Pulmonary and cardiology and infectious disease notes all appreciated. She was restarted back on Zosyn 2 days ago. She spiked a fever of 103 yesterday. She was treated for malignant hyperthermia syndrome with ( ) which apparently stabilized her. She received 2 units of blood due to severe anemia, unclear etiology, possibly, metabolic at this time. Art line was replaced by Dr. Henderson. Right femoral center line and left radial artery line was placed. Nimbex was discontinued causing hyperthermia syndrome. C. dif screen is negative. UA is unremarkable. White count 14.1. Hemoglobin is 9.6. Zyprexa discontinued for possible ( ) of neuroleptic malignant syndrome even though the patient has been on this for years, vasopressors has been discontinued. Norepinephrine has been cut down from 60 mcg/min to 10 mcg per minute. Chest x-ray showed interstitial fluid. BNP was 54,000. The patient was started, was given IV Lasix for diuresis today. She is on broad-spectrum antibiotics, vancomycin and Zosyn. Temperature 98.6 currently, pulse is hundred to 116, respiratory rate 20 to 35, blood pressure is 119/50. Pulse ox 96%. CARDIOVASCULAR: S1, S2. No S3. No murmurs. ABDOMEN: Soft, nontender. Normal bowel sounds. Positive right above knee amputation. NEUROLOGIC: Unable to be assessed. PSYCHIATRY: Unable to be assessed. HEENT: NECK: Supple. No neck masses. No thyromegaly. LABORATORY DATA: White count 24.9, hemoglobin is 10.0,platelet count 72229, white count down from 29.8 to 14. ASSESSMENT: 1. Acute ( ) hyperthermia improving. 2. Renal failure, improving. 3. Hypertension improving on less vasopressors. 4. Severe anemia, hemoglobin more stable around 10. 5. Acute hyperkalemia, recovered. 6. Morbid obesity. 7. Multiple PAIN COORDINATOR infarcts. 8. Moderate degree of aortic stenosis. 9. Hypertension. 10. Dyslipidemia. 11. Diabetes mellitus. 12. Above knee amputation. 13. Gastroesophageal reflux disease. 14. Hepatitis C virus. 15. Chronic back pain. 16. History of lower gastrointestinal bleed. 17. Possible catheter related sepsis. Continue with current treatment. ICU time: 30 minutes.
[2016-05-24] MEDS: VALPROATE SODIUM 500 MG in SODIUM CHLORIDE 0.9% 50 ML IVPB SCH ×3 (00:44→15:42)
[2016-05-24] MEDS: SODIUM CHLORIDE 5% OPHTH DROPS 15 ML BTL BOTH EYES SCH ×4 (00:45→18:57)
[2016-05-24] MEDS: INSULIN LISPRO (humaLOG) 300 UNIT/3 ML VIAL SQ SCH ×4 (00:49→18:53)
[2016-05-24 00:51] LABS: Glucose,Whole Blood 138 mg/dL (75-99)
[2016-05-24] MEDS: PROPOFOL 500 MG in EMPTY BAG 1 BAG IV SCH ×7 (01:16→21:03)
[2016-05-24] MEDS: IPRATROPIUM-ALBUTEROL 3 ML NEB INHALATION SCH ×7 (01:18→22:56)
[2016-05-24] MEDS: ACETAMINOPHEN TAB 325 MG TAB PO PRN (01:32)
[2016-05-24] MEDS: SODIUM CHLORIDE 0.9% 99 ML with VASOPRESSIN 20 UNIT IV SCH ×4 (02:29→15:25)
[2016-05-24 05:27] LABS: Anisocytosis Slight; Aty Lym Flag Slight; CH 29.3; CHCM 33.7; HCT 29.7 % (34.0-46.0); HDW 3.71; HGB 10.2 gm/dL (11.4-16.0); Immature Gran Flag Marked; MCH 30.1 pg (25.0-35.0); MCHC 34.3 g/dL (31.0-37.0); MCV 87.6 fL (80.0-100.0); Mean Platelet Volume 7.6; Poikilocytosis Slight; RBC 3.39 m/uL (3.80-5.40); RDW 16.5 % (11.5-15.5); WBC (Perox) 35.87
[2016-05-24 05:46] LABS: Anion Gap 12 mmol/L; Blood Urea Nitrogen 36 mg/dL (7-17); Calcium 7.2 mg/dL (8.4-10.2); Carbon Dioxide 19 mmol/L (22-30); Chloride 113 mmol/L (98-107); Digoxin 0.7 ng/mL; Glucose 138 mg/dL (74-99); Magnesium 2.3 mg/dL (1.6-2.3); Non-African American GFR(MDRD) 50 (>60 ml/min/1.73 sqM); Potassium 3.5 mmol/L (3.5-5.1); Sodium 144 mmol/L (137-145)
[2016-05-24] MEDS ORDERED: Potassium Replacement Protocol 1 EACH MISC MISCELLANE PRN (05:52)
[2016-05-24 06:05] LABS: Glucose,Whole Blood 149 mg/dL (75-99)
[2016-05-24] MEDS: LEVOTHYROXINE 100 MCG TAB PO SCH (06:07)
[2016-05-24] MEDS: POTASSIUM CHLORIDE ORAL LIQUID 40 MEQ/30 ML CUP NG-TUBE SCH ×2 (06:42→07:06)
[2016-05-24] MEDS: BUDESONIDE 0.5 MG/2 ML NEBU INHALATION SCH ×2 (07:45→19:08)
[2016-05-24 08:06] LABS: Add Differential Manual Differential
[2016-05-24] MEDS: ENOXAPARIN 30 MG/0.3 ML SYRINGE SQ SCH (08:07)
[2016-05-24] MEDS: CHLORHEXIDINE GLUCONATE 15 ML CUP MUCOUS MEM SCH ×2 (08:08→21:17)
[2016-05-24] MEDS: CHOLECALCIFEROL 1,000 UNIT TAB PO SCH (08:08)
[2016-05-24] MEDS: GABAPENTIN 100 MG CAP PO SCH ×2 (08:09→21:17)
[2016-05-24] MEDS: SERTRALINE 100 MG TAB PO SCH (08:09)
[2016-05-24] MEDS: ASPIRIN 325 MG TAB PO SCH (08:09)
[2016-05-24] MEDS: CALCIUM CARB-VIT D 500MG-200UN 1 EACH TAB PO SCH ×2 (08:09→17:30)
[2016-05-24] MEDS: METOPROLOL TARTRATE 25 MG TAB PO SCH ×2 (08:09→21:17)
[2016-05-24 08:10] LABS: Band Neutrophils % 7.5 %; Nucleated Red Blood Cells 1 /100 WBC (0-0); Promyelocytes % 0.5 %; Total Cells Counted 200
[2016-05-24] MEDS: CHOLESTYRAMINE (WITH SUGAR) 4 GM PACKET OG-TUBE SCH ×2 (08:10→21:17)
[2016-05-24] MEDS: FAMOTIDINE 20 MG/2 ML VIAL IV SCH ×2 (08:10→21:17)
[2016-05-24 08:11] LABS: Manual Review Performed; WBC 34.2 k/uL (3.8-10.6)
[2016-05-24 08:13] LABS: Toxic Granulation Present
[2016-05-24 08:37] LABS: ABG PCO2 24 mmHg (35-45); ABG PH 7.48 (7.35-7.45); ABG PO2 73 mmHg (83-108)
[2016-05-24 08:38] LABS: ABG Base Excess -5.4 mmol/L; ABG HCO3 18 mmol/L (21-25); ABG TCO2 18 mmol/L (19-24)
[2016-05-24] MEDS: CEFTAROLINE FOSAMIL 600 MG in SODIUM CHLORIDE 0.9% 250 ML IVPB SCH ×2 (08:57→21:19)
--- NOTE | 2016-05-24 09:33 | XR ---
EXAMINATION TYPE: XR chest 1V portable DATE OF EXAM: 05/24/2016 9:18 AM Comparison: 05/23/2016 Clinical History: 66-year-old female with pneumonia Findings: ET tube remains in place. NG tube courses below the diaphragm. Limited rotated exam towards the right . This alters normal cardiac mediastinal contours. There are continued perihilar densities, patchy re trocardiac opacity, and [id number] right pleural effusion with opacities throughout the right mid and lower lung. Overall appearance is unchanged. Impression: Overall stable exam with right greater than left airspace disease and small to moderate right pleural effusion. Correlate for CHF versus multifocal pneumonia.
[2016-05-24] MEDS: HYDROmorphone 1 MG/ML 1 ML SYRINGE IVP PRN ×2 (09:59→13:09)
[2016-05-24] MEDS: NYSTATIN 100,000 UNIT/GM POWD 15 GM TOPICAL SCH ×2 (10:37→21:17)
[2016-05-24] MEDS ORDERED: FLUCONAZOLE IN NACL,ISO-OSM 100 MG in SALINE 1 50ML.BAG IVPB SCH (11:00)
[2016-05-24] MEDS ORDERED: POTASSIUM CHLORIDE ORAL LIQUID 40 MEQ/30 ML CUP NG-TUBE SCH (11:00)
[2016-05-24 11:18] LABS: Glucose,Whole Blood 151 mg/dL (75-99)
--- NOTE | 2016-05-24 13:57 | P.PN ---
Subjective Principal diagnosis: Acute respiratory failure and toxic metabolic encephalopathy This is a 66-year-old female patient, [facility] resident who resides at [facility], who came in yesterday to the emergency department with altered mental status and immediately she was identified to be in acute kidney injury. This is an acute renal failure with hyperkalemia. At the same time the patient was found to be hypotensive in shock. The patient was started on IV fluids a total of 4 L of IV fluid was given to her in the emergency department. She was treated for her hyperkalemia. Subsequently she got moved to the intensive care unit where the patient arrived hypotensive and shock state. She was started on pressors. She was started on norepinephrine infusion and at one point the dose as high as 50 mcg/m. The patient also had a dialysis catheter inserted and she was given a session of dialysis for acute hyperkalemia by nephrology. Note that the dialysis was successful and the patient had a drop in her potassium level which is essentially normalized. Note that his same time, the patient was intubated and placed on a mechanical ventilator. Chest x-ray from early this morning shows adequate positioning of the ET tube. There is cardiomegaly. No evidence of pneumonia. The urine is abnormal and there is evidence of urine checked infection pain noted the patient has had multiple UTIs in the past with quinolone resistant E. coli and previous history of Pseudomonas urine checked infection. Going back to the history, this patient has a very calm. Medical history. 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 The patient was in the hospital approximately in December 2015 and she was found to have multiple infarcts in her brain and the possibility of a embolism/ embolic phenomena was raised. Note that the MRI of the brain indicated non- acute vascular insult in the right lateral occipital lobes as well as a high right frontal lobe infarct and the high left parietal lobe infarct. The patient had evidence of subacute stroke involving the occipital lobe on the right. The patient was investigated further including a JOSE that showed moderate degree of aortic stenosis with a valve area of 1.2 cm. She was also found to have left anterior occurred artery stenosis estimated between 50-69%. The patient was discharged home on anticoagulation and she was taken Eliquis. The CAT scan of the brain that was done during this current admission shows no acute abnormalities. The patient is currently intubated on a mechanical ventilator. She is sedated. The pressor doses of been gradually weaned off. Attempts to insert an art line catheter was unsuccessful. On 05/17/2016 the patient is being seen in follow-up. She remains intubated on mechanical ventilator. She remains on an assist-control mode of ventilation at the rate of 24, tidal volume of 500, FiO2 of 70% and PEEP of 5. The blood gases from this morning show a pH of 7.39 with a pCO2 of 25 and a pO2 of 90. Chest x-ray shows a extensive consolidation of the right lung typical of an underlying pneumonia. At the same time the patient is producing copious amount of rest or secretions which are being suctioned out. She is still pressor dependent. She was started on vasopressin physiologic dose of 0.03 units per minute and the patient was also on norepinephrine infusion at 12 mics. Note that the pressor dose has been drop significantly compared to yesterday. She received an additional 2 L bolus and she has been resuscitated with more than 6 L of fluid since she came in to the ICU. She is producing adequate amount of urine output. She required one session of dialysis and the creatinine is down to 1.6. As far as infectious causes, I strongly suspected there is a severe pneumonia developing in the right lung. The patient is on a combination of Zosyn and Levaquin and she was given a dose of vancomycin. Urine culture was also sent and the results are still pending. Underlying urine checked infections also suspected is unaffected the patient has had multiple UTIs in the past with E. coli and Pseudomonas. The patient is also known to have valvular heart disease with moderate degree of aortic stenosis. Repeat CAT scan of the brain was done and the findings are essentially stable with an old infarct visualized. She remains critically ill. Dialysis catheter is still present in the right IJ and that can be removed per nephrology. Albumin levels on today's at 1.9. On 05/18/2016 the patient is being seen in follow-up. The patient is doing better. He is hemodynamically stable. She was taken off the the norepinephrine infusion and a vasopressin physiologic dose will be also discontinued. The patient is sedated on the prevent and she is calm and comfortable. She remains on a mechanical ventilator and assist-control mode rate of 24, tidal volume 500 FiO2 of 50% and PEEP of 5. Chest x-ray shows a significant consolidation of the right lung special the right perihilar area. Morning blood gases showed a pH of 7.47 with a pCO2 of 26 and pO2 of 81. The patient is producing adequate amount of urine output. In fact the patient was aggressively resuscitated IV fluids and she has developed some third spacing. IV fluids were cut down to KVO and urine output is more than 50 mL an hour. Renal function is stable with a creatinine of 1.29. Neurologically, the patient will be given a sedation holiday and underlying mental status will be checked. EEG of the brain was done and the results are still pending. CAT scan of the brain was done and showed no acute abnormalities and the findings are essentially chronic CVA. The carotid Doppler was also done and showed a 70 % stenosis in the left internal carotid artery. On 05/19/2016, patient remains on mechanical ventilation, however she is requiring about 3.3 g of norepinephrine. To maintain an adequate blood pressure. Patient has been off sedation earlier today, and she is very slow to respond and wake up. She is definitely not quite ready for weaning, as her ABG remains marginal. Patient remains on assist control of 24, tidal volume of 500 , FiO2 of 50%, and PEEP of 5. Chest x-ray continues to show significant airspace disease involving mostly the right perihilar area. I also suspect bilateral pleural effusions. Hence the patient may need less IV fluid, and more diuresis. ABG today showed a pO2 of 79 pCO2 of 24 pH of 7.44. BUN is 45 creatinine is 1.30 On 05/20/2016, patient remains on mechanical ventilation, chest x-ray is showing slight improvement, and ABG seems to be improved hence I cut down her FiO2 to 40%, and cut down the assist control rate to 20 and stent of 24. Patient will be given a sedation holiday in the next hour and we'll assess the patient could be given a weaning trial if possible. That all dependent on her overall mental status once the patient is off propofol. ABG today showed a pO2 of 123 pCO2 of 30 pH of 7.45. Hemoglobin is a bit low at 7.2, however if it drops any further, we'll consider blood transfusion. Patient is diuresing well with Lasix, and I believe the pleural effusions noted yesterday seem to be improving bilaterally. Reevaluated on 05/21/2016, patient is practically about the same. Remains on mechanical ventilation, vent settings are about the same, FiO2 remains at 40%, PEEP is at 5, tidal volume is 500, assist control is 20. Flow rates at 80 L/m adjusted to I:E ratio. Patient was given another sedation holiday trial today, but still her mental status remains extremely poor, and nowhere patient was noted to wake up and follow any instructions. Shortly after I evaluated the patient, I was notified about the patient becoming hypotensive hence patient will be given fluid boluses, and we'll restart norepinephrine if needed. ABG this morning showed a pO2 of 73 pCO2 of 27 pH of 7.50. Renal profile continues to improve sodium is improved today, hemoglobin is 8.0 and WBC count is 4.9. Chest x-ray continues to show significant airspace disease involving the right perihilar area and left lower lobe area. Her effusions are a bit improved after diuresis. Patient was reevaluated today on 05/22/2016, patient developed significant pulmonary distress earlier today, she was also hypotensive, spiked a temp as high as 103, and she required to be placed on Nimbex. Patient desaturated significantly, and her chest x-ray was relatively about the same compared to previous x-rays in the last few days. I suspected that we may be dealing with catheter sepsis, hence I decided to change her central line, and a new line was placed in the right groin the left groin line will be removed. Attempts were made to place a right IJ and right subclavian central lines, but these attempts have failed. But I was able to place a right femoral central line, and a left radial arterial line. In the meantime the patient was placed on Nimbex, and I do not plan to discontinue Nimbex today. Her FiO2 was increased initially to 100 %, and we will titrate down to keep the saturations in the low 90s. Her C. difficile screening was negative. Her urinalysis was noted to be a relatively unremarkable. WBC count is 14.1 hemoglobin is 9.6. ABG earlier this morning showed a pO2 of 59 pCO2 of 25 and pH of 7.46. Her bronchial washings were positive for MRSA, hence the patient remains on vancomycin and Zosyn mental status could not be assessed today, and no sedation holiday could be given today. No spontaneous breathing trials were even attempted today. Patient was reevaluated today on 05/23/2016, apparently the patient had an extensive ta clinical course overnight. Yesterday in the afternoon, patient continued to have significantly elevated temperature with temp as high as 103, and the temperature could not be brought down by any measures. In addition to this, patient developed hypotension, sinus tachycardia, significant hemodynamic instability requiring megadoses of norepinephrine and vasopressin. I strongly felt at that point that we are dealing with a malignant hyperthermia syndrome. Hence I recommended stopping Nimbex, and I have recommended dantrolene which was given IV push. Patient was given fluid boluses, and I have also discontinued Zyprexa since the possibility of neuroleptic malignant syndrome is very much similar to malignant hyperthermia syndrome, and the treatment is basically about the same. Indeed the patient responded well after dantrolene was given, patient became more hemodynamically stable we were able to discontinue vasopressin, and the dose of norepinephrine came down from 60 mcg/m to 10 mcg/m at this point. And we plan to cut it down further. Chest x-ray is showing evidence of interstitial edema, hence the patient will be diuresed today because I gave her significant amount of fluid boluses yesterday. And I will cut down on the IV fluid today. As a matter of fact the patient will be diuresed. The culture from the central line which was removed yesterday is pending. And now the patient has a new central line in the right groin. Her blood cultures are negative so far. And her washings from bronchoscopy showed hair and MRSA. Infectious disease is on the case. Screening for C. diff was negative, another screening sample was sent. Reevaluated on 05/24/2015, patient continues to be more hemodynamically stable over the last 48 hours. She had an episode of hemodynamic instability persistent fever, and tachycardia, and I strongly felt that this was a malignant hyperthermia syndrome not neuroleptic malignant syndrome. Although the treatment for both is the same. The malignant hyperthermia syndrome is secondary to Nimbex, however the neuroleptic malignant syndrome would've been secondary to most likely Zyprexa. At any rate both medications were discontinued including Nimbex and Zyprexa. And the patient did receive dantrolene. Blood cultures again are positive for MRSA, and antibiotics were changed to ceftaroline fosamil 600 mg every 12 hours. Vancomycin was discontinued. Norepinephrine is for backup, but presently she is off norepinephrine. Urine output seems to be appropriate. Chest x-ray continues to show significant airspace disease and possible moderate right pleural effusion. Patient is responding well to diuretics. Nutrition-olivia the patient remains on nutritional support via enteral feeding. Objective - Vital Signs Vital signs: Vital Signs Temp 100.1 F H 05/24/16 12:00 Pulse 115 H 05/24/16 13:00 Resp 28 H 05/24/16 13:00 BP 119/50 05/23/16 12:00 Pulse Ox 98 05/24/16 13:00 Intake & Output 05/23/16 05/24/16 05/24/16 18:59 06:59 18:59 Intake Total 2707.107 2619.803 1046.143 Output Total 1144 926 210 Balance 8693.526 7643.803 836.143 Weight 106.3 kg 114.5 kg Intake: IV 330 360 470 Dextrose 5% in Water 1, 50 300 000 ml @ 75 mls/hr IV . [id number] ONE with Sodium Bicarb (1 Meq/ml) 150 ml Rx#:[id number] Sodium Chloride 0.9% 1, 230 260 120 000 ml @ 20 mls/hr IV . Q24H [facility] Rx#:[id number] Valproate Sodium 500 mg 100 50 50 In Sodium Chloride 0.9% 50 ml @ 50 mls/hr IVPB Q8HR [facility] Rx#:[id number] Intake, IV Titration 2835.798 6062.803 76.143 Amount ACETAMINOPHEN IV (For NPO 100 ) 1,000 mg In Empty Bag 1 bag @ 400 mls/hr IVPB Q6H [facility] Rx#:[id number] Ceftaroline Fosamil 600 250 mg In Sodium Chloride 0.9 % 250 ml @ 250 mls/hr IVPB Q12HR [facility] Rx#: [id number] Dextrose 5% in Water 1, 750 600 000 ml @ 100 mls/hr IV . [id number] [facility] with Sodium Bicarb (1 Meq/ml) 150 ml Rx#:[id number] Diltiazem 125 mg In 5 Sodium Chloride 0.9% 100 ml @ 5 MG/HR 5 mls/hr IV .Q24H [facility] Rx#:[id number] Magnesium Sulfate-D5w Pmx 200 1 gm In Dextrose/Water 1 100ml.bag @ 100 mls/hr IVPB Q1H [facility] Rx#: [id number] Norepinephrine 16 mg In 123.480 210.331 76.143 Sodium Chloride 0.9% 250 ml @ Titrate IV .Q0M [facility] Rx#:[id number] Piperacillin-Tazobactam 3 50.0 12.5 .375 gm In Dextrose/Water 1 50ml.bag @ 12.5 mls/hr IVPB Q8HR [facility] Rx#: [id number] Propofol 50 ml As IV .STK 150.3 -[facility] Rx#:[id number] Propofol 500 mg In Empty 93.327 181.972 Bag 1 bag @ Titrate IV . Q0M [facility] Rx#:[id number] Sodium Chloride 0.9% 1, 60 40 000 ml @ 20 mls/hr IV . Q24H [facility] Rx#:[id number] Oral 200 100 Tube Feeding 300 360 200 Other 550 400 200 Output: Urine 1140 671 210 Stool 4 255 Other: Voiding Method Indwelling Catheter Indwelling Catheter Indwelling Catheter # Bowel Movements 1 ABP, PAP, CO, CI - Last Documented Arterial Blood Pressure 102/47 - Exam Physical Exam: Revealed a 66-year-old female, intubated, sedated, endotracheal tube is intact, on mechanical ventilation, vent settings were adjusted today. HEENT:[Neck is supple.] [No neck masses.] [No thyromegaly.] [No JVD.] Endotracheal tube which is a size 7.0 is intact. Orogastric tube is also intact. Chest: [Crackles at the bases, no rhonchi, no wheezes] Cardiac Exam: [Normal S1 and S2, no S3 gallop, no murmur.] Abdomen: [Obese, Soft, nontender, no megaly, no rebound, no guarding, normal bowel sounds.] Extremities: [No clubbing, no edema, no cyanosis. Positive right above-knee amputation noted] Neurological Exam: Cannot be assessed - Labs CBC & Chem 7: 05/24/16 05:15 05/24/16 09:40 Labs: Abnormal Lab Results - Last 24 Hours (Table) 05/23/16 05/23/16 05/24/16 Range/Units 15:41 18:15 00:49 WBC (3.8-10.6) k/uL RBC (3.80-5.40) m/uL Hgb (11.4-16.0) gm/dL Hct (34.0-46.0) % RDW (11.5-15.5) % Neutrophils # (Manual) (1.3-7.7) k/uL Monocytes # (Manual) (0-1.0) k/uL Nucleated RBCs (0-0) /100 WBC ABG pH (7.35-7.45) ABG pCO2 (35-45) mmHg ABG pO2 (83-108) mmHg ABG HCO3 (21-25) mmol/L ABG Total CO2 (19-24) mmol/L Chloride 115 H (98-107) mmol/L Carbon Dioxide 18 L (22-30) mmol/L BUN 36 H (7-17) mg/dL Creatinine (0.52-1.04) mg/dL Glucose 153 H (74-99) mg/dL POC Glucose (mg/dL) 136 H 138 H (75-99) mg/dL Calcium 7.2 L (8.4-10.2) mg/dL 05/24/16 05/24/16 05/24/16 Range/Units 05:15 05:15 06:03 WBC 34.2 H* (3.8-10.6) k/uL RBC 3.39 L (3.80-5.40) m/uL Hgb 10.2 L (11.4-16.0) gm/dL Hct 29.7 L (34.0-46.0) % RDW 16.5 H (11.5-15.5) % Neutrophils # (Manual) 23.3 H (1.3-7.7) k/uL Monocytes # (Manual) 2.1 H (0-1.0) k/uL Nucleated RBCs 1 H (0-0) /100 WBC ABG pH (7.35-7.45) ABG pCO2 (35-45) mmHg ABG pO2 (83-108) mmHg ABG HCO3 (21-25) mmol/L ABG Total CO2 (19-24) mmol/L Chloride 113 H (98-107) mmol/L Carbon Dioxide 19 L (22-30) mmol/L BUN 36 H (7-17) mg/dL Creatinine 1.10 H (0.52-1.04) mg/dL Glucose 138 H (74-99) mg/dL POC Glucose (mg/dL) 149 H (75-99) mg/dL Calcium 7.2 L (8.4-10.2) mg/dL 05/24/16 05/24/16 Range/Units 08:28 11:15 WBC (3.8-10.6) k/uL RBC (3.80-5.40) m/uL Hgb (11.4-16.0) gm/dL Hct (34.0-46.0) % RDW (11.5-15.5) % Neutrophils # (Manual) (1.3-7.7) k/uL Monocytes # (Manual) (0-1.0) k/uL Nucleated RBCs (0-0) /100 WBC ABG pH 7.48 H (7.35-7.45) ABG pCO2 24 L (35-45) mmHg ABG pO2 73 L (83-108) mmHg ABG HCO3 18 L (21-25) mmol/L ABG Total CO2 18 L (19-24) mmol/L Chloride (98-107) mmol/L Carbon Dioxide (22-30) mmol/L BUN (7-17) mg/dL Creatinine (0.52-1.04) mg/dL Glucose (74-99) mg/dL POC Glucose (mg/dL) 151 H (75-99) mg/dL Calcium (8.4-10.2) mg/dL Microbiology - Last 24 Hours (Table) 05/22/16 09:01 Blood Culture - Preliminary Blood No Growth after 48 hours 05/22/16 09:10 Blood Culture Gram Stain - Preliminary Blood Blood Culture - Preliminary Coagulase Negative Staph 05/22/16 11:55 Gram Stain - Preliminary Sputum Sputum Culture - Preliminary Hair albicans Presumptive Staph aureus 05/22/16 09:00 Urine Culture - Final Urine,Catheterized 05/22/16 09:10 Blood Culture - Preliminary Blood Assessment and Plan Plan: Acute septic shock secondary to extensive pneumonia/MRSA pneumonia. On 05/22/2016, patient had a worsening clinical status, hence she required placement back on high FiO2, Nimbex, and central line was changed , left radial arterial line was also placed. Patient will be kept on the same antibiotics as per infectious disease on the case, and overall prognosis is getting poorer and poorer on a daily basis. Overnight, the patient developed a picture of malignant hyperthermia syndrome. I felt it was most likely secondary to Nimbex. Patient required megadoses of vasopressin and levo fed, we had significant difficulty controlling her temperature, but that improved with dantrolene and stopping Nimbex. On 05/23/2016, patient seems to be recovering from what seemed to be a picture of acute malignant hyperthermia syndrome which was felt to be most likely secondary to Nimbex. Hence no further muscle blockers will be used, and the patient received dantrolene yesterday. Patient remains on 10 g of levo fed but she is off vasopressin and she seems to be a bit clinically more stable compared to last night. On 05/24/2015, patient seems to be doing better compared to what she was 2 days ago. More hemodynamically stable, her temperature is reasonable 100.1 maximum, she is less tachycardic, and her blood pressure is normal off norepinephrine. At least for now. 3 acute hyperkalemia, recovered 4 morbid obesity 5 multiple REGULATOR TESTER infarcts maintained on anticoagulation on outpatient basis 6 moderate degree of aortic stenosis, preserved LV function 7 hypertension, history of 8 hyperlipidemia history of 9 diabetes mellitus 10 above-knee amputation of the right lower extremity 11 reflux 12 hepatitis C viral infection 13 chronic back pain on narcotics 14 previous history of lower GI bleed 15 possible positive catheter related sepsis, however the final culture on the central line which was removed yesterday is still pending. The line was already changed to a On 05/22/2016. Recommendation: Continue present supportive care measures including antibiotics , ventilatory support, pressors if needed, nutritional support, GI and DVT prophylaxis, daily neurological assessment off propofol, assessment of secretions in the endotracheal tube, patient is clearly not ready for any weaning trials at this point. Her vancomycin was changed to teflaro by infectious disease, and I believe that's appropriate. We'll continue to follow , critical care time is 35 minutes. Time with Patient: Greater than 30
[2016-05-24] MEDS: DEXTROSE 5% IN WATER 1,000 ML with SODIUM BICARB (1 MEQ/ML) 150 ML IV SCH ×3 (14:44→21:17)
[2016-05-24] MEDS: MICAFUNGIN 100 MG in SODIUM CHLORIDE 0.9% 100 ML IVPB SCH (15:16)
[2016-05-24] MEDS: SODIUM CHLORIDE 0.9% 1,000 ML IV SCH (15:17)
[2016-05-24] MEDS: NOREPINEPHRINE 16 MG in SODIUM CHLORIDE 0.9% 250 ML IV SCH ×2 (15:18→23:49)
--- NOTE | 2016-05-24 17:13 | PN ---
SUBJECTIVE: This is a 66-year-old white female who presents with acute respiratory distress, severe sepsis, septic shock. She remains on ventilator settings with norepinephrine at 18 mcg per min and unable to wean. Discussed with the nurse in ICU today. The patient is improving per their opinion. Still spiking fevers in the low 100s. Pulse rate is 111 to 116, respiratory rate 23 to 28, blood pressure 96 to 102 systolic/40s. O2 sat 98 to 100%. Mechanical ventilator. FiO2 50. LABS: ABG, chest x-rays are all reviewed. Cardiology and pulmonary and infectious disease notes all reviewed. CARDIOVASCULAR: S1, S2, tachycardiac. LUNGS: Show scattered rhonchi and wheeze, decreased breath sounds x4. HEMATOLOGIC: Shows 3+ pedal edema left leg and right leg she has above knee amputation. PSYCHIATRY: ( ) responsive on the ventilator, resting comfortably ASSESSMENT: 1. Severe sepsis septic shock. 2. Acute diastolic congestive heart failure. 3. Bilateral pneumonia. 4. Pleural effusions. 5. Tachycardia, secondary to sepsis. 6. Diastolic congestive heart failure. 7. Acute on chronic renal insufficiency improved. 8. Toxic metabolic encephalopathy possibly a line infection as lines were changed and blood cultures maybe positive. Antibiotics were changed by Dr. Soliman to d/c vancomycin and started on IV cephalosporin for better coverage. IV Diflucan was added by me as she had positive yeast in her bronchoscopy and she is still spiking fevers. 9. Diabetes mellitus. 10. Hypertension. 11. Dyslipidemia. 12. Gastroesophageal reflux disease. 13. Hepatitis C infection. 14. Moderate aortic stenosis. 15. Prior central nervous system infarcts. 16. Hyperkalemia resolved. 17. Morbid obesity. 18. Schizoaffective. PLAN: Continue broad-spectrum antibiotics, wean the ventilator as tolerated. Prognosis extremely guarded as the patient does not appear to be improving. Her white count increased to 34,000 today. She does not appear to be making headway. I will discuss the case with the family today.
--- NOTE | 2016-05-24 18:46 | PN ---
Mrs. Perez is a 66-year-old female who presented with respiratory failure, infectious process. She remains intubated, sedated, continues to have episodes of fever. She has continued to be on Levophed to maintain blood pressure control. Her urine output is acceptable. She is in atrial fibrillation and the rate is controlled. She continues to be at this time on aspirin, Lipitor 40 mg daily, IV Cardizem, metoprolol tartrate 25 mg twice a day. PHYSICAL EXAMINATION: Her blood pressure is running in the low 100s with a heart rate in the 100s. LUNGS: Clear anteriorly with decreased breath sound at the bases. HEART: Irregularly irregular. S1, S2, no S3. ABDOMEN: Obese, soft, positive bowel sounds. EXTREMITIES: Status post amputation on the right side. 1+ edema on the left side. IMPRESSION: 1. Septic shock. 2. Respiratory failure. 3. Morbid obesity. 4. Hypertension. 5. Hyperlipidemia. 6. Atrial fibrillation, paroxysmal. RECOMMENDATION: Will try to see if we can control the rate with the beta-sarina and try to stop the IV Cardizem. Unfortunately, the prognosis remains quite guarded.
[2016-05-24 18:49] LABS: Glucose,Whole Blood 153 mg/dL (75-99)
[2016-05-24] MEDS: DILTIAZEM 125 MG in SODIUM CHLORIDE 0.9% 100 ML IV SCH (18:55)
[2016-05-24] MEDS ORDERED: PROPOFOL 50 ML IV ONE ×2 (20:59→23:07)
[2016-05-24] MEDS: ATORVASTATIN 40 MG TAB PO SCH (21:17)
--- NOTE | 2016-05-24 23:25 | P.PN ---
Subjective Principal diagnosis: Respiratory failure 66-year-old woman with multiple medical troubles including chronic debility is a resident of [facility]. Presents to Hospital with evidence of respiratory failure requiring intubation sedation mechanical ventilation. She remained in the ICU for multiple days. She continues to have ongoing difficulties with fever. Apparently today there was concerns for a neuroleptic malignant syndrome because of some medications. She's been treated with some dantrolene is now doing considerably better. Her vasopressor requirements have improved significantly since yesterday. And the staff is quite impressed that she is feeling better. She's having steady and diarrhea. Stool for C. diff including by toxin PCR is negative. She however has positive blood cultures With ongoing concerns pneumonia as well as a possibility of fungal infection. Fluconazole was added. Patient seems comfortable at this time. Objective - Vital Signs Vital signs: Vital Signs Temp 98 F 05/24/16 16:00 Pulse 80 05/24/16 23:10 Resp 26 H 05/24/16 19:00 BP 119/50 05/23/16 12:00 Pulse Ox 99 05/24/16 19:00 Intake & Output 05/24/16 05/24/16 05/25/16 06:59 18:59 06:59 Intake Total 2619.803 1693.150 89.573 Output Total 926 405 Balance 9997.292 4938.150 89.573 Weight 114.5 kg Intake: IV 360 640 Dextrose 5% in Water 1, 50 350 000 ml @ 75 mls/hr IV . [id number] ONE with Sodium Bicarb (1 Meq/ml) 150 ml Rx#:[id number] Sodium Chloride 0.9% 1, 260 240 000 ml @ 20 mls/hr IV . Q24H [facility] Rx#:[id number] Valproate Sodium 500 mg 50 50 In Sodium Chloride 0.9% 50 ml @ 50 mls/hr IVPB Q8HR [facility] Rx#:[id number] Intake, IV Titration 1499.803 493.150 49.573 Amount Ceftaroline Fosamil 600 250 mg In Sodium Chloride 0.9 % 250 ml @ 250 mls/hr IVPB Q12HR [facility] Rx#: [id number] Dextrose 5% in Water 1, 600 150 000 ml @ 100 mls/hr IV . [id number] [facility] with Sodium Bicarb (1 Meq/ml) 150 ml Rx#:[id number] Diltiazem 125 mg In 5 124.167 Sodium Chloride 0.9% 100 ml @ 5 MG/HR 5 mls/hr IV .Q24H [facility] Rx#:[id number] Magnesium Sulfate-D5w Pmx 200 1 gm In Dextrose/Water 1 100ml.bag @ 100 mls/hr IVPB Q1H [facility] Rx#: [id number] Norepinephrine 16 mg In 210.331 118.983 Sodium Chloride 0.9% 250 ml @ Titrate IV .Q0M [facility] Rx#:[id number] Piperacillin-Tazobactam 3 12.5 .375 gm In Dextrose/Water 1 50ml.bag @ 12.5 mls/hr IVPB Q8HR [facility] Rx#: [id number] Propofol 500 mg In Empty 181.972 100 49.573 Bag 1 bag @ Titrate IV . Q0M [facility] Rx#:[id number] Sodium Chloride 0.9% 1, 40 000 ml @ 20 mls/hr IV . Q24H [facility] Rx#:[id number] Oral 100 Tube Feeding 360 260 40 Other 400 200 Output: Urine 671 405 Stool 255 Other: Voiding Method Indwelling Catheter Indwelling Catheter ABP, PAP, CO, CI - Last Documented Arterial Blood Pressure 111/50 - Exam Obese 66-year-old woman intubated sedated and mechanically ventilated comfortable HEENT: Anicteric conjunctiva are pink and moist nasal mucosa grossly intact without significant lesions, there is no thrush. Neck: The neck is supple without significant lymphadenopathy or thyromegaly. Lungs: Symmetrical air entry is noted with basilar crackles Heart: Irregular with an audible S1 and S2 no S3 without S4 2/6 systolic murmur over the left sternal border is noted. Abdomen: Positive bowel sounds soft and nontender without palpable masses or organomegaly. There was no guarding or rebound. Extremities: The upper extremities have excellent pulses they are symmetric, no significant petechiae or telangiectasia. No splinter hemorrhages were noted. 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 Left leg without acute abnormality. Neuro: Sedated. - Labs CBC & Chem 7: 05/24/16 05:15 05/24/16 09:40 Labs: Abnormal Lab Results - Last 24 Hours (Table) 05/24/16 05/24/16 05/24/16 Range/Units 00:49 05:15 05:15 WBC 34.2 H* (3.8-10.6) k/uL RBC 3.39 L (3.80-5.40) m/uL Hgb 10.2 L (11.4-16.0) gm/dL Hct 29.7 L (34.0-46.0) % RDW 16.5 H (11.5-15.5) % Neutrophils # (Manual) 23.3 H (1.3-7.7) k/uL Monocytes # (Manual) 2.1 H (0-1.0) k/uL Nucleated RBCs 1 H (0-0) /100 WBC ABG pH (7.35-7.45) ABG pCO2 (35-45) mmHg ABG pO2 (83-108) mmHg ABG HCO3 (21-25) mmol/L ABG Total CO2 (19-24) mmol/L Chloride 113 H (98-107) mmol/L Carbon Dioxide 19 L (22-30) mmol/L BUN 36 H (7-17) mg/dL Creatinine 1.10 H (0.52-1.04) mg/dL Glucose 138 H (74-99) mg/dL POC Glucose (mg/dL) 138 H (75-99) mg/dL Calcium 7.2 L (8.4-10.2) mg/dL 05/24/16 05/24/16 05/24/16 Range/Units 06:03 08:28 11:15 WBC (3.8-10.6) k/uL RBC (3.80-5.40) m/uL Hgb (11.4-16.0) gm/dL Hct (34.0-46.0) % RDW (11.5-15.5) % Neutrophils # (Manual) (1.3-7.7) k/uL Monocytes # (Manual) (0-1.0) k/uL Nucleated RBCs (0-0) /100 WBC ABG pH 7.48 H (7.35-7.45) ABG pCO2 24 L (35-45) mmHg ABG pO2 73 L (83-108) mmHg ABG HCO3 18 L (21-25) mmol/L ABG Total CO2 18 L (19-24) mmol/L Chloride (98-107) mmol/L Carbon Dioxide (22-30) mmol/L BUN (7-17) mg/dL Creatinine (0.52-1.04) mg/dL Glucose (74-99) mg/dL POC Glucose (mg/dL) 149 H 151 H (75-99) mg/dL Calcium (8.4-10.2) mg/dL 05/24/16 Range/Units 18:47 WBC (3.8-10.6) k/uL RBC (3.80-5.40) m/uL Hgb (11.4-16.0) gm/dL Hct (34.0-46.0) % RDW (11.5-15.5) % Neutrophils # (Manual) (1.3-7.7) k/uL Monocytes # (Manual) (0-1.0) k/uL Nucleated RBCs (0-0) /100 WBC ABG pH (7.35-7.45) ABG pCO2 (35-45) mmHg ABG pO2 (83-108) mmHg ABG HCO3 (21-25) mmol/L ABG Total CO2 (19-24) mmol/L Chloride (98-107) mmol/L Carbon Dioxide (22-30) mmol/L BUN (7-17) mg/dL Creatinine (0.52-1.04) mg/dL Glucose (74-99) mg/dL POC Glucose (mg/dL) 153 H (75-99) mg/dL Calcium (8.4-10.2) mg/dL Microbiology - Last 24 Hours (Table) 05/23/16 19:31 Blood Culture - Preliminary Blood No Growth after 24 hours 05/23/16 19:25 Blood Culture - Preliminary Blood No Growth after 24 hours 05/22/16 15:05 Catheter Tip Culture - Final Catheter Tip Coagulase Negative Staph 05/22/16 09:01 Blood Culture - Preliminary Blood No Growth after 48 hours 05/22/16 09:10 Blood Culture Gram Stain - Preliminary Blood Blood Culture - Preliminary Coagulase Negative Staph 05/22/16 11:55 Gram Stain - Preliminary Sputum Sputum Culture - Preliminary Jolene albicans Presumptive Staph aureus Laboratory Results WBC 34.2 k/uL (3.8-10.6) H* 05/24/16 05:15 RBC 3.39 m/uL (3.80-5.40) L 05/24/16 05:15 Hgb 10.2 gm/dL (11.4-16.0) L 05/24/16 05:15 Hct 29.7 % (34.0-46.0) L 05/24/16 05:15 MCV 87.6 fL (80.0-100.0) 05/24/16 05:15 MCH 30.1 pg (25.0-35.0) 05/24/16 05:15 MCHC 34.3 g/dL (31.0-37.0) 05/24/16 05:15 RDW 16.5 % (11.5-15.5) H 05/24/16 05:15 Plt Count 170 k/uL (150-450) D 05/24/16 05:15 Neutrophils % 72 % 05/21/16 04:28 Neutrophils % (Manual) 60.5 % 05/24/16 05:15 Band Neutrophils % 7.5 % 05/24/16 05:15 Lymphocytes % 14 % 05/21/16 04:28 Lymphocytes % (Manual) 11.0 % 05/24/16 05:15 Monocytes % 8 % 05/21/16 04:28 Monocytes % (Manual) 6.0 % 05/24/16 05:15 Eosinophils % 4 % 05/21/16 04:28 Eosinophils % (Manual) 0.5 % 05/24/16 05:15 Basophils % 0 % 05/21/16 04:28 Metamyelocytes % 6.0 % 05/24/16 05:15 Myelocytes % 8.0 % 05/24/16 05:15 Promyelocytes % 0.5 % 05/24/16 05:15 Blast Cells % 1.0 05/22/16 20:30 Neutrophils # 3.5 k/uL (1.3-7.7) 05/21/16 04:28 Neutrophils # (Manual) 23.3 k/uL (1.3-7.7) H 05/24/16 05:15 Lymphocytes # 0.7 k/uL (1.0-4.8) L 05/21/16 04:28 Lymphocytes # (Manual) 3.8 k/uL (1.0-4.8) 05/24/16 05:15 Monocytes # 0.4 k/uL (0-1.0) 05/21/16 04:28 Monocytes # (Manual) 2.1 k/uL (0-1.0) H 05/24/16 05:15 Eosinophils # 0.2 k/uL (0-0.7) 05/21/16 04:28 Eosinophils # (Manual) 0.2 k/uL (0-0.7) 05/24/16 05:15 Basophils # 0.0 k/uL (0-0.2) 05/21/16 04:28 Nucleated RBCs 1 /100 WBC (0-0) H 05/24/16 05:15 Manual Slide Review Performed 05/24/16 05:15 Toxic Granulation Present 05/24/16 05:15 Large Platelets Present 05/17/16 05:37 Polychromasia Present 05/22/16 19:55 Hypochromasia Slight 05/23/16 04:19 Poikilocytosis Slight 05/24/16 05:15 Poikilocytosis (manual Present 05/22/16 04:00 Anisocytosis Slight 05/24/16 05:15 Anisocytosis (manual) Present 05/22/16 04:00 PT 13.4 sec (9.0-12.0) H 05/23/16 04:19 INR 1.4 (<1.1) 05/23/16 04:19 APTT 27.1 sec (22.0-30.0) 05/23/16 04:19 D-Dimer 0.83 mg/L FEU (<0.60) H 05/16/16 10:22 Sample Site [place] 05/24/16 08:28 ABG pH 7.48 (7.35-7.45) H 05/24/16 08:28 ABG pCO2 24 mmHg (35-45) L 05/24/16 08:28 ABG pO2 73 mmHg (83-108) L 05/24/16 08:28 ABG HCO3 18 mmol/L (21-25) L 05/24/16 08:28 ABG Total CO2 18 mmol/L (19-24) L 05/24/16 08:28 ABG O2 Saturation 96.0 % (94-97) 05/24/16 08:28 ABG Base Excess -5.4 mmol/L 05/24/16 08:28 VBG pH 7.29 (7.31-7.41) L 05/16/16 09:30 VBG pCO2 54 mmHg (37-51) H 05/16/16 09:30 VBG HCO3 25 mmol/L (24-28) 05/16/16 09:30 FiO2 50 % 05/24/16 08:28 Sodium 144 mmol/L (137-145) 05/24/16 05:15 Potassium 3.9 mmol/L (3.5-5.1) 05/24/16 09:40 Chloride 113 mmol/L (98-107) H 05/24/16 05:15 Carbon Dioxide 19 mmol/L (22-30) L 05/24/16 05:15 Anion Gap 12 mmol/L 05/24/16 05:15 BUN 36 mg/dL (7-17) H 05/24/16 05:15 Creatinine 1.10 mg/dL (0.52-1.04) H 05/24/16 05:15 Est GFR (MDRD) Af Amer >60 (>60 ml/min/1.73 sqM) 05/24/16 05:15 Est GFR (MDRD) Non-Af 50 (>60 ml/min/1.73 sqM) 05/24/16 05:15 Glucose 138 mg/dL (74-99) H 05/24/16 05:15 POC Glucose (mg/dL) 153 mg/dL (75-99) H 05/24/16 18:47 POC Glu Advertising Specialist ID Antonio Fairchild 05/24/16 18:[address] Glu mg/dL 114 mg/dL 05/16/16 04:25 Hemoglobin A1c 5.6 % (4.2-6.1) 05/16/16 04:25 Plasma Lactic Acid Anshul 1.4 mmol/L (0.7-2.0) 05/22/16 08:05 Calcium 7.2 mg/dL (8.4-10.2) L 05/24/16 05:15 Ionized Calcium Rick 4.5 mg/dL (4.5-5.3) 05/22/16 20:30 Phosphorus 3.8 mg/dL (2.5-4.5) 05/23/16 04:19 Magnesium 2.3 mg/dL (1.6-2.3) 05/24/16 05:15 Total Bilirubin 0.7 mg/dL (0.2-1.3) 05/23/16 04:19 AST 55 U/L (14-36) H 05/23/16 04:19 ALT 32 U/L (9-52) 05/23/16 04:19 Alkaline Phosphatase 53 U/L (38-126) 05/23/16 04:19 Ammonia 12 umol/L (<30) 05/18/16 09:50 Lactate Dehydrogenase 439 U/L (313-618) 05/16/16 01:03 Creatine Kinase 158 U/L (30-135) H 05/22/16 17:16 Total Creatine Kinase 161 U/L (30-135) H 05/15/16 19:15 CK-MB (CK-2) 3.6 ng/mL (0.0-2.4) H* 05/15/16 19:15 CK-MB (CK-2) Rel Index 2.2 05/15/16 19:15 Troponin I <0.012 ng/mL (0.000-0.034) 05/16/16 01:20 NT-Pro-B Natriuret Pep 33322 pg/mL 05/23/16 04:19 Total Protein 4.7 g/dL (6.3-8.2) L 05/23/16 04:19 Albumin 1.9 g/dL (3.5-5.0) L 05/23/16 04:19 Triglycerides 214 mg/dL (<150) H 05/16/16 08:45 Cholesterol 104 mg/dL (<200) 05/16/16 08:45 LDL Cholesterol, Calc 35 mg/dL (0-99) 05/16/16 08:45 HDL Cholesterol 26 mg/dL (40-60) L 05/16/16 08:45 Homocysteine 4.47 umol/L (4.00-14.00) 05/16/16 14:24 Cortisol 10 ug/dL 05/16/16 14:13 Urine Color Yellow 05/22/16 09:00 Urine Appearance Clear (Clear) 05/22/16 09:00 Urine pH 5.5 (5.0-8.0) 05/22/16 09:00 Ur Specific [place] 1.021 (1.001-1.035) 05/22/16 09:00 Urine Protein Trace (Negative) H 05/22/16 09:00 Urine Glucose (UA) Negative (Negative) 05/22/16 09:00 Urine Ketones Trace (Negative) H 05/22/16 09:00 Urine Blood Negative (Negative) 05/22/16 09:00 Urine Nitrate Negative (Negative) 05/22/16 09:00 Urine Bilirubin Negative (Negative) 05/22/16 09:00 Urine Urobilinogen <2.0 mg/dL (<2.0) 05/22/16 09:00 Ur Leukocyte Esterase Negative (Negative) 05/22/16 09:00 Urine RBC 3 /hpf (0-5) 05/15/16 20:30 Urine WBC 106 /hpf (0-5) H 05/15/16 20:30 Urine WBC Clumps Many /hpf (None) H 05/15/16 20:30 Ur Squamous Epith Cells 1 /hpf (0-4) 05/15/16 20:30 Amorphous Sediment Rare /hpf (None) H 05/15/16 20:30 Urine Bacteria Many /hpf (None) H 05/15/16 20:30 Hyaline Casts 6 /lpf (0-2) H 05/15/16 20:30 Urine Eosinophils 0 % 05/16/16 14:00 Fluid Source Bronchial Wash 05/17/16 13:00 Fluid Color Red 05/17/16 13:00 Fluid Appearance Bloody 05/17/16 13:00 Fluid RBC 386689 /uL 05/17/16 13:00 Fluid Nucleated Cells 1200 /uL 05/17/16 13:00 Fluid Polynuclear WBCs 97 % 05/17/16 13:00 Fluid Mononuclear WBCs 3 % 05/17/16 13:00 Vancomycin Trough 15.4 ug/mL 05/23/16 15:41 Random Vancomycin 9.8 ug/mL 05/17/16 05:37 Digoxin 0.7 ng/mL 05/24/16 05:15 Urine Opiates Screen Detected (NotDetected) H 05/16/16 08:25 Ur Oxycodone Screen Not Detected (NotDetected) 05/16/16 08:25 Urine Methadone Screen Not Detected (NotDetected) 05/16/16 08:25 Ur Propoxyphene Screen Not Detected (NotDetected) 05/16/16 08:25 Ur Barbiturates Screen Not Detected (NotDetected) 05/16/16 08:25 U Tricyclic Antidepress Not Detected (NotDetected) 05/16/16 08:25 Ur Phencyclidine Scrn Not Detected (NotDetected) 05/16/16 08:25 Ur Amphetamines Screen Not Detected (NotDetected) 05/16/16 08:25 U Methamphetamines Scrn Not Detected (NotDetected) 05/16/16 08:25 U Benzodiazepines Scrn Detected (NotDetected) H 05/16/16 08:25 Urine Cocaine Screen Not Detected (NotDetected) 05/16/16 08:25 U Marijuana (THC) Screen Not Detected (NotDetected) 05/16/16 08:25 C. difficile (EIA) Intrp Negative (Negative) 05/23/16 10:40 C. difficile Tox (PCR) Not Detected (Not Detectd) 05/22/16 08:35 Hepatitis C Viral RNA DETECTED IU/mL (Not detected) H 05/19/16 04:25 HCV RNA Qual (PCR) Cancelled 05/19/16 04:25 Hepatitis C RNA Quant 4,844,596 IU/mL (<12) H 05/19/16 04:25 HCV RNA PCR log IUs/ml 6.69 (<1.08) H 05/19/16 04:25 Influenza Type A RNA Not Detected (Not Detectd) 05/22/16 15:00 Influenza Type B (PCR) Not Detected (Not Detectd) 05/22/16 15:00 Virus Source See Below 05/17/16 13:00 Viral Test See Below 05/17/16 13:00 Virus Analysis Interp See Below 05/17/16 13:00 Blood Type O Positive 05/22/16 20:30 Blood Type Recheck No 05/22/16 20:30 Antibody Screen NEGATIVE 05/22/16 20:30 Crossmatch See Detail 05/22/16 20:30 Spec Expiration Date 05/25/2016232905/22/16 20:30 Microbiology 05/23/16 19:31 Blood Blood Culture - Preliminary No Growth after 24 hours 05/23/16 19:25 Blood Blood Culture - Preliminary No Growth after 24 hours 05/22/16 15:05 Catheter Tip Catheter Tip Culture - Final Coagulase Negative Staph 05/22/16 09:01 Blood Blood Culture - Preliminary No Growth after 48 hours 05/22/16 09:10 Blood Blood Culture Gram Stain - Preliminary 05/22/16 09:10 Blood Blood Culture - Preliminary Coagulase Negative Staph 05/22/16 11:55 Sputum Gram Stain - Preliminary 05/22/16 11:55 Sputum Sputum Culture - Preliminary Jolene albicans Presumptive Staph aureus 05/22/16 09:00 Urine,Catheterized Urine Culture - Final 05/22/16 09:10 Blood Blood Culture - Preliminary 05/17/16 13:00 Bronchial Washings - Right Fungal Culture - Preliminary Jolene glabrata Jolene albicans 05/16/16 04:23 Blood Blood Culture - Final No Growth after 144 hours 05/17/16 13:00 Bronchial Washings - Right Gram Stain - Final 05/17/16 13:00 Bronchial Washings - Right Bronchial Washings Culture - Final Methicillin resist S. aureus Jolene albicans 05/16/16 03:45 Sputum Gram Stain - Final 05/16/16 03:45 Sputum Sputum Culture - Final Methicillin resist S. aureus 05/15/16 20:30 Urine,Catheterized Urine Culture - Final Assessment and Plan (1) Severe sepsis with septic shock Narrative/Plan: 66-year-old presented to hospital with altered mental status. Is it a very stormy course. At high-grade fever and thought to have evidence of a neuroleptic malignant syndrome. After some dental in therapy she's now improved. She is having less requirements for vasopressors as well as her ventilator settings. There is evidence of a potential infection from her left groin IV site. Positive blood cultures are noted. Right groin has new IV access and a. They were not able to pass a subclavian line. It is time she is improving from her septic shock. Sputum has evidence of MRSA. There've also been several blood cultures that were positive for gram-positive cocci. However cultures now come back positive for gram-positive cocci that is coagulase negative staph. Concern that this was all contamination given that cultures drawn at the same time are now negative also. Seems to be showing response to his Ceftaroline for the MRSA pneumonia. Was concerns to the Van that has been isolated and consequently micafungin has been added, there is evidence of Jolene glabrata which would not respond to the fluconazole that was started and now discontinued. Status: Acute
[2016-05-25] MEDS: VALPROATE SODIUM 500 MG in SODIUM CHLORIDE 0.9% 50 ML IVPB SCH ×3 (00:08→17:57)
[2016-05-25] MEDS: SODIUM CHLORIDE 5% OPHTH DROPS 15 ML BTL BOTH EYES SCH ×4 (00:08→18:00)
[2016-05-25] MEDS: INSULIN LISPRO (humaLOG) 300 UNIT/3 ML VIAL SQ SCH ×4 (00:12→18:34)
[2016-05-25 00:14] LABS: Glucose,Whole Blood 156 mg/dL (75-99)
[2016-05-25] MEDS: HYDROmorphone 1 MG/ML 1 ML SYRINGE IVP PRN ×2 (00:20→08:26)
[2016-05-25] MEDS ORDERED: PROPOFOL 50 ML IV ONE ×5 (01:10→22:43)
[2016-05-25] MEDS: SODIUM CHLORIDE 0.9% 99 ML with VASOPRESSIN 20 UNIT IV SCH ×6 (01:11→23:01)
[2016-05-25] MEDS: IPRATROPIUM-ALBUTEROL 3 ML NEB INHALATION SCH ×6 (03:11→23:30)
[2016-05-25] MEDS: LEVOTHYROXINE 100 MCG TAB PO SCH (05:53)
[2016-05-25 05:54] LABS: Glucose,Whole Blood 145 mg/dL (75-99)
[2016-05-25 06:12] LABS: ALT 216 U/L (9-52); AST 422 U/L (14-36); Alkaline Phosphatase 59 U/L (38-126); Anion Gap 9 mmol/L; Blood Urea Nitrogen 38 mg/dL (7-17); Calcium 6.8 mg/dL (8.4-10.2); Carbon Dioxide 20 mmol/L (22-30); Chloride 114 mmol/L (98-107); Glucose 157 mg/dL (74-99); Magnesium 2.2 mg/dL (1.6-2.3); Non-African American GFR(MDRD) 50 (>60 ml/min/1.73 sqM); Phosphorous 2.7 mg/dL (2.5-4.5); Potassium 3.6 mmol/L (3.5-5.1); Sodium 143 mmol/L (137-145); Total Bilirubin 0.6 mg/dL (0.2-1.3); Total Protein 5.3 g/dL (6.3-8.2)
[2016-05-25] MEDS ORDERED: POTASSIUM CHLORIDE ORAL LIQUID 40 MEQ/30 ML CUP NG-TUBE SCH ×2 (07:00→19:00)
[2016-05-25] MEDS: BUDESONIDE 0.5 MG/2 ML NEBU INHALATION SCH ×2 (07:18→19:32)
[2016-05-25 07:55] LABS: ABG Base Excess -4.4 mmol/L; ABG HCO3 19 mmol/L (21-25); ABG Oxygen Saturation 94.7 % (94-97); ABG PCO2 26 mmHg (35-45); ABG PH 7.47 (7.35-7.45); ABG PO2 67 mmHg (83-108); ABG TCO2 19 mmol/L (19-24)
[2016-05-25] MEDS: CHLORHEXIDINE GLUCONATE 15 ML CUP MUCOUS MEM SCH ×2 (08:26→21:01)
[2016-05-25] MEDS: METOPROLOL TARTRATE 25 MG TAB PO SCH ×2 (08:27→21:02)
[2016-05-25] MEDS: CHOLESTYRAMINE (WITH SUGAR) 4 GM PACKET OG-TUBE SCH ×2 (08:27→21:01)
[2016-05-25] MEDS: ENOXAPARIN 30 MG/0.3 ML SYRINGE SQ SCH (08:27)
[2016-05-25] MEDS: GABAPENTIN 100 MG CAP PO SCH ×2 (08:27→21:01)
[2016-05-25] MEDS: CALCIUM CARB-VIT D 500MG-200UN 1 EACH TAB PO SCH ×2 (08:27→16:50)
[2016-05-25] MEDS: CHOLECALCIFEROL 1,000 UNIT TAB PO SCH (08:27)
[2016-05-25] MEDS: NYSTATIN 100,000 UNIT/GM POWD 15 GM TOPICAL SCH ×2 (08:27→21:02)
[2016-05-25] MEDS: ASPIRIN 325 MG TAB PO SCH (08:27)
[2016-05-25] MEDS: FAMOTIDINE 20 MG/2 ML VIAL IV SCH ×2 (08:28→21:01)
[2016-05-25] MEDS: SERTRALINE 100 MG TAB PO SCH (08:28)
[2016-05-25 08:29] LABS: Anisocytosis Slight; CH 28.9; CHCM 32.4; HCT 27.6 % (34.0-46.0); HDW 3.57; HGB 9.2 gm/dL (11.4-16.0); Hypochromasia Slight; Immature Gran Flag Marked; MCHC 33.4 g/dL (31.0-37.0); Mean Platelet Volume 7.8; Poikilocytosis Slight; RBC 3.06 m/uL (3.80-5.40); RDW 16.8 % (11.5-15.5); WBC (Perox) 33.67
[2016-05-25 08:31] LABS: WBC 32.4 k/uL (3.8-10.6)
--- NOTE | 2016-05-25 08:42 | XR ---
EXAMINATION TYPE: XR chest 1V portable DATE OF EXAM: 05/25/2016 6:45 AM COMPARISON: Chest x-ray first of May 2016 HISTORY: Intubated, pneumonia TECHNIQUE: Single frontal view of the chest is obtained. FINDINGS: Endotracheal tube, NG tube are overlying appropriate positions, patient is rotated. No deana dent pneumothorax. Interstitium somewhat increased. There is obscured right hemidiaphragm, medial asp ect of the left hemidiaphragm, by lateral basilar increase density. IMPRESSION: Findings could represent pneumonia, correlate for possible congestive heart failure, vol ume overload, possible pleural effusion
[2016-05-25 09:06] LABS: Add Differential Manual Differential
[2016-05-25 09:12] LABS: Band Neutrophils % 11.5 %; Manual Review Performed; Nucleated Red Blood Cells 0 /100 WBC (0-0); Polychromasia Present; Total Cells Counted 200; Toxic Granulation Present
[2016-05-25] MEDS: FUROSEMIDE 10 MG/ML 4 ML VIAL IV SCH ×2 (09:59→21:01)
[2016-05-25] MEDS: CEFTAROLINE FOSAMIL 600 MG in SODIUM CHLORIDE 0.9% 250 ML IVPB SCH ×2 (09:59→21:03)
[2016-05-25 12:58] LABS: Glucose,Whole Blood 156 mg/dL (75-99)
[2016-05-25] MEDS: SODIUM CHLORIDE 0.9% 1,000 ML IV SCH (13:02)
--- NOTE | 2016-05-25 15:24 | P.PN ---
Subjective Principal diagnosis: Acute respiratory failure and toxic metabolic encephalopathy This is a 66-year-old female patient, care home resident who resides at [facility], who came in yesterday to the emergency department with altered mental status and immediately she was identified to be in acute kidney injury. This is an acute renal failure with hyperkalemia. At the same time the patient was found to be hypotensive in shock. The patient was started on IV fluids a total of 4 L of IV fluid was given to her in the emergency department. She was treated for her hyperkalemia. Subsequently she got moved to the intensive care unit where the patient arrived hypotensive and shock state. She was started on pressors. She was started on norepinephrine infusion and at one point the dose as high as 50 mcg/m. The patient also had a dialysis catheter inserted and she was given a session of dialysis for acute hyperkalemia by nephrology. Note that the dialysis was successful and the patient had a drop in her potassium level which is essentially normalized. Note that his same time, the patient was intubated and placed on a mechanical ventilator. Chest x-ray from early this morning shows adequate positioning of the ET tube. There is cardiomegaly. No evidence of pneumonia. The urine is abnormal and there is evidence of urine checked infection pain noted the patient has had multiple UTIs in the past with quinolone resistant E. coli and previous history of Pseudomonas urine checked infection. Going back to the history, this patient has a very calm. Medical history. 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 The patient was in the hospital approximately in December 2015 and she was found to have multiple infarcts in her brain and the possibility of a embolism/ embolic phenomena was raised. Note that the MRI of the brain indicated non- acute vascular insult in the right lateral occipital lobes as well as a high right frontal lobe infarct and the high left parietal lobe infarct. The patient had evidence of subacute stroke involving the occipital lobe on the right. The patient was investigated further including a JOSE that showed moderate degree of aortic stenosis with a valve area of 1.2 cm. She was also found to have left anterior occurred artery stenosis estimated between 50-69%. The patient was discharged home on anticoagulation and she was taken Eliquis. The CAT scan of the brain that was done during this current admission shows no acute abnormalities. The patient is currently intubated on a mechanical ventilator. She is sedated. The pressor doses of been gradually weaned off. Attempts to insert an art line catheter was unsuccessful. On 05/17/2016 the patient is being seen in follow-up. She remains intubated on mechanical ventilator. She remains on an assist-control mode of ventilation at the rate of 24, tidal volume of 500, FiO2 of 70% and PEEP of 5. The blood gases from this morning show a pH of 7.39 with a pCO2 of 25 and a pO2 of 90. Chest x-ray shows a extensive consolidation of the right lung typical of an underlying pneumonia. At the same time the patient is producing copious amount of rest or secretions which are being suctioned out. She is still pressor dependent. She was started on vasopressin physiologic dose of 0.03 units per minute and the patient was also on norepinephrine infusion at 12 mics. Note that the pressor dose has been drop significantly compared to yesterday. She received an additional 2 L bolus and she has been resuscitated with more than 6 L of fluid since she came in to the ICU. She is producing adequate amount of urine output. She required one session of dialysis and the creatinine is down to 1.6. As far as infectious causes, I strongly suspected there is a severe pneumonia developing in the right lung. The patient is on a combination of Zosyn and Levaquin and she was given a dose of vancomycin. Urine culture was also sent and the results are still pending. Underlying urine checked infections also suspected is unaffected the patient has had multiple UTIs in the past with E. coli and Pseudomonas. The patient is also known to have valvular heart disease with moderate degree of aortic stenosis. Repeat CAT scan of the brain was done and the findings are essentially stable with an old infarct visualized. She remains critically ill. Dialysis catheter is still present in the right IJ and that can be removed per nephrology. Albumin levels on today's at 1.9. On 05/18/2016 the patient is being seen in follow-up. The patient is doing better. He is hemodynamically stable. She was taken off the the norepinephrine infusion and a vasopressin physiologic dose will be also discontinued. The patient is sedated on the prevent and she is calm and comfortable. She remains on a mechanical ventilator and assist-control mode rate of 24, tidal volume 500 FiO2 of 50% and PEEP of 5. Chest x-ray shows a significant consolidation of the right lung special the right perihilar area. Morning blood gases showed a pH of 7.47 with a pCO2 of 26 and pO2 of 81. The patient is producing adequate amount of urine output. In fact the patient was aggressively resuscitated IV fluids and she has developed some third spacing. IV fluids were cut down to KVO and urine output is more than 50 mL an hour. Renal function is stable with a creatinine of 1.29. Neurologically, the patient will be given a sedation holiday and underlying mental status will be checked. EEG of the brain was done and the results are still pending. CAT scan of the brain was done and showed no acute abnormalities and the findings are essentially chronic CVA. The carotid Doppler was also done and showed a 70 % stenosis in the left internal carotid artery. On 05/19/2016, patient remains on mechanical ventilation, however she is requiring about 3.3 g of norepinephrine. To maintain an adequate blood pressure. Patient has been off sedation earlier today, and she is very slow to respond and wake up. She is definitely not quite ready for weaning, as her ABG remains marginal. Patient remains on assist control of 24, tidal volume of 500 , FiO2 of 50%, and PEEP of 5. Chest x-ray continues to show significant airspace disease involving mostly the right perihilar area. I also suspect bilateral pleural effusions. Hence the patient may need less IV fluid, and more diuresis. ABG today showed a pO2 of 79 pCO2 of 24 pH of 7.44. BUN is 45 creatinine is 1.30 On 05/20/2016, patient remains on mechanical ventilation, chest x-ray is showing slight improvement, and ABG seems to be improved hence I cut down her FiO2 to 40%, and cut down the assist control rate to 20 and stent of 24. Patient will be given a sedation holiday in the next hour and we'll assess the patient could be given a weaning trial if possible. That all dependent on her overall mental status once the patient is off propofol. ABG today showed a pO2 of 123 pCO2 of 30 pH of 7.45. Hemoglobin is a bit low at 7.2, however if it drops any further, we'll consider blood transfusion. Patient is diuresing well with Lasix, and I believe the pleural effusions noted yesterday seem to be improving bilaterally. Reevaluated on 05/21/2016, patient is practically about the same. Remains on mechanical ventilation, vent settings are about the same, FiO2 remains at 40%, PEEP is at 5, tidal volume is 500, assist control is 20. Flow rates at 80 L/m adjusted to I:E ratio. Patient was given another sedation holiday trial today, but still her mental status remains extremely poor, and nowhere patient was noted to wake up and follow any instructions. Shortly after I evaluated the patient, I was notified about the patient becoming hypotensive hence patient will be given fluid boluses, and we'll restart norepinephrine if needed. ABG this morning showed a pO2 of 73 pCO2 of 27 pH of 7.50. Renal profile continues to improve sodium is improved today, hemoglobin is 8.0 and WBC count is 4.9. Chest x-ray continues to show significant airspace disease involving the right perihilar area and left lower lobe area. Her effusions are a bit improved after diuresis. Patient was reevaluated today on 05/22/2016, patient developed significant pulmonary distress earlier today, she was also hypotensive, spiked a temp as high as 103, and she required to be placed on Nimbex. Patient desaturated significantly, and her chest x-ray was relatively about the same compared to previous x-rays in the last few days. I suspected that we may be dealing with catheter sepsis, hence I decided to change her central line, and a new line was placed in the right groin the left groin line will be removed. Attempts were made to place a right IJ and right subclavian central lines, but these attempts have failed. But I was able to place a right femoral central line, and a left radial arterial line. In the meantime the patient was placed on Nimbex, and I do not plan to discontinue Nimbex today. Her FiO2 was increased initially to 100 %, and we will titrate down to keep the saturations in the low 90s. Her C. difficile screening was negative. Her urinalysis was noted to be a relatively unremarkable. WBC count is 14.1 hemoglobin is 9.6. ABG earlier this morning showed a pO2 of 59 pCO2 of 25 and pH of 7.46. Her bronchial washings were positive for MRSA, hence the patient remains on vancomycin and Zosyn mental status could not be assessed today, and no sedation holiday could be given today. No spontaneous breathing trials were even attempted today. Patient was reevaluated today on 05/23/2016, apparently the patient had an extensive ta clinical course overnight. Yesterday in the afternoon, patient continued to have significantly elevated temperature with temp as high as 103, and the temperature could not be brought down by any measures. In addition to this, patient developed hypotension, sinus tachycardia, significant hemodynamic instability requiring megadoses of norepinephrine and vasopressin. I strongly felt at that point that we are dealing with a malignant hyperthermia syndrome. Hence I recommended stopping Nimbex, and I have recommended dantrolene which was given IV push. Patient was given fluid boluses, and I have also discontinued Zyprexa since the possibility of neuroleptic malignant syndrome is very much similar to malignant hyperthermia syndrome, and the treatment is basically about the same. Indeed the patient responded well after dantrolene was given, patient became more hemodynamically stable we were able to discontinue vasopressin, and the dose of norepinephrine came down from 60 mcg/m to 10 mcg/m at this point. And we plan to cut it down further. Chest x-ray is showing evidence of interstitial edema, hence the patient will be diuresed today because I gave her significant amount of fluid boluses yesterday. And I will cut down on the IV fluid today. As a matter of fact the patient will be diuresed. The culture from the central line which was removed yesterday is pending. And now the patient has a new central line in the right groin. Her blood cultures are negative so far. And her washings from bronchoscopy showed hair and MRSA. Infectious disease is on the case. Screening for C. diff was negative, another screening sample was sent. Reevaluated on 05/24/2016, patient continues to be more hemodynamically stable over the last 48 hours. She had an episode of hemodynamic instability persistent fever, and tachycardia, and I strongly felt that this was a malignant hyperthermia syndrome not neuroleptic malignant syndrome. Although the treatment for both is the same. The malignant hyperthermia syndrome is secondary to Nimbex, however the neuroleptic malignant syndrome would've been secondary to most likely Zyprexa. At any rate both medications were discontinued including Nimbex and Zyprexa. And the patient did receive dantrolene. Blood cultures again are positive for MRSA, and antibiotics were changed to ceftaroline fosamil 600 mg every 12 hours. Vancomycin was discontinued. Norepinephrine is for backup, but presently she is off norepinephrine. Urine output seems to be appropriate. Chest x-ray continues to show significant airspace disease and possible moderate right pleural effusion. Patient is responding well to diuretics. Nutrition-olivia the patient remains on nutritional support via enteral feeding. Patient was reevaluated on 05/25/2016, remains on mechanical ventilation, ventilator settings are unchanged. Patient is off norepinephrine and this was accomplished mostly by taking the patient off sedation. I plan to give the patient is sedation holiday today, and hopefully I'll be able to assess her mental status. Patient remains sedated on ventilator early this morning. And the propofol was discontinued after my evaluation. ABG today showed a pO2 of 67 pCO2 of 26 pH of 7.47. CBC showed leukocytosis with WC count of 32.4. Renal profile seems to be reasonable. However her liver enzymes/transaminases are taking a bit of a rise, we will continue to monitor those for now. They may have been related to her previous episodes of hypotension when she had the picture of malignant hyperthermia syndrome. Objective - Vital Signs Vital signs: Vital Signs Temp 100.3 F H 05/25/16 12:00 Pulse 89 05/25/16 12:00 Resp 28 H 05/25/16 12:00 BP 119/50 05/23/16 12:00 Pulse Ox 97 05/25/16 12:00 Intake & Output 05/24/16 05/25/16 05/25/16 18:59 06:59 18:59 Intake Total 0183.176 5760.964 770 Output Total 405 355 677 Balance 7560.166 9216.964 93 Weight 117.6 kg Intake: IV 640 855 650 Dextrose 5% in Water 1, 550 400 000 ml @ 100 mls/hr IV . [id number] [facility] with Sodium Bicarb (1 Meq/ml) 150 ml Rx#:[id number] Dextrose 5% in Water 1, 350 000 ml @ 75 mls/hr IV . [id number] ONE with Sodium Bicarb (1 Meq/ml) 150 ml Rx#:[id number] Diltiazem 125 mg In 55 40 Sodium Chloride 0.9% 100 ml @ 5 MG/HR 5 mls/hr IV .Q24H [facility] Rx#:[id number] Sodium Chloride 0.9% 1, 240 200 160 000 ml @ 20 mls/hr IV . Q24H [facility] Rx#:[id number] Valproate Sodium 500 mg 50 50 50 In Sodium Chloride 0.9% 50 ml @ 50 mls/hr IVPB Q8HR [facility] Rx#:[id number] Intake, IV Titration 493.150 460.964 Amount Ceftaroline Fosamil 600 250 mg In Sodium Chloride 0.9 % 250 ml @ 250 mls/hr IVPB Q12HR [facility] Rx#: [id number] Dextrose 5% in Water 1, 150 000 ml @ 100 mls/hr IV . [id number] [facility] with Sodium Bicarb (1 Meq/ml) 150 ml Rx#:[id number] Diltiazem 125 mg In 124.167 Sodium Chloride 0.9% 100 ml @ 5 MG/HR 5 mls/hr IV .Q24H [facility] Rx#:[id number] Norepinephrine 16 mg In 118.983 161.391 Sodium Chloride 0.9% 250 ml @ Titrate IV .Q0M [facility] Rx#:[id number] Propofol 500 mg In Empty 100 49.573 Bag 1 bag @ Titrate IV . Q0M [facility] Rx#:[id number] Oral 100 Tube Feeding 260 640 120 Other 200 515 Output: Urine 405 355 677 Other: Voiding Method Indwelling Catheter Indwelling Catheter Indwelling Catheter ABP, PAP, CO, CI - Last Documented Arterial Blood Pressure 116/52 - Exam Physical Exam: Revealed a 66-year-old female, intubated, sedated, endotracheal tube is intact, on mechanical ventilation, vent settings were adjusted today. HEENT:[Neck is supple.] [No neck masses.] [No thyromegaly.] [No JVD.] Endotracheal tube which is a size 7.0 is intact. Orogastric tube is also intact. Chest: [Crackles at the bases, no rhonchi, no wheezes] Cardiac Exam: [Normal S1 and S2, no S3 gallop, no murmur.] Abdomen: [Obese, Soft, nontender, no megaly, no rebound, no guarding, normal bowel sounds.] Extremities: [No clubbing, no edema, no cyanosis. Positive right above-knee amputation noted] Neurological Exam: Cannot be assessed - Labs CBC & Chem 7: 05/25/16 05:30 05/25/16 05:30 Labs: Abnormal Lab Results - Last 24 Hours (Table) 05/24/16 05/25/16 05/25/16 Range/Units 18:47 00:12 05:30 WBC (3.8-10.6) k/uL RBC (3.80-5.40) m/uL Hgb (11.4-16.0) gm/dL Hct (34.0-46.0) % RDW (11.5-15.5) % Neutrophils # (Manual) (1.3-7.7) k/uL Monocytes # (Manual) (0-1.0) k/uL ABG pH (7.35-7.45) ABG pCO2 (35-45) mmHg ABG pO2 (83-108) mmHg ABG HCO3 (21-25) mmol/L Chloride 114 H (98-107) mmol/L Carbon Dioxide 20 L (22-30) mmol/L BUN 38 H (7-17) mg/dL Creatinine 1.10 H (0.52-1.04) mg/dL Glucose 157 H (74-99) mg/dL POC Glucose (mg/dL) 153 H 156 H (75-99) mg/dL Calcium 6.8 L (8.4-10.2) mg/dL AST 422 H (14-36) U/L ALT 216 H (9-52) U/L Total Protein 5.3 L (6.3-8.2) g/dL Albumin 2.0 L (3.5-5.0) g/dL 05/25/16 05/25/16 05/25/16 Range/Units 05:30 05:52 07:46 WBC 32.4 H* (3.8-10.6) k/uL RBC 3.06 L (3.80-5.40) m/uL Hgb 9.2 L (11.4-16.0) gm/dL Hct 27.6 L (34.0-46.0) % RDW 16.8 H (11.5-15.5) % Neutrophils # (Manual) 22.4 H (1.3-7.7) k/uL Monocytes # (Manual) 2.1 H (0-1.0) k/uL ABG pH 7.47 H (7.35-7.45) ABG pCO2 26 L (35-45) mmHg ABG pO2 67 L (83-108) mmHg ABG HCO3 19 L (21-25) mmol/L Chloride (98-107) mmol/L Carbon Dioxide (22-30) mmol/L BUN (7-17) mg/dL Creatinine (0.52-1.04) mg/dL Glucose (74-99) mg/dL POC Glucose (mg/dL) 145 H (75-99) mg/dL Calcium (8.4-10.2) mg/dL AST (14-36) U/L ALT (9-52) U/L Total Protein (6.3-8.2) g/dL Albumin (3.5-5.0) g/dL 05/25/16 Range/Units 12:56 WBC (3.8-10.6) k/uL RBC (3.80-5.40) m/uL Hgb (11.4-16.0) gm/dL Hct (34.0-46.0) % RDW (11.5-15.5) % Neutrophils # (Manual) (1.3-7.7) k/uL Monocytes # (Manual) (0-1.0) k/uL ABG pH (7.35-7.45) ABG pCO2 (35-45) mmHg ABG pO2 (83-108) mmHg ABG HCO3 (21-25) mmol/L Chloride (98-107) mmol/L Carbon Dioxide (22-30) mmol/L BUN (7-17) mg/dL Creatinine (0.52-1.04) mg/dL Glucose (74-99) mg/dL POC Glucose (mg/dL) 156 H (75-99) mg/dL Calcium (8.4-10.2) mg/dL AST (14-36) U/L ALT (9-52) U/L Total Protein (6.3-8.2) g/dL Albumin (3.5-5.0) g/dL Microbiology - Last 24 Hours (Table) 05/22/16 09:01 Blood Culture - Preliminary Blood No Growth after 72 hours 05/24/16 23:19 Anaerobic Culture - Preliminary Groin 05/24/16 23:00 Wound Culture - Preliminary Groin 05/22/16 11:55 Gram Stain - Final Sputum Sputum Culture - Final Hair albicans Methicillin resist S. aureus 05/22/16 09:10 Blood Culture Gram Stain - Final Blood Blood Culture - Final Staphylococcus epidermidis Coagulase Negative Staph 05/23/16 19:31 Blood Culture - Preliminary Blood No Growth after 24 hours 05/23/16 19:25 Blood Culture - Preliminary Blood No Growth after 24 hours 05/22/16 15:05 Catheter Tip Culture - Final Catheter Tip Coagulase Negative Staph Assessment and Plan Plan: Acute septic shock secondary to extensive pneumonia/MRSA pneumonia. On 05/22/2016, patient had a worsening clinical status, hence she required placement back on high FiO2, Nimbex, and central line was changed , left radial arterial line was also placed. Patient will be kept on the same antibiotics as per infectious disease on the case, and overall prognosis is getting poorer and poorer on a daily basis. Overnight, the patient developed a picture of malignant hyperthermia syndrome. I felt it was most likely secondary to Nimbex. Patient required megadoses of vasopressin and levo fed, we had significant difficulty controlling her temperature, but that improved with dantrolene and stopping Nimbex. On 05/23/2016, patient seems to be recovering from what seemed to be a picture of acute malignant hyperthermia syndrome which was felt to be most likely secondary to Nimbex. Hence no further muscle blockers will be used, and the patient received dantrolene yesterday. Patient remains on 10 g of levo fed but she is off vasopressin and she seems to be a bit clinically more stable compared to last night. On 05/24/2016, patient seems to be doing better compared to what she was 2 days ago. More hemodynamically stable, her temperature is reasonable 100.1 maximum, she is less tachycardic, and her blood pressure is normal off norepinephrine. At least for now. On 05/25/2016. Propofol will be discontinued, and would like to assess the mental status of this patient to be able to decide in the next few days whether the patient should be scheduled for tracheostomy and PEG tube placement, or should seriously consider comfort care measures at that point. I have no idea what her mental status is like, but that needs to be at least addressed before any further decisions are made. Hopefully we can get to the point of waking up the patient and at least get some information about mental status. In the meantime the patient is off norepinephrine today again, she will be diuresed, her chest x-ray showed mostly some right-sided pleural effusion, left side is improved. Patient remains on a 50% FiO2 and PEEP of 8. Her tidal volume is 500. 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 4 morbid obesity 5 multiple [employer] infarcts maintained on anticoagulation on outpatient basis 6 moderate degree of aortic stenosis, preserved LV function 7 hypertension, history of 8 hyperlipidemia history of 9 diabetes mellitus 10 above-knee amputation of the right lower extremity 11 reflux 12 hepatitis C viral infection 13 chronic back pain on narcotics 14 previous history of lower GI bleed 15 possible positive catheter related sepsis, however the final culture on the central line which was removed yesterday is still pending. The line was already changed to a On 05/22/2016. Recommendation: Continue present supportive care measures including antibiotics , ventilatory support, pressors if needed, nutritional support, GI and DVT prophylaxis, daily neurological assessment off propofol, slight improvement noted in the secretions of the endotracheal tube, patient is clearly not ready for any weaning trials at this point. Her vancomycin was changed to teflaro by infectious disease, and I believe that's appropriate. We'll continue to follow , critical care time is 35 minutes. Time with Patient: Greater than 30
[2016-05-25 15:31] VITALS: BMI 40.6
[2016-05-25] MEDS: MICAFUNGIN 100 MG in SODIUM CHLORIDE 0.9% 100 ML IVPB SCH (16:47)
[2016-05-25] MEDS: PROPOFOL 500 MG in EMPTY BAG 1 BAG IV SCH ×2 (17:59→22:59)
[2016-05-25] MEDS: VANCOMYCIN ORAL SOLUTION 250 MG/5 ML BOTTLE OG-TUBE SCH (18:00)
[2016-05-25 18:13] LABS: Glucose,Whole Blood 136 mg/dL (75-99)
[2016-05-25] MEDS: DILTIAZEM 125 MG in SODIUM CHLORIDE 0.9% 100 ML IV SCH (18:30)
[2016-05-25] MEDS: NOREPINEPHRINE 16 MG in SODIUM CHLORIDE 0.9% 250 ML IV SCH (20:03)
[2016-05-25] MEDS: DEXTROSE 5% IN WATER 1,000 ML with SODIUM BICARB (1 MEQ/ML) 150 ML IV SCH (20:56)
[2016-05-25] MEDS: COLLAGENASE 250 UNIT/GM OINTMENT 30 GM TUBE TOPICAL SCH (20:56)
[2016-05-25] MEDS: ATORVASTATIN 40 MG TAB PO SCH (21:01)
--- NOTE | 2016-05-25 23:42 | PN ---
SUBJECTIVE: A 66-year-old white female remains on the ventilator. Discussed case with Dr. Henderson, government auditor, today. Labs were reviewed. Medications were reviewed. Patient has been weaned off her Levophed and vasopressin. Try to wake her up, cut down on the propofol, and see how she does mentally prior to doing a trach tomorrow, that is probable per pulmonology, Dr. Henderson. She remains on multiple antibiotics for line sepsis and bilateral pneumonia, toxic metabolic encephalopathy with acute renal failure, prerenal renal failure which is improved. Try to wean her vent settings. Continue on sodium bicarbonate. Continue on Lovenox, Pepcid, Lasix, Neurontin, Humalog, Accu-Chek protocol. Continue on her Synthroid and metoprolol. She has antifungal as well as multiple IV antibiotics. Nystatin powder to the groins. Waiting for further orders per infectious disease and pulmonology. Dr. Mota thinks the patient is improving. I discussed the case with the family yesterday and today, about possibly doing a tracheostomy if the patient continues improve and has signs of mental recovery as she is weaned off the sedation on the vent. ICU time of 30 minutes. Prognosis extremely guarded, but she is improved. Discussed the case with Dr. Henderson and Sultana, the daughter.
[2016-05-26 00:01] LABS: Glucose,Whole Blood 152 mg/dL (75-99)
[2016-05-26] MEDS: INSULIN LISPRO (humaLOG) 300 UNIT/3 ML VIAL SQ SCH ×2 (00:01→06:45)
[2016-05-26] MEDS: VANCOMYCIN ORAL SOLUTION 250 MG/5 ML BOTTLE OG-TUBE SCH ×3 (00:01→12:07)
[2016-05-26] MEDS: IPRATROPIUM-ALBUTEROL 3 ML NEB INHALATION SCH ×2 (03:28→07:05)
[2016-05-26] MEDS ORDERED: PROPOFOL 50 ML IV ONE (03:50)
[2016-05-26 05:09] LABS: Anisocytosis Slight; CH 29.3; HDW 3.43; HGB 9.1 gm/dL (11.4-16.0); Immature Gran Flag Marked; MCH 30.3 pg (25.0-35.0); MCHC 33.9 g/dL (31.0-37.0); MCV 89.5 fL (80.0-100.0); Mean Platelet Volume 7.2; Poikilocytosis Slight; RBC 3.02 m/uL (3.80-5.40); RDW 17.8 % (11.5-15.5)
[2016-05-26 05:10] LABS: ALT 200 U/L (9-52); AST 286 U/L (14-36); Alkaline Phosphatase 61 U/L (38-126); Anion Gap 9 mmol/L; Blood Urea Nitrogen 38 mg/dL (7-17); Carbon Dioxide 23 mmol/L (22-30); Chloride 115 mmol/L (98-107); Glucose 157 mg/dL (74-99); Non-African American GFR(MDRD) 50 (>60 ml/min/1.73 sqM); Phosphorous 2.5 mg/dL (2.5-4.5); Potassium 3.7 mmol/L (3.5-5.1); Sodium 147 mmol/L (137-145); Total Bilirubin 0.7 mg/dL (0.2-1.3); Total Protein 5.8 g/dL (6.3-8.2)
[2016-05-26 05:20] LABS: ABG Base Excess -2.4 mmol/L; ABG HCO3 20 mmol/L (21-25); ABG PCO2 25 mmHg (35-45); ABG PH 7.51 (7.35-7.45); ABG PO2 72 mmHg (83-108); ABG TCO2 21 mmol/L (19-24)
[2016-05-26 06:23] LABS: Glucose,Whole Blood 150 mg/dL (75-99)
[2016-05-26] MEDS: SODIUM CHLORIDE 5% OPHTH DROPS 15 ML BTL BOTH EYES SCH ×4 (06:44→20:19)
[2016-05-26] MEDS: LEVOTHYROXINE 100 MCG TAB PO SCH (06:44)
[2016-05-26] MEDS ORDERED: POTASSIUM CHLORIDE ORAL LIQUID 40 MEQ/30 ML CUP NG-TUBE SCH (07:00)
[2016-05-26] MEDS: BUDESONIDE 0.5 MG/2 ML NEBU INHALATION SCH (07:05)
[2016-05-26 08:20] LABS: Add Differential Manual Differential
--- NOTE | 2016-05-26 08:30 | PN ---
Mrs. Perez is a 66-year-old female who presented with sepsis, respiratory failure requiring mechanical ventilation. She remains intubated. She is on a low dose Levophed. She is in atrial fibrillation. Her hemodynamics otherwise are stable. She is not having significant tachycardiac. Her urine output has been relatively stable. She has been evaluated by Dr. Henderson for possible need to undergo a PEG and a trach. She continues to be at this time on the IV Cardizem, metoprolol tartrate 25 mg twice a day, Lasix 40 mg IV q.12 hours, insulin, Lipitor 40 mg daily and aspirin. PHYSICAL EXAMINATION: Blood pressure 113/40 with the heart rate in 90s. LUNGS: Clear. HEART: Irregular, irregular. S1, S2, no S3, with systolic murmur. ABDOMEN: Soft, positive bowel sounds. EXTREMITIES: Status post right AKA. Lab data revealed a pH 7.47 pCO2 of 26, pO2 of 67. Her white blood cells 32.4. BUN and creatinine 38 and 1.1. IMPRESSION: 1. Respiratory failure, remains intubated. 2. Sepsis. 3. Atrial fibrillation with controlled ventricular response. 4. Hypotension, persistent. 5. Status post amputation. 6. Morbid obesity. 7. Prior history of cerebrovascular accident. RECOMMENDATIONS: From the cardiac standpoint, will continue present therapy. If her heart rate is stable, then the IV Cardizem can be stopped. Depending on her progress, further recommendation will be made. Will await the plan from the house mover regarding the PEG and trach. Patient will need to be re-anticoagulated depending on the timing of her intervention.
[2016-05-26 08:33] LABS: Myelocytes % 8.5 %; Nucleated Red Blood Cells 2 /100 WBC (0-0); Promyelocytes % 0.5 %; Total Cells Counted 200
[2016-05-26 08:34] LABS: WBC 32.1 k/uL (3.8-10.6)
[2016-05-26 08:58] VITALS: TEMP 99.3
[2016-05-26] MEDS ORDERED: ENOXAPARIN 40 MG/0.4 ML SYRINGE SQ SCH (09:00)
[2016-05-26] MEDS: VALPROATE SODIUM 500 MG in SODIUM CHLORIDE 0.9% 50 ML IVPB SCH ×3 (09:05)
[2016-05-26] MEDS: SERTRALINE 100 MG TAB PO SCH (09:12)
[2016-05-26] MEDS: NYSTATIN 100,000 UNIT/GM POWD 15 GM TOPICAL SCH ×2 (09:12→20:19)
[2016-05-26] MEDS: CHOLESTYRAMINE (WITH SUGAR) 4 GM PACKET OG-TUBE SCH (09:13)
[2016-05-26] MEDS: COLLAGENASE 250 UNIT/GM OINTMENT 30 GM TUBE TOPICAL SCH (09:13)
[2016-05-26] MEDS: FAMOTIDINE 20 MG/2 ML VIAL IV SCH (09:13)
[2016-05-26] MEDS: FUROSEMIDE 10 MG/ML 4 ML VIAL IV SCH (09:13)
[2016-05-26] MEDS: CHLORHEXIDINE GLUCONATE 15 ML CUP MUCOUS MEM SCH (09:13)
[2016-05-26] MEDS: CEFTAROLINE FOSAMIL 600 MG in SODIUM CHLORIDE 0.9% 250 ML IVPB SCH (09:13)
[2016-05-26] MEDS: CALCIUM CARB-VIT D 500MG-200UN 1 EACH TAB PO SCH (09:13)
[2016-05-26] MEDS: ASPIRIN 325 MG TAB PO SCH (09:14)
[2016-05-26] MEDS: DEXTROSE 5% IN WATER 1,000 ML with SODIUM BICARB (1 MEQ/ML) 150 ML IV SCH (09:14)
[2016-05-26] MEDS: METOPROLOL TARTRATE 25 MG TAB PO SCH (09:14)
--- NOTE | 2016-05-26 09:20 | XR ---
EXAMINATION TYPE: XR chest 1V portable DATE OF EXAM: 05/26/2016 6:38 AM COMPARISON: 05/25/2016 HISTORY: Pneumonia TECHNIQUE: Single frontal view of the chest is obtained. FINDINGS: Bilateral airspace disease with pleural effusion. ET and NG tube noted. No pneumothorax. IMPRESSION: 1. Diffuse bilateral airspace disease correlate for CHF versus pneumonia.
[2016-05-26] MEDS ORDERED: HYDROmorphone 2 MG/ML 1 ML SYRINGE IVP STA (09:35)
[2016-05-26] MEDS: HYDROmorphone 1 MG/ML 1 ML SYRINGE IVP PRN (09:40)
--- NOTE | 2016-05-26 10:18 | P.PN ---
Subjective Progress note dated 05/26/2016 Mrs. Perez is a 76-year-old female who was admitted way back on the . Eyes icteric the phone call early that morning. She apparently was admitted through the emergency room with left-sided weakness and slurred speech and sepsis. She was intubated on that same date 11 nurse sidehand. Currently has been on the ventilator ever since that time. His made little or no progress. At a very brief weaning trial which he failed a couple days ago according to the nurse. I was able to talk to the patient's sister today. She resides down in [place]. She states that this patient would never want to be on life support. Would not want to continue with this. But certainly not want a tracheostomy and feeding tube placed. Hence, we will go ahead and withdraw life support. I asked whether or not any family member will come and visit her before she possibly expires but the daughter and the sister said that W be noted that was stopped by to see her. Anyway she currently is on the ventilator with the assist of settings of assist control mode 26 titer Lyme 500 FiO2 50% PEEP of 5. On those settings were pO2 of 72 pCO2 of 25 patient was 7.51. His blood gases consistent with a relative hypoxemia and appear respiratory alkalosis. I did adjust her ventilator before I found out her sister's wishes to the assist control mode rate of 32 and a tidal Lyme at 375. Drips include appointment 9 IV at 30 mL an hour a D5W IV with 3 A of bicarbonate 50 mL now her DIP or van at 20 initially and then up to 50 mics per kilogram per minute Cardizem drip at 5 mg an hour and vital HPI of 40 with a goal of 40. Chest x-ray shows diffuse infiltrates consistent with heart failure. Objective - Vital Signs Vital signs: Vital Signs Temp 99.3 F 05/26/16 08:30 Pulse 128 H 05/26/16 08:30 Resp 30 H 05/26/16 08:30 BP 119/50 05/23/16 12:00 Pulse Ox 100 05/26/16 08:30 Intake & Output 05/25/16 05/26/16 05/26/16 18:59 06:59 18:59 Intake Total 8286.470 7606.521 807.898 Output Total 922 1386 105 Balance 891.917 985.521 702.898 Weight 117.6 kg 114.9 kg Intake: IV 950 1165 425 Ceftaroline Fosamil 600 250 250 mg In Sodium Chloride 0.9 % 250 ml @ 250 mls/hr IVPB Q12HR [facility] Rx#: [id number] Dextrose 5% in Water 1, 600 600 100 000 ml @ 100 mls/hr IV . [id number] [facility] with Sodium Bicarb (1 Meq/ml) 150 ml Rx#:[id number] Diltiazem 125 mg In 60 55 5 Sodium Chloride 0.9% 100 ml @ 5 MG/HR 5 mls/hr IV .Q24H [facility] Rx#:[id number] Sodium Chloride 0.9% 1, 240 210 20 000 ml @ 20 mls/hr IV . Q24H [facility] Rx#:[id number] Valproate Sodium 500 mg 50 50 50 In Sodium Chloride 0.9% 50 ml @ 50 mls/hr IVPB Q8HR [facility] Rx#:[id number] Intake, IV Titration 383.917 81.521 87.898 Amount Diltiazem 125 mg In 117.917 5 Sodium Chloride 0.9% 100 ml @ 5 MG/HR 5 mls/hr IV .Q24H [facility] Rx#:[id number] Norepinephrine 16 mg In 266 31.521 67.298 Sodium Chloride 0.9% 250 ml @ Titrate IV .Q0M [facility] Rx#:[id number] Propofol 50 ml As IV .STK 15.6 [facility] Rx#:[id number] Propofol 500 mg In Empty 50 Bag 1 bag @ Titrate IV . Q0M [facility] Rx#:[id number] Tube Feeding 480 600 80 Other 525 215 Output: Urine 922 1386 105 Other: Voiding Method Indwelling Catheter Indwelling Catheter # Bowel Movements 1 1 ABP, PAP, CO, CI - Last Documented Arterial Blood Pressure 111/52 - Exam No acute distress, the patient's sedated. Very tachypneic and dyspneic and somewhat dyssynchronous with the ventilator. Hence SY the vent changes were made. HEENT examination is grossly unremarkable. Mucous membranes are moist. Anterior endotracheal tube and NG tube noted. Neck supple. Full range of motion. Cardiovascular examination reveals tachycardia. It is somewhat the irregular has somewhat as irregularity to a. The heart rates up into the 145-1 50 bpm range. Next Lungs reveal some coarse rhonchi and crackles. Breath sounds diminished. Abdomen is obese. Bowel sounds are heard. Extremities reveal 1+ pitting edema. - Labs CBC & Chem 7: 05/26/16 04:45 05/26/16 04:45 Labs: Abnormal Lab Results - Last 24 Hours (Table) 05/25/16 05/25/16 05/25/16 Range/Units 12:56 18:12 23:59 WBC (3.8-10.6) k/uL RBC (3.80-5.40) m/uL Hgb (11.4-16.0) gm/dL Hct (34.0-46.0) % RDW (11.5-15.5) % Neutrophils # (Manual) (1.3-7.7) k/uL Monocytes # (Manual) (0-1.0) k/uL Nucleated RBCs (0-0) /100 WBC ABG pH (7.35-7.45) ABG pCO2 (35-45) mmHg ABG pO2 (83-108) mmHg ABG HCO3 (21-25) mmol/L Sodium (137-145) mmol/L Chloride (98-107) mmol/L BUN (7-17) mg/dL Creatinine (0.52-1.04) mg/dL Glucose (74-99) mg/dL POC Glucose (mg/dL) 156 H 136 H 152 H (75-99) mg/dL Calcium (8.4-10.2) mg/dL AST (14-36) U/L ALT (9-52) U/L Total Protein (6.3-8.2) g/dL Albumin (3.5-5.0) g/dL 05/26/16 05/26/16 05/26/16 Range/Units 04:45 04:45 05:07 WBC 32.1 H* (3.8-10.6) k/uL RBC 3.02 L (3.80-5.40) m/uL Hgb 9.1 L (11.4-16.0) gm/dL Hct 27.0 L (34.0-46.0) % RDW 17.8 H (11.5-15.5) % Neutrophils # (Manual) 22.0 H (1.3-7.7) k/uL Monocytes # (Manual) 2.6 H (0-1.0) k/uL Nucleated RBCs 2 H (0-0) /100 WBC ABG pH 7.51 H (7.35-7.45) ABG pCO2 25 L (35-45) mmHg ABG pO2 72 L (83-108) mmHg ABG HCO3 20 L (21-25) mmol/L Sodium 147 H (137-145) mmol/L Chloride 115 H (98-107) mmol/L BUN 38 H (7-17) mg/dL Creatinine 1.10 H (0.52-1.04) mg/dL Glucose 157 H (74-99) mg/dL POC Glucose (mg/dL) (75-99) mg/dL Calcium 7.0 L (8.4-10.2) mg/dL AST 286 H (14-36) U/L ALT 200 H (9-52) U/L Total Protein 5.8 L (6.3-8.2) g/dL Albumin 2.1 L (3.5-5.0) g/dL 05/26/16 Range/Units 06:22 WBC (3.8-10.6) k/uL RBC (3.80-5.40) m/uL Hgb (11.4-16.0) gm/dL Hct (34.0-46.0) % RDW (11.5-15.5) % Neutrophils # (Manual) (1.3-7.7) k/uL Monocytes # (Manual) (0-1.0) k/uL Nucleated RBCs (0-0) /100 WBC ABG pH (7.35-7.45) ABG pCO2 (35-45) mmHg ABG pO2 (83-108) mmHg ABG HCO3 (21-25) mmol/L Sodium (137-145) mmol/L Chloride (98-107) mmol/L BUN (7-17) mg/dL Creatinine (0.52-1.04) mg/dL Glucose (74-99) mg/dL POC Glucose (mg/dL) 150 H (75-99) mg/dL Calcium (8.4-10.2) mg/dL AST (14-36) U/L ALT (9-52) U/L Total Protein (6.3-8.2) g/dL Albumin (3.5-5.0) g/dL Microbiology - Last 24 Hours (Table) 05/23/16 19:31 Blood Culture - Preliminary Blood No Growth after 48 hours 05/23/16 19:25 Blood Culture - Preliminary Blood No Growth after 48 hours 05/24/16 23:00 Gram Stain - Preliminary Groin Wound Culture - Preliminary 05/22/16 09:01 Blood Culture - Preliminary Blood No Growth after 72 hours 05/24/16 23:19 Anaerobic Culture - Preliminary Groin 05/22/16 11:55 Gram Stain - Final Sputum Sputum Culture - Final Jolnee albicans Methicillin resist S. aureus 05/22/16 09:10 Blood Culture Gram Stain - Final Blood Blood Culture - Final Staphylococcus epidermidis Coagulase Negative Staph Assessment and Plan (1) Acute renal failure Status: Acute (2) Altered mental status Status: Acute (3) Aortic stenosis Status: Acute (4) Hyperkalemia Status: Acute (5) Hypotension Status: Acute (6) Paroxysmal atrial fibrillation Status: Acute (7) Sepsis secondary to UTI Status: Acute (8) Severe sepsis with septic shock Status: Acute (9) Toxic metabolic encephalopathy Status: Acute (10) Urinary tract infection Status: Acute (11) Acute renal failure Status: Acute (12) Acute renal failure due to rhabdomyolysis Status: Acute (13) Diabetes Status: Acute (14) Encephalopathy acute Status: Acute (15) Gram negative sepsis Status: Acute (16) HTN (hypertension) Status: Acute (17) Hyperlipemia Status: Acute Plan: Plan dated 05/26/2016. I had a long talk with the assist her. She resides in [place]. She agreed that this patient would not want to be on life support and would not want a tracheostomy or a feeding tube. We did make some changes before I spoke to her including increasing the rate on the ventilator from 26-32 reducing the time of I'm down to 375 and changes updrafts from albuterol and Atrovent to Xopenex and Atrovent because of her tachycardia and A. fib. In addition we bumped her cardiac DIP or van up from 20 mics to code kilogram per minute up to 50 mics per kilogram per minute. Anyway, all that's insignificant are relevant at this point given the conversation I had with the sister. We'll go ahead and stop by life support. We'll extubate the patient. We'll put a scopolamine patch on. We'll start a morphine drip. We'll do doesn't nothing to hasten her . Return the IV down to KVO. We'll DC the nonessential IVs included D5W IV the dipper than the Cardizem and DC the tube feeds. Also have a liter the nurse go through and discontinue all unnecessary medications including updrafts. Obviously, her is probably imminent. Time with Patient: Greater than 30
--- NOTE | 2016-05-26 10:46 | PN ---
DATE OF SERVICE: 05/25/2016 Reason for follow-up: 1. MRSA pneumonia. 2. Question of Clostridium difficile colitis. INTERVAL HISTORY: The patient did have a low-grade fever of 100.3 today. The patient also noted to have significant diarrhea and did have wound in the left groin area from the previous femoral catheter, she remains to be intubated on the vent. Tolerating tube feeds. Fio2 stable at 50%. On examination, blood pressure is 121/47 with a pulse of 120, temperature 98.5. She is 98% on 50% FiO2. General description is an elderly female lying in bed in no distress. RESPIRATORY SYSTEM: Unlabored breathing with decreased breath sounds at the bases. HEART: S1, S2 regular rate and rhythm. ABDOMEN: Soft. Remains to be slightly distended. Left groin area with wound showing slough tissue. LABS: Hemoglobin 9.2, white count 32.4, BUN of 38, creatinine 1.10. Liver enzymes remain to be elevated. DIAGNOSTIC IMPRESSION AND PLAN: 1. The patient with acute respiratory failure vent dependent, sputum has been Methicillin-resistant Staph aureus for which the patient is currently on Teflaro. 2. Patient does have significant diarrhea. multiple stools for Clostridium has been negative. Clinically behaving as Clostridium difficile especially with elevated white count. The patient is currently not on any steroids. Will continue Questran, will add vancomycin in the percutaneous endoscopic gastrostomy feeding tube. 3. Left groin wound, will apply Santyl followed by moist dressing. Continue supportive care. MTDD
[2016-05-26] MEDS ORDERED: SCOPOLAMINE 1.5MG/72HR PATCH TRANSDERM PRN (11:55)
[2016-05-26] MEDS ORDERED: LEVALBUTEROL NEB 1.25 MG/3 ML AMP INHALATION SCH (12:00)
[2016-05-26] MEDS ORDERED: MORPHINE SULFATE (100 MG/2 ML) 100 MG in SODIUM CHLORIDE 0.9% 100 ML IV SCH (12:00)
--- NOTE | 2016-05-26 13:22 | P.PN ---
Subjective 66-year-old female being seen in the intensive care unit. Currently on vent support. Did note the cq developer did have a telephone conversation with the patient's sister. The sister lives in [place]. Reviewing the notes indicate that the patient would not want to be on life support. A tracheostomy and a PEG tube was offered and the sister indicated that the patient would not want this. Currently the decision has been made to withdraw life support. Hospital course A 66-year-old female was admitted on May 15 from the [facility] was noted to be having difficulty speaking with left arm weakness. Patient has a history of a prior stroke. Patient has a history of multiple small infarcts in the brain. In December 2015 patient was worked up for a CVA. Patient was seen in the emergency room intubated and transferred to the intensive care unit patient was noted in the emergency room to have an altered mental status. Additionally patient was noted to be in acute renal failure with hyperkalemia. Patient was found to be in hypotensive shock. Needed to be resuscitated with 4 L of IV fluid in the emergency room. The potassium was corrected patient was stabilized and transferred to the intensive care unit. Patient needed to be started on pressor support. Additionally patient had a dialysis catheter inserted was given a session of dialysis for the acute hyperkalemia by nephrology. The MRI of the brain indicated and nonacute vascular insult in the right lateral occipital lobes as well as a high right frontal lobe infarct in the left parietal lobe infarct. Cardiology consultation was requested. Patient did have a JOSE which did show moderate degree of aortic stenosis. Chest x-ray strongly suspect that there is severe pneumonia involving the right lung. Patient was started on IV Zosyn and Levaquin as well as IV vancomycin. Patient does have a history of having multiple UTIs in the past. Patient was followed throughout the hospitalization by multiple consulting physicians all recommendations were noted appreciated and reviewed. Patient continued to have persistent acute hypoxic respiratory failure vent dependent sputum positive for MRSA patient was followed by cardiology service patient has atrial fibrillation with controlled ventricular response was maintained on IV Cardizem drip as well as a beta sarina. Patient was monitored with the network operations center technician recommendations throughout the hospitalization. Decision was made on May 26 by the network operations center technician per telephone conversation with a sister to stop life support extubate patient started on morphine drip and stop the nonessential medications. Per telephone conversation by the network operations center technician with a sister they did not want to have a PEG tube or tracheostomy at this time Objective - Vital Signs Vital signs: Vital Signs Temp 99.3 F 05/26/16 08:30 Pulse 120 H 05/26/16 12:30 Resp 26 H 05/26/16 12:30 BP 119/50 05/23/16 12:00 Pulse Ox 100 05/26/16 12:30 Intake & Output 05/25/16 05/26/16 05/26/16 18:59 06:59 18:59 Intake Total 0477.076 7990.521 1414.970 Output Total 922 1386 1245 Balance 891.917 985.521 169.970 Weight 117.6 kg 114.9 kg 114.9 kg Intake: IV 950 1165 635 Ceftaroline Fosamil 600 250 250 mg In Sodium Chloride 0.9 % 250 ml @ 250 mls/hr IVPB Q12HR [facility] Rx#: [id number] Dextrose 5% in Water 1, 600 600 250 000 ml @ 100 mls/hr IV . [id number] [facility] with Sodium Bicarb (1 Meq/ml) 150 ml Rx#:[id number] Diltiazem 125 mg In 60 55 5 Sodium Chloride 0.9% 100 ml @ 5 MG/HR 5 mls/hr IV .Q24H [facility] Rx#:[id number] Sodium Chloride 0.9% 1, 240 210 80 000 ml @ 20 mls/hr IV . Q24H [facility] Rx#:[id number] Valproate Sodium 500 mg 50 50 50 In Sodium Chloride 0.9% 50 ml @ 50 mls/hr IVPB Q8HR [facility] Rx#:[id number] Intake, IV Titration 383.917 81.521 244.970 Amount Diltiazem 125 mg In 117.917 10 Sodium Chloride 0.9% 100 ml @ 5 MG/HR 5 mls/hr IV .Q24H [facility] Rx#:[id number] Norepinephrine 16 mg In 266 31.521 75.770 Sodium Chloride 0.9% 250 ml @ Titrate IV .Q0M [facility] Rx#:[id number] Propofol 50 ml As IV .STK 109.2 [facility] Rx#:[id number] Propofol 500 mg In Empty 50 50 Bag 1 bag @ Titrate IV . Q0M [facility] Rx#:[id number] Oral 100 Tube Feeding 480 600 160 Other 525 275 Output: Urine 922 1386 495 Stool 750 Other: Voiding Method Indwelling Catheter Indwelling Catheter Indwelling Catheter # Bowel Movements 1 1 ABP, PAP, CO, CI - Last Documented Arterial Blood Pressure 117/40 - Exam Physical exam 66-year-old female orally intubated sedated on vent support Lungs diminished bilaterally at the bases with coarse rhonchi no wheezing heart S1-S2 audible irregular monitor A. fib rate 120s 130s on IV Cardizem drip Abdomen soft obese indwelling Ramos catheter in place frequent stooling Extremities a left BKA no edema noted - Labs CBC & Chem 7: 05/26/16 04:45 05/26/16 04:45 Labs: Abnormal Lab Results - Last 24 Hours (Table) 05/25/16 05/25/16 05/25/16 Range/Units 12:56 18:12 23:59 WBC (3.8-10.6) k/uL RBC (3.80-5.40) m/uL Hgb (11.4-16.0) gm/dL Hct (34.0-46.0) % RDW (11.5-15.5) % Neutrophils # (Manual) (1.3-7.7) k/uL Monocytes # (Manual) (0-1.0) k/uL Nucleated RBCs (0-0) /100 WBC ABG pH (7.35-7.45) ABG pCO2 (35-45) mmHg ABG pO2 (83-108) mmHg ABG HCO3 (21-25) mmol/L Sodium (137-145) mmol/L Chloride (98-107) mmol/L BUN (7-17) mg/dL Creatinine (0.52-1.04) mg/dL Glucose (74-99) mg/dL POC Glucose (mg/dL) 156 H 136 H 152 H (75-99) mg/dL Calcium (8.4-10.2) mg/dL AST (14-36) U/L ALT (9-52) U/L Total Protein (6.3-8.2) g/dL Albumin (3.5-5.0) g/dL 05/26/16 05/26/16 05/26/16 Range/Units 04:45 04:45 05:07 WBC 32.1 H* (3.8-10.6) k/uL RBC 3.02 L (3.80-5.40) m/uL Hgb 9.1 L (11.4-16.0) gm/dL Hct 27.0 L (34.0-46.0) % RDW 17.8 H (11.5-15.5) % Neutrophils # (Manual) 22.0 H (1.3-7.7) k/uL Monocytes # (Manual) 2.6 H (0-1.0) k/uL Nucleated RBCs 2 H (0-0) /100 WBC ABG pH 7.51 H (7.35-7.45) ABG pCO2 25 L (35-45) mmHg ABG pO2 72 L (83-108) mmHg ABG HCO3 20 L (21-25) mmol/L Sodium 147 H (137-145) mmol/L Chloride 115 H (98-107) mmol/L BUN 38 H (7-17) mg/dL Creatinine 1.10 H (0.52-1.04) mg/dL Glucose 157 H (74-99) mg/dL POC Glucose (mg/dL) (75-99) mg/dL Calcium 7.0 L (8.4-10.2) mg/dL AST 286 H (14-36) U/L ALT 200 H (9-52) U/L Total Protein 5.8 L (6.3-8.2) g/dL Albumin 2.1 L (3.5-5.0) g/dL 05/26/16 Range/Units 06:22 WBC (3.8-10.6) k/uL RBC (3.80-5.40) m/uL Hgb (11.4-16.0) gm/dL Hct (34.0-46.0) % RDW (11.5-15.5) % Neutrophils # (Manual) (1.3-7.7) k/uL Monocytes # (Manual) (0-1.0) k/uL Nucleated RBCs (0-0) /100 WBC ABG pH (7.35-7.45) ABG pCO2 (35-45) mmHg ABG pO2 (83-108) mmHg ABG HCO3 (21-25) mmol/L Sodium (137-145) mmol/L Chloride (98-107) mmol/L BUN (7-17) mg/dL Creatinine (0.52-1.04) mg/dL Glucose (74-99) mg/dL POC Glucose (mg/dL) 150 H (75-99) mg/dL Calcium (8.4-10.2) mg/dL AST (14-36) U/L ALT (9-52) U/L Total Protein (6.3-8.2) g/dL Albumin (3.5-5.0) g/dL Microbiology - Last 24 Hours (Table) 05/22/16 09:01 Blood Culture - Preliminary Blood No Growth after 96 hours 05/23/16 19:31 Blood Culture - Preliminary Blood No Growth after 48 hours 05/23/16 19:25 Blood Culture - Preliminary Blood No Growth after 48 hours 05/24/16 23:00 Gram Stain - Preliminary Groin Wound Culture - Preliminary 05/24/16 23:19 Anaerobic Culture - Preliminary Groin 05/22/16 11:55 Gram Stain - Final Sputum Sputum Culture - Final Jolene albicans Methicillin resist S. aureus 05/22/16 09:10 Blood Culture Gram Stain - Final Blood Blood Culture - Final Staphylococcus epidermidis Coagulase Negative Staph Assessment and Plan Plan: Impression Acute hypoxic respiratory failure requiring mechanical ventilation Present on admission acute renal failure requiring hemodialysis Present on admission sepsis with septic shock suspect due to MRSA pneumonia right lobe and UTI with positive sputum for MRSA Severe pulmonary hypertension possibly secondary to fluid overload Bronchospasm Present on admission toxic metabolic encephalopathy Morbid Obesity BMI 39 Metabolic acidosis non-anion gap Acute seizure History of prior CVA Valvular heart disease moderate degree of aortic stenosis with preserved LV function per echocardiogram April 2016 Anxiety depressive disorder nonspecified Chronic physical debility limited mobility wheelchair bedbound 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 Agree with DC non- essential medication. Optimize comfort care measures The above dictated assessment and findings were discussed with dr velazquez . Impression and the plan of care have been dictated as directed. Ruth Espinal nurse practitioner acting as a scribe for dr velazquez
[2016-05-26 21:35] VITALS: PULSE 0; RESP 0
--- NOTE | 2016-06-21 09:40 | HP ---
DATE OF ADMISSION: 05/15/2016 SUBJECTIVE: 66-year-old white female admitted with acute CVA. [facility] possible [facility]. She is having trouble speaking, she has left arm weakness. She has a history of a prior stroke severe quality. In the ER, she was seen and was is admitted to ICU for which this time she was intubated. MEDICATIONS INCLUDE: 1. Lipitor 40 daily. 2. Claritin 10 daily. 3. Eliquis 2.5 b.i.d. 4. Zyprexa 10 t.i.d. 5. Zoloft 100 daily. 6. Norvasc 10 daily. 7. Xanax 1 mg q.6 hours. 8. Aspirin 325 mg daily. 9. Tenormin 25 mg daily. 10. Lasix 20 daily. 11. Neurontin 100 b.i.d. 12. Zestril 20 mg daily. 13. MS Contin 15 q.12 hours. ALLERGIES: Unknown. REVIEW OF SYSTEMS: Unobtainable. PHYSICAL EXAMINATION: Obese white female with a ( ) a.k.a. for which she has had for years. ABDOMEN: Soft, nontender. CARDIOVASCULAR: S1, S2. LUNGS: Decreased breath sounds to the ( ) a.k.a., as mentioned. Potassium 7.8, sodium 142, BUN 58, creatinine 3.46. Ventilator settings were reviewed. ASSESSMENT: 1. Hyperkalemia. 2. Acute renal failure. 3. Urinary tract infection. 4. Altered mental status. 5. Hypertension. 6. Possible stroke. She is on a ventilator at this time. Ventilator settings and notes all reviewed. Prognosis extremely guarded.
--- NOTE | 2016-06-21 12:15 | DS ---
DATE OF ADMISSION: 05/15/2016 DATE OF DISCHARGE: 05/26/2016 This is a white female who was admitted to ICU with acute respiratory failure, toxic metabolic encephalopathy, acute renal failure, hyperkalemia, acute kidney injury and tubular necrosis, hypertension with shock. Started on pressors in ICU. Norepinephrine infusion. ( ) catheter was inserted for hyperkalemia treatment. Dialyzed during her stay, but she was unable to be intubated for multiple days in ICU. She was treated for broad spectrum antibiotics. She had aortic stenosis also. She has history of blood clots. She was on Eliquis. She was started on Zosyn Levaquin and vancomycin by infectious disease for sepsis. She was found to have consolidation of the right lung. 70% blockage of the left carotid artery. Family decided to make her take her off the ventilator after discussion with Dr. Christian with the daughter in [place] with diagnosis of: 1. Acute septic shock, hyperkalemia, renal failure versus pneumonia. 2. Probable stroke with history of multiple central nervous system infarcts. 3. Moderate aortic stenosis. 4. Morbid obesity. 5. Right above-knee amputation. 6. Acute renal injury. 7. Acute tubular necrosis. Please see further orders.
== END 2016-05-26 23:19 | disposition expired | DRG 853 ==
LOC: EC 19:07 → 6ICU 21:54
PROVIDERS: ADMIT Family Medicine; ATTEND Family Medicine
PROC: 06HN33Z Insertion of Infusion Device into Left Femoral Vein, Percutaneous Approach (ICD-10-PCS; 2016-05-15)
PROC: 5A1955Z Respiratory Ventilation, Greater than 96 Consecutive Hours (ICD-10-PCS; 2016-05-16)
PROC: 0BH17EZ Insertion of Endotracheal Airway into Trachea, Via Natural or Artificial Opening (ICD-10-PCS; 2016-05-16)
PROC: 0B948ZX Drainage of Right Upper Lobe Bronchus, Via Natural or Artificial Opening Endoscopic, Diagnostic (ICD-10-PCS; principal; 2016-05-17 12:14)
PROC: 03HC33Z Insertion of Infusion Device into Left Radial Artery, Percutaneous Approach (ICD-10-PCS; 2016-05-22)
PROC: 04HK33Z Insertion of Infusion Device into Right Femoral Artery, Percutaneous Approach (ICD-10-PCS; 2016-05-22)
PROC: 0JH630Z Insertion of Hemodynamic Monitoring Device into Chest Subcutaneous Tissue and Fascia, Percutaneous Approach (ICD-10-PCS; 2016-05-22)
DX: A41.02 Sepsis due to Methicillin resistant Staphylococcus aureus (principal); I63.9 Cerebral infarction, unspecified; J96.01 Acute respiratory failure with hypoxia; N17.0 Acute kidney failure with tubular necrosis; R65.21 Severe sepsis with septic shock; J69.0 Pneumonitis due to inhalation of food and vomit; R56.9 Unspecified convulsions; G92 Toxic encephalopathy; M62.82 Rhabdomyolysis; I50.31 Acute diastolic (congestive) heart failure; G21.0 Malignant neuroleptic syndrome; J15.212 Pneumonia due to Methicillin resistant Staphylococcus aureus; E87.0 Hyperosmolality and hypernatremia; D62 Acute posthemorrhagic anemia; E87.4 Mixed disorder of acid-base balance; I13.0 Hypertensive heart and chronic kidney disease with heart failure and stage 1 through stage 4 chronic kidney disease, or unspecified chronic kidney disease; I47.1 Supraventricular tachycardia; L03.314 Cellulitis of groin; N39.0 Urinary tract infection, site not specified; Z99.11 Dependence on respirator [ventilator] status; G62.9 Polyneuropathy, unspecified; E11.22 Type 2 diabetes mellitus with diabetic chronic kidney disease; I48.0 Paroxysmal atrial fibrillation; E11.69 Type 2 diabetes mellitus with other specified complication; E87.5 Hyperkalemia; B18.2 Chronic viral hepatitis C; E03.9 Hypothyroidism, unspecified; E78.5 Hyperlipidemia, unspecified; F32.9 Major depressive disorder, single episode, unspecified; F41.9 Anxiety disorder, unspecified; G89.4 Chronic pain syndrome; I27.2 Other secondary pulmonary hypertension; I35.0 Nonrheumatic aortic (valve) stenosis; I65.22 Occlusion and stenosis of left carotid artery; J45.909 Unspecified asthma, uncomplicated; K21.9 Gastro-esophageal reflux disease without esophagitis; M19.90 Unspecified osteoarthritis, unspecified site; Z96.651 Presence of right artificial knee joint; N18.9 Chronic kidney disease, unspecified; Z74.01 Bed confinement status; Z79.82 Long term (current) use of aspirin; Z82.49 Family history of ischemic heart disease and other diseases of the circulatory system; Z87.891 Personal history of nicotine dependence; Z89.611 Acquired absence of right leg above knee; Z99.3 Dependence on wheelchair; Z79.899 Other long term (current) drug therapy; Z86.73 Personal history of transient ischemic attack (TIA), and cerebral infarction without residual deficits; Z93.1 Gastrostomy status
CPT/HCPCS: 31500; 31624; 36415; 36600; 70450; 71010; 76770; 80048; 80053; 80061; 80162; 80202; 80299; 80300; 81001; 81003; 82140; 82330; 82533; 82550; 82553; 82803; 82805; 83036; 83090; 83605; 83615; 83735; 83880; 84100; 84132; 84484; 85025; 85027; 85379; 85610; 85730; 86850; 86900; 86901; 86920; 87040; 87070; 87075; 87077; 87086; 87102; 87186; 87205; 87252; 87324; 87493; 87496; 87498; 87502; 87521; 87522; 87529; 87798; 89050; 90935; 93005; 93306; 94002; 94003; 94640; 95819; 96361; 96365; 96366; 96367; 96375; 99291